=== PATIENT | male | born 1995 | race Caucasian/White ===

== ENCOUNTER 2018-05-14 09:32 | Emergency (ER) | payer MEDICAID, SELFPAY ==
[2018-05-14 09:36] VITALS: BP 130/75; PULSE 66; RESP 15; TEMP 37; O2SAT 99
[2018-05-14 09:41] LABS: Bilirubin Negative (Negative); Blood Large (Negative); Glucose Negative (Negative); Ketones Negative (Negative); Leukocyte Esterase Negative (Negative); Nitrite Negative (Negative); Specific Gravity 1.015 (1.005-1.025); Urobilinogen 0.2 EU/dL (Up TO 0.2)
[2018-05-14 09:42] LABS: Clarity Sl Cloudy
[2018-05-14 09:49] LABS: Bacteria Negative HPF (Negative); C & S Indicated? Yes; Casts Negative LPF (Negative); Crystals Negative HPF (Negative); Epithelial Cells Negative HPF (Negative); Mucus Negative (Negative); RBC >50 (0-2)
--- NOTE | 2018-05-14 10:07 | DI.US_ITS ---
SYMPTOM/DIAGNOSIS: RT FLANK PAIN, H/O STONES, HEMATURIA RENAL ULTRASOUND: 05/14/18 The kidneys are normal in size and shape and there is no evidence of a renal mass, hydronephrosis or nephrolithiasis. Urinary bladder is unremarkable in appearance with pre and post void urinary bladder volume measurements of 178 cc and 10 cc respectively. CONCLUSION: Unremarkable renal ultrasound.
[2018-05-14] MEDS: Normal Saline 1,000 ML 1000 ML IV (10:10)
--- NOTE | 2018-05-14 10:10 | W.ED.GENAD ---
Discharge Plan Discharge Details Chief Complaint: FlankPain Clinical Impression: Nephrolithiasis Reason For Visit: KIDNEY STONE? Primary Care Provider: Nicholas Perez ED Provider: Nicole Minaya Disposition Patient Disposition: HOME Condition: Improving Home Meds and New Rx's Prescriptions: Continue rizatriptan [Maxalt-TOBACCO SCRAP SIFTER] 10 MG tablet,disintegrating 10 mg PO PRN Qty: 3 RF: 1 carisoprodol [Soma] 350 MG tablet 350 mg PO TID PRN RF: 0 Discharge Instructions Instructions: Kidney Stones (ED) Additional Instructions: Please encourage hydration (with water). Tylenol and/or Motrin as needed for discomfort. administrative coordinator will contact you regarding follow up with urology. Number is listed below if you need to change appointment. If you develop fevers/chills, change in urinary habits, increased pain or other new/worsening symptoms please seek care urgently once again. Referrals: Jeffrey Max MD [ [facility] STAFF PHYSICIAN] - 2 weeks (For hematuria and possible nephrolithiasis) Discharge Data Discharge Date/Time-TO BE ENTERED AT DEPARTURE: 05/14/18 11:36 Medical Decision Making [facility] Narrative Medical decision making narrative: Patient is a 23 year old male presenting with chief complaint of hematuria and right sided flank pain that has been present on and off for the past few months. Reports that when the hematuria is subsided he does not have any discomfort. When the pain is maximal it can radiate around toward the RLQ. No abdominal pain on exam at this time. Patient did have right sided CVA tenderness. He reports that there is a large amount of blood in the toilet when urinating, denies clots. States that he has discomfort with urination. No penile discharge or discomfort. No blood from penis when not urinating. Patient and his mother have history of nephrolithiasis. Does not know if this feels similar to past episodes. Reports he does not drink water during the day. Is not currently employed. Will obtain labs, urination and renal US. Discussed plan with patient who agrees. We will hydrate while here, he appears dehydrated on exam. Labs reviewed. No leukocytosis. Kidney function WNL. Urinalysis signficant for hematuria. No bacteria, negative nitrite and leukocyte esterase. Per telecommunications technician, no abnormalities noted. No stone visualized. When patient returned from diagnostic imaging, he reports he was able to urinate again and no hematuria was noted. Reports this has happened before. When this last happened he was then asymptomatic for several weeks. REports that pain has now gone, no longer endorsing abdominal pain, testicular pain or flank pain. Is currently asymptomatic. Radiology report agrees with the home teaching grades 7 and 8 teacher. No acute abnormalities as noted. As the patient's symptoms have improved, is no longer feeling asymptomatic and his hematuria seems to have resolved, and concerned he may have passed a stone. He reports that he has done this on several occasions in the past. He does have history of nephrolithiasis. Encourage hydration. He will use Tylenol and/or ibuprofen as needed for recurrent discomfort. I have asked our child day care provider help facilitate follow-up appointment with Dr. Max for reevaluation. He was given strict return precautions. All his questions and concerns were addressed and he is in agreement with this plan Lab Data Lab Results 05/14/18 Range/Units 09:35 Urine Color [place] (Yellow) Urine Clarity Sl cloudy Urine pH 8.0 (5-8) Ur Specific [place] 1.015 (1.005-1.025) Urine Protein Negative (Negative) mg/dL Urine Ketones Negative (Negative) mg/dL Urine Blood Large H (Negative) Urine Nitrite Negative (Negative) Urine Bilirubin Negative (Negative) Urine Urobilinogen 0.2 (Up TO 0.2) EU/dL Ur Leukocyte Esterase Negative (Negative) Urine RBC >50 H (0-2) Urine WBC 5-10 (0-5) HPF Ur Epithelial Cells Negative (Negative) HPF Urine Crystals Negative (Negative) HPF Urine Bacteria Negative (Negative) HPF Urine Casts Negative (Negative) LPF Urine Mucus Negative (Negative) Ur Culture Indicated? Yes Urine Glucose Negative (Negative) mg/dL HPI - General Adult General Date/Time Provider Initiated Documentation: 05/14/18 09:57. Limitations to Documentation: no limitations. Information obtained by: patient and family. History of Present Illness 23 year old M presents to the emergency department with the chief complaint of Flank pain and hematuria, described as moderate, Quality is described as aching (right flank and RLQ) and constant, and is localized to the back, abdomen and genitals (right testicle with urination). Patient reports no radiation. and it has been constant (Patient has had constant pain since re-onset of symptoms over the past 24 hours, had had same symptoms a few weeks ago. ). No relieving factors improve symptom(s), Other factors that worsen symptoms (Pain is worse during urination) . Patient notes other (Denies penile discharge, no penile discomfort. States he has not had history of STI, is not sexually active. ); denies chest pain, cough, fever/chills, loss of appetite, malaise, nausea/vomiting and rash. Patient did receive the following treatments prior to arrival, none HPI Narrative: Patient presents, accompanied by mother, with chief complaint of right flank pain and hematuria. Related Data Home Medications Medication Instructions Recorded Confirmed carisoprodol [Soma] 350 mg PO TID PRN tab-cap 04/17/17 05/14/18 Allergies Allergy/AdvReac Type Severity Reaction Status Date / Time No Known Allergies Allergy Unverified 05/14/18 09:41 General Stated Complaint: FlankPain SCARLETT: 3 Review of Systems Constitutional Reports as per HPI, Denies anorexia, Denies body ache(s), Denies chills, Denies fever(s) and Denies poor appetite Cardiovascular Denies chest pain, Denies chest pain with activity and Denies edema Respiratory Denies cough Gastrointestinal Reports as per HPI, Reports abdominal pain (RLQ pain, pain worse prior to urination and associated with pain increased in the right flank. He indicates pain radiating around the right flank toward the RLQ and then to right testicle during urination. ), Denies bloating, Denies change in bowel habits, Denies cramping, Denies diarrhea, Denies loose stools, Denies nausea and Denies vomiting Genitourinary Reports as per HPI, Reports hematuria, Denies difficulty urinating, Denies erectile dysfunction, Reports flank pain (right flank), Denies painful ejaculations, Denies scrotal swelling, Denies testicular mass and Reports testicular pain Musculoskeletal Reports as per HPI and Reports back pain (Patient also endorses chronic back pain, reports this is more lumbar pain) [facility] Social History Smoking/Tobacco Use Status: Never Exam Const General: cooperative, healthy appearing, comfortable, no acute distress, well developed and well groomed Nutritional Appearance: average body habitus and thin Orientation: alert and awake HENMT Teeth and gingiva: other (Patient appears dehydrated with dry mucous membranes) Eyes General: appearance normal, both eyes and all related structures Chest Chest: normal inspection of the chest Resp Effort & Inspection: normal respiratory effort, able to speak in complete sentences and no respiratory distress Auscultation: clear to auscultation bilaterally Cardio Rate: regular rate Rhythm: regular rhythm Heart Sounds: S1 normal and S2 normal GI Inspection: normal to inspection, no abdominal wall ecchymosis, non-distended, no scars and no visible herniation Palpation: soft, no hepatosplenomegaly, not firm, no guarding, no pulsatile masses and nontender Percussion: normal to percussion Auscultation: normal bowel sounds Male General Exam: Yes normal external exam, No ecchymosis, No edema, No erythema, No hernia, No inguinal lymphadenopathy and No lacerations Penis: normal penis, no ecchymosis, not edematous and no masses Meatus: meatus normal Scrotum: scrotum normal, no ecchymosis, not edematous, not erythematous and no scrotal swelling Testes: normal, no epidiymal tenderness, no masses, no testicular tenderness and normal testicular lie Back/Spine/Pelvis Back: CVA tenderness (right sided), No erythema and No warmth Skin General skin exam: no rashes or lesions noted and no scars Neuro General: alert and awake Cognition: normal cognition Speech: speech normal Gait: normal gait Course Vital Signs Temperature 37 C 05/14/18 09:36 Pulse 66 05/14/18 09:36 Respiratory Rate 15 05/14/18 09:36 Blood Pressure 130/75 05/14/18 09:36 Pulse Oximetry 99 05/14/18 09:36 Temperature 37 C 05/14/18 09:36 Pulse 66 05/14/18 09:36 Respiratory Rate 15 05/14/18 09:36 Blood Pressure 130/75 05/14/18 09:36 Pulse Oximetry 99 05/14/18 09:36 Lab/Test Results Lab/Test Results: Laboratory Tests 05/14/18 09:35 Urine Color [place] Urine Clarity Sl cloudy Urine pH 8.0 Ur Specific [place] 1.015 Urine Protein Negative Urine Ketones Negative Urine Blood Large H Urine Nitrite Negative Urine Bilirubin Negative Urine Urobilinogen 0.2 Ur Leukocyte Esterase Negative Urine RBC >50 H Urine WBC 5-10 Ur Epithelial Cells Negative Urine Crystals Negative Urine Bacteria Negative Urine Casts Negative Urine Mucus Negative Ur Culture Indicated? Yes Urine Glucose Negative
[2018-05-14 10:22] LABS: Abs Immature Grans 0.01 k/cumm (0.0-0.09); Absolute Basophil Count 0.04 k/cumm (0.0-0.2); Absolute Eosinophil Count 0.19 k/cumm (0.0-0.7); Absolute Lymphocyte Count 2.04 k/cumm (1.2-3.4); Absolute Monocyte Count 0.29 k/cumm (0.11-0.7); Basophils % 0.9; Eosinophils % 4.1; HCT 41.8 % (40.0-50.0); HGB 14.5 g/dL (13.5-17.5); Immature Grans % 0.2; Lymphocytes % 43.7; Mean Corp. HGB Concentration 34.7 g/dL (32.0-36.0); Mean Corpuscular Hemoglobin 28.4 pg (27.0-33.0); Mean Platelet Volume 10.7 fL (8.0-11.0); Monocytes % 6.2; Neutrophils % 44.9; Platelet Count 210 x1000/uL (130-400); RBC Distribution Width 13.5 % (11.8-14.1); White Blood Cell Count 4.67 k/cumm (4.4-10.8)
--- NOTE | 2018-05-14 10:26 | ED.GENADUL_ITS ---
Discharge Plan Discharge Details Chief Complaint: FlankPain Clinical Impression: Nephrolithiasis Reason For Visit: KIDNEY STONE? Primary Care Provider: Nicholas Perez ED Provider: Nicole Minaya Disposition Patient Disposition: HOME Condition: Improving Home Meds and New Rx's Prescriptions: Continue rizatriptan [Maxalt-ACCIDENT EXAMINER] 10 MG tablet,disintegrating 10 mg PO PRN Qty: 3 RF: 1 carisoprodol [Soma] 350 MG tablet 350 mg PO TID PRN RF: 0 Discharge Instructions Instructions: Kidney Stones (ED) Additional Instructions: Please encourage hydration (with water). Tylenol and/or Motrin as needed for discomfort. physical therapy coordinator will contact you regarding follow up with urology. Number is listed below if you need to change appointment. If you develop fevers/chills, change in urinary habits, increased pain or other new/ worsening symptoms please seek care urgently once again. Referrals: Jeffrey Max MD [ [facility] STAFF PHYSICIAN] - 2 weeks (For hematuria and possible nephrolithiasis) Discharge Data Discharge Date/Time-TO BE ENTERED AT DEPARTURE: 05/14/18 11:36 Medical Decision Making [facility] Narrative Medical decision making narrative: Patient is a 23 year old male presenting with chief complaint of hematuria and right sided flank pain that has been present on and off for the past few months. Reports that when the hematuria is subsided he does not have any discomfort. When the pain is maximal it can radiate around toward the RLQ. No abdominal pain on exam at this time. Patient did have right sided CVA tenderness. He reports that there is a large amount of blood in the toilet when urinating, denies clots. States that he has discomfort with urination. No penile discharge or discomfort. No blood from penis when not urinating. Patient and his mother have history of nephrolithiasis. Does not know if this feels similar to past episodes. Reports he does not drink water during the day. Is not currently employed. Will obtain labs, urination and renal US. Discussed plan with patient who agrees. We will hydrate while here, he appears dehydrated on exam. Labs reviewed. No leukocytosis. Kidney function WNL. Urinalysis signficant for hematuria. No bacteria, negative nitrite and leukocyte esterase. Per electronics engineering technician, no abnormalities noted. No stone visualized. When patient returned from diagnostic imaging, he reports he was able to urinate again and no hematuria was noted. Reports this has happened before. When this last happened he was then asymptomatic for several weeks. REports that pain has now gone, no longer endorsing abdominal pain, testicular pain or flank pain. Is currently asymptomatic. Radiology report agrees with the hog trader. No acute abnormalities as noted. As the patient's symptoms have improved, is no longer feeling asymptomatic and his hematuria seems to have resolved, and concerned he may have passed a stone. He reports that he has done this on several occasions in the past. He does have history of nephrolithiasis. Encourage hydration. He will use Tylenol and/ or ibuprofen as needed for recurrent discomfort. I have asked our child care worker help facilitate follow-up appointment with Dr. Max for reevaluation. He was given strict return precautions. All his questions and concerns were addressed and he is in agreement with this plan Lab Data Lab Results 05/14/18 Range/Units 09:35 Urine Color [place] (Yellow) Urine Clarity Sl cloudy Urine pH 8.0 (5-8) Ur Specific [place] 1.015 (1.005-1.025) Urine Protein Negative (Negative) mg/dL Urine Ketones Negative (Negative) mg/dL Urine Blood Large H (Negative) Urine Nitrite Negative (Negative) Urine Bilirubin Negative (Negative) Urine Urobilinogen 0.2 (Up TO 0.2) EU/dL Ur Leukocyte Esterase Negative (Negative) Urine RBC >50 H (0-2) Urine WBC 5-10 (0-5) HPF Ur Epithelial Cells Negative (Negative) HPF Urine Crystals Negative (Negative) HPF Urine Bacteria Negative (Negative) HPF Urine Casts Negative (Negative) LPF Urine Mucus Negative (Negative) Ur Culture Indicated? Yes Urine Glucose Negative (Negative) mg/dL HPI - General Adult General Date/Time Provider Initiated Documentation: 05/14/18 09:57 . Limitations to Documentation: no limitations . Information obtained by: patient and family . History of Present Illness 23 year old M presents to the emergency department with the chief complaint of Flank pain and hematuria, described as moderate, Quality is described as aching (right flank and RLQ) and constant, and is localized to the back, abdomen and genitals (right testicle with urination). Patient reports no radiation. and it has been constant (Patient has had constant pain since re- onset of symptoms over the past 24 hours, had had same symptoms a few weeks ago. ). No relieving factors improve symptom(s), Other factors that worsen symptoms (Pain is worse during urination) . Patient notes other (Denies penile discharge, no penile discomfort. States he has not had history of STI, is not sexually active. ); denies chest pain, cough, fever/chills, loss of appetite, malaise, nausea/vomiting and rash. Patient did receive the following treatments prior to arrival, none HPI Narrative: Patient presents, accompanied by mother, with chief complaint of right flank pain and hematuria. Related Data Home Medications Medication Instructions Recorded Confirmed carisoprodol [Soma] 350 mg PO TID PRN tab-cap 04/17/17 05/14/18 Allergies Allergy/AdvReac Type Severity Reaction Status Date / Time No Known Allergies Allergy Unverified 05/14/18 09:41 General Stated Complaint: FlankPain SCARLETT: 3 Review of Systems Constitutional Reports as per HPI, Denies anorexia, Denies body ache(s), Denies chills, Denies fever(s) and Denies poor appetite Cardiovascular Denies chest pain, Denies chest pain with activity and Denies edema Respiratory Denies cough Gastrointestinal Reports as per HPI, Reports abdominal pain (RLQ pain, pain worse prior to urination and associated with pain increased in the right flank. He indicates pain radiating around the right flank toward the RLQ and then to right testicle during urination. ), Denies bloating, Denies change in bowel habits, Denies cramping, Denies diarrhea, Denies loose stools, Denies nausea and Denies vomiting Genitourinary Reports as per HPI, Reports hematuria, Denies difficulty urinating, Denies erectile dysfunction, Reports flank pain (right flank), Denies painful ejaculations, Denies scrotal swelling, Denies testicular mass and Reports testicular pain Musculoskeletal Reports as per HPI and Reports back pain (Patient also endorses chronic back pain, reports this is more lumbar pain) [facility] Social History Smoking/Tobacco Use Status: Never Exam Const General: cooperative, healthy appearing, comfortable, no acute distress, well developed and well groomed Nutritional Appearance: average body habitus and thin Orientation: alert and awake HENMT Teeth and gingiva: other (Patient appears dehydrated with dry mucous membranes) Eyes General: appearance normal, both eyes and all related structures Chest Chest: normal inspection of the chest Resp Effort & Inspection: normal respiratory effort, able to speak in complete sentences and no respiratory distress Auscultation: clear to auscultation bilaterally Cardio Rate: regular rate Rhythm: regular rhythm Heart Sounds: S1 normal and S2 normal GI Inspection: normal to inspection, no abdominal wall ecchymosis, non-distended, no scars and no visible herniation Palpation: soft, no hepatosplenomegaly, not firm, no guarding, no pulsatile masses and nontender Percussion: normal to percussion Auscultation: normal bowel sounds Male General Exam: Yes normal external exam, No ecchymosis, No edema, No erythema, No hernia, No inguinal lymphadenopathy and No lacerations Penis: normal penis, no ecchymosis, not edematous and no masses Meatus: meatus normal Scrotum: scrotum normal, no ecchymosis, not edematous, not erythematous and no scrotal swelling Testes: normal, no epidiymal tenderness, no masses, no testicular tenderness and normal testicular lie Back/Spine/Pelvis Back: CVA tenderness (right sided), No erythema and No warmth Skin General skin exam: no rashes or lesions noted and no scars Neuro General: alert and awake Cognition: normal cognition Speech: speech normal Gait: normal gait Course Vital Signs Temperature 37 C 05/14/18 09:36 Pulse 66 05/14/18 09:36 Respiratory Rate 15 05/14/18 09:36 Blood Pressure 130/75 05/14/18 09:36 Pulse Oximetry 99 05/14/18 09:36 Temperature 37 C 05/14/18 09:36 Pulse 66 05/14/18 09:36 Respiratory Rate 15 05/14/18 09:36 Blood Pressure 130/75 05/14/18 09:36 Pulse Oximetry 99 05/14/18 09:36 Lab/Test Results Lab/Test Results: Laboratory Tests 05/14/18 09:35 Urine Color [place] Urine Clarity Sl cloudy Urine pH 8.0 Ur Specific [place] 1.015 Urine Protein Negative Urine Ketones Negative Urine Blood Large H Urine Nitrite Negative Urine Bilirubin Negative Urine Urobilinogen 0.2 Ur Leukocyte Esterase Negative Urine RBC >50 H Urine WBC 5-10 Ur Epithelial Cells Negative Urine Crystals Negative Urine Bacteria Negative Urine Casts Negative Urine Mucus Negative Ur Culture Indicated? Yes Urine Glucose Negative
[2018-05-14 10:49] LABS: ALT 12 U/L (12-78); AST 12 U/L (15-37); Albumin 4.5 g/dL (3.4-5.0); Alkaline Phosphatase 46 U/L (46-116); Anion Gap 8.2 mmol/L (3-11); BUN 6 mg/dL (7-18); Bilirubin, Total 0.5 mg/dL (0.2-1.0); CO2 28.8 mmol/L (21.0-32.0); CREATININE 1.09 mg/dL (0.70-1.30); Calcium 9.1 mg/dL (8.5-10.1); Chloride 105 mmol/L (98-107); Glucose 92 mg/dL (70-100); Potassium 4.2 mmol/L (3.5-5.1); Sodium 142 mmol/L (136-145); Total Protein 7.4 g/dL (6.4-8.2)
[2018-05-14 11:40] VITALS: BP 133/74; PULSE 56; RESP 16; TEMP 37; O2SAT 100
--- NOTE | 2018-05-15 09:02 | PDOC.ERCMPRO ---
Care Management Progress Note 05/14-Nicole BACA requested assistance with a Urology appt in the new two weeks for hematuria. Referral faxed to [facility] this [facility].
== END 2018-05-14 11:36 | disposition home or self-care (01) ==
PROVIDERS: Emergency Medicine; Emergency Provider Physician Assistant; PCP Family Medicine
DX: R10.9 Unspecified abdominal pain (principal); R31.9 Hematuria, unspecified; Z87.442 Personal history of urinary calculi
CPT/HCPCS: 36415; 76770; 80053; 96360; 99285; 81003; 81015; 85025; 87086; 99282

== ENCOUNTER 2018-05-18 02:12 | Emergency (ER) | payer MEDICAID, SELFPAY ==
[2018-05-18 02:16] VITALS: BP 118/66; PULSE 72; RESP 16; TEMP 36.8; O2SAT 99
--- NOTE | 2018-05-18 02:34 | W.ED.GENAD ---
Discharge Plan Disposition Patient Disposition: HOME Condition: Improving Discharge Details Chief Complaint: Urinary Clinical Impression: Right nephrolithiasis, Ureterolithiasis Primary Care Provider: Nicholas Perez ED Provider: Tammy Preston Home Meds and New Rx's Prescriptions: New tamsulosin [Flomax] 0.4 mg capsule 0.4 mg PO DAILY Qty: 10 RF: 0 ondansetron [Zofran ODT] 4 mg tablet,disintegrating 4 mg PO TID PRN (Reason: nausea and vomiting) Qty: 6 RF: 0 oxycodone 5 mg tablet 5 mg PO Q6H PRN (Reason: pain) Qty: 12 RF: 0 Continue rizatriptan [Maxalt-CRYSTAL MOUNTER] 10 MG tablet,disintegrating 10 mg PO PRN Qty: 3 RF: 1 carisoprodol [Soma] 350 MG tablet 350 mg PO TID PRN RF: 0 Discharge Instructions Instructions: Kidney Stones (ED) Additional Instructions: Drink plenty of fluids. Use your strainer as directed. Take the Flomax as directed. Take the oxycodone as needed and directed for pain. Take the Zofran as needed and directed for nausea or vomiting. You should receive a call from care management regarding follow-up with urology Dr. Max within the next week. Urology clinic number is [phone]. Return immediately to the emergency department with any worsening or new concerning symptoms. Referrals: Jeffrey Max MD [ [facility] STAFF PHYSICIAN] - (Urology clinic [phone]) Discharge Data Discharge Physician: Tammy Preston Medical Decision Making [facility] Narrative Medical decision making narrative: 23-year-old male with a history of kidney stones who presents with right-sided flank and right lower quadrant abdominal pain with hematuria and dysuria for the past 5 days, worse tonight over the past 2 hours which awoke him from sleep. Patient was seen here on 05/14/18 for same complaint and had negative labs, large blood noted in urine and negative renal ultrasound. Patient had relief of pain while in the ED and it was thought he may have passed a kidney stone and he was discharged home. Vitals within normal limits. Patient appears uncomfortable holding his right flank. His abdomen is soft and mildly tender in the right lower quadrant. He is complaining also of right testicular pain and this is very mildly tender but no other signs of ecchymosis, edema or erythema. No CVA tenderness. We will place an IV, labs, urinalysis, bolus IV fluids, Toradol, Zofran and obtain a CT to rule out renal stone. 0330 --labs and imaging reviewed. Labs unremarkable. Normal white blood cell count and. CT notes a 4 mm calcification in the right hemipelvis adjacent to the iliac vessels which can likely be a phlebolith but the ureter cannot fully be seen and thus a ureteral stone is not completely excluded. In the setting of patient's right flank pain and urinary symptoms, issues with previous kidney stone, I suspect this is a kidney stone. Urinalysis just obtained and sent. Results discussed with patient. Patient does admit to some relief of pain with Toradol but states he is getting intermittent sharp pain in his right lower quadrant into the right testicle. He had no significant abnormalities noted on testicular exam and in the setting of the likely kidney stone on CT, I suspect this pain is referred from the ureter. Will give a dose of morphine and reassess. 0410 --urinalysis notes 5-10 WBCs with greater than 50 RBCs. There is moderate bacteria and few epithelial cells. He does have negative nitrite and negative leukocyte esterase. A urine culture will be sent but I am not overwhelmingly convinced this is an acute UTI as patient has no fever, normal white blood cell count, and negative leukocyte esterase. 0445 --patient feels much better and is requesting to go home. He states he is still having intermittent testicular pain but this is improving which we discussed is likely from the ureterolithiasis. I do not see any exam findings consistent with testicular torsion. Patient was offered admission but would rather go home. Will place patient on care management list to arrange for a follow-up appointment with Dr. Max within the next week. Patient was instructed to return immediately to the emergency department with any worsening symptoms. Patient with 2 tabs of oxycodone and Zofran for home. He was notified that he will be contacted if any urine culture results are positive and will hold on Plavix at this time and he is agreeable with this plan. HPI - General Adult General Mode of arrival: ambulatory. Date/Time Provider Initiated Documentation: 05/18/18 02:19. Limitations to Documentation: no limitations. Information obtained by: patient. HPI Narrative: Patient is a 23-year-old male with history of kidney stones who presents to the ER with complaint of right sided flank and right lower quadrant abdominal pain for the past 5 days associated with hematuria and dysuria. Patient was seen here 3 days ago for the same complaint and diagnosed with a possible kidney stone and discharged home. Patient states his symptoms became worse over the last 2 hours which awoke him from sleep. He also states he has been unable to urinate since the pain started. He denies known fever, vomiting, diarrhea, penile discharge. Patient states he is not sexually active for the past year and denies any known exposure, external lesions. Past medical history: Kidney stone Surgical history: Elbow Social history: Occasional marijuana, denies alcohol or smoking tobacco Patient's: Denies Allergies: JHON PCP: Dr. Perez Related Data Home Medications Medication Instructions Recorded Confirmed carisoprodol [Soma] 350 mg PO TID PRN tab-cap 04/17/17 05/18/18 Previous Rx's Medication Instructions Recorded ondansetron [Zofran ODT] 4 mg PO TID PRN #6 tab 05/18/18 oxycodone 5 mg PO Q6H PRN #12 tab 05/18/18 tamsulosin [Flomax] 0.4 mg PO DAILY #10 cap 05/18/18 Allergies Allergy/AdvReac Type Severity Reaction Status Date / Time No Known Allergies Allergy Unverified 05/18/18 02:17 General Stated Complaint: Urinary SCARLETT: 3 Review of Systems Review of Systems All systems reviewed & are unremarkable except as noted in HPI and below Constitutional Denies chills, Denies excessive sweating, Denies fatigue, Denies fever(s), Denies weakness and Denies weight loss Eyes Patient Reports system reviewed and no additional complaints, except as docu and Denies blurry vision ENT Denies vertigo, Denies dizziness, Denies otalgia, Denies nasal congestion, Denies sore throat and Denies throat swelling Cardiovascular Denies chest pain, Denies syncope, Denies rapid heart rate and Denies dyspnea Respiratory Denies dyspnea Gastrointestinal Denies abdominal pain, Denies diarrhea and Denies vomiting Genitourinary Reports hematuria, Reports dysuria, Reports flank pain, Denies penile discharge, Reports testicular pain (Right side), Denies urinary frequency and Denies urinary urgency Musculoskeletal Denies joint swelling Integumentary/Breasts Denies lesions and Denies rash Neurologic Denies behavioral changes, Denies confusion, Denies vertigo, Denies dizziness, Denies syncope and Denies weakness Psychiatric Denies behavioral changes, Denies confusion and Denies depression Endocrine Denies excessive sweating and Denies fatigue Hematologic/Lymphatic Denies easy bruising and Denies lymphadenopathy Allergic/Immunologic Denies throat swelling PFSH Social History Smoking/Tobacco Use Status: Never Exam Const General: cooperative, healthy appearing and in distress moderate (Holding his right flank with his hand) Orientation: alert and awake HENKY Head: normal to inspection Ears: hearing grossly normal bilaterally, external ears normal and TM's normal bilaterally General nose exam: external nose normal Face and sinus: normal facial exam Mouth: oral mucosae normal Eyes General: appearance normal, both eyes and all related structures Eyelids: eyelids normal EOM: EOM intact bilaterally Neck Neck: normal visual inspection Lymphatic: no lymphadenopathy noted Chest Chest: normal inspection of the chest Resp Effort & Inspection: normal respiratory effort and able to speak in complete sentences Auscultation: clear to auscultation bilaterally Cardio Rate: regular rate Rhythm: regular rhythm GI Inspection: normal to inspection Palpation: soft, not firm, no guarding, no hepatosplenomegaly, no masses and tender (Right mid and right lower quad) Auscultation: normal bowel sounds Scrotum: scrotum normal Testes: no masses, no testicular mass, no testicular swelling, testicular tenderness (Minimal) on the right and normal testicular lie Other: Left testicle normal to palpation and inspection Back/Spine/Pelvis Back: no CVA tenderness Skin General skin exam: no rashes or lesions noted Neuro General: alert and awake Cognition: normal cognition Speech: speech normal Gait: normal gait Motor: muscle tone normal throughout Sensory Exam: no sensory deficits noted Extrem General: normal to inspection, full ROM and normal capillary refill Psych Appearance: grossly normal Mental Status: mental status grossly normal Speech and Movement: speech and movement normal Affect: normal affect Thought Process: normal Course Vital Signs Temperature 98.2 F 05/18/18 02:16 Pulse 72 05/18/18 02:16 Respiratory Rate 16 05/18/18 02:16 Blood Pressure 118/66 05/18/18 02:16 Pulse Oximetry 99 05/18/18 02:16 Temperature 98.2 F 05/18/18 02:16 Pulse 72 05/18/18 02:16 Respiratory Rate 16 05/18/18 02:16 Blood Pressure 118/66 05/18/18 02:16 Pulse Oximetry 99 05/18/18 02:16
[2018-05-18] MEDS: Normal Saline 1,000 ML 1000 ML IV ×2 (02:38→03:30)
[2018-05-18] MEDS: Ondansetron 4 MG/2 ML VIAL IVP (02:40)
[2018-05-18] MEDS: Ketorolac 30 MG/ML VIAL IVP (02:42)
--- NOTE | 2018-05-18 02:42 | ED.GENADUL_ITS ---
Discharge Plan Disposition Patient Disposition: HOME Condition: Improving Discharge Details Chief Complaint: Urinary Clinical Impression: Right nephrolithiasis, Ureterolithiasis Primary Care Provider: Nicholas Perez ED Provider: Tammy Preston Home Meds and New Rx's Prescriptions: New tamsulosin [Flomax] 0.4 mg capsule 0.4 mg PO DAILY Qty: 10 RF: 0 ondansetron [Zofran ODT] 4 mg tablet,disintegrating 4 mg PO TID PRN (Reason: nausea and vomiting) Qty: 6 RF: 0 oxycodone 5 mg tablet 5 mg PO Q6H PRN (Reason: pain) Qty: 12 RF: 0 Continue rizatriptan [Maxalt-BABBITT SPINNER] 10 MG tablet,disintegrating 10 mg PO PRN Qty: 3 RF: 1 carisoprodol [Soma] 350 MG tablet 350 mg PO TID PRN RF: 0 Discharge Instructions Instructions: Kidney Stones (ED) Additional Instructions: Drink plenty of fluids. Use your strainer as directed. Take the Flomax as directed. Take the oxycodone as needed and directed for pain. Take the Zofran as needed and directed for nausea or vomiting. You should receive a call from care management regarding follow-up with urology Dr. Max within the next week. Urology clinic number is [phone]. Return immediately to the emergency department with any worsening or new concerning symptoms. Referrals: Jeffrey Max MD [ [facility] STAFF PHYSICIAN] - (Urology clinic [phone]) Discharge Data Discharge Physician: Tammy Preston Medical Decision Making [facility] Narrative Medical decision making narrative: 23-year-old male with a history of kidney stones who presents with right-sided flank and right lower quadrant abdominal pain with hematuria and dysuria for the past 5 days, worse tonight over the past 2 hours which awoke him from sleep. Patient was seen here on 05/14/18 for same complaint and had negative labs, large blood noted in urine and negative renal ultrasound. Patient had relief of pain while in the ED and it was thought he may have passed a kidney stone and he was discharged home. Vitals within normal limits. Patient appears uncomfortable holding his right flank. His abdomen is soft and mildly tender in the right lower quadrant. He is complaining also of right testicular pain and this is very mildly tender but no other signs of ecchymosis, edema or erythema. No CVA tenderness. We will place an IV, labs, urinalysis, bolus IV fluids, Toradol, Zofran and obtain a CT to rule out renal stone. 0330 --labs and imaging reviewed. Labs unremarkable. Normal white blood cell count and. CT notes a 4 mm calcification in the right hemipelvis adjacent to the iliac vessels which can likely be a phlebolith but the ureter cannot fully be seen and thus a ureteral stone is not completely excluded. In the setting of patient's right flank pain and urinary symptoms, issues with previous kidney stone, I suspect this is a kidney stone. Urinalysis just obtained and sent. Results discussed with patient. Patient does admit to some relief of pain with Toradol but states he is getting intermittent sharp pain in his right lower quadrant into the right testicle. He had no significant abnormalities noted on testicular exam and in the setting of the likely kidney stone on CT, I suspect this pain is referred from the ureter. Will give a dose of morphine and reassess. 0410 --urinalysis notes 5-10 WBCs with greater than 50 RBCs. There is moderate bacteria and few epithelial cells. He does have negative nitrite and negative leukocyte esterase. A urine culture will be sent but I am not overwhelmingly convinced this is an acute UTI as patient has no fever, normal white blood cell count, and negative leukocyte esterase. 0445 --patient feels much better and is requesting to go home. He states he is still having intermittent testicular pain but this is improving which we discussed is likely from the ureterolithiasis. I do not see any exam findings consistent with testicular torsion. Patient was offered admission but would rather go home. Will place patient on care management list to arrange for a follow-up appointment with Dr. Max within the next week. Patient was instructed to return immediately to the emergency department with any worsening symptoms. Patient with 2 tabs of oxycodone and Zofran for home. He was notified that he will be contacted if any urine culture results are positive and will hold on Plavix at this time and he is agreeable with this plan. HPI - General Adult General Mode of arrival: ambulatory . Date/Time Provider Initiated Documentation: 05/18/18 02:19 . Limitations to Documentation: no limitations . Information obtained by: patient . HPI Narrative: Patient is a 23-year-old male with history of kidney stones who presents to the ER with complaint of right sided flank and right lower quadrant abdominal pain for the past 5 days associated with hematuria and dysuria. Patient was seen here 3 days ago for the same complaint and diagnosed with a possible kidney stone and discharged home. Patient states his symptoms became worse over the last 2 hours which awoke him from sleep. He also states he has been unable to urinate since the pain started. He denies known fever, vomiting , diarrhea, penile discharge. Patient states he is not sexually active for the past year and denies any known exposure, external lesions. Past medical history: Kidney stone Surgical history: Elbow Social history: Occasional marijuana, denies alcohol or smoking tobacco Patient's: Denies Allergies: JHON PCP: Dr. Perez Related Data Home Medications Medication Instructions Recorded Confirmed carisoprodol [Soma] 350 mg PO TID PRN tab-cap 04/17/17 05/18/18 Previous Rx's Medication Instructions Recorded ondansetron [Zofran ODT] 4 mg PO TID PRN #6 tab 05/18/18 oxycodone 5 mg PO Q6H PRN #12 tab 05/18/18 tamsulosin [Flomax] 0.4 mg PO DAILY #10 cap 05/18/18 Allergies Allergy/AdvReac Type Severity Reaction Status Date / Time No Known Allergies Allergy Unverified 05/18/18 02:17 General Stated Complaint: Urinary SCARLETT: 3 Review of Systems Review of Systems All systems reviewed & are unremarkable except as noted in HPI and below Constitutional Denies chills, Denies excessive sweating, Denies fatigue, Denies fever(s), Denies weakness and Denies weight loss Eyes Patient Reports system reviewed and no additional complaints, except as docu and Denies blurry vision ENT Denies vertigo, Denies dizziness, Denies otalgia, Denies nasal congestion, Denies sore throat and Denies throat swelling Cardiovascular Denies chest pain, Denies syncope, Denies rapid heart rate and Denies dyspnea Respiratory Denies dyspnea Gastrointestinal Denies abdominal pain, Denies diarrhea and Denies vomiting Genitourinary Reports hematuria, Reports dysuria, Reports flank pain, Denies penile discharge , Reports testicular pain (Right side), Denies urinary frequency and Denies urinary urgency Musculoskeletal Denies joint swelling Integumentary/Breasts Denies lesions and Denies rash Neurologic Denies behavioral changes, Denies confusion, Denies vertigo, Denies dizziness, Denies syncope and Denies weakness Psychiatric Denies behavioral changes, Denies confusion and Denies depression Endocrine Denies excessive sweating and Denies fatigue Hematologic/Lymphatic Denies easy bruising and Denies lymphadenopathy Allergic/Immunologic Denies throat swelling PFSH Social History Smoking/Tobacco Use Status: Never Exam Const General: cooperative, healthy appearing and in distress moderate (Holding his right flank with his hand) Orientation: alert and awake HENDC Head: normal to inspection Ears: hearing grossly normal bilaterally, external ears normal and TM's normal bilaterally General nose exam: external nose normal Face and sinus: normal facial exam Mouth: oral mucosae normal Eyes General: appearance normal, both eyes and all related structures Eyelids: eyelids normal EOM: EOM intact bilaterally Neck Neck: normal visual inspection Lymphatic: no lymphadenopathy noted Chest Chest: normal inspection of the chest Resp Effort & Inspection: normal respiratory effort and able to speak in complete sentences Auscultation: clear to auscultation bilaterally Cardio Rate: regular rate Rhythm: regular rhythm GI Inspection: normal to inspection Palpation: soft, not firm, no guarding, no hepatosplenomegaly, no masses and tender (Right mid and right lower quad) Auscultation: normal bowel sounds Scrotum: scrotum normal Testes: no masses, no testicular mass, no testicular swelling, testicular tenderness (Minimal) on the right and normal testicular lie Other: Left testicle normal to palpation and inspection Back/Spine/Pelvis Back: no CVA tenderness Skin General skin exam: no rashes or lesions noted Neuro General: alert and awake Cognition: normal cognition Speech: speech normal Gait: normal gait Motor: muscle tone normal throughout Sensory Exam: no sensory deficits noted Extrem General: normal to inspection, full ROM and normal capillary refill Psych Appearance: grossly normal Mental Status: mental status grossly normal Speech and Movement: speech and movement normal Affect: normal affect Thought Process: normal Course Vital Signs Temperature 98.2 F 05/18/18 02:16 Pulse 72 05/18/18 02:16 Respiratory Rate 16 05/18/18 02:16 Blood Pressure 118/66 05/18/18 02:16 Pulse Oximetry 99 05/18/18 02:16 Temperature 98.2 F 05/18/18 02:16 Pulse 72 05/18/18 02:16 Respiratory Rate 16 05/18/18 02:16 Blood Pressure 118/66 05/18/18 02:16 Pulse Oximetry 99 05/18/18 02:16
[2018-05-18 02:50] LABS: Abs Immature Grans 0.01 k/cumm (0.0-0.09); Absolute Basophil Count 0.02 k/cumm (0.0-0.2); Absolute Eosinophil Count 0.28 k/cumm (0.0-0.7); Absolute Monocyte Count 0.55 k/cumm (0.11-0.7); Absolute Neutrophil Count 2.53 k/cumm (1.2-6.7); Basophils % 0.3; Eosinophils % 3.5; HCT 40.8 % (40.0-50.0); HGB 14.2 g/dL (13.5-17.5); Immature Grans % 0.1; Lymphocytes % 57.6; Mean Corp. HGB Concentration 34.8 g/dL (32.0-36.0); Mean Corpuscular Hemoglobin 28.5 pg (27.0-33.0); Mean Corpuscular Volume 81.9 fL (80-95); Mean Platelet Volume 10.8 fL (8.0-11.0); Monocytes % 6.9; Neutrophils % 31.6; Platelet Count 255 x1000/uL (130-400); RBC 4.98 m/cumm (4.50-6.00); RBC Distribution Width 13.4 % (11.8-14.1); White Blood Cell Count 7.99 k/cumm (4.4-10.8)
--- NOTE | 2018-05-18 03:00 | DI.CT_ITS ---
SYMPTOMS/DIAGNOSIS: RIGHT FLANK AND RIGHT LOWER QUADRANT PAIN X 3 DAYS, BLOOD IN URINE, ? KIDNEY STONES CT OF THE ABDOMEN AND PELVIS: A noncontrast exam was performed. There are several tiny nonobstructing right renal calculi. There is no evidence of hydronephrosis. The bladder is unremarkable. No left renal calculi are seen. The appendix appears normal. There is no bowel dilatation or wall thickening. The liver, spleen, adrenals, pancreas and gallbladder are unremarkable without IV contrast. IMPRESSION: Small nonobstructing right renal calculi.
[2018-05-18 03:04] LABS: ALT 11 U/L (12-78); AST 9 U/L (15-37); Albumin 4.3 g/dL (3.4-5.0); Alkaline Phosphatase 53 U/L (46-116); Anion Gap 6.1 mmol/L (3-11); BUN 13 mg/dL (7-18); Bilirubin, Total 0.6 mg/dL (0.2-1.0); CO2 28.9 mmol/L (21.0-32.0); CREATININE 1.15 mg/dL (0.70-1.30); Calcium 8.7 mg/dL (8.5-10.1); Chloride 104 mmol/L (98-107); Glucose 95 mg/dL (70-100); Potassium 3.8 mmol/L (3.5-5.1); Sodium 139 mmol/L (136-145); Total Protein 7.3 g/dL (6.4-8.2)
--- NOTE | 2018-05-18 03:23 | DI.VRAD_ITS ---
EXAM: CT Abdomen and Pelvis Without Intravenous Contrast CLINICAL HISTORY: 23 years old, male; Pain; Abdominal pain and other: R flank; Localized; Right lower quadrant (rlq); Patient HX: R flank pain, and rlq pain x 3 days, blood in urine TECHNIQUE: Axial computed tomography images of the abdomen and pelvis without intravenous contrast. All CT scans at this facility use at least one of these dose optimization techniques: automated exposure control; mA and/or kV adjustment per patient size (includes targeted exams where dose is matched to clinical indication); or iterative reconstruction. Coronal and sagittal reformatted images were created and reviewed. COMPARISON: MRI - PELVIS WO CONTRAST 08/03/2015 3:52 PM FINDINGS: Lung bases: Unremarkable. No mass. No consolidation. ABDOMEN: Liver: Unremarkable. Gallbladder and bile ducts: Unremarkable. No calcified stones. No ductal dilation. Pancreas: Unremarkable. No ductal dilation. Spleen: Unremarkable. No splenomegaly. Adrenals: Unremarkable. No mass. Kidneys and ureters: A few small nonobstructing right renal calculi measuring up to 2 mm. 4 mm calcification in the right hemipelvis adjacent to the iliac vessels. Likely phleboliths given the lack of hydronephrosis. The ureter however cannot be seen in this region thus a ureteral stone not completely excluded. Stomach and bowel: Unremarkable. No obstruction. No mucosal thickening. PELVIS: Appendix: Normal appendix. Bladder: Unremarkable. No stones. Reproductive: Unremarkable as visualized. ABDOMEN and PELVIS: Intraperitoneal space: Unremarkable. No free air. No significant fluid collection. Bones/joints: No acute fracture. No dislocation. Soft tissues: Unremarkable. Vasculature: Unremarkable. No abdominal aortic aneurysm. Lymph nodes: Unremarkable. No enlarged lymph nodes. IMPRESSION: Right-sided nephrolithiasis. Dictated and Authenticated by: Nura Liao MD. Ordering:NAHED GOLDBERG MD
[2018-05-18 03:32] LABS: Bilirubin Negative (Negative); Blood Large (Negative); Glucose Negative (Negative); Ketones Negative (Negative); Leukocyte Esterase Negative (Negative); Nitrite Negative (Negative); Specific Gravity >= 1.030 (1.005-1.025); Urobilinogen 0.2 EU/dL (Up TO 0.2)
[2018-05-18 03:45] LABS: Clarity Sl Cloudy
[2018-05-18 03:46] LABS: Bacteria Moderate HPF (Negative); C & S Indicated? Yes; Casts Negative LPF (Negative); Crystals Negative HPF (Negative); Epithelial Cells Few HPF (Negative); Mucus Moderate (Negative); Other Cells Few Yeast (Negative); RBC >50 (0-2)
[2018-05-18] MEDS: Tamsulosin 0.4 MG CAPCR PO (03:48)
[2018-05-18] MEDS: MORPHine 10 MG/ML VIAL 4 MG IVP ×2 (03:48→05:04)
[2018-05-18 04:31] VITALS: BP 106/59; PULSE 66; RESP 16; O2SAT 100
[2018-05-18] MEDS: Ondansetron O.D.T. 4 MG TABEF (05:19)
[2018-05-18] MEDS: Ondansetron O.D.T. 4 MG TABEF PO (05:20)
[2018-05-18] MEDS: oxyCODONE 5 MG TAB PO (05:20)
[2018-05-18 05:21] VITALS: BP 118/70; PULSE 57; RESP 16; O2SAT 99
[2018-05-18] MEDS: oxyCODONE 5 MG TAB (05:21)
--- NOTE | 2018-05-20 08:43 | PDOC.ERCMPRO ---
Care Management Progress Note 05/20/18-Pt seen on 05/18/[address] Tonya Preston for kidney stones. Referral for f/u this week faxed to Dr. Max.
--- NOTE | 2018-05-20 08:44 | CMPROGNOTE_ITS ---
Care Management Progress Note 05/20/18-Pt seen on 05/18/[address] Tonya Preston for kidney stones. Referral for f/ u this week faxed to Dr. Max.
== END 2018-05-18 05:40 | disposition home or self-care (01) ==
LOC: ER 05:40
PROVIDERS: Emergency Provider Physician Assistant; PCP Family Medicine
DX: R10.31 Right lower quadrant pain (principal); N20.2 Calculus of kidney with calculus of ureter; Z87.442 Personal history of urinary calculi
CPT/HCPCS: 36415; 80053; 96361; 96374; 96375; 96376; 99284; 74176; 81003; 81015; 85025; 87086; 99285; J1885; J2270; J2405

== ENCOUNTER 2018-06-02 11:09 | Emergency (ER) | payer MEDICAID, SELFPAY ==
[2018-06-02 11:15] VITALS: BP 128/85; PULSE 86; RESP 16; TEMP 36.8; O2SAT 100
[2018-06-02] MEDS: Normal Saline 1,000 ML 1000 ML IV (11:25)
--- NOTE | 2018-06-02 11:25 | DI.RAD_ITS ---
SYMPTOM/DIAGNOSIS: RT LOW ABD PAIN, H/O RENAL CALCULI ACUTE ABDOMINAL SERIES: Comparison is made with 04/02/13. PA CHEST: The heart is normal in size. The lungs are clear. The mediastinal structures and pleura appear intact. CONCLUSION: Normal chest. FPA AND UPRIGHT ABDOMEN; No evidence for organomegaly, pneumoperitoneum or bowel obstruction. The bones and joints are intact. There are a few tiny calcifications seen in the pelvis which are likely phleboliths. IMPRESSION: No evidence of an acute abdomen. Calcifications in the pelvis which may reflect phleboliths. Ureteral calculi cannot be entirely excluded. If there is continued concern for obstructive uropathy, renal colic CT should be considered.
[2018-06-02] MEDS: Ondansetron 4 MG/2 ML VIAL IVP (11:33)
[2018-06-02] MEDS: Ketorolac 30 MG/ML VIAL IVP (11:34)
--- NOTE | 2018-06-02 11:34 | W.ED.GENAD ---
Discharge Plan Discharge Details Chief Complaint: FlankPain Primary Care Provider: Nicholas Perez ED Provider: Nigel Sprague Home Meds and New Rx's Prescriptions: No Action rizatriptan [Maxalt-PRODUCT MARKETING CONSULTANT] 10 MG tablet,disintegrating 10 mg PO PRN Qty: 3 RF: 1 carisoprodol [Soma] 350 MG tablet 350 mg PO TID PRN RF: 0 tamsulosin [Flomax] 0.4 mg capsule 0.4 mg PO DAILY Qty: 10 RF: 0 ondansetron [Zofran ODT] 4 mg tablet,disintegrating 4 mg PO TID PRN (Reason: nausea and vomiting) Qty: 6 RF: 0 Medical Decision Making 23-year-old male stone former presents with right flank pain beginning hours prior to arrival. He arrives afebrile with normal vital signs. His review of records reveals recent CT scan on May 20 with numerous punctate intrarenal calculi on the affected side. Patient IV access established, referred for screening labs, urinalysis, abdominal flat plate. Patient is moderate hematuria, unremarkable CBC and chemistries. His pain is significantly improved following the administration of parenteral medications. Review of flatplate x-ray does not reveal obvious punctate calcification. No other acute findings. This is consistent with ureteral colic. I do not feel that further CT imaging is indicated at this time. Patient has prestanding plans to follow-up with Dr. Max in urology. Patient with a prescription for small amount of her narcotic analgesia, I reviewed and consented the patient for the use of this. I do feel may require this for severe pain. He understands return precautions to the emergency depart Medical Records Medical records reviewed: Yes I reviewed the patient's medical records. HPI General Mode of arrival: ambulatory. Date/Time Provider Initiated Documentation: 06/02/18 11:11. Limitations to Documentation: no limitations. Information obtained by: patient and family. History of Present Illness 23 year old M presents to the emergency department with the chief complaint of Right flank pain, described as severe, Quality is described as burning and sharp, and is localized to the back, abdomen and right. Patient reports radiation to back. Patient started experiencing this hour(s) and it has been constant. No exacerbating factors reported . Patient notes no other symptoms.. Patient did receive the following treatments prior to arrival, none HPI Narrative: 23-year-old male stone former with CT scan from May 20 which revealed punctate right renal calculi. He states that he presents for the abrupt onset of severe right flank pain that began this morning 1 trying to go to the bathroom. Similar to previous kidney stones. States that he plans to follow-up with Dr. Max. He has not had a fever. He has otherwise been well. He has had associated vomiting Related Data Home Medications Medication Instructions Recorded Confirmed rizatriptan [Maxalt-PRODUCT MARKETING CONSULTANT] 10 mg PO PRN #3 tab 12/14/15 06/02/18 carisoprodol [Soma] 350 mg PO TID PRN tab-cap 04/17/17 06/02/18 ondansetron [Zofran ODT] 4 mg PO TID PRN #6 tab 05/18/18 06/02/18 tamsulosin [Flomax] 0.4 mg PO DAILY #10 cap 05/18/18 06/02/18 Previous Rx's Medication Instructions Recorded ondansetron [Zofran ODT] 4 mg PO TID PRN #6 tab 05/18/18 tamsulosin [Flomax] 0.4 mg PO DAILY #10 cap 05/18/18 Allergies Allergy/AdvReac Type Severity Reaction Status Date / Time No Known Allergies Allergy Unverified 06/02/18 11:18 General Stated Complaint: FlankPain SCARLETT: 3 Review of Systems Review of Systems 8 systems reviewed and otherwise negative [facility] Social History Smoking/Tobacco Use Status: Never substance use type: marijuana Exam Narrative Exam Narrative: GEN: awake, alert, oriented 3. Pleasant, well groomed, interactive, moderate distress. HEAD: Normocephalic, atraumatic ENT: Mucous membranes moist, oropharynx unremarkable, External ear exam unremarkable EYES: PERRL, EOMI NECK: Full ROM, no KATHLEEN, no menigismus CHEST/RESP: Nontender, clear to auscultation bilateral, no wheeze/rhonchi/rales CARDIOVASCULAR: RRR, no murmur, rub hal. 2+ Rad pulse bilateral ABDOMEN: Soft, tender in the right lower quadrant without rebound or guarding, no mass. +Bowel sounds. Back exam reveals right flank tenderness to percussion EXT: Full ROM, no edema, no rash Neuro: Grossly normal neurologic exam, conversant, interactive. Psych: Speech fluent, thoughts congruent, affect normal Course Vital Signs Temperature 36.8 C 06/02/18 11:15 Pulse 86 06/02/18 11:15 Respiratory Rate 16 06/02/18 11:15 Blood Pressure 128/85 06/02/18 11:15 Pulse Oximetry 100 06/02/18 11:15 Temperature 36.8 C 06/02/18 11:15 Temperature Source Skin 06/02/18 11:15 Pulse 86 06/02/18 11:15 Respiratory Rate 16 06/02/18 11:15 Respiratory Effort 06/02/18 11:15 Blood Pressure 128/85 06/02/18 11:15 Pulse Oximetry 100 06/02/18 11:15 Oxygen Delivery Method Room Air 06/02/18 11:15 Oxygen Flow Rate 0 06/02/18 11:15 Pain Level 10 06/02/18 11:20
[2018-06-02] MEDS: HYDROmorphone 2 MG/ML VIAL 0.5 MG IVP (11:35)
--- NOTE | 2018-06-02 11:38 | ED.GENADUL_ITS ---
Discharge Plan Discharge Details Chief Complaint: FlankPain Primary Care Provider: Nicholas Perez ED Provider: Nigel Sprague Home Meds and New Rx's Prescriptions: No Action rizatriptan [Maxalt-RECEIVER STOCKER] 10 MG tablet,disintegrating 10 mg PO PRN Qty: 3 RF: 1 carisoprodol [Soma] 350 MG tablet 350 mg PO TID PRN RF: 0 tamsulosin [Flomax] 0.4 mg capsule 0.4 mg PO DAILY Qty: 10 RF: 0 ondansetron [Zofran ODT] 4 mg tablet,disintegrating 4 mg PO TID PRN (Reason: nausea and vomiting) Qty: 6 RF: 0 Medical Decision Making 23-year-old male stone former presents with right flank pain beginning hours prior to arrival. He arrives afebrile with normal vital signs. His review of records reveals recent CT scan on May 20 with numerous punctate intrarenal calculi on the affected side. Patient IV access established, referred for screening labs, urinalysis, abdominal flat plate. Patient is moderate hematuria, unremarkable CBC and chemistries. His pain is significantly improved following the administration of parenteral medications. Review of flatplate x-ray does not reveal obvious punctate calcification. No other acute findings. This is consistent with ureteral colic. I do not feel that further CT imaging is indicated at this time. Patient has prestanding plans to follow-up with Dr. Max in urology. Patient with a prescription for small amount of her narcotic analgesia, I reviewed and consented the patient for the use of this. I do feel may require this for severe pain. He understands return precautions to the emergency depart Medical Records Medical records reviewed: Yes I reviewed the patient's medical records. HPI General Mode of arrival: ambulatory . Date/Time Provider Initiated Documentation: 06/02/18 11:11 . Limitations to Documentation: no limitations . Information obtained by: patient and family . History of Present Illness 23 year old M presents to the emergency department with the chief complaint of Right flank pain, described as severe, Quality is described as burning and sharp, and is localized to the back, abdomen and right. Patient reports radiation to back. Patient started experiencing this hour(s) and it has been constant. No exacerbating factors reported . Patient notes no other symptoms.. Patient did receive the following treatments prior to arrival, none HPI Narrative: 23-year-old male stone former with CT scan from May 20 which revealed punctate right renal calculi. He states that he presents for the abrupt onset of severe right flank pain that began this morning 1 trying to go to the bathroom. Similar to previous kidney stones. States that he plans to follow-up with Dr. Max. He has not had a fever. He has otherwise been well. He has had associated vomiting Related Data Home Medications Medication Instructions Recorded Confirmed rizatriptan [Maxalt-RECEIVER STOCKER] 10 mg PO PRN #3 tab 12/14/15 06/02/18 carisoprodol [Soma] 350 mg PO TID PRN tab-cap 04/17/17 06/02/18 ondansetron [Zofran ODT] 4 mg PO TID PRN #6 tab 05/18/18 06/02/18 tamsulosin [Flomax] 0.4 mg PO DAILY #10 cap 05/18/18 06/02/18 Previous Rx's Medication Instructions Recorded ondansetron [Zofran ODT] 4 mg PO TID PRN #6 tab 05/18/18 tamsulosin [Flomax] 0.4 mg PO DAILY #10 cap 05/18/18 Allergies Allergy/AdvReac Type Severity Reaction Status Date / Time No Known Allergies Allergy Unverified 06/02/18 11:18 General Stated Complaint: FlankPain SCARLETT: 3 Review of Systems Review of Systems 8 systems reviewed and otherwise negative [facility] Social History Smoking/Tobacco Use Status: Never substance use type: marijuana Exam Narrative Exam Narrative: GEN: awake, alert, oriented 3. Pleasant, well groomed, interactive, moderate distress. HEAD: Normocephalic, atraumatic ENT: Mucous membranes moist, oropharynx unremarkable, External ear exam unremarkable EYES: PERRL, EOMI NECK: Full ROM, no KATHLEEN, no menigismus CHEST/RESP: Nontender, clear to auscultation bilateral, no wheeze/rhonchi/rales CARDIOVASCULAR: RRR, no murmur, rub hal. 2+ Rad pulse bilateral ABDOMEN: Soft, tender in the right lower quadrant without rebound or guarding, no mass. +Bowel sounds. Back exam reveals right flank tenderness to percussion EXT: Full ROM, no edema, no rash Neuro: Grossly normal neurologic exam, conversant, interactive. Psych: Speech fluent, thoughts congruent, affect normal Course Vital Signs Temperature 36.8 C 06/02/18 11:15 Pulse 86 06/02/18 11:15 Respiratory Rate 16 06/02/18 11:15 Blood Pressure 128/85 06/02/18 11:15 Pulse Oximetry 100 06/02/18 11:15 Temperature 36.8 C 06/02/18 11:15 Temperature Source Skin 06/02/18 11:15 Pulse 86 06/02/18 11:15 Respiratory Rate 16 06/02/18 11:15 Respiratory Effort 06/02/18 11:15 Blood Pressure 128/85 06/02/18 11:15 Pulse Oximetry 100 06/02/18 11:15 Oxygen Delivery Method Room Air 06/02/18 11:15 Oxygen Flow Rate 0 06/02/18 11:15 Pain Level 10 06/02/18 11:20
[2018-06-02 11:46] LABS: Abs Immature Grans 0.01 k/cumm (0.0-0.09); Absolute Basophil Count 0.03 k/cumm (0.0-0.2); Absolute Eosinophil Count 0.14 k/cumm (0.0-0.7); Absolute Lymphocyte Count 2.26 k/cumm (1.2-3.4); Absolute Monocyte Count 0.38 k/cumm (0.11-0.7); Absolute Neutrophil Count 1.85 k/cumm (1.2-6.7); Basophils % 0.6; HCT 42.1 % (40.0-50.0); HGB 14.9 g/dL (13.5-17.5); Immature Grans % 0.2; Lymphocytes % 48.4; Mean Corp. HGB Concentration 35.4 g/dL (32.0-36.0); Mean Corpuscular Hemoglobin 28.7 pg (27.0-33.0); Mean Platelet Volume 10.5 fL (8.0-11.0); Monocytes % 8.1; Neutrophils % 39.7; Platelet Count 239 x1000/uL (130-400); RBC Distribution Width 13.4 % (11.8-14.1); White Blood Cell Count 4.67 k/cumm (4.4-10.8)
[2018-06-02 12:03] LABS: ALT 20 U/L (12-78); AST 13 U/L (15-37); Albumin 4.9 g/dL (3.4-5.0); Alkaline Phosphatase 50 U/L (46-116); Anion Gap 9.8 mmol/L (3-11); BUN 15 mg/dL (7-18); Bilirubin, Total 0.9 mg/dL (0.2-1.0); CO2 29.2 mmol/L (21.0-32.0); CREATININE 1.06 mg/dL (0.70-1.30); Calcium 9.3 mg/dL (8.5-10.1); Chloride 103 mmol/L (98-107); Glucose 91 mg/dL (70-100); Potassium 3.8 mmol/L (3.5-5.1); Sodium 142 mmol/L (136-145)
[2018-06-02 12:08] LABS: Bilirubin Negative (Negative); Blood Moderate (Negative); Clarity Clear; Glucose Negative (Negative); Ketones Negative (Negative); Leukocyte Esterase Negative (Negative); Nitrite Negative (Negative); Urobilinogen 0.2 EU/dL (Up TO 0.2); pH 7.5 (5-8)
[2018-06-02 12:15] LABS: WBC 0-2 HPF (0-5)
[2018-06-02 12:16] LABS: Bacteria Negative HPF (Negative); C & S Indicated? No; Casts Negative LPF (Negative); Crystals Negative HPF (Negative); Epithelial Cells Few HPF (Negative); Mucus Moderate (Negative)
--- NOTE | 2018-06-02 12:29 | DI.VRAD_ITS ---
EXAM: XR Abdomen 2 Views with XR Chest 1 View EXAM DATE/TIME: 06/02/2018 11:28 AM CLINICAL HISTORY: 23 years old, male; Pain; Abdominal pain; Localized; Right lower quadrant (rlq); Patient HX: R lower pain, HX renal calculi TECHNIQUE: XR of the abdomen (2 views) with XR chest (1 view). COMPARISON: CR CHEST 2 VIEWS PA,LAT 05/15/2012 10:03 AM FINDINGS: Lungs: Normal. No consolidation. Pleural space: Normal. No pneumothorax. Heart/Mediastinum: Normal. No cardiomegaly. Gastrointestinal tract: Normal. No bowel dilation. Intraperitoneal space: See Vasculature Finding. Vasculature: Small calcifications in the pelvis, likely phleboliths. If there is concern for ureteral calculus, recommend CT examination. Bones/joints: Normal. No acute fracture. Soft tissues: Normal. IMPRESSION: Small calcifications in the pelvis, likely phleboliths. If there is concern for ureteral calculus, recommend CT examination. Dictated and Authenticated by: Nuris Vidal MD. Ordering:CHUY SALMON MD
[2018-06-02 12:47] VITALS: BP 116/70; PULSE 70; RESP 16; TEMP 36.8; O2SAT 98
== END 2018-06-02 12:46 | disposition home or self-care (01) ==
PROVIDERS: Emergency Provider Emergency Medicine; PCP Family Medicine
DX: N23 Unspecified renal colic (principal)
CPT/HCPCS: 80053; 96361; 96374; 96375; 99285; 74022; 81003; 81015; 85025; 99284; J1885; J2405

== ENCOUNTER 2018-06-10 00:43 | Outpatient (CLI) | payer MEDICAID, SELFPAY ==
--- NOTE | 2018-06-10 09:01 | DI.CT_ITS ---
SYMPTOMS/DIAGNOSIS: CONTINUED FLANK PAIN, HEMATURIA, R31.9, ? PHLEBOLITH TO RT PELVIC AREA CT UROGRAM: CT urogram was performed utilizing noncontrast scanning followed by venous phase and delayed phase scanning of the abdomen and pelvis. The visualized lung bases appear clear. The liver, spleen, pancreas, gallbladder and bile ducts are unremarkable. The abdominal aorta is of normal diameter and no major vascular abnormality is seen. No abdominal wall hernia seen. No abdominal or pelvic adenopathy seen. The appendix is normal. No evidence of bowel obstruction or diverticulitis. The adrenals appear normal bilaterally. There are a couple of small nonobstructing right renal calculi. No left renal calculi seen. No significant hydronephrosis but the right ureter is mildly dilated to the level of the distal ureter where there is an intraureteral calculus measuring about 5 x 3 mm in diameter adjacent to the UVJ. No left ureteral calcification seen. CONCLUSION: Low grade obstruction caused by 5 mm in greatest diameter distal right ureteral calculus. This was not present on previous abdominal and pelvic CT of 05/18/18. Tiny nonobstructing right renal calculi are again noted.
[2018-06-10] MEDS: Omnipaque 350 MG/ML 100 ML BTL IJ (09:42)
== END 2018-06-10 01:03 ==
PROVIDERS: PCP Family Medicine; Visit Provider Nurse Practitioner Gerontology
DX: R10.31 Right lower quadrant pain (principal); N20.2 Calculus of kidney with calculus of ureter
CPT/HCPCS: 74178; J3490

== ENCOUNTER 2018-06-12 01:20 | Observation (INO) | payer MEDICAID, SELFPAY ==
[2018-06-12 01:23] VITALS: BP 123/77; PULSE 88; RESP 18; TEMP 36.8; O2SAT 99
--- NOTE | 2018-06-12 01:35 | W.ED.GENAD ---
Discharge Plan Disposition Patient Disposition: [facility] INPATIENT Condition: Fair Discharge Details Chief Complaint: FlankPain Clinical Impression: Calculus of distal right ureter Primary Care Provider: Nicholas Perez ED Provider: Ricky Tellez Home Meds and New Rx's Prescriptions: No Action tamsulosin [Flomax] 0.4 mg capsule 0.8 mg PO DAILY Qty: 30 RF: 0 rizatriptan [Maxalt-GLUTEN SETTLING TENDER] 10 MG tablet,disintegrating 10 mg PO PRN Qty: 3 RF: 1 carisoprodol [Soma] 350 MG tablet 350 mg PO TID PRN RF: 0 Medical Decision Making Patient with known right 5 mm distal ureteral stone. Presenting with severe right flank pain. Has received Flomax, but no pain medication for use at home. Nursing has placed in IV. He is ordered for Toradol and Dilaudid. Developed nausea and vomiting with the Dilaudid so was given Zofran. Does not at this point require reimaging or labs. Simply a matter of pain control at this point. Second dose of Dilaudid given as still having pain. Attempted oral medication with oxycodone which made him more nauseated. Continues to have pain. Given IV Phenergan. Discussed with hospitalist for admission for pain control and fluids. Will try fentanyl at this point. Will be admitted to [facility] for pain control and hydration. Medical Records Medical records reviewed: Yes I reviewed the patient's medical records. HPI General Mode of arrival: ambulatory. Date/Time Provider Initiated Documentation: 06/12/18 01:25. Limitations to Documentation: no limitations. Information obtained by: patient, family and old records reviewed. HPI Narrative: Patient presents to ED with severe right flank pain. Patient was seen by urology in the afternoon. He had had a CT urogram which shows a 5 mm distal ureteral stone. He is being treated conservatively with Flomax. He took 0.8 mg tonight. He does not have pain medicine for pain control at home. He has subsequently developed severe right flank pain. He has no fever. He has no nausea/vomiting. He does think he passed a small clot tonight but not the stone. Related Data Home Medications Medication Instructions Recorded Confirmed rizatriptan [Maxalt-GLUTEN SETTLING TENDER] 10 mg PO PRN #3 tab 12/14/15 06/11/18 carisoprodol [Soma] 350 mg PO TID PRN tab-cap 04/17/17 06/12/18 tamsulosin 0.4 mg capsule 0.8 mg PO DAILY #30 cap 06/11/18 06/11/18 Previous Rx's Medication Instructions Recorded tamsulosin 0.4 mg capsule 0.8 mg PO DAILY #30 cap 06/11/18 Allergies Allergy/AdvReac Type Severity Reaction Status Date / Time No Known Allergies Allergy Verified 06/12/18 01:23 General Stated Complaint: Urinary SCARLETT: 3 Review of Systems Constitutional Denies chills, Denies fever(s) and Denies headache(s) Eyes Denies change in vision, Denies eye discharge and Denies eye pain ENT Denies otalgia, Denies headache(s), Denies nasal congestion and Denies sore throat Cardiovascular Denies chest pain, Denies edema, Denies palpitations and Denies dyspnea Respiratory Denies cough and Denies dyspnea Gastrointestinal Reports abdominal pain, Reports diarrhea, Reports nausea and Reports vomiting Genitourinary Reports hematuria and Reports flank pain Musculoskeletal Reports back pain, Denies myalgias, Denies arthralgias and Denies numbness Integumentary/Breasts Denies erythema and Denies rash Neurologic Denies headache(s), Denies focal weakness and Denies numbness Endocrine Denies palpitations Exam Const General: healthy appearing and acute distress Orientation: alert and oriented x3 [facility] Head: normocephalic and atraumatic Neck Neck: normal visual inspection, full ROM and supple Resp Effort & Inspection: normal respiratory effort GI Inspection: non-distended Palpation: soft, not firm and nontender Back/Spine/Pelvis Back: no CVA tenderness Skin General skin exam: no rashes or lesions noted Neuro General: alert, oriented x3, no focal motor deficits and CN's II-XI intact bilaterally Extrem General: normal to inspection and full ROM Course Vital Signs Temperature 98.2 F 06/12/18 01:23 Pulse 88 06/12/18 01:23 Respiratory Rate 18 06/12/18 01:23 Blood Pressure 123/77 06/12/18 01:23 Pulse Oximetry 99 06/12/18 01:23 Temperature 98.2 F 06/12/18 01:23 Temperature Source Temporal Artery Scan 06/12/18 01:23 Pulse 88 06/12/18 01:23 Respiratory Rate 18 06/12/18 01:23 Respiratory Effort 06/12/18 01:23 Blood Pressure 123/77 06/12/18 01:23 Blood Pressure Position Sitting 06/12/18 01:23 Pulse Oximetry 99 06/12/18 01:23 Oxygen Delivery Method Room Air 06/12/18 01:23 Oxygen Flow Rate 0 06/12/18 01:23 Pain Level 10 06/12/18 01:25
[2018-06-12] MEDS: HYDROmorphone 2 MG/ML VIAL 0.5 MG IVP ×2 (01:39→02:15)
[2018-06-12] MEDS: Ketorolac 15 MG/ML VIAL IVP (01:39)
--- NOTE | 2018-06-12 01:42 | ED.GENADUL_ITS ---
Discharge Plan Disposition Patient Disposition: [facility] INPATIENT Condition: Fair Discharge Details Chief Complaint: FlankPain Clinical Impression: Calculus of distal right ureter Primary Care Provider: Nicholas Perez ED Provider: Ricky Tellez Home Meds and New Rx's Prescriptions: No Action tamsulosin [Flomax] 0.4 mg capsule 0.8 mg PO DAILY Qty: 30 RF: 0 rizatriptan [Maxalt-POWERHOUSE ELECTRICIAN APPRENTICE] 10 MG tablet,disintegrating 10 mg PO PRN Qty: 3 RF: 1 carisoprodol [Soma] 350 MG tablet 350 mg PO TID PRN RF: 0 Medical Decision Making Patient with known right 5 mm distal ureteral stone. Presenting with severe right flank pain. Has received Flomax, but no pain medication for use at home. Nursing has placed in IV. He is ordered for Toradol and Dilaudid. Developed nausea and vomiting with the Dilaudid so was given Zofran. Does not at this point require reimaging or labs. Simply a matter of pain control at this point. Second dose of Dilaudid given as still having pain. Attempted oral medication with oxycodone which made him more nauseated. Continues to have pain. Given IV Phenergan. Discussed with hospitalist for admission for pain control and fluids. Will try fentanyl at this point. [facility] be [facility] control and hydration. Medical Records Medical records reviewed: Yes I reviewed the patient's medical records. HPI General Mode of arrival: ambulatory . Date/Time Provider Initiated Documentation: 06/12/18 01:25 . Limitations to Documentation: no limitations . Information obtained by: patient, family and old records reviewed . HPI Narrative: Patient presents to ED with severe right flank pain. Patient was seen by urology in the afternoon. He had had a CT urogram which shows a 5 mm distal ureteral stone. He is being treated conservatively with Flomax. He took 0.8 mg tonight. He does not have pain medicine for pain control at home. He has subsequently developed severe right flank pain. He has no fever. He has no nausea/vomiting. He does think he passed a small clot tonight but not the stone. Related Data Home Medications Medication Instructions Recorded Confirmed rizatriptan [Maxalt-POWERHOUSE ELECTRICIAN APPRENTICE] 10 mg PO PRN #3 tab 12/14/15 06/11/18 carisoprodol [Soma] 350 mg PO TID PRN tab-cap 04/17/17 06/12/18 tamsulosin 0.4 mg capsule 0.8 mg PO DAILY #30 cap 06/11/18 06/11/18 Previous Rx's Medication Instructions Recorded tamsulosin 0.4 mg capsule 0.8 mg PO DAILY #30 cap 06/11/18 Allergies Allergy/AdvReac Type Severity Reaction Status Date / Time No Known Allergies Allergy Verified 06/12/18 01:23 General Stated Complaint: Urinary SCARLETT: 3 Review of Systems Constitutional Denies chills, Denies fever(s) and Denies headache(s) Eyes Denies change in vision, Denies eye discharge and Denies eye pain ENT Denies otalgia, Denies headache(s), Denies nasal congestion and Denies sore throat Cardiovascular Denies chest pain, Denies edema, Denies palpitations and Denies dyspnea Respiratory Denies cough and Denies dyspnea Gastrointestinal Reports abdominal pain, Reports diarrhea, Reports nausea and Reports vomiting Genitourinary Reports hematuria and Reports flank pain Musculoskeletal Reports back pain, Denies myalgias, Denies arthralgias and Denies numbness Integumentary/Breasts Denies erythema and Denies rash Neurologic Denies headache(s), Denies focal weakness and Denies numbness Endocrine Denies palpitations Exam Const General: healthy appearing and acute distress Orientation: alert and oriented x3 [facility] Head: normocephalic and atraumatic Neck Neck: normal visual inspection, full ROM and supple Resp Effort & Inspection: normal respiratory effort GI Inspection: non-distended Palpation: soft, not firm and nontender Back/Spine/Pelvis Back: no CVA tenderness Skin General skin exam: no rashes or lesions noted Neuro General: alert, oriented x3, no focal motor deficits and CN's II-XI intact bilaterally Extrem General: normal to inspection and full ROM Course Vital Signs Temperature 98.2 F 06/12/18 01:23 Pulse 88 06/12/18 01:23 Respiratory Rate 18 06/12/18 01:23 Blood Pressure 123/77 06/12/18 01:23 Pulse Oximetry 99 06/12/18 01:23 Temperature 98.2 F 06/12/18 01:23 Temperature Source Temporal Artery Scan 06/12/18 01:23 Pulse 88 06/12/18 01:23 Respiratory Rate 18 06/12/18 01:23 Respiratory Effort 06/12/18 01:23 Blood Pressure 123/77 06/12/18 01:23 Blood Pressure Position Sitting 06/12/18 01:23 Pulse Oximetry 99 06/12/18 01:23 Oxygen Delivery Method Room Air 06/12/18 01:23 Oxygen Flow Rate 0 06/12/18 01:23 Pain Level 10 06/12/18 01:25
[2018-06-12] MEDS: Ondansetron 4 MG/2 ML VIAL IVP ×4 (01:44→11:51)
[2018-06-12 02:24] VITALS: BP 129/75; PULSE 66; RESP 16; O2SAT 98
[2018-06-12] MEDS: oxyCODONE 5 MG TAB PO (02:27)
[2018-06-12] MEDS: fentaNYL 100 MCG/2 ML VIAL 50 MCG IVP ×5 (02:49→08:41)
[2018-06-12] MEDS: Normal Saline 1,000 ML 150 ML IV (03:18)
[2018-06-12 03:44] VITALS: BP 131/81; PULSE 69; RESP 20; TEMP 36.6; O2SAT 99
[2018-06-12] MEDS: oxyCODONE 5 MG TAB (04:09)
--- NOTE | 2018-06-12 06:01 | W.PM.HP.N ---
Date of service: 06/12/18 Time of Service: 06:01 Assessment and Plan (1) Kidney calculi: Current visit: Yes Status: Acute Stone size borderline as to probability to pass spontaneously. Will increase dose analgesics (states pain not controlled at present), continue IVF and will consult urology. History of Present Illness Chief Complaint: flnak pain Narrative: 23 male with h/o kidney stone. Here with right fllank pain radiating to testicle. In ER 3x5 mm stone noted right UVJ with mild right hydroureter. Given escalating doses opiates, along with antiemetics and IVF. Admitted for further management. Review of Systems Review of Systems All systems reviewed & are unremarkable except as noted in HPI and below PFSH Medical History Kidney stones (Chronic) Social History Smoking/Tobacco Use Status: Never alcohol intake: never substance use type: marijuana Meds Home Medications Medication Instructions Recorded Confirmed Type rizatriptan [Maxalt-VEHICLE TRIMMER] 10 mg PO PRN #3 tab 12/14/15 06/11/18 History carisoprodol [Soma] 350 mg PO TID PRN tab-cap 04/17/17 06/12/18 History tamsulosin 0.4 mg capsule 0.8 mg PO DAILY #30 cap 06/11/18 06/11/18 Rx Allergies Allergy/AdvReac Type Severity Reaction Status Date / Time No Known Allergies Allergy Verified 06/12/18 01:23 Exam Narrative Exam Narrative: BP131/81, pulse 69. rr 20, Temp 36.67. HEENT unremarkable, neck supple, lungs clear, heart R?R?R, abdomen soft, NT, negative CVAT, /rectal deferred, extremities without edema
--- NOTE | 2018-06-12 06:11 | HPE_ITS ---
Date of service: 06/12/18 Time of Service: 06:01 Assessment and Plan (1) Kidney calculi: Current visit: Yes Status: Acute Stone size borderline as to probability to pass spontaneously. Will increase dose analgesics (states pain not controlled at present), continue IVF and will consult urology. History of Present Illness Chief Complaint: flnak pain Narrative: 23 male with h/o kidney stone. Here with right fllank pain radiating to testicle. In ER 3x5 mm stone noted right UVJ with mild right hydroureter. Given escalating doses opiates, along with antiemetics and IVF. Admitted for further management. Review of Systems Review of Systems All systems reviewed & are unremarkable except as noted in HPI and below PFSH Medical History Kidney stones (Chronic) Social History Smoking/Tobacco Use Status: Never alcohol intake: never substance use type: marijuana Meds Home Medications Medication Instructions Recorded Confirmed Type rizatriptan [Maxalt-CERTIFIED [facility]SE [facility]PERATING ROOM] 10 mg PO PRN #3 tab 12/14/15 06/11/18 History carisoprodol [Soma] 350 mg PO TID PRN tab-cap 04/17/17 06/12/18 History tamsulosin 0.4 mg capsule 0.8 mg PO DAILY #30 cap 06/11/18 06/11/18 Rx Allergies Allergy/AdvReac Type Severity Reaction Status Date / Time No Known Allergies Allergy Verified 06/12/18 01:23 Exam Narrative Exam Narrative: BP131/81, pulse 69. rr 20, Temp 36.67. HEENT unremarkable, neck supple, lungs clear, heart R?R?R, abdomen soft, NT, negative CVAT, /rectal deferred, extremities without edema
[2018-06-12] MEDS: Tamsulosin 0.4 MG CAPCR 0.8 MG PO (08:26)
[2018-06-12 08:35] VITALS: BP 127/86; PULSE 87; RESP 16; TEMP 36.6; O2SAT 99
--- NOTE | 2018-06-12 08:58 | PDOC.CMIN ---
- If Service Date Differs Date of service: 06/12/18 Time of Service: 08:58 Care Management Initial Assess REASON FOR HOSPITALIZATION:: Right ureteral calculus. PAST MEDICAL HISTORY/PAST SURGICAL HISTORY:: Kidney calculi, social anxiety disorder, colitis, asthma, chronic back pain with kyphosis, learning difficulties. Surgical hx: spondyloarthropathy. PREVIOUS FUNCTIONAL STATUS/SOCIAL/FAMILY SUPPORTS:: Shahram resides in an apartment in [facility] with his mom, Mey and her boyfriend. He has a 'no work order' due to his arthritis and degenerative spinal disorder and reports that he is thinking about applying for disability. Shahram reports that he worked from the time he was 16 and does not like the fact that he can't work at the present time due to his medical issues. Shahram reports that he likes to play video games and spend time with friends when they are not at work. He is independent with his ADLs and transportation, and states that he has a cane he made that he uses on occassion for ambulation. CURRENT FUNCTIONAL STATUS:: Shahram is lying in bed with his mom, Mey, at bedside when CM visits this morning. Shahram is engaged in conversation, makes good eye contact and is talkative. He reports that his pain is pretty bad and that the fentanyl he is getting Q1H is not working well. MD is aware. Shahram reports he has been nauseous as well and has begun getting phenergen with good relief. Shahram and his mom, Mey, have been in and out of the hospital over the last few months and are frustrated. ADVANCE DIRECTIVES:: On file at [facility]. Has patient been provided with information about the portal?: Yes Did the patient sign up for the portal?: No CODE STATUS:: Full Code INSURANCE COVERAGE / FINANCIAL ISSUES:: Medicaid. CURRENT HOME/COMMUNITY SERVICES/EQUIPMENT:: No current home or community services. Patient has a cane that he uses on occassion when his back hurts. PRIMARY CARE PHYSICIAN:: Dr. Nicholas Perez. POTENTIAL DISCHARGE NEEDS:: Follow up appointment with PCP. PATIENT/FAMILY EDUCATION NEEDS:: Discharge education, any limitations, and follow up plan of care. Ask Me Three discussion. ANTICIPATED BARRIERS TO DISCHARGE:: No anticipated barriers to discharge. TRANSPORTATION:: Shahram will transport via private vehicle with his mom, Mey. PLAN:: Shahram will discharge home when medically ready per MD. Anticipate patient will discharge with no services and follow up with his PCP. CM will continue to offer support to patient, family and care team regarding discharge planning and disposition.
[2018-06-12 09:12] LABS: HGB 12.9 g/dL (13.5-17.5); Mean Corp. HGB Concentration 34.9 g/dL (32.0-36.0); Mean Corpuscular Hemoglobin 28.7 pg (27.0-33.0); Mean Corpuscular Volume 82.2 fL (80-95); Mean Platelet Volume 10.1 fL (8.0-11.0); Platelet Count 189 x1000/uL (130-400); RBC Distribution Width 13.1 % (11.8-14.1); White Blood Cell Count 6.28 k/cumm (4.4-10.8)
[2018-06-12 09:14] LABS: Anion Gap 5.1 mmol/L (3-11); BUN 15 mg/dL (7-18); CO2 30.9 mmol/L (21.0-32.0); CREATININE 1.08 mg/dL (0.70-1.30); Calcium 8.5 mg/dL (8.5-10.1); Chloride 106 mmol/L (98-107); Glucose 99 mg/dL (70-100); Sodium 142 mmol/L (136-145)
--- NOTE | 2018-06-12 11:16 | PDOC.CMDIS ---
- If Service Date Differs Date of service: 06/12/18 Time of Service: 11:16 LACE Index Scoring Tool - Questions: Length of Stay (in days): 1 Acuity (Admit via E.D.?): Yes E.D. Visits: 4 - Answers: Total Score: 8 Risk of Readmission: Low Risk Care Management Discharge Reason for Hospitalization: Right ureteral calculus. Discharge Plan: Shahram will transfer to [facility] for surgery via [place]. Patient/Family Education Needs: Discharge education, any limitations, and follow up plan of care. Ask Me Three discussion.
--- NOTE | 2018-06-12 11:21 | W.PM.DS.N ---
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 (5) Dehydration: Status: Active (6) Asthma: Status: Active (7) Chronic back pain: Status: Active (8) Learning difficulties: Status: Active (9) History of possible renal stone.: Status: Active Discharge Plan Disposition Patient Disposition: [facility] Condition: Fair Discharge Details Reason For Visit: RIGHT URETERAL CALCULUS Admit Date/Time: 06/12/18 02:45 Admit Provider: Dave Kimble Attending Provider: Dave Kimble Primary Care Provider: Nicholas Perez [facility] Course: Shahram Buck is a 23-year-old, otherwise healthy young man with a remote history of asthma and chronic back pain who presented to the emergency department here at [facility] on 06/12/2018 with right flank pain radiating to his testicle. In the emergency department on a recent previous visit he had a CT scan which made note of a 3 x 5 mm stone noted at the right UVJ with mild right hydroureter. He had been seen 3 times prior in the emergency department over the past month for similar complaints. He was admitted to the [facility] floor for analgesics and antiemetics and urology consultation. Urology is not available at this facility this week. He is having significant amounts of pain and requiring IV pain medication and nausea. He is experiencing hematuria and passing blood clots in his urine. It is unlikely he will tolerate oral pain medication and antiemetics to go home and wait for urology follow-up at this point. Phone calls were placed to outside facilities for potential transfer for ureteroscopy/cystoscopy/stent placement versus transfer for procedure with return. Dr. [facility] has accepted the patient in transfer for urologic procedure. He will likely go to the operating room at [facility] at this afternoon. He has been n.p.o. since midnight. He has had general anesthesia in the past as a child and had no complications. There is no family history of anesthetic complications including malignant hyperthermia. He is transferred via ambulance in stable condition. Home Meds and New Rx's Prescriptions: No Action tamsulosin [Flomax] 0.4 mg capsule 0.8 mg PO DAILY Qty: 30 RF: 0 rizatriptan [Maxalt-COFFEE BREWER] 10 MG tablet,disintegrating 10 mg PO PRN Qty: 3 RF: 1 carisoprodol [Soma] 350 MG tablet 350 mg PO TID PRN RF: 0 Discharge Instructions Instructions: Kidney Stones (DC) Activity:: Activity as Tolerated Equipment/Supplies:: No Equipment Needed Diet:: NPO Discharge Orders Discharge Orders: Discharge Order (Routine); Ordered 06/12/18 Ordered By: Katty Multani Exam Const General: cooperative, well developed and acute distress (mild distress.) Orientation: alert and oriented x3 Resp Effort & Inspection: normal respiratory effort (even and unlabored.) GI Palpation: tender (Significant tenderness on palpation of right side of abdomen and R CVA.) Extrem General: no clubbing, cyanosis or edema DS: Data Vitals/I&O Vitals and I&O: Vital Signs Temperature 36.6 C 06/12/18 08:35 Temperature Source Skin 06/12/18 08:35 Pulse 87 06/12/18 08:35 Pulse Rhythm Regular 06/12/18 03:44 Respiratory Rate 16 06/12/18 08:35 Respiratory Effort Non-Labored 06/12/18 03:44 Respiratory Depth Normal 06/12/18 03:44 Respiratory Pattern Normal 06/12/18 03:44 Blood Pressure 127/86 06/12/18 08:35 Blood Pressure Position Sitting 06/12/18 01:23 Pulse Oximetry 99 06/12/18 08:35 Oxygen Delivery Method Room Air 06/12/18 08:35 Oxygen Flow Rate 0 06/12/18 08:35 Pain Level 6 06/12/18 08:41 Intake & Output 06/11/18 06/11/18 06/12/18 11:59 23:59 11:59 Output Total 100 / 100 Balance -100 / -100 Weight 63.503 kg Output: Urine 100 / 100 Other: Urine Color Yellow Urine Appearance Clear Comment no stones Voiding Methods Urinal Completed studies during hospitalization [Text1]: 06/10/18 CT UROGRAM: CT urogram was performed utilizing noncontrast scanning followed by venous phase and delayed phase scanning of the abdomen and pelvis. The visualized lung bases appear clear. The liver, spleen, pancreas, gallbladder and bile ducts are unremarkable. The abdominal aorta is of normal diameter and no major vascular abnormality is seen. No abdominal wall hernia seen. No abdominal or pelvic adenopathy seen. The appendix is normal. No evidence of bowel obstruction or diverticulitis. The adrenals appear normal bilaterally. There are a couple of small nonobstructing right renal calculi. No left renal calculi seen. No significant hydronephrosis but the right ureter is mildly dilated to the level of the distal ureter where there is an intraureteral calculus measuring about 5 x 3 mm in diameter adjacent to the UVJ. No left ureteral calcification seen. CONCLUSION: Low grade obstruction caused by 5 mm in greatest diameter distal right ureteral calculus. This was not present on previous abdominal and pelvic CT of 05/18/18. Tiny nonobstructing right renal calculi are again noted. Pending studies at discharge: Electrocardiogram (08/25/13) Electroencephalogram (11/21/13) OPEN RED-INT FIX HUMERUS (05/08/02) OTH WOUND IRRIGATION (04/28/97) SKIN SUTURE NEC (04/28/97) WBC 6.28 k/cumm (4.4-10.8) 06/12/18 09:00 RBC 4.50 m/cumm (4.50-6.00) 06/12/18 09:00 Hgb 12.9 g/dL (13.5-17.5) L 06/12/18 09:00 Hct 37.0 % (40.0-50.0) L 06/12/18 09:00 MCV 82.2 fL (80-95) 06/12/18 09:00 MCH 28.7 pg (27.0-33.0) 06/12/18 09:00 MCHC 34.9 g/dL (32.0-36.0) 06/12/18 09:00 RDW 13.1 % (11.8-14.1) 06/12/18 09:00 Plt Count 189 x1000/uL (130-400) 06/12/18 09:00 MPV 10.1 fL (8.0-11.0) 06/12/18 09:00 Sodium 142 mmol/L (136-145) 06/12/18 09:00 Potassium 4.0 mmol/L (3.5-5.1) 06/12/18 09:00 Chloride 106 mmol/L (98-107) 06/12/18 09:00 Carbon Dioxide 30.9 mmol/L (21.0-32.0) 06/12/18 09:00 Anion Gap 5.1 mmol/L (3-11) 06/12/18 09:00 BUN 15 mg/dL (7-18) 06/12/18 09:00 Creatinine 1.08 mg/dL (0.70-1.30) 06/12/18 09:00 Estimated GFR/1.73 m2 >= 60.00 (mL/min/1.73m2) 06/12/18 09:00 Glucose 99 mg/dL (70-100) 06/12/18 09:00 Calcium 8.5 mg/dL (8.5-10.1) 06/12/18 09:00 Labs on day of discharge: Labs from last 24 hours 06/12/18 06/12/18 09:00 09:00 WBC 6.28 RBC 4.50 Hgb 12.9 L Hct 37.0 L MCV 82.2 MCH 28.7 MCHC 34.9 RDW 13.1 Plt Count 189 MPV 10.1 Sodium 142 Potassium 4.0 Chloride 106 Carbon Dioxide 30.9 Anion Gap 5.1 BUN 15 Creatinine 1.08 Estimated GFR/1.73 m2 >= 60.00 Glucose 99 Calcium 8.5
--- NOTE | 2018-06-12 11:27 | DSE_ITS ---
Date of service: 06/12/18 Time of Service: 11:21 DS: Diagnosis Discharge Diagnosis (1) Kidney calculi: Status: Acute (2) Spondyloarthropathy: Status: Acute (3) Social anxiety disorder: Status: Acute (4) Colitis: Status: Active Asessment and Plan: History of hospitalization for colitis secondary to E- coli, 2012. (5) Dehydration: Status: Active (6) Asthma: Status: Active (7) Chronic back pain: Status: Active (8) Learning difficulties: Status: Active (9) History of possible renal stone.: Status: Active Discharge Plan Disposition Patient Disposition: [facility] Condition: Fair Discharge Details Reason For Visit: RIGHT URETERAL CALCULUS Admit Date/Time: 06/12/18 02:45 Admit Provider: Dave Kimble Attending Provider: Dave Kimble Primary Care Provider: iNcholas Perez [facility] Course: Shahram Buck is a 23-year-old, otherwise healthy young man with a remote history of asthma and chronic back pain who presented to the emergency department here at [facility] on 06/12/2018 with right flank pain radiating to his testicle. In the emergency department on a recent previous visit he had a CT scan which made note of a 3 x 5 mm stone noted at the right UVJ with mild right hydroureter. He had been seen 3 times prior in the emergency department over the past month for similar complaints. He was admitted to the [facility] floor for analgesics and antiemetics and urology consultation. Urology is not available at this facility this week. He is having significant amounts of pain and requiring IV pain medication and nausea. He is experiencing hematuria and passing blood clots in his urine. It is unlikely he will tolerate oral pain medication and antiemetics to go home and wait for urology follow-up at this point. Phone calls were placed to outside facilities for potential transfer for ureteroscopy/cystoscopy/stent placement versus transfer for procedure with return. Dr. Arthur at [facility] has accepted the patient in transfer for urologic procedure. He will likely go to the operating room at [facility] at this afternoon. He has been n.p.o. since midnight. He has had general anesthesia in the past as a child and had no complications. There is no family history of anesthetic complications including malignant hyperthermia. He is transferred via ambulance in stable condition. Home Meds and New Rx's Prescriptions: No Action tamsulosin [Flomax] 0.4 mg capsule 0.8 mg PO DAILY Qty: 30 RF: 0 rizatriptan [Maxalt-FACILITY PLANNER] 10 MG tablet,disintegrating 10 mg PO PRN Qty: 3 RF: 1 carisoprodol [Soma] 350 MG tablet 350 mg PO TID PRN RF: 0 Discharge Instructions Instructions: Kidney Stones (DC) Activity:: Activity as Tolerated Equipment/Supplies:: No Equipment Needed Diet:: NPO Discharge Orders Discharge Orders: Discharge Order (Routine); Ordered 06/12/18 Ordered By: Katty Multani Exam Const General: cooperative, well developed and acute distress (mild distress.) Orientation: alert and oriented x3 Resp Effort & Inspection: normal respiratory effort (even and unlabored.) GI Palpation: tender (Significant tenderness on palpation of right side of abdomen and R CVA.) Extrem General: no clubbing, cyanosis or edema DS: Data Vitals/I&O Vitals and I&O: Vital Signs Temperature 36.6 C 06/12/18 08:35 Temperature Source Skin 06/12/18 08:35 Pulse 87 06/12/18 08:35 Pulse Rhythm Regular 06/12/18 03:44 Respiratory Rate 16 06/12/18 08:35 Respiratory Effort Non-Labored 06/12/18 03:44 Respiratory Depth Normal 06/12/18 03:44 Respiratory Pattern Normal 06/12/18 03:44 Blood Pressure 127/86 06/12/18 08:35 Blood Pressure Position Sitting 06/12/18 01:23 Pulse Oximetry 99 06/12/18 08:35 Oxygen Delivery Method Room Air 06/12/18 08:35 Oxygen Flow Rate 0 06/12/18 08:35 Pain Level 6 06/12/18 08:41 Intake & Output 06/11/18 06/11/18 06/12/18 11:59 23:59 11:59 Output Total 100 / 100 Balance -100 / -100 Weight 63.503 kg Output: Urine 100 / 100 Other: Urine Color Yellow Urine Appearance Clear Comment no stones Voiding Methods Urinal Completed studies during hospitalization [Text1]: 06/10/18 CT UROGRAM: CT urogram was performed utilizing noncontrast scanning followed by venous phase and delayed phase scanning of the abdomen and pelvis. The visualized lung bases appear clear. The liver, spleen, pancreas, gallbladder and bile ducts are unremarkable. The abdominal aorta is of normal diameter and no major vascular abnormality is seen. No abdominal wall hernia seen. No abdominal or pelvic adenopathy seen. The appendix is normal. No evidence of bowel obstruction or diverticulitis. The adrenals appear normal bilaterally. There are a couple of small nonobstructing right renal calculi. No left renal calculi seen. No significant hydronephrosis but the right ureter is mildly dilated to the level of the distal ureter where there is an intraureteral calculus measuring about 5 x 3 mm in diameter adjacent to the UVJ. No left ureteral calcification seen. CONCLUSION: Low grade obstruction caused by 5 mm in greatest diameter distal right ureteral calculus. This was not present on previous abdominal and pelvic CT of 05/18/18. Tiny nonobstructing right renal calculi are again noted. Pending studies at discharge: Electrocardiogram (08/25/13) Electroencephalogram (11/21/13) OPEN RED-INT FIX HUMERUS (05/08/02) OTH WOUND IRRIGATION (04/28/97) SKIN SUTURE NEC (04/28/97) WBC 6.28 k/cumm (4.4-10.8) 06/12/18 09:00 RBC 4.50 m/cumm (4.50-6.00) 06/12/18 09:00 Hgb 12.9 g/dL (13.5-17.5) L 06/12/18 09:00 Hct 37.0 % (40.0-50.0) L 06/12/18 09:00 MCV 82.2 fL (80-95) 06/12/18 09:00 MCH 28.7 pg (27.0-33.0) 06/12/18 09:00 MCHC 34.9 g/dL (32.0-36.0) 06/12/18 09:00 RDW 13.1 % (11.8-14.1) 06/12/18 09:00 Plt Count 189 x1000/uL (130-400) 06/12/18 09:00 MPV 10.1 fL (8.0-11.0) 06/12/18 09:00 Sodium 142 mmol/L (136-145) 06/12/18 09:00 Potassium 4.0 mmol/L (3.5-5.1) 06/12/18 09:00 Chloride 106 mmol/L (98-107) 06/12/18 09:00 Carbon Dioxide 30.9 mmol/L (21.0-32.0) 06/12/18 09:00 Anion Gap 5.1 mmol/L (3-11) 06/12/18 09:00 BUN 15 mg/dL (7-18) 06/12/18 09:00 Creatinine 1.08 mg/dL (0.70-1.30) 06/12/18 09:00 Estimated GFR/1.73 m2 >= 60.00 (mL/min/1.73m2) 06/12/18 09:00 Glucose 99 mg/dL (70-100) 06/12/18 09:00 Calcium 8.5 mg/dL (8.5-10.1) 06/12/18 09:00 Labs on day of discharge: Labs from last 24 hours 06/12/18 06/12/18 09:00 09:00 WBC 6.28 RBC 4.50 Hgb 12.9 L Hct 37.0 L MCV 82.2 MCH 28.7 MCHC 34.9 RDW 13.1 Plt Count 189 MPV 10.1 Sodium 142 Potassium 4.0 Chloride 106 Carbon Dioxide 30.9 Anion Gap 5.1 BUN 15 Creatinine 1.08 Estimated GFR/1.73 m2 >= 60.00 Glucose 99 Calcium 8.5
[2018-06-12] MEDS: Ketorolac 30 MG/ML VIAL IVP (11:41)
[2018-06-12 11:42] VITALS: BP 108/66; PULSE 78; RESP 14; TEMP 36.6; O2SAT 99
== END 2018-06-12 12:10 | disposition short-term general hospital (02) ==
LOC: ER 02:52 → MS 10:04
PROVIDERS: Nurse Practitioner; Admitting Provider General Practice; Emergency Provider Emergency Medicine; PCP Family Medicine; Visit Provider Internal Medicine
DX: N20.0 Calculus of kidney (principal); E86.0 Dehydration
CPT/HCPCS: 36415; 80048; 85027; 96365; 96375; 96376; 99222; 99239; 99285; 99235; 99284; G0378; J1885; J2405; J3010

== ENCOUNTER 2018-11-11 01:21 | Outpatient (CLI) | payer MEDICAID, SELFPAY ==
--- NOTE | 2018-11-11 12:13 | DI.MRI_ITS ---
SYMPTOMS/DIAGNOSIS: EVALUATE SACROILIITIS FROM 2014 W/STIR, Z79.899,M54.5,G89.29,M45.9,M19.90,M54.2 MRI OF THE PELVIS: Comparison is made with pelvic MRI dated July, and CT of the abdomen and pelvis dated June,. T1 and fat-suppressed T2 axial, T1 and STIR as well as fat-suppressed T2 coronal sequences were performed. Exam was performed with a large field of view including the entire pelvis. No abnormal signal is seen in the SI joints or surrounding ilium or sacrum. The marrow signal appears normal. No hip joint effusions are seen. The bladder and prostate are unremarkable. IMPRESSION: Negative MRI of the pelvis. No evidence of sacroiliitis.
== END 2018-11-11 01:41 ==
PROVIDERS: PCP Family Medicine; Visit Provider Internal Medicine
DX: M54.5 Low back pain (principal); M19.90 Unspecified osteoarthritis, unspecified site; M45.9 Ankylosing spondylitis of unspecified sites in spine; Z79.899 Other long term (current) drug therapy
CPT/HCPCS: 72195

== ENCOUNTER 2019-04-20 07:35 | Emergency (ER) | payer MEDICAID, SELFPAY ==
[2019-04-20 07:43] VITALS: BP 124/61; PULSE 74; RESP 14; TEMP 37.1; O2SAT 99
--- NOTE | 2019-04-20 08:13 | ED.GENADUL_ITS ---
Discharge Plan Disposition Patient Disposition: HOME Condition: Good Discharge Details Chief Complaint: EarProblem Clinical Impression: Otitis externa Primary Care Provider: Nicholas Perez ED Provider: Romie Flores Home Meds and New Rx's Prescriptions: New Ciprodex 0.3-0.1 % drops,suspension 4 drp OT BID 7 Days Qty: 7.5 RF: 0 No Action rizatriptan [Maxalt-PATHOLOGY ASSISTANT] 10 mg tablet,disintegrating 10 mg PO PRN Qty: 6 RF: 4 Discharge Instructions Instructions: Otitis Externa (ED) Additional Instructions: You have an external ear infection in your ear. Please apply the drops, 4 drops in the affected ear twice daily for the next week. Keep your ear dry at all times. Do not submerge in water. If you notice any worsening of your symptoms, or any new symptoms such as vomiting, diarrhea, fever, chills, shortness of breath, chest pain, numbness, weakness, or fainting , please return immediately to the emergency department for reevaluation. Please follow up with your primary care provider as soon as possible for reassessment and reevaluation. As always, it was a pleasure participating in your medical care today. Referrals: Nicholas Perez MD [Primary Care Provider] - Medical Decision Making This is a pleasant 24-year-old male who presents for evaluation of left ear pain. Physical exam demonstrates notable otitis externa. Exam shows no signs of tympanic membrane rupture for the left ear. Right ear and ear canal are normal. No evidence of meningismus, no evidence of mastoiditis. No evidence of malignant otitis externa. Patient is not a diabetic. He will be started on Ciprodex for treatment of his ear pain and swelling and tenderness. Recommend c ontinue Tylenol at home. Discussed red flags which to return. I have extensively reviewed the treatment plan and discharge instructions with the patient. I have addressed all patient concerns at this time. The patient was made aware of what symptoms to monitor for that would warrant a return to the emergency department. Discussed the plan with the patient, they demonstrate verbal understanding and agreement with our assessment and plan at this time. HPI General Date/Time Provider Initiated Documentation: 04/20/19 07:56 . HPI Narrative: This is a 24-year-old male with no significant past medical history who presents today for evaluation of left ear pain. Patient states that 2 days ago he had mild pain in his ear, he stuck a Q-tip in the public he assumed was a pimple, and had some mild bleeding and discharge after that. Pain is continued. It is cause notable pain in his left jaw, he has had difficulty sleeping on it secondary to the pain. He denies any recent swimming. He does admit to muffled sound in his left ear. He denies any fever, chills, headache or neck pain. Patient also admits to mild red spots under his left armpit, which she has felt her ingrown hairs. These have actually improved on their own and are getting better but he would like them evaluated. He denies any other complaints at this time. He denies any modifying factors. Related Data Home Medications Medication Instructions Recorded Confirmed rizatriptan 10 mg disintegrating 10 mg PO PRN #6 tab 10/10/18 tablet ciprofloxacin-dexamethasone 4 drp OT BID 7 Days #7.5 ml 04/20/19 [Ciprodex] Previous Rx's Medication Instructions Recorded rizatriptan 10 mg disintegrating 10 mg PO PRN #6 tab 10/10/18 tablet ciprofloxacin-dexamethasone 4 drp OT BID 7 Days #7.5 ml 04/20/19 [Ciprodex] Allergies Allergy/AdvReac Type Severity Reaction Status Date / Time No Known Allergies Allergy Verified 01/21/19 14:12 General Stated Complaint: EarProblem SCARLETT: 3 Review of Systems Review of Systems All systems reviewed & are unremarkable except as noted in HPI and below PFS Medical History (Updated 11/25/18 @ 19:54 by Nicholas Perez MD) Asthma (Chronic) Chronic back pain (Chronic) Complicated migraine (Chronic 11/10/13) History of possible renal stone. (Resolved) Kidney calculi (Resolved) Kidney stones (Chronic) Learning difficulties (Chronic) Social anxiety disorder (Chronic 01/31/18) Spondyloarthropathy (Chronic 07/22/14) Social History Smoking/Tobacco Use Status: Never Alcohol Intake: never Drug use: Occasionally Substance use type: marijuana Do you feel safe in your relationship?: Yes Exam Narrative Exam Narrative: 1.Const: Well-nourished, Well-developed, appearing stated age 2.Eyes: PERRL, no conjunctival injection, and symmetrical lids. 3.ENT: Atraumatic external nose and ears. Left external ear canal demonstrates notable erythema and edema. Tympanic membrane demonstrates no evidence of rupture. No evidence of bleeding. Right tympanic membrane and external ear canal is normal. Moist MM. Neck: Symmetric, trachea midline, No thyromegaly. Patient demonstrates good movement of cervical neck. There is no nuchal rigidity, no nuchal tenderness. Patient is able to flex the neck without any difficulty or significant pain. Negative Kernig's and Brudzinski sign. 4.CVS: +S1/S2, No murmurs or gallops. Peripheral pulses 2+ and equal in all extremities. Brisk capillary refill in all extremities. 5.RESP: Unlabored respiratory effort. Clear to auscultation bilaterally. No wheezes rales or rhonchi 6.GI: Soft, Nontender/Nondistended, No hepatosplenomegaly. No guarding or rebound. 7.MSK: Normocephalic/Atraumatic, Extremities w/o deformity or ttp No cyanosis or clubbing, Normal movement of all extremities 8.Skin: Warm, Dry. No rashes or lesions. Small pimples are noted under the left axillary region, no discharge, notably small. No significant cellulitis. No evidence of significant abscess or hidradenitis suppurativa 9.Neuro: payroll and benefits analyst II-XII grossly intact. Sensation grossly intact, no focal neurologic deficits. 10.Psych: (AAO) x3. Appropriate mood and affect Course Vital Signs Temperature 37.1 C 04/20/19 07:43 Pulse 74 04/20/19 07:43 Respiratory Rate 14 04/20/19 07:43 Blood Pressure 124/61 04/20/19 07:43 Pulse Oximetry 99 04/20/19 07:43 Temperature 37.1 C 04/20/19 07:43 Temperature Source Temporal Artery Scan 04/20/19 07:43 Pulse 74 04/20/19 07:43 Respiratory Rate 14 04/20/19 07:43 Respiratory Effort 04/20/19 07:46 Blood Pressure 124/61 04/20/19 07:43 Blood Pressure Position Sitting 04/20/19 07:43 Pulse Oximetry 99 04/20/19 07:43 Oxygen Delivery Method Room Air 04/20/19 07:43 Oxygen Flow Rate 0 04/20/19 07:43 Pain Level 6 04/20/19 07:46
--- NOTE | 2019-04-20 08:30 | NUR.NOTE ---
Nursing Note: Vitals stable on arrival and prior to discharge.
== END 2019-04-20 08:25 | disposition home or self-care (01) ==
PROVIDERS: Emergency Provider Student in an Organized Health Care Education/Training Program; PCP Family Medicine
DX: H60.502 Unspecified acute noninfective otitis externa, left ear (principal); R68.84 Jaw pain
CPT/HCPCS: 99283

== ENCOUNTER 2019-04-21 07:26 | Emergency (ER) | payer MEDICAID, SELFPAY ==
[2019-04-21 07:32] VITALS: BP 160/90; PULSE 64; RESP 12; TEMP 36.6; O2SAT 98
--- NOTE | 2019-04-21 08:00 | W.ED.GENAD ---
Discharge Plan Disposition Patient Disposition: HOME Condition: Stable Discharge Details Chief Complaint: EarProblem Clinical Impression: Otitis externa, Parotitis Primary Care Provider: Nicholas Perez ED Provider: Rach Lira Home Meds and New Rx's Prescriptions: New ciprofloxacin HCl [Cipro] 500 mg tablet 500 mg PO BID Qty: 13 RF: 0 No Action omeprazole 40 mg capsule,delayed release(DR/EC) 40 mg PO DAILY PRN (Reason: heartburn) Qty: 90 RF: 4 rizatriptan [Maxalt-CONCRETE TECHNICIAN] 10 mg tablet,disintegrating 10 mg PO PRN Qty: 60 RF: 4 ondansetron 4 mg tablet,disintegrating 4 mg PO Q8H PRN (Reason: nausea and vomiting during migraine headaches) Qty: 60 RF: 4 Ciprodex 0.3-0.1 % drops,suspension 4 drp OT BID 7 Days Qty: 7.5 RF: 0 Discharge Instructions Instructions: Ciprofloxacin (By mouth), Ciprofloxacin (Into the ear), Otitis Externa (ED), Sialoadenitis (ED) Additional Instructions: Please return immediately to the emergency department if you develop any new or worsening symptoms or if you become otherwise concerned. It is extremely important that you call soon as possible to make an appointment to be seen in follow-up for this visit by your primary care doctor. Referrals: Nicholas Perez MD [Primary Care Provider] - Discharge Data Discharge Date/Time-TO BE ENTERED AT DEPARTURE: 04/21/19 09:49 Medical Decision Making Shahram Buck is a 24y/o man with history of asthma, syncope, spondyloarthropathy who presented to the emergency department with progressive ear pain now extending into the TMJ area and left jaw after being started on topical Ciprodex for otitis externa yesterday. On exam patient is nontoxic appearing but does appear to be uncomfortable. Severe pain with manipulation of the external ear and significant tenderness to palpation of the TMJ and left jaw. Patient reporting significant pain with opening his mouth during intraoral exam. Left ear canal erythematous but patent, TM appears opaque, due to edema of the canal cannot evaluate TM fully for perforation. No mastoid tenderness, no meningismus, no intraoral lesion. Patient without risk factors making malignant otitis externa unlikely, however given location and severity of pain and tenderness I have some concern for extension of his infection. Exam/history is not consistent with sepsis, meningitis, Volodymyr's angina, impending airway compromise. Plan for screening labs, imaging. Radiology requests CT head without contrast, CT head and neck with contrast. labs nondiagnostic. CT head without, head and neck with contrast per radiology over the phone, no abnormalities other than possible left parotitis. Given significant rapid worsening since yesterday despite topical antibiotics and severity of pain, plan for continuation of topical Cipro with addition of p.o. Cipro. Exam/history is not consistent with supportive parotitis, mumps. On reassessment patient continues to appear nontoxic. Appears more comfortable at this time. Conversing and taking p.o. normally. I had a lengthy discussion with the patient regarding return to emergency department precautions, appropriate application and continuation of topical antibiotics, home care and treatment for parotitis, and importance of follow-up with patient's PCP. He verbalized understanding of the plan and was amenable. Patient was discharged home with clear plan for outpatient follow-up. All questions were answered. Medical Records Medical records reviewed: Yes I reviewed the patient's medical records. Lab Data Lab results reviewed: Yes I reviewed the patient's lab results. Laboratory Tests Range/Units 04/21/19 04/21/19 04/21/19 08:35 08:35 08:35 WBC (4.4-10.8) k/cumm 6.44 RBC (4.50-6.00) m/cumm 5.32 Hgb (13.5-17.5) g/dL 15.1 Hct (40.0-50.0) % 44.0 MCV (80-95) fL 82.7 MCH (27.0-33.0) pg 28.4 MCHC (32.0-36.0) g/dL 34.3 RDW (11.8-14.1) % 13.5 Plt Count (130-400) x1000/uL 250 MPV (8.0-11.0) fL 10.5 Immature Gran % 0.0 Neutrophils % 65.0 Lymphocytes % 25.3 Monocytes % 7.8 Eosinophils % 1.6 Basophils % 0.3 Absolute Neutrophils (1.2-6.7) k/cumm 4.19 Absolute Lymphocytes (1.2-3.4) k/cumm 1.63 Absolute Monocytes (0.11-0.7) k/cumm 0.50 Absolute Eosinophils (0.0-0.7) k/cumm 0.10 Absolute Basophils (0.0-0.2) k/cumm 0.02 ESR (0-15) mm/hr 10 Sodium (136-145) mmol/L 143 Potassium (3.5-5.1) mmol/L 4.6 Chloride (98-107) mmol/L 105 Carbon Dioxide (21.0-32.0) mmol/L 29.2 Anion Gap (3-11) mmol/L 8.8 BUN (7-18) mg/dL 10 Creatinine (0.70-1.30) mg/dL 1.13 Estimated GFR/1.73 m2 (mL/min/1.73m2) >= 60.00 Glucose (70-100) mg/dL 102 H Calcium (8.5-10.1) mg/dL 9.4 Total Bilirubin (0.2-1.0) mg/dL 0.4 AST (15-37) U/L 6 L ALT (12-78) U/L 13 Alkaline Phosphatase (46-116) U/L 51 Total Protein (6.4-8.2) g/dL 8.3 H Albumin (3.4-5.0) g/dL 4.6 HPI General Mode of arrival: ambulatory. Date/Time Provider Initiated Documentation: 04/21/19 07:59. Limitations to Documentation: no limitations. Information obtained by: patient, RN notes reviewed and old records reviewed. HPI Narrative: Shahrma Buck is a 24-year-old man with a history of asthma, syncope, spondyloarthropathy presenting to the emergency department with ear pain. History obtained from patient and also per record review. Patient was seen here yesterday for left-sided ear pain, discharged home with Ciprodex suspension for treatment of otitis externa. Patient reports that since being discharged home he has gradually had worsening of symptoms. Patient reports that he was unable to sleep last night due to severity of the pain, and pain now seems to be radiating into his temporal region and also his left jaw. Patient reports that he has not been eating since last night due to the severity of the pain in his jaw with opening his mouth. Patient denies fevers, headaches, vomiting, diarrhea, numbness/weakness the extremities, vision changes, cough, shortness of breath. He reports that he feels generally unwell this morning with some nausea, but denies any pain other than as previously described. Never with similar symptoms in the past. Patient reports no inciting event, he states that 2 or 3 days ago he noticed that his left ear was hurting and he used a Q-tip which was bloody when he removed it. No sudden increase in pain with Q-tip use. Patient denies immunocompromise state, although he states that approximately 1 year ago he was on chronic steroids for spine problems. No history of IV drug use. Has been using topical Ciprodex as prescribed. Related Data Home Medications Medication Instructions Recorded Confirmed ciprofloxacin-dexamethasone 4 drp OT BID 7 Days #7.5 ml 04/20/19 04/23/19 [Ciprodex] ciprofloxacin HCl [Cipro] 500 mg PO BID #13 tab 04/21/19 04/23/19 omeprazole 40 mg capsule,delayed 40 mg PO DAILY PRN #90 cap 04/23/19 04/23/19 release ondansetron 4 mg disintegrating 4 mg PO Q8H PRN #60 tab 04/23/19 tablet rizatriptan 10 mg disintegrating 10 mg PO PRN #60 tab 04/23/19 04/23/19 tablet Previous Rx's Medication Instructions Recorded ciprofloxacin-dexamethasone 4 drp OT BID 7 Days #7.5 ml 04/20/19 [Ciprodex] ciprofloxacin HCl [Cipro] 500 mg PO BID #13 tab 04/21/19 omeprazole 40 mg capsule,delayed 40 mg PO DAILY PRN #90 cap 04/23/19 release ondansetron 4 mg disintegrating 4 mg PO Q8H PRN #60 tab 04/23/19 tablet rizatriptan 10 mg disintegrating 10 mg PO PRN #60 tab 04/23/19 tablet Allergies Allergy/AdvReac Type Severity Reaction Status Date / Time No Known Allergies Allergy Verified 04/23/19 13:31 General Stated Complaint: EarProblem SCARLETT: 4 Review of Systems Review of Systems Constitutional: denies fevers Eyes: denies eye pain ENT: denies dental pain, sore throat, reports left ear pain, left jaw pain Cardiovascular: denies chest pain Respiratory: denies SOB, cough GI: denies abdominal pain, vomiting, diarrhea, reports nausea : denies flank pain MSK: denies back pain, neck pain, arthralgias, myalgias Skin: denies rash Neuro: denies headaches, numbness, weakness REPLACED BY [facility] Medical History Asthma (Chronic) Chronic back pain (Chronic) Complicated migraine (Chronic 11/10/13) History of possible renal stone. (Resolved) Kidney calculi (Resolved) Kidney stones (Chronic) Learning difficulties (Chronic) Social anxiety disorder (Chronic 01/31/18) Spondyloarthropathy (Chronic 07/22/14) Social History Smoking/Tobacco Use Status: Never Alcohol Intake: never Drug use: Occasionally Substance use type: marijuana Do you feel safe at home: Yes Do you feel safe in your relationship?: Yes Exam Narrative Exam Narrative: Constitutional: well and non-toxic but uncomfortable appearing, pleasant, conversing normally HENT: head atraumatic/normocephalic/normal inspection, mucous membranes moist. Normal inspection of the external ears. Right TM and canal normal. Severe pain elicited by palpation of the tragus and manipulation of the left pinna. Left TM not fully visualized due to mild edema of the canal but opaque, canal with significant erythema and purulent discharge. Left canal patent. Tenderness to palpation of the left preauricular area, left TMJ, left jaw. Mild edema of the left parotid gland. No mastoid tenderness bilaterally. No tenderness of the right jaw or TMJ. No trismus. No intraoral lesion noted, normal oropharynx. Eyes: conjunctiva normal, sclera normal, pupils 3mm b/l Neck: no stridor, normal ROM, trachea midline, supple, nontender to palpation Resp: normal work of breathing, LCTAB Cardio: normal rate, normal rhythm, no murmur appreciated Skin: warm, dry, normal color, no rash Neuro: alert, not altered, grossly non-focal, normal tone Ext: Moving all extremities equally Psych: normal mood, normal affect, normal behavior Course Vital Signs Temperature 36.6 C 04/21/19 07:32 Pulse 64 04/21/19 07:32 Respiratory Rate 12 04/21/19 07:32 Blood Pressure 160/90 H 04/21/19 07:32 Pulse Oximetry 98 04/21/19 07:32 Temperature 36.6 C 04/21/19 07:32 Temperature Source Temporal Artery Scan 04/21/19 07:32 Pulse 64 04/21/19 07:32 Respiratory Rate 12 04/21/19 07:32 Respiratory Effort Non-Labored 04/21/19 07:34 Blood Pressure 160/90 H 04/21/19 07:32 Blood Pressure Position Sitting 04/21/19 07:32 Pulse Oximetry 98 04/21/19 07:32 Oxygen Delivery Method Room Air 04/21/19 07:32 Oxygen Flow Rate 0 04/21/19 07:32 Pain Level 10 04/21/19 07:34
--- NOTE | 2019-04-21 08:20 | DI.CT_ITS ---
SYMPTOM/DIAGNOSIS: OTITIS EXTERNA, SEVEE TEMPORAL AND JAW JPAIN. CRANIAL CT: 04/[address] was performed prior to and following intravenous infusion of 100 cc Omnipaque 350. There is no evidence of intracranial hemorrhage, mass effect or midline shift. No mass, lesion or enhancing lesion seen. Paranasal sinuses and mastoid air cells are clear. Orbital structures appear intact. The patient reportedly has left otitis externa. The middle and inner ear structures bilaterally appear normal. No abnormality is seen involving the TM joint. CONCLUSION: Negative Cranial CT without and with contrast.
[2019-04-21] MEDS: Normal Saline Flush 10 ML SYR IVP ×2 (08:45→09:01)
[2019-04-21 08:58] LABS: ALT 13 U/L (12-78); AST 6 U/L (15-37); Absolute Basophil Count 0.02 k/cumm (0.0-0.2); Absolute Lymphocyte Count 1.63 k/cumm (1.2-3.4); Absolute Neutrophil Count 4.19 k/cumm (1.2-6.7); Albumin 4.6 g/dL (3.4-5.0); Alkaline Phosphatase 51 U/L (46-116); Anion Gap 8.8 mmol/L (3-11); BUN 10 mg/dL (7-18); Basophils % 0.3; Bilirubin, Total 0.4 mg/dL (0.2-1.0); CO2 29.2 mmol/L (21.0-32.0); CREATININE 1.13 mg/dL (0.70-1.30); Calcium 9.4 mg/dL (8.5-10.1); Chloride 105 mmol/L (98-107); Eosinophils % 1.6; Glucose 102 mg/dL (70-100); HGB 15.1 g/dL (13.5-17.5); Lymphocytes % 25.3; Mean Corp. HGB Concentration 34.3 g/dL (32.0-36.0); Mean Corpuscular Hemoglobin 28.4 pg (27.0-33.0); Mean Corpuscular Volume 82.7 fL (80-95); Mean Platelet Volume 10.5 fL (8.0-11.0); Monocytes % 7.8; Platelet Count 250 x1000/uL (130-400); Potassium 4.6 mmol/L (3.5-5.1); RBC 5.32 m/cumm (4.50-6.00); RBC Distribution Width 13.5 % (11.8-14.1); Sodium 143 mmol/L (136-145); Total Protein 8.3 g/dL (6.4-8.2); White Blood Cell Count 6.44 k/cumm (4.4-10.8)
--- NOTE | 2019-04-21 09:00 | DI.CT_ITS ---
SYMPTOM/DIAGNOSIS; OTITIS EXTERNA, SEVERE TEM;PORAL AND JAW PAIN CERVICAL CT: 04/21 CT examination of the cervical region was performed following the contrast enhanced cranial CT. Images obtained through the lung apices are unremarkable. Tracheolaryngeal structures appear intact. Vascular structures of the neck appear normal. No cervical mass or adenopathy seen. Salivary glands grossly unremarkable except for question slight enhancement of superior portions of left parotid gland, correlation requested regarding any parotid tenderness. No evidence of abscess formatio. TM joints appear intact as visualized. Patient reportedly has otitis externa. As noted on cranial CT no abnormality of middle or inner ear structures identified. CONCLUSION: Essentially negative CT of the cervical region. Question slight enhancement superior portions of left parotid gland. No evidence of mass, abscess or adenopathy.
[2019-04-21] MEDS: Omnipaque 350 MG/ML 100 ML BTL IJ (09:01)
[2019-04-21] MEDS: Ciprofloxacin 500 MG TAB PO (09:36)
[2019-04-21 09:51] LABS: ESR 10 mm/hr (0-15)
== END 2019-04-21 09:49 | disposition home or self-care (01) ==
PROVIDERS: Emergency Provider Student in an Organized Health Care Education/Training Program; PCP Family Medicine
DX: H60.502 Unspecified acute noninfective otitis externa, left ear (principal); K11.20 Sialoadenitis, unspecified
CPT/HCPCS: 36415; 70491; 80053; 85652; 99285; 70470; 85025; 99284; J3490

== ENCOUNTER 2020-11-19 09:43 | Emergency (ER) | payer MEDICAID, SELFPAY ==
[2020-11-19 09:47] VITALS: BP 127/79; PULSE 79; RESP 16; TEMP 36.7; O2SAT 100
--- NOTE | 2020-11-19 10:26 | W.ED.GENAD ---
Discharge Plan Disposition Patient Disposition: HOME Condition: Good Discharge Details Clinical Impression: Abscess of face Primary Care Provider: Unknown,Unknown ED Provider: Emily Torrez Home Meds and New Rx's Prescriptions: New clindamycin HCl 150 mg capsule 450 mg PO QID Qty: 40 RF: 0 oxycodone 5 mg tablet 5 mg PO BID PRNQty: 4 RF: 0 Continued omeprazole 40 mg capsule,delayed release(DR/EC) 40 mg PO DAILY PRN (Reason: heartburn) Qty: 90 RF: 4 ondansetron 4 mg tablet,disintegrating 4 mg PO Q8H PRN (Reason: nausea and vomiting during migraine headaches) Qty: 60 RF: 4 baclofen 10 mg tablet 10 mg PO TID PRN (Reason: muscle spasm) Qty: 30 RF: 1 rizatriptan [Maxalt-MANAGER RETENTION] 10 mg tablet,disintegrating 10 mg PO PRN Qty: 60 RF: 4 Discharge Instructions Instructions: Abscess (ED) Additional Instructions: Warm compresses 5 minutes/h Antibiotics until completed Yogurt daily while on antibiotic It would likely take 48 hours for your symptoms to improve Should you have spreading redness, fever, worsening pain, you should return to the emergency room Recheck recommended in 48 hours or persistent symptoms are not improving Use hydrocodone sparingly, this medication is very addictive and you should not drive for 8 hours after taking this medication Medical Decision Making This patient appears well, I did perform needle aspiration the affected area Placed on clindamycin and given a small amount of opiate analgesia, risks discussed Early return precautions discussed patient expressed understanding Discharged home in stable condition with stable vitals No evidence of dental abscess clinically No clinical evidence of synovitis, cellulitis Differential Diagnosis Differential Diagnosis: Cellulitis, sinusitis, abscess facial, dental abscess HPI This 25-year-old male presents with report of swelling and tenderness to left facial region. Patient states his symptoms started approximately 5 days ago. His mother reportedly had Macrobid left at home and has been taking the medication at home. He did not take this medication today reportedly. She denies any difficulty swallowing, vision change, dental pain, headache. He denies history of IV drug abuse. General Date/Time Provider Initiated Documentation: 11/19/20 09:44. Related Data Home Medications Medication Instructions Recorded Confirmed omeprazole 40 mg capsule,delayed 40 mg PO DAILY PRN #90 cap 04/23/19 11/19/20 release baclofen 10 mg tablet 10 mg PO TID PRN #30 tab 11/19/19 11/19/20 ondansetron 4 mg disintegrating 4 mg PO Q8H PRN #60 tab 11/19/19 11/19/20 tablet rizatriptan 10 mg disintegrating 10 mg PO PRN #60 tab 11/19/19 11/19/20 tablet clindamycin HCl 450 mg PO QID #40 cap 11/19/20 oxycodone 5 mg PO BID PRN #4 tab 11/19/20 Previous Rx's Medication Instructions Recorded omeprazole 40 mg capsule,delayed 40 mg PO DAILY PRN #90 cap 04/23/19 release baclofen 10 mg tablet 10 mg PO TID PRN #30 tab 11/19/19 ondansetron 4 mg disintegrating 4 mg PO Q8H PRN #60 tab 11/19/19 tablet rizatriptan 10 mg disintegrating 10 mg PO PRN #60 tab 11/19/19 tablet clindamycin HCl 450 mg PO QID #40 cap 11/19/20 oxycodone 5 mg PO BID PRN #4 tab 11/19/20 Allergies Allergy/AdvReac Type Severity Reaction Status Date / Time No Known Allergies Allergy Verified 06/24/19 15:02 General Stated Complaint: FacialProb SCARLETT: 3 Review of Systems Narrative: Review of systems negative x7 aside from medication in [facility] Medical History (Updated 11/19/20 @ 10:31 by KEVEN Heller) Asthma Chronic back pain LOW GRADE BACK PAIN WITH KYPHOSIS. Complicated migraine (11/10/13) Dysuria (10/11/12) Gross hematuria (10/09/12) History of possible renal stone. Intestinal infection due to E. coli (04/07/13) Kidney calculi Kidney stones Knee pain (11/21/12) Learning difficulties Social anxiety disorder (01/31/18) Spondyloarthropathy (07/22/14) [facility] rhematology 06/23, ankylosing spondylitis Social History Smoking/Tobacco Use Status: Never Smoking risk assessment performed?: Yes Alcohol Intake: current Alcohol Intake frequency: a few times a month Drug use: Occasionally Substance use type: marijuana Do you feel safe at home: Yes Do you feel safe in your relationship?: Yes Exam Const General: cooperative and healthy appearing [facility] Head images: 1. Swelling and tenderness appreciated, erythema with induration, no obvious drainage, no fluctuance General nose exam: nares normal Throat: uvula midline Neuro General: patient alert Course Vital Signs Vital signs: Vital Signs Temperature 36.7 C 11/19/20 09:47 Pulse 79 11/19/20 09:47 Respiratory Rate 16 11/19/20 09:47 Blood Pressure 127/79 11/19/20 09:47 Pulse Oximetry 100 11/19/20 09:47 Temperature 36.7 C 11/19/20 09:47 Temperature Source Skin 11/19/20 09:47 Pulse 79 11/19/20 09:47 Respiratory Rate 16 11/19/20 09:47 Respiratory Effort 11/19/20 09:55 Blood Pressure 127/79 11/19/20 09:47 Blood Pressure Position Sitting 11/19/20 09:47 Pulse Oximetry 100 11/19/20 09:47 Oxygen Delivery Method Room Air 11/19/20 09:47 Oxygen Flow Rate 0 11/19/20 09:47 Pain Level 7 11/19/20 09:55 Procedures Abscess I/D Site: Face Side (if applicable): Left Local Anesthetic: Lidocaine 1% Technique: Needle Aspiration Amount of fluid expressed (mL): 0 Irrigation: No Packing used?: None Complications: Pain
--- NOTE | 2020-11-19 11:07 | ED.GENADUL_ITS ---
Discharge Plan Disposition Patient Disposition: HOME Condition: Good Discharge Details Clinical Impression: Abscess of face Primary Care Provider: Unknown,Unknown ED Provider: Emily Torrez Home Meds and New Rx's Prescriptions: New clindamycin HCl 150 mg capsule 450 mg PO QID Qty: 40 RF: 0 oxycodone 5 mg tablet 5 mg PO BID PRNQty: 4 RF: 0 Continued omeprazole 40 mg capsule,delayed release(DR/EC) 40 mg PO DAILY PRN (Reason: heartburn) Qty: 90 RF: 4 ondansetron 4 mg tablet,disintegrating 4 mg PO Q8H PRN (Reason: nausea and vomiting during migraine headaches) Qty: 60 RF: 4 baclofen 10 mg tablet 10 mg PO TID PRN (Reason: muscle spasm) Qty: 30 RF: 1 rizatriptan [Maxalt-QUILLER OPERATOR] 10 mg tablet,disintegrating 10 mg PO PRN Qty: 60 RF: 4 Discharge Instructions Instructions: Abscess (ED) Additional Instructions: Warm compresses 5 minutes/h Antibiotics until completed Yogurt daily while on antibiotic It would likely take 48 hours for your symptoms to improve Should you have spreading redness, fever, worsening pain, you should return to the emergency room Recheck recommended in 48 hours or persistent symptoms are not improving Use hydrocodone sparingly, this medication is very addictive and you should not drive for 8 hours after taking this medication HPI General Date/Time Provider Initiated Documentation: 11/19/20 09:44 . Related Data Home Medications Medication Instructions Recorded Confirmed omeprazole 40 mg capsule,delayed 40 mg PO DAILY PRN #90 cap 04/23/19 11/19/20 release baclofen 10 mg tablet 10 mg PO TID PRN #30 tab 11/19/19 11/19/20 ondansetron 4 mg disintegrating 4 mg PO Q8H PRN #60 tab 11/19/19 11/19/20 tablet rizatriptan 10 mg disintegrating 10 mg PO PRN #60 tab 11/19/19 11/19/20 tablet clindamycin HCl 450 mg PO QID #40 cap 11/19/20 oxycodone 5 mg PO BID PRN #4 tab 11/19/20 Previous Rx's Medication Instructions Recorded omeprazole 40 mg capsule,delayed 40 mg PO DAILY PRN #90 cap 04/23/19 release baclofen 10 mg tablet 10 mg PO TID PRN #30 tab 11/19/19 ondansetron 4 mg disintegrating 4 mg PO Q8H PRN #60 tab 11/19/19 tablet rizatriptan 10 mg disintegrating 10 mg PO PRN #60 tab 11/19/19 tablet clindamycin HCl 450 mg PO QID #40 cap 11/19/20 oxycodone 5 mg PO BID PRN #4 tab 11/19/20 Allergies Allergy/AdvReac Type Severity Reaction Status Date / Time No Known Allergies Allergy Verified 06/24/19 15:02 General Stated Complaint: FacialProb SCARLETT: 3 PFSH Medical History (Updated 11/19/20 @ 10:31 by KEVEN Heller) Asthma Chronic back pain LOW GRADE BACK PAIN WITH KYPHOSIS. Complicated migraine (11/10/13) Dysuria (10/11/12) Gross hematuria (10/09/12) History of possible renal stone. Intestinal infection due to E. coli (04/07/13) Kidney calculi Kidney stones Knee pain (11/21/12) Learning difficulties Social anxiety disorder (01/31/18) Spondyloarthropathy (07/22/14) [facility] rhematology 06/23, ankylosing spondylitis Social History Smoking/Tobacco Use Status: Never Smoking risk assessment performed?: Yes Alcohol Intake: current Alcohol Intake frequency: a few times a month Drug use: Occasionally Substance use type: marijuana Do you feel safe at home: Yes Do you feel safe in your relationship?: Yes Course Vital Signs Vital signs: Vital Signs Temperature 36.7 C 11/19/20 09:47 Pulse 79 11/19/20 09:47 Respiratory Rate 16 11/19/20 09:47 Blood Pressure 127/79 11/19/20 09:47 Pulse Oximetry 100 11/19/20 09:47 Temperature 36.7 C 11/19/20 09:47 Temperature Source Skin 11/19/20 09:47 Pulse 79 11/19/20 09:47 Respiratory Rate 16 11/19/20 09:47 Respiratory Effort 11/19/20 09:55 Blood Pressure 127/79 11/19/20 09:47 Blood Pressure Position Sitting 11/19/20 09:47 Pulse Oximetry 100 11/19/20 09:47 Oxygen Delivery Method Room Air 11/19/20 09:47 Oxygen Flow Rate 0 11/19/20 09:47 Pain Level 7 11/19/20 09:55
== END 2020-11-19 10:45 | disposition home or self-care (01) ==
PROVIDERS: Emergency Provider Physician Assistant
DX: L02.01 Cutaneous abscess of face (principal)
CPT/HCPCS: 10160

== ENCOUNTER 2020-11-21 13:33 | Emergency (ER) | payer MEDICAID, SELFPAY ==
[2020-11-21 13:39] VITALS: BP 122/88; PULSE 72; RESP 18; TEMP 37.2; O2SAT 100
--- NOTE | 2020-11-21 14:10 | ED.GENADUL_ITS ---
Discharge Plan Disposition Patient Disposition: HOME Condition: Stable Discharge Details Clinical Impression: Periorbital cellulitis of left eye Primary Care Provider: Unknown,Unknown ED Provider: Nany Valdez Home Meds and New Rx's Prescriptions: New cephalexin 500 mg tablet 500 mg PO BID 10 Days Qty: 20 RF: 0 sulfamethoxazole-trimethoprim [Bactrim DS] 800-160 mg tablet 1 tab PO BID 10 Days Qty: 20 RF: 0 ondansetron 4 mg tablet,disintegrating 4 mg PO Q8H PRN (Reason: nausea and vomiting) 5 Days Qty: 15 RF: 0 Continued ondansetron 4 mg tablet,disintegrating 4 mg PO Q8H PRN (Reason: nausea and vomiting during migraine headaches) Qty: 60 RF: 4 oxycodone 5 mg tablet 5 mg PO BID PRNQty: 4 RF: 0 Discontinued clindamycin HCl 150 mg capsule 450 mg PO QID Qty: 40 RF: 0 No Action omeprazole 40 mg capsule,delayed release(DR/EC) 40 mg PO DAILY PRN (Reason: heartburn) Qty: 90 RF: 4 baclofen 10 mg tablet 10 mg PO TID PRN (Reason: muscle spasm) Qty: 30 RF: 1 rizatriptan [Maxalt-CHECKER CASHIER] 10 mg tablet,disintegrating 10 mg PO PRN Qty: 60 RF: 4 Discharge Instructions Instructions: Cellulitis (ED), Periorbital Cellulitis in Adults (ED) Additional Instructions: Take the nausea medication proximately 20 minutes prior to antibiotics. Take the antibiotics with food. Follow up with primary care provider in 3-5 days. Return to ED sooner if any worsening or concerns. Increase oral fluids. Please return for any worsening erythema, swelling, continued vomiting despite medication, inability to move your eyes. Please take Tylenol or Ibuprofen with food every 4-6 hours as needed for pain and swelling. Discharge Data Discharge Date/Time-TO BE ENTERED AT DEPARTURE: 11/21/20 16:52 Medical Decision Making <KEVEN Whatley - Last Filed: 11/23/20 13:45> Patient is a pleasant 25 year old male presenting today with c/c of spreading cellulitis of his face. Patient was seen here 3 days ago. At that time, a fine needle aspiration was preformed and found to be dry, to area adjunct his nose that was concerning for abscess. He was placed on clindamycin and referred for f/u. Courtneytieabhilash states that he took the dose of clindamycin well that night. However, the next day each time he tried to take the abx, he would vomit. States that he has continued to try to take this but has not been able to keep anything down. Has noted the erythema and pain spreading around the left eye. Feels that his vision has been blurry and eye tearing. No pain with EOM. Denies fevers/chills. He denies LUCERO. On exam, patient has area of swelling to the left side of the nose that is the area concerning previously for abscess. It remains swolen but no fluctuance. Warmth and erythema spreads around the left eye. He appears nontoxic. EOM intact, eye is not injected. Swelling noted to the eyelids. No intranasal abnormality. No nuchal rigidity. Concerned for abscess, periorbital cellulitis. Plan for CT to evaluate for abscess and structures around the eye. Plan for IV hydration, antiemetics. and abx. Patient given morphine, feeling improved. Received 4mg zofran, this worked briefly but patient began vomiting just prior to CT. Compazine successful for relieving his nausea. Labs reviewed, WBC wnl, CMP without significant abnormality. Contacted by radiologist. He advised no evidence of abscess, bony involvement or eye abnormality. Discussed findings with the patient. We discussed disposition. His preference is to go home if possible. Plan to try PO antibiotics and ensure he is abl eot tolerate this. Patient able to eat crackers. At the end of my shift, care tranistioned to Nany Valdez NP, with reevaluation pending. Patient is receiving PO Keflex and Bactrim. <Nany Valdez - Last Filed: 11/21/20 23:09> Care assumed from provider (KEVEN Hicks) Discussed patient details and case and pending workup and disposition. Please see her original HPI and physical exam. On initial exam 25-year-old male presents for the second time in the last 48 to 72 hours for left sided facial cellulitis. He was originally placed on clindamycin and began vomiting. Cellulitis has now around left eye. He has received Zofran, and Compazine here in the department fluids are infusing without difficulty at this time. Patient is hemodynamically stable, and alert and oriented. At this time we will trial with oral antibiotic. If no further emesis plan is to discharge home. Patient has been unable to tolerate oral we did discuss possible initiation, he verbalizes understanding and agrees for p.o. trial. CT results as noted below. EXAM: CT FACIAL W CLINICAL HISTORY: periorbital cellulitis TECHNIQUE: COMPARISON: CT CT HEAD WO/W from 04/21/2019 FINDINGS: CT examination of the facial region was performed with intravenous infusion of 100 cc of Omnipaque 350. There appears to be some soft tissue swelling particularly over the left maxillary bone. No underlying bony erosion seen. The swelling extends through the periorbital regions bilaterally. No focal abscess formation identified. The optic globes appear intact. Retro bulbar fat is of normal attenuation. Extraocular muscles and optic nerves appear intact bilaterally. Visualized portions of the brain appear normal. Paranasal sinuses are well aerated as are the mastoid air cells. IMPRESSION: Periorbital soft tissue swelling, left greater than right, no evidence of underlying bony involvement, abscess, or abnormality of the orbital contents. 1636: Per patient feeling okay overall. No further vomiting. Plan to discharge patient home with Keflex and Bactrim and Zofran. Oriented x3. This text was generated using [employer] dictation system, please disregard any oddities of phrase or misspellings. HPI <KEVEN Whatley - Last Filed: 11/23/20 13:45> General Mode of arrival: ambulatory . Date/Time Provider Initiated Documentation: 11/21/20 14:09 . Limitations to Documentation: no limitations . Information obtained by: patient, RN notes reviewed and old records reviewed . History of Present Illness 25 year old M presents to the emergency department with the chief complaint of facial cellulitis, described as severe, with intensity rated at 8. Quality is described as aching, and is localized to the face. Patient reports no radiation. Patient started experiencing this day(s) (4) and it has been constant. No relieving factors improve symptom(s), Medication worsens symptoms (is now having vomiting associated with his clindamycin) . Patient notes nausea/vomiting (is not able to tolerate any PO intake) and rash; denies chest pain, cough, diaphoresis, fever/chills, headaches, loss of appetite and shortness of breath. Patient did receive the following treatments prior to arrival, none (unable to keep down) Related Data Home Medications Medication Instructions Recorded Confirmed omeprazole 40 mg capsule,delayed 40 mg PO DAILY PRN #90 cap 04/23/19 11/21/20 release baclofen 10 mg tablet 10 mg PO TID PRN #30 tab 11/19/19 11/21/20 ondansetron 4 mg disintegrating 4 mg PO Q8H PRN #60 tab 11/19/19 11/21/20 tablet rizatriptan 10 mg disintegrating 10 mg PO PRN #60 tab 11/19/19 11/21/20 tablet oxycodone 5 mg PO BID PRN #4 tab 11/19/20 11/21/20 cephalexin 500 mg PO BID 10 Days #20 tab 11/21/20 ondansetron 4 mg PO Q8H PRN 5 Days #15 tab 11/21/20 sulfamethoxazole-trimethoprim 1 tab PO BID 10 Days #20 tab 11/21/20 [Bactrim DS] Previous Rx's Medication Instructions Recorded omeprazole 40 mg capsule,delayed 40 mg PO DAILY PRN #90 cap 04/23/19 release baclofen 10 mg tablet 10 mg PO TID PRN #30 tab 11/19/19 ondansetron 4 mg disintegrating 4 mg PO Q8H PRN #60 tab 11/19/19 tablet rizatriptan 10 mg disintegrating 10 mg PO PRN #60 tab 11/19/19 tablet oxycodone 5 mg PO BID PRN #4 tab 11/19/20 cephalexin 500 mg PO BID 10 Days #20 tab 11/21/20 ondansetron 4 mg PO Q8H PRN 5 Days #15 tab 11/21/20 sulfamethoxazole-trimethoprim 1 tab PO BID 10 Days #20 tab 11/21/20 [Bactrim DS] Allergies Allergy/AdvReac Type Severity Reaction Status Date / Time No Known Allergies Allergy Verified 11/21/20 13:47 General Stated Complaint: Cellulitis SCARLETT: 3 Review of Systems <KEVEN Whatley - Last Filed: 11/23/20 13:45> Constitutional Constitutional: Reports as per HPI, Denies chills, Denies fever(s) and Denies headache(s) Eyes Eyes: Reports blurry vision (feels that left eye has been blurry and tearing), Denies diplopia and Denies photophobia ENT Ears, Nose, Mouth, and Throat: Reports as per HPI and Denies headache(s) Cardiovascular Cardiovascular: Denies chest pain and Denies dyspnea Respiratory Respiratory: Denies cough and Denies dyspnea Gastrointestinal Gastrointestinal: Denies abdominal pain, Denies change in bowel habits, Reports nausea and Reports vomiting Musculoskeletal Musculoskeletal: Reports as per HPI Integumentary/Breasts Skin/Breast: Reports as per HPI Neurologic Neurologic: Reports as per HPI, Denies headache(s), Denies sensory deficit and Denies paresthesias PFSH <KEVEN Whatley - Last Filed: 11/23/20 13:45> Medical History Asthma Chronic back pain LOW GRADE BACK PAIN WITH KYPHOSIS. Complicated migraine (11/10/13) Dysuria (10/11/12) Gross hematuria (10/09/12) History of possible renal stone. Intestinal infection due to E. coli (04/07/13) Kidney calculi Kidney stones Knee pain (11/21/12) Learning difficulties Social anxiety disorder (01/31/18) Spondyloarthropathy (07/22/14) [facility] [place], ankylosing spondylitis Social History Smoking/Tobacco Use Status: Never Smoking risk assessment performed?: Yes Alcohol Intake: former Drug use: Daily Substance use type: marijuana Do you feel safe at home: Yes Do you feel safe in your relationship?: Yes Exam <KEVEN Whatley - Last Filed: 11/23/20 13:45> Const General: cooperative, not healthy appearing, uncomfortable, no acute distress, well developed and ill appearing acutely Nutritional Appearance: average body habitus and well nourished Orientation: alert and awake [facility] Head: normal to inspection and normocephalic Ears: hearing grossly normal bilaterally and external ears normal Face and sinus: abnormal facial exam, no fluctuance, no lacerations and no maxillary instability Face images: 1. erythema, swelling and tenderness. The area along the bridge of the nose is more swollen and purple. There are two small openings that are likely from recent fine needle aspiration. Difficulty opening eye secondary to swelling. Mouth: oral mucosae normal, lip normal, tongue normal, salivary ducts normal, oropharynx normal, moist mucous membranes, no muffled voice, no trismus and No restricted motion Resp Effort & Inspection: normal respiratory effort, able to speak in complete sentences and no respiratory distress Cardio Rate: regular rate Rhythm: regular rhythm Neuro General: patient alert and patient awake Cognition: normal cognition Speech: speech normal Gait: normal gait Sensory Exam: no sensory deficits noted Psych Appearance: grossly normal and well kempt Mental Status: mental status grossly normal Speech and Movement: speech and movement normal Course <KEVEN Whatley - Last Filed: 11/23/20 13:45> Vital Signs Vital signs: Vital Signs Temperature 37.2 C 11/21/20 13:39 Pulse 72 11/21/20 13:39 Respiratory Rate 18 11/21/20 13:39 Blood Pressure 122/88 11/21/20 13:39 Pulse Oximetry 100 11/21/20 13:39 Temperature 37.2 C 11/21/20 13:39 Temperature Source Skin 11/21/20 13:39 Pulse 72 11/21/20 13:39 Respiratory Rate 18 11/21/20 13:39 Respiratory Effort Non-Labored 11/21/20 13:46 Blood Pressure 122/88 11/21/20 13:39 Blood Pressure Position Sitting 11/21/20 13:39 Pulse Oximetry 100 11/21/20 13:39 Oxygen Delivery Method Room Air 11/21/20 13:39 Oxygen Flow Rate 0 11/21/20 13:39 Pain Level 8 11/21/20 13:39 Sign Out <KEVEN Whatley - Last Filed: 11/23/20 13:45> Sign Out Data: Sign Out Comment: Care transition to Anneliese Vidal NP. Patient has a periorbital cellulitis. He has been having nausea and vomiting. Nausea is currently under control. Plan to trial on p.o. antibiotics. If he is able to tolerate these, plan to discharge home with p.o. antibiotics, antiemetics and pain medication. Is unable to tolerate this, will need to transition to IV antibiotics and be admitted to hospital. Last updated by Nicole Minaya PA at 11/21/20 16:10
--- NOTE | 2020-11-21 14:15 | DI.CT_ITS ---
EXAM: CT FACIAL W CLINICAL HISTORY: periorbital cellulitis TECHNIQUE: COMPARISON: CT CT HEAD WO/W from 04/21/2019 FINDINGS: CT examination of the facial region was performed with intravenous infusion of 100 cc of Omnipaque 35 0. There appears to be some soft tissue swelling particularly over the left maxillary bone. No unde rlying bony erosion seen. The swelling extends through the periorbital regions bilaterally. No foca l abscess formation identified. The optic globes appear intact. Retro bulbar fat is of normal atten uation. Extraocular muscles and optic nerves appear intact bilaterally. Visualized portions of the brain appear normal. Paranasal sinuses are well aerated as are the mastoi d air cells. IMPRESSION: Periorbital soft tissue swelling, left greater than right, no evidence of underlying bony involvement , abscess, or abnormality of the orbital contents. RADIATION DOSE DELIVERED: 388.59mGy.cm Total DLP
[2020-11-21] MEDS: Normal Saline 1,000 ML 1000 ML IV (14:31)
[2020-11-21] MEDS: Ondansetron 4 MG/2 ML VIAL IVP (14:32)
[2020-11-21 14:47] LABS: Abs Immature Grans 0.01 10^3/uL (0.0-0.06); Absolute Basophil Count 0.02 10^3/uL (0.0-0.2); Absolute Eosinophil Count 0.19 10^3/uL (0.0-0.7); Absolute Lymphocyte Count 1.95 10^3/uL (1.2-3.4); Absolute Monocyte Count 0.49 10^3/uL (0.1-0.8); Absolute Neutrophil Count 3.13 10^3/uL (1.2-6.7); Basophils % 0.3; Eosinophils % 3.3; HCT 40.9 % (40.0-50.0); HGB 14.2 g/dL (13.5-17.5); Immature Grans % 0.2; Lymphocytes % 33.7; MCH 28.9 pg (27.0-33.0); MCHC 34.7 % (32.0-36.0); MCV 83.1 fL (80-95); MPV 10.6 fL (8.0-11.0); Monocytes % 8.5; Nucleated RBC 0 %; Platelet Count 234 10^3/uL (130-400); RBC 4.92 10^6/uL (4.36-5.78); RDW-SD 36.5 fL; WBC 5.79 10^3/uL (4.4-10.8)
[2020-11-21 14:57] LABS: ALT 16 U/L (16-63); AST 12 U/L (15-37); Alkaline Phosphatase 51 U/L (46-116); Anion Gap 9.5 mmol/L (3-11); BUN 17 mg/dL (7-18); Bilirubin, Total 0.5 mg/dL (0.2-1.0); CO2 30.5 mmol/L (21.0-32.0); CREATININE 1.2 mg/dL (0.70-1.30); Calcium 9.3 mg/dL (8.5-10.1); Chloride 100 mmol/L (98-107); Glucose 87 mg/dL (74-106); Potassium 3.9 mmol/L (3.5-5.1); Sodium 140 mmol/L (136-145); Total Protein 7.6 g/dL (6.4-8.2)
[2020-11-21] MEDS: Normal Saline Flush 10 ML SYR IVP (15:22)
[2020-11-21] MEDS: Prochlorperazine 10 MG/2 ML VIAL 5 MG IVP (15:22)
[2020-11-21] MEDS: Omnipaque 350 MG/ML 100 ML BTL IV (15:54)
[2020-11-21] MEDS: Normal Saline - Diluent 50 ML VIAL IV (15:55)
[2020-11-21] MEDS: Sulfameth/Trimeth DS TAB 1 TAB PO (16:19)
[2020-11-21] MEDS: Cephalexin 500 MG CAP PO (16:19)
--- NOTE | 2020-11-21 19:17 | NUR.NOTE ---
referral to Care Management to Establish PCP in 1 week for periorbital cellulitis. Nursing Note:
--- NOTE | 2020-11-22 12:47 | PDOC.ERCMPRO ---
- If Service Date Differs Date of service: 11/22/20 Time of Service: 12:47 Care Management Progress Note Shahram is seen in the ED on 11/21/20 for left periorbital cellulitis. CM contacts the [facility] to inquire if Shahram has established care with them, as a note in the chart states he wished to transfer his care from [facility] to the [facility] in July of 2020. CM is advised that Shahram has a new patient appointment with Yoselyn Rose MD, scheduled for Thursday, November 26, 2020 at 1:50 pm. He reportedly had an appointment in August to establish care but cancelled that appointment and rescheduled for this upcoming Sunday. CM made them aware that Shahram was seen in the ED yesterday for periorbital cellulitis.
== END 2020-11-21 16:52 | disposition home or self-care (01) ==
PROVIDERS: Physician Assistant; Emergency Provider Registered Nurse Emergency
DX: L03.213 Periorbital cellulitis (principal)
CPT/HCPCS: 36415; 80053; 96361; 96374; 96375; 99284; 70487; 83605; 85025; J0780; J2405; J3490

== ENCOUNTER 2021-12-10 09:45 | Emergency (ER) | payer MEDICAID, SELFPAY ==
--- NOTE | 2021-12-10 09:55 | ED.GENADUL_ITS ---
Discharge Plan Disposition Patient Disposition: HOME Condition: Stable Discharge Details Clinical Impression: Sinusitis, Use of nonprescription opiate drugs Primary Care Provider: Unknown,Unknown ED Provider: Nany Valdez Home Meds and New Rx's Prescriptions: New amoxicillin-pot clavulanate 875-125 mg tablet 1 tab PO BID 10 Days Qty: 20 0RF ondansetron 4 mg tablet,disintegrating 4 mg PO Q8H 4 Days Qty: 12 0RF Continued omeprazole 40 mg capsule,delayed release(DR/EC) 40 mg PO DAILY PRN (Reason: heartburn) Qty: 90 4RF ondansetron 4 mg tablet,disintegrating 4 mg PO Q8H PRN (Reason: nausea and vomiting during migraine headaches) Qty: 60 4RF baclofen 10 mg tablet 10 mg PO TID PRN (Reason: muscle spasm) Qty: 30 1RF rizatriptan [Maxalt-[employer]ER] 10 mg tablet,disintegrating 10 mg PO PRN Qty: 60 4RF Rx Instructions: take 1 po prn migraine. may repeat in 2 hours if no better. Discharge Instructions Additional Instructions: Please take the antibiotic with food as directed. Eat yogurt or take a probiotic while on the antibiotics. Do not pick at any facial pimples or sores if possible. CT does show that you have extensive sinusitis. Please follow-up with ear nose and throat if this does not resolve within [address] anything into your nose or sinuses. Follow up with primary care provider in 3-5 days. Return to ED sooner if any worsening or concerns. Increase oral fluids. Please take Tylenol or Ibuprofen with food every 4-6 hours as needed for pain and swelling. At this time the MRSA culture is pending. Referrals: Davion Wong MD [ [facility] STAFF PHYSICIAN] - 2 weeks (Recurrent Sinusitis, Call to make an appointment) Medical Decision Making 26-year-old male presents with headache, bilateral periorbital swelling, sinus pressure after popping a lesion at the bridge of his nose 3 days ago. He reports chills. Patient had a similar episode to this approximately 1 year ago and was placed on Bactrim and Keflex which she reports improved symptoms. However mom states that she was thinks it never really went away. Patient has recently been seen by rheumatology at [facility] [place]. At this time will order work-up including blood cultures, MRSA screen, CT rule out sinusitis versus periorbital cellulitis, will give Clindamycin. Patient taking p.o. fluids without difficulty. CBC shows no leukocytosis, hemoglobin 13.4 hematocrit 39.1, lymphocytes 1.04, lactate 0.8, CMP largely within normal limits, total bilirubin 1.5, urinalysis shows 80 ketones trace blood, however there is squamous contamination so culture is not indicated time. Urine drug screen positive for opiates and THC. CT noted below which shows ethmoid, sphenoid and maxillary sinusitis no evidence for periorbital cellulitis. No infiltration of the post septal fat in either orbit. Patient received 300 mg clindamycin IV while here in department to cover for possible MRSA. We will send patient home on Augmentin for sinusitis and give a referral for ENT if problems persist. Discussed results with patient and family who verbalized understanding. Written discharge instructions given. Patient was given Augmentin first dose here in department and a prescription for Augmentin and Zofran. Discussed strict return instructions. This text was generated using [employer] dictation system, please disregard any oddities of phrase or misspellings. Patient placed on care management list for establishment of PCP however mom states that he sees Yoselyn murcia at [facility]. Also referral for ear nose and throat for recurrent sinusitis. Imaging Data Radiologic Study: Imaging: CT Scan Radiologist's impression: COMPARISON: CT FACIAL W 11/21/2020 3:16 PM FINDINGS: Frontal sinuses: Clear. No air-fluid levels. The right frontal sinus is hypoplastic. Ethmoid air cells: Mucosal thickening in the bilateral ethmoid air cells, moderate on the right and mild on the left, increased on the left since 11/21/2020. Sphenoid sinuses: Mild polypoid mucosal thickening in the right sphenoid sinus and trace mucosal thickening in the left sphenoid sinus, new since 11/21/2020. No air-fluid levels. Maxillary sinuses: New very mild polypoid mucosal thickening in the right maxillary sinus. The left maxillary sinus is clear. No air-fluid levels. The right ostiomeatal unit is opacified by soft tissue thickening, new since 11/21/2020. Nasal cavity/Septum: Unremarkable. Orbital cavities: Unremarkable. The globes are normal and symmetric in size, without proptosis. Both lenses are normally located. Extraocular muscles and optic apparatus are normal and symmetric in size. No infiltration of the postseptal fat in either orbit. Bones/joints: No acute fractures or suspicious osseous lesions.. Soft tissues: Soft tissue swelling previously seen in the left maxillary and left nasal region has essentially resolved in the interim. No significant soft tissue swelling is appreciated current leak. No fluid collection or soft tissue emphysema. IMPRESSION: 1. Mild paranasal sinus mucosal disease, increased/progressed since 11/21/2020. No air-fluid levels in the paranasal sinuses. 2. Facial soft tissue swelling seen previously has essentially resolved since 11/21/2020. No evidence of abscess. Thank you for allowing us to participate in the care of your patient. Dictated and Authenticated by: Trinidad Cotto MD [facility] General Mode of arrival: ambulatory . Date/Time Provider Initiated Documentation: 12/10/21 09:50 . Limitations to Documentation: no limitations . Information obtained by: patient, RN notes reviewed and old records reviewed . HPI Narrative: 26-year-old male past medical history of periorbital cellulitis left eye and abscess of face, migraine, asthma, spondyloarthropathy, anxiety disorder and colitis presents to the ER with chief complaint of bridge of nose sore and bila teral periorbital swelling which began 3 days ago. He also reports headache and chills last night. He states that he had a pimple-like sore which was getting worse despite using hydrogen peroxide, topical antibiotic ointment, compresses which he then tried to pop it and since has gotten worse. He was seen here approximately a year ago for similar. Related Data Home Medications Medication Instructions Recorded Confirmed omeprazole 40 mg capsule,delayed 40 mg PO DAILY PRN #90 cap 04/23/19 12/10/21 release baclofen 10 mg tablet 10 mg PO TID PRN #30 tab 11/19/19 12/10/21 ondansetron 4 mg disintegrating 4 mg PO Q8H PRN #60 tab 11/19/19 12/10/21 tablet rizatriptan 10 mg disintegrating 10 mg PO PRN #60 tab 11/19/19 12/10/21 tablet (Maxalt-[employer]) amoxicillin 875 mg-potassium 1 tab PO BID 10 Days #20 tab 12/10/21 clavulanate 125 mg tablet ondansetron 4 mg disintegrating 4 mg PO Q8H 4 Days #12 tab 12/10/21 tablet Previous Rx's Medication Instructions Recorded omeprazole 40 mg capsule,delayed 40 mg PO DAILY PRN #90 cap 04/23/19 release baclofen 10 mg tablet 10 mg PO TID PRN #30 tab 11/19/19 ondansetron 4 mg disintegrating 4 mg PO Q8H PRN #60 tab 11/19/19 tablet rizatriptan 10 mg disintegrating 10 mg PO PRN #60 tab 11/19/19 tablet (Maxalt-[employer]) amoxicillin 875 mg-potassium 1 tab PO BID 10 Days #20 tab 12/10/21 clavulanate 125 mg tablet ondansetron 4 mg disintegrating 4 mg PO Q8H 4 Days #12 tab 12/10/21 tablet Allergies Allergy/AdvReac Type Severity Reaction Status Date / Time methotrexate AdvReac Unknown Nausea Verified 12/10/21 10:17 General SCARLETT: 3 Review of Systems All systems reviewed & are unremarkable except as noted in HPI and below Constitutional Constitutional: Reports as per HPI, Reports chills, Denies fever(s) and Reports headache(s) ENT Ears, Nose, Mouth, and Throat: Reports facial pain, Reports headache(s), Denies epistaxis, Denies mouth lesions, Reports sinus pain and Reports sinus pressure Cardiovascular Cardiovascular: Denies chest pain and Denies dyspnea Respiratory Respiratory: Denies dyspnea Neurologic Neurologic: Reports headache(s) PFSH All Active Problems (Updated 12/10/21 @ 11:55 by Nany Valdez) Abscess of face (Acute) Periorbital cellulitis of left eye (Acute) Sinusitis (Acute) Use of nonprescription opiate drugs (Acute) Complicated migraine (Chronic 11/10/13) Spondyloarthropathy (Chronic 07/22/14) [facility] rhematology 06/23, ankylosing spondylitis Social anxiety disorder (Chronic 01/31/18) Asthma (Chronic) Chronic back pain (Chronic) LOW GRADE BACK PAIN WITH KYPHOSIS. Learning difficulties (Chronic) Medical History Dysuria (10/11/12) Gross hematuria (10/09/12) Intestinal infection due to E. coli (04/07/13) Kidney calculi Kidney stones Knee pain (11/21/12) Social History Smoking/Tobacco Use Status: Never Smoking risk assessment performed?: Yes Alcohol Intake: former Drug use: Daily Substance use type: marijuana Do you feel safe at home: Yes Do you feel safe in your relationship?: Yes Exam Narrative Exam Narrative: Constitutional: Alert and oriented x3. Appears stated age. Thin body habitus. disheveled Head: Normocephalic, no trauma. Eyes: Pupils PERRL, Red reflex noted, EOM's intact, pain with external rotation of EOM. Bilateral periorbital swelling, ENT: Bilateral TM's WNL, External ear normal to inspection, no mastoid TTP, swelling, or erythema, Nasal turbinates mildly erythemic and boggy, no nasal discharge. Normal dentition, Posterior pharynx mildly erythemic, no exudate. Sinus tenderness to palpation to the frontal sinuses and maxillary sinuses. Chest: RRR, Normal S1, S2, distal pulses intact. Resp: Lungs clear to auscultation bilaterally, no wheezes, rales, or rhonchi. Abdomen: Soft, non-distended, Normoactive bowel sounds all 4 quads. Musculoskeletal: Normal gait, 5/5 strength to all four extremities. Skin: No suspicious rashes or lesions. Capillary refill less than 2 sec. Neurologic: Cranial nerves II-XII intact. Alert and oriented x 3. Motor: No deficits noted. Sensory: Intact bilaterally all 4 extremities. Reflexes: DTR's intact bilaterally.. Hematologic/Lymphatic: No ecchymosis, no lymphadenopathy. [facility] Head images: 1. Excoriation, sore. Approximately 0.5 cm in diameter, no surrounding erythema or induration noted.
[2021-12-10 09:56] VITALS: BP 125/75; PULSE 71; RESP 15; TEMP 36.6; O2SAT 98
--- NOTE | 2021-12-10 10:00 | DI.CT_ITS ---
Exam(s) CT FACIAL W EXAM: CT FACIAL W CLINICAL HISTORY: R/O periorbital cellulitis/sinusitis. TECHNIQUE: Imaging Protocol: Axial computed tomography images with coronal and sagittal reformatted images were created and reviewed. No IV contrast COMPARISON: CT CT FACIAL W from 11/21/2020 FINDINGS: MAXILLOFACIAL CT SCAN: There is no evidence of facial fractures nor fluid the visualized paranasal sinuses. There is no leanne dence of orbital blowout fracture. Mandible appears unremarkable. There is mild mucosal thickening now evident in the floor and side riley of the right maxillary sinus , more so than previous. No associated fluid level nor bone dehiscence. No surgical defects evident in the medial riley. Right ostiomeatal unit is opacified. Left is not opacified but is stenotic at the level of the hiatus semilunaris. There is also opacification of some right-sided 8th oil air ce lls. There is mucosal thickening also noted in the sphenoid sinuses. Left frontal sinus is clear. Right frontal sinuses not developed. Frontoethmoidal recesses are clear. Mastoid air cells are clear. The nasal septum is relatively midline with no evidence of significant nasal septal spur. No evidenc e of significant keith bullosa. Orbits appear unremarkable. Pre orbital facial swelling which was previously present is no longer se en. IMPRESSION: No evidence of facial bone fractures nor orbital fractures. Paranasal sinus disease as described above, more so than previous. No associated fluid levels nor daya ne dehiscence. Facial swelling which was evident on the prior CT scan of 11/21/2020 is no longer seen. RADIATION DOSE DELIVERED: 333.07mGy.cm Total DLP DATA REPOSITORY: All CT scans at this facility are submitted to the National Radiology Data Registry (NRDR) Dose Index Registry (DIR) with the [employer] (ACR). RADIATION OPTIMIZATION: All CT scans at this facility use at least one of these dose optimization te chniques: automated exposure control; mA and/or kV adjustment per patient size (includes targeted exa ms where dose is matched to clinical indication); or iterative reconstruction.
[2021-12-10 10:45] LABS: Bilirubin Negative (Negative); Blood Trace-intact (Negative); Clarity Clear (Clear); Glucose Negative (Negative); Ketones 80 mg/dL (Negative); Leukocyte Esterase Negative (Negative); Nitrite Negative (Negative); Specific Gravity 1.025 (1.005-1.025); Urobilinogen 0.2 EU/dL (Up TO 0.2)
[2021-12-10 10:53] LABS: Bacteria Rare HPF (Negative); C & S Indicated? No/Sq. Contamination; Casts Negative LPF (Negative); Crystals Negative HPF (Negative); Epithelial Cells Moderate HPF (Negative); Mucus Trace (Negative); RBC 0-2 HPF (0-2); WBC Negative HPF (0-5)
[2021-12-10 10:53] LABS: Abs Immature Grans 0.01 10^3/uL (0.0-0.06); Absolute Basophil Count 0.03 10^3/uL (0.0-0.2); Absolute Eosinophil Count 0.27 10^3/uL (0.0-0.7); Absolute Lymphocyte Count 1.04 10^3/uL (1.2-3.4); Absolute Monocyte Count 0.36 10^3/uL (0.1-0.8); Absolute Neutrophil Count 3.07 10^3/uL (1.2-6.7); Basophils % 0.6; Eosinophils % 5.6; HCT 39.1 % (40.0-50.0); HGB 13.4 g/dL (13.5-17.5); Immature Grans % 0.2; Lymphocytes % 21.8; MCH 28.3 pg (27.0-33.0); MCHC 34.3 % (32.0-36.0); MCV 82.5 fL (80-95); MPV 10.3 fL (8.0-11.0); Monocytes % 7.5; Neutrophils % 64.3; Nucleated RBC 0 %; Platelet Count 183 10^3/uL (130-400); RBC 4.74 10^6/uL (4.36-5.78); RDW 12.6 % (11.8-14.1); RDW-SD 38.3 fL; WBC 4.78 10^3/uL (4.4-10.8)
[2021-12-10 10:54] LABS: Lactate 0.8 mmol/L (0.6-1.4)
[2021-12-10 11:03] LABS: *AMPHETAMINES SCREEN URINE Negative (Negative); *BARBITURATES SCREEN URINE Negative (Negative); *BENZODIAZEPINES SCREEN URINE Negative (Negative); Cannabinoids THC Positive (Negative); Cocaine Screen,Urine Negative (Negative); METHADONE URINE SCREEN Negative (Negative); OPIATES URINE SCREEN Positive (Negative)
[2021-12-10 11:05] LABS: Tricyclic Antidepressants Negative (Negative)
[2021-12-10 11:10] LABS: ALT 17 U/L (16-63); AST 18 U/L (15-37); Albumin 4.4 g/dL (3.4-5.0); Alkaline Phosphatase 53 U/L (46-116); Anion Gap 10.3 mmol/L (3-11); BUN 12 mg/dL (7-18); Bilirubin, Total 1.5 mg/dL (0.2-1.0); CO2 25.7 mmol/L (21.0-32.0); Calcium 9.1 mg/dL (8.5-10.1); Chloride 103 mmol/L (98-107); Glucose 92 mg/dL (74-106); Magnesium 2.2 mg/dL (1.8-2.4); Sodium 139 mmol/L (136-145); Total Protein 7.3 g/dL (6.4-8.2)
[2021-12-10] MEDS: CLINDAMYCIN 300 MG/50 ML BAG 100 MG IVPB (11:18)
[2021-12-10] MEDS: Omnipaque 350 MG/ML 100 ML BTL IJ (11:20)
--- NOTE | 2021-12-10 11:43 | DI.VRAD_ITS ---
PROCEDURE INFORMATION: Exam: CT Maxillofacial With Contrast, Sinus Exam date and time: 12/10/2021 11:06 AM Age: 26 years old Clinical indication: Face pain TECHNIQUE: Imaging protocol: CT Maxillofacial with intravenous contrast. Focus on the sinuses. COMPARISON: CT FACIAL W 11/21/2020 3:16 PM FINDINGS: Frontal sinuses: Clear. No air-fluid levels. The right frontal sinus is hypoplastic. Ethmoid air cells: Mucosal thickening in the bilateral ethmoid air cells, moderate on the right and mild on the left, increased on the left since 11/21/2020. Sphenoid sinuses: Mild polypoid mucosal thickening in the right sphenoid sinus and trace mucosal thickening in the left sphenoid sinus, new since 11/21/2020. No air-fluid levels. Maxillary sinuses: New very mild polypoid mucosal thickening in the right maxillary sinus. The left maxillary sinus is clear. No air-fluid levels. The right ostiomeatal unit is opacified by soft tissue thickening, new since 11/21/2020. Nasal cavity/Septum: Unremarkable. Orbital cavities: Unremarkable. The globes are normal and symmetric in size, without proptosis. Both lenses are normally located. Extraocular muscles and optic apparatus are normal and symmetric in size. No infiltration of the postseptal fat in either orbit. Bones/joints: No acute fractures or suspicious osseous lesions.. Soft tissues: Soft tissue swelling previously seen in the left maxillary and left nasal region has essentially resolved in the interim. No significant soft tissue swelling is appreciated current leak. No fluid collection or soft tissue emphysema. IMPRESSION: 1. Mild paranasal sinus mucosal disease, increased/progressed since 11/21/2020. No air-fluid levels in the paranasal sinuses. 2. Facial soft tissue swelling seen previously has essentially resolved since 11/21/2020. No evidence of abscess. Dictated and Authenticated by: Trinidad Cotto MD. Ordering:ANDRE Ayon MD
[2021-12-10] MEDS: Amoxicillin 875/Clav. 125 TAB PO (11:55)
--- NOTE | 2021-12-10 11:57 | NUR.NOTE ---
Establish with a PCP routine p./Nany Lyons have added this to care management referral list. CLB
--- NOTE | 2021-12-10 12:02 | NUR.NOTE ---
Nany has requested ENT consultation recurrent sinusitis, with Dr. Wong
== END 2021-12-10 12:05 | disposition home or self-care (01) ==
PROVIDERS: Emergency Provider Registered Nurse Emergency; PCP Family Medicine
DX: J01.00 Acute maxillary sinusitis, unspecified (principal); F11.10 Opioid abuse, uncomplicated; L98.8 Other specified disorders of the skin and subcutaneous tissue; R68.83 Chills (without fever)
CPT/HCPCS: 36415; 80053; 80307; 87040; 87077; 96365; 99284; 70487; 81003; 81015; 83605; 83735; 85025; 87070; 87075; 87186; J3490

== ENCOUNTER 2022-06-27 14:22 | Emergency (ER) | payer MEDICAID, SELFPAY ==
[2022-06-27 14:25] VITALS: BP 129/89; PULSE 85; RESP 18; TEMP 36.9; O2SAT 100
--- NOTE | 2022-06-27 16:15 | DI.CT_ITS ---
Exam(s) CT ORBITS W EXAM: CT ORBITS W CLINICAL HISTORY: right eye pain/infection. TECHNIQUE: Imaging Protocol: Axial computed tomography images with coronal and sagittal reformatted images were created and reviewed. No IV contrast COMPARISON: CT CT FACIAL W from 12/10/2021 FINDINGS: MAXILLOFACIAL CT SCAN: There is subcutaneous edema in both periorbital regions, mostly midline. No evidence of postseptal a bnormality. Retro conal fat appears unremarkable. Optic globes unremarkable. There is mucosal thickening in the right maxillary sinus not associated with fluid level. Also in th e sphenoid sinuses. Also right-sided ethmoidal air cells. Frontal sinuses are clear, realizing that the right frontal sinuses are not developed. Visualized mastoid air cells are clear. No significan t fluid in the middle ear cavities. There is no evidence of facial fractures nor fluid the visualized paranasal sinuses. There is no leanne dence of orbital blowout fracture. IMPRESSION: Subcutaneous edema in the periorbital regions.. No evidence of postseptal extension. Paranasal sinus disease as described above, not associated with fluid levels. First read by [facility] RADIATION DOSE DELIVERED: 295.53mGy.cm Total DLP DATA REPOSITORY: All CT scans at this facility are submitted to the National Radiology Data Registry (NRDR) Dose Index Registry (DIR) with the [employer] (ACR). RADIATION OPTIMIZATION: All CT scans at this facility use at least one of these dose optimization te chniques: automated exposure control; mA and/or kV adjustment per patient size (includes targeted exa ms where dose is matched to clinical indication); or iterative reconstruction.
[2022-06-27 16:51] LABS: Lactate 0.8 mmol/L (0.6-1.4)
[2022-06-27 16:52] LABS: Abs Immature Grans 0.02 10^3/uL (0.0-0.06); Absolute Basophil Count 0.03 10^3/uL (0.0-0.2); Absolute Eosinophil Count 0.27 10^3/uL (0.0-0.7); Absolute Lymphocyte Count 2.17 10^3/uL (1.2-3.4); Absolute Neutrophil Count 5.13 10^3/uL (1.2-6.7); Basophils % 0.4; ESR 2 mm/hr (0-15); Eosinophils % 3.2; HCT 40.4 % (40.0-50.0); HGB 13.4 g/dL (13.5-17.5); Immature Grans % 0.2; Lymphocytes % 26.1; MCH 27.6 pg (27.0-33.0); MCHC 33.2 % (32.0-36.0); MCV 83 fL (80-95); MPV 11.4 fL (8.0-11.0); Monocytes % 8.4; Neutrophils % 61.7; Platelet Count 208 10^3/uL (130-400); RBC 4.85 10^6/uL (4.36-5.78); RDW 12.8 % (11.8-14.1); RDW-SD 38.5 fL; WBC 8.32 10^3/uL (4.4-10.8)
[2022-06-27] MEDS: Normal Saline 1,000 ML 1000 ML IV (16:55)
[2022-06-27] MEDS: Ketorolac 30 MG/ML VIAL IVP (16:55)
[2022-06-27] MEDS: Omnipaque 350 MG/ML 100 ML BTL IJ (17:32)
[2022-06-27] MEDS: Normal Saline Flush 10 ML SYR IVP (17:34)
[2022-06-27 17:44] LABS: ALT 19 U/L (16-63); AST 15 U/L (15-37); Albumin 4.6 g/dL (3.4-5.0); Alkaline Phosphatase 45 U/L (46-116); Anion Gap 5.3 mmol/L (3-11); BUN 13 mg/dL (7-18); Bilirubin, Total 0.6 mg/dL (0.2-1.0); C-Reactive Protein 0.21 mg/dL (0.0-0.3); CO2 30.7 mmol/L (21.0-32.0); CREATININE 0.9 mg/dL (0.70-1.30); Calcium 9.5 mg/dL (8.5-10.1); Chloride 106 mmol/L (98-107); Estimated GFR 120.05 (mL/min/1.73m2); Glucose 90 mg/dL (74-106); Potassium 4.6 mmol/L (3.5-5.1); Sodium 142 mmol/L (136-145); Total Protein 7.8 g/dL (6.4-8.2)
--- NOTE | 2022-06-27 18:29 | DI.VRAD_ITS ---
PROCEDURE INFORMATION: Exam: CT Orbits With Contrast Exam date and time: 06/27/2022 5:34 PM Age: 27 years old Clinical indication: Right eye pain/infection TECHNIQUE: Imaging protocol: Computed tomography of the orbits with contrast. Radiation optimization: All CT scans at this facility use at least one of these dose optimization techniques: automated exposure control; mA and/or kV adjustment per patient size (includes targeted exams where dose is matched to clinical indication); or iterative reconstruction. Contrast material: OMNIPAQUE 350; Contrast volume: 100 ml; Contrast route: INTRAVENOUS (IV); COMPARISON: CT FACIAL W 12/10/2021 11:06 AM FINDINGS: Paranasal sinuses: There is mucosal thickening noted throughout the right ethmoid sinus. Orbital cavities: The retrobulbar fat appears grossly clear without evidence of edema. Bones/joints: No acute fracture. Soft tissues: There is a large region of subcutaneous edema around periorbital region. No evidence of a rim-enhancing soft tissue abscess. IMPRESSION: 1. Large subcutaneous edema in the right periorbital region, concerning for preseptal cellulitis. No evidence of postseptal extension. 2. Right ethmoid sinus disease. Dictated and Authenticated by: Carlota Casiano MD. Ordering:JOHN Hartman MD
[2022-06-27] MEDS: PIPERACILLIN/TAZO 4.5 GM in Normal Saline 100 ML IVPB (18:55)
--- NOTE | 2022-06-27 19:10 | ED.GENADUL_ITS ---
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 may repeat in 2 hours if no better. Discharge Instructions Instructions: Periorbital Cellulitis in Adults (ED) Additional Instructions: Yes if you develop any new or significant worsening of symptoms return to the emergency department. Otherwise take antibiotics as prescribed and follow-up with your primary care provider for reassessment. You may continue to take [id number] pain medication as needed for discomfort. Referrals: Yoselyn Rose [Primary Care Provider] - (Call the office tomorrow for arrangemen t of follow-up appointment) Discharge Data Discharge Date/Time-TO BE ENTERED AT DEPARTURE: 06/27/22 20:09 Medical Decision Making Patient presenting to the emergency department for chief complaint of right eye swelling and pain. Patient reports that a couple days ago he attempted to pop a pimple and it is now worsened causing significant facial pain and discomfort. EOMs are intact with no pain on EOM movement. Exam otherwise unremarkable beyond noted facial swelling and erythema stemming from area where it is obvious patient attempted to pop pimple. We will plan on checking labs and CT imaging to rule out orbital cellulitis. Labs are reassuring with no significant leukocytosis, normal lactate, ESR and CRP with are within normal limits. CT imaging shows findings to suggest preseptal cellulitis but no orbital cellulitis. Patient given dose of Zosyn and started on Bactrim and Augmentin. After discussion of diagnosis and plan of care patient has no further needs, questions, or concerns and states clear understanding to return to the emergency department for any worsening symptoms. This documentation was generated using Dragon dictation system, please disregard any oddities of phrase or misspellings. Imaging Data Radiologic Study: Attestation: I personally reviewed and interpreted this imaging study as follows: Imaging: CT Scan Radiologist's impression: FINDINGS: Paranasal sinuses: There is mucosal thickening noted throughout the right ethmoid sinus. Orbital cavities: The retrobulbar fat appears grossly clear without evidence of edema. Bones/joints: No acute fracture. Soft tissues: There is a large region of subcutaneous edema around periorbital region. No evidence of a rim-enhancing soft tissue abscess. IMPRESSION: 1. Large subcutaneous edema in the right periorbital region, concerning for preseptal cellulitis. No evidence of postseptal extension. 2. Right ethmoid sinus disease. HPI General Mode of arrival: ambulatory . Date/Time Provider Initiated Documentation: 06/27/22 16:22 . Limitations to Documentation: no limitations . Information obtained by: patient and RN notes reviewed . History of Present Illness 27 year old M presents to the emergency department with the chief complaint of Right eye pain and swelling, described as moderate, with intensity rated at 6. Quality is described as aching and sharp, and is localized to the eyes and right. Patient started experiencing this day(s) (3) and it has been constant. No relieving factors improve symptom(s), Patient notes denies fever/chills. Patient did receive the following treatments prior to arrival, none Related Data Home Medications Medication Instructions Recorded Confirmed omeprazole 40 mg capsule,delayed 40 mg PO DAILY PRN heartburn #90 04/23/19 06/27/22 release caps baclofen 10 mg tablet 10 mg PO TID PRN muscle spasm #30 11/19/19 06/27/22 tabs ondansetron 4 mg disintegrating 4 mg PO Q8H PRN nausea and 11/19/19 06/27/22 tablet vomiting during migraine headaches #60 tabs rizatriptan 10 mg disintegrating 10 mg PO PRN #60 tabs 11/19/19 06/27/22 tablet ([employer]ERK) Previous Rx's Medication Instructions Recorded omeprazole 40 mg capsule,delayed 40 mg PO DAILY PRN heartburn #90 04/23/19 release caps baclofen 10 mg tablet 10 mg PO TID PRN muscle spasm #30 11/19/19 tabs ondansetron 4 mg disintegrating 4 mg PO Q8H PRN nausea and 11/19/19 tablet vomiting during migraine headaches #60 tabs rizatriptan 10 mg disintegrating 10 mg PO PRN #60 tabs 11/19/19 tablet ([employer]ERK) Allergies Allergy/AdvReac Type Severity Reaction Status Date / Time methotrexate AdvReac Unknown Nausea Verified 06/27/22 14:30 General Stated Complaint: Cellulitis SCARLETT: 3 Review of Systems Constitutional Constitutional: Denies chills, Denies fever(s) and Reports headache(s) Eyes Eyes: Reports as per HPI, Reports blurry vision, Denies change in vision, Denies itchy eyes, Denies loss of vision and Reports eye pain ENT Ears, Nose, Mouth, and Throat: Reports headache(s), Denies nasal congestion, Denies neck pain and Denies sinus pain Cardiovascular Cardiovascular: Reports system reviewed and no additional complaints, except as documented Respiratory Respiratory: Reports system reviewed and no additional complaints, except as documented Gastrointestinal Gastrointestinal: Denies nausea and Denies vomiting Musculoskeletal Musculoskeletal: Denies neck pain Integumentary/Breasts Skin/Breast: Reports as per HPI, Reports erythema, Reports skin pain and Reports skin swelling Neurologic Neurologic: Reports headache(s) and Denies loss of vision Allergic/Immunologic Allergic/Immunologic: Denies itchy eyes PFSH All Active Problems (Updated 06/27/22 @ 19:47 by Devan Rivera NP) Abscess of face (Acute) Periorbital cellulitis of left eye (Acute) Preseptal cellulitis of right eye (Acute) Complicated migraine (Chronic 11/10/13) Spondyloarthropathy (Chronic 07/22/14) [facility] [place] rhematology 06/23, ankylosing spondylitis Social anxiety disorder (Chronic 01/31/18) Asthma (Chronic) Chronic back pain (Chronic) LOW GRADE BACK PAIN WITH KYPHOSIS. Learning difficulties (Chronic) Medical History Dysuria (10/11/12) Gross hematuria (10/09/12) Intestinal infection due to E. coli (04/07/13) Kidney calculi Kidney stones Knee pain (11/21/12) Social History Smoking/Tobacco Use Status: Current-Occasional Tobacco Type: e-cigarettes Smoking risk assessment performed?: Yes Alcohol Intake: former Drug use: Daily Substance use type: marijuana Do you feel safe at home: Yes Do you feel safe in your relationship?: Yes Exam Const General: cooperative, comfortable and no acute distress Orientation: alert and awake [facility] Head: atraumatic Ears: hearing grossly normal bilaterally General nose exam: external nose normal Face and sinus: no erythema Mouth: no drooling Eyes Alignment and Position: alignment normal and position normal Periorbital: periorbital findings abnormal right periorbital swelling, periorbital tenderness and periorbital erythema; no crepitus Eyelids: eyelid abnormality right upper eyelid erythema and tenderness and right lower eyelid without erythema, with no swelling and nontender Conjunctivae: conjunctivae normal Sclera: sclerae normal Cornea: corneas normal Pupils: PERRL EOM: EOM intact bilaterally and EOM normal Neck Neck: normal visual inspection, full ROM, no lymphadenopathy, no meningeal signs, trachea midline and supple Resp Effort & Inspection: normal respiratory effort and able to speak in complete sentences Auscultation: clear to auscultation bilaterally Cardio Rate: regular rate Rhythm: regular rhythm Heart Sounds: S1 normal, S2 normal, normal S1 and S2, no click, no gallops, no murmurs and no rubs Neuro General: patient alert, patient awake, patient oriented x3, gait normal and moves all extremities Cognition: normal cognition Speech: speech normal Course Vital Signs Vital signs: Vital Signs Temperature 36.9 C 06/27/22 14:25 Pulse 85 06/27/22 14:25 Respiratory Rate 18 06/27/22 14:25 Blood Pressure 129/89 06/27/22 14:25 Pulse Oximetry 100 06/27/22 14:25 Temperature 36.9 C 06/27/22 14:25 Temperature Source Temporal Artery Scan 06/27/22 14:25 Pulse 85 06/27/22 14:25 Respiratory Rate 18 06/27/22 14:25 Respiratory Effort Non-Labored 06/27/22 14:31 Blood Pressure 129/89 06/27/22 14:25 Blood Pressure Position Sitting 06/27/22 14:25 Pulse Oximetry 100 06/27/22 14:25 Oxygen Delivery Method Room Air 06/27/22 14:25 Oxygen Flow Rate 0 06/27/22 14:25 Pain Level 6 06/27/22 16:55 Lab/Test Results Lab/Test Results: Laboratory Tests Range/Units 06/27/22 06/27/22 06/27/22 16:40 16:40 16:40 WBC (4.4-10.8) 10^3/uL RBC (4.36-5.78) 10^6/uL Hgb (13.5-17.5) g/dL Hct (40.0-50.0) % MCV (80-95) fL MCH (27.0-33.0) pg MCHC (32.0-36.0) % RDW (11.8-14.1) % Plt Count (130-400) 10^3/uL MPV (8.0-11.0) fL Immature Gran % Neutrophils % Lymphocytes % Monocytes % Eosinophils % Basophils % Nucleated RBC % (0.0-0.3) % Absolute Neutrophils (1.2-6.7) 10^3/uL Absolute Lymphocytes (1.2-3.4) 10^3/uL Absolute Monocytes (0.1-0.8) 10^3/uL Absolute Eosinophils (0.0-0.7) 10^3/uL Absolute Basophils (0.0-0.2) 10^3/uL ESR (0-15) mm/hr 2 VBG Lactate (0.6-1.4) mmol/L 0.8 Sodium (136-145) mmol/L 142 Potassium (3.5-5.1) mmol/L 4.6 Chloride (98-107) mmol/L 106 Carbon Dioxide (21.0-32.0) mmol/L 30.7 Anion Gap (3-11) mmol/L 5.3 BUN (7-18) mg/dL 13 Creatinine (0.70-1.30) mg/dL 0.9 Est GFR (CKD-EPI 2020) (mL/min/1.73m2) 120.05 Glucose (74-106) mg/dL 90 Calcium (8.5-10.1) mg/dL 9.5 Magnesium (1.8-2.4) mg/dL 2.0 Total Bilirubin (0.2-1.0) mg/dL 0.6 AST (15-37) U/L 15 ALT (16-63) U/L 19 Alkaline Phosphatase (46-116) U/L 45 L C-Reactive Protein (0.0-0.3) mg/dL 0.21 Total Protein (6.4-8.2) g/dL 7.8 Albumin (3.4-5.0) g/dL 4.6 Range/Units 06/27/22 16:40 WBC (4.4-10.8) 10^3/uL 8.32 RBC (4.36-5.78) 10^6/uL 4.85 Hgb (13.5-17.5) g/dL 13.4 L Hct (40.0-50.0) % 40.4 MCV (80-95) fL 83 MCH (27.0-33.0) pg 27.6 MCHC (32.0-36.0) % 33.2 RDW (11.8-14.1) % 12.8 Plt Count (130-400) 10^3/uL 208 MPV (8.0-11.0) fL 11.4 H Immature Gran % 0.2 Neutrophils % 61.7 Lymphocytes % 26.1 Monocytes % 8.4 Eosinophils % 3.2 Basophils % 0.4 Nucleated RBC % (0.0-0.3) % 0.0 Absolute Neutrophils (1.2-6.7) 10^3/uL 5.13 Absolute Lymphocytes (1.2-3.4) 10^3/uL 2.17 Absolute Monocytes (0.1-0.8) 10^3/uL 0.70 Absolute Eosinophils (0.0-0.7) 10^3/uL 0.27 Absolute Basophils (0.0-0.2) 10^3/uL 0.03 ESR (0-15) mm/hr VBG Lactate (0.6-1.4) mmol/L Sodium (136-145) mmol/L Potassium (3.5-5.1) mmol/L Chloride (98-107) mmol/L Carbon Dioxide (21.0-32.0) mmol/L Anion Gap (3-11) mmol/L BUN (7-18) mg/dL Creatinine (0.70-1.30) mg/dL Est GFR (CKD-EPI 2020) (mL/min/1.73m2) Glucose (74-106) mg/dL Calcium (8.5-10.1) mg/dL Magnesium (1.8-2.4) mg/dL Total Bilirubin (0.2-1.0) mg/dL AST (15-37) U/L ALT (16-63) U/L Alkaline Phosphatase (46-116) U/L C-Reactive Protein (0.0-0.3) mg/dL Total Protein (6.4-8.2) g/dL Albumin (3.4-5.0) g/dL
[2022-06-27] MEDS: Sulfameth/Trimeth DS TAB 1 TAB PO (20:06)
[2022-06-27] MEDS: Amoxicillin 875/Clav. 125 TAB PO (20:06)
--- NOTE | 2022-06-28 00:21 | NUR.NOTE ---
Referral faxed to [facility] Dr Rose to f/u in 3 days for facial cellulitis.Nursing Note:
== END 2022-06-27 20:09 | disposition home or self-care (01) ==
PROVIDERS: Emergency Provider Nurse Practitioner Family; PCP Family Medicine
DX: L03.213 Periorbital cellulitis (principal)
CPT/HCPCS: 80053; 85652; 96361; 96365; 96375; 99284; 70481; 83605; 83735; 85025; 86140; 99281; J1885; J2543; J3490

== ENCOUNTER 2022-08-24 02:33 | Emergency (ER) | payer MEDICAID, SELFPAY ==
--- NOTE | 2022-08-24 02:30 | DI.RAD_ITS ---
Exam(s) XR FINGER LT MIDDLE EXAM: XR FINGER LT MIDDLE EXAM DATE/TIME: CLINICAL HISTORY: pain, red, swelling, r/o foreign body mid/distal. TECHNIQUE: 2D digital imaging was performed of the left finger. Three views were obtained. PA/AP, oblique, and lateral views were obtained. COMPARISON: None. FINDINGS: BONES: No acute fracture is present. No bony destructive lesion is seen. JOINTS: No dislocation is present. SOFT TISSUE: Normal. No foreign body is identified. IMPRESSION: 1. No evidence of acute fracture or dislocation. 2. No radiopaque foreign body. DATA REPOSITORY: RADIATION DOSE DELIVERED:
--- NOTE | 2022-08-24 02:30 | DI.RAD_ITS ---
Exam(s) XR ANKLE LT COMPLETE EXAM: XR ANKLE LT COMPLETE CLINICAL HISTORY: ankle wound/infection, r/o osteo TECHNIQUE: 2D digital imaging was performed of the left ankle. Images were obtained. AP, lateral and oblique views were obtained. COMPARISON: No exams were available for comparison FINDINGS: BONES: No acute fracture is present. No bony destructive lesion is seen. JOINTS:The ankle mortise is normally aligned. SOFT TISSUE: There is soft tissue swelling around the ankle particularly anteriorly and laterally. IMPRESSION: 1. No bone or joint abnormality. 2. Soft tissue swelling around the ankle which may represent cellulitis. DATA REPOSITORY: RADIATION DOSE DELIVERED:
[2022-08-24 02:39] VITALS: BP 139/75; PULSE 112; RESP 18; TEMP 36.8; O2SAT 100
--- NOTE | 2022-08-24 02:46 | ED.GENADUL_ITS ---
Discharge Plan Disposition Patient Disposition: Home Condition: Stable Discharge Details Clinical Impression: Cellulitis of left ankle, Cellulitis of left middle finger Primary Care Provider: Yoselyn Rose ED Provider: Tammy Preston Home Meds and New Rx's Prescriptions: New clindamycin HCl 150 mg capsule 450 mg PO TID 7 Days Qty: 63 0RF Continued omeprazole 40 mg capsule,delayed release(DR/EC) 40 mg PO DAILY PRN (Reason: heartburn) Qty: 90 4RF ondansetron 4 mg tablet,disintegrating 4 mg PO Q8H PRN (Reason: nausea and vomiting during migraine headaches) Qty: 60 4RF baclofen 10 mg tablet 10 mg PO TID PRN (Reason: muscle spasm) Qty: 30 1RF rizatriptan [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 may repeat in 2 hours if no better. Discharge Instructions Instructions: Cellulitis (ED) Additional Instructions: Your blood tests and imaging today are reassuring and show no evidence of acute concerning findings such as foreign body or bone infection at this time. A prescription for antibiotics has been sent electronically to your pharmacy to take as directed until finished. Alternate tylenol and motrin as needed and directed for pain. Follow-up with your primary care doctor in 1 week. Return to the emergency department with any worsening or new concerning symptoms. Discharge Data Discharge Physician: Tammy Preston Medical Decision Making 27yo M presents with left ankle wound of unknown etiology with surrounding redness, swelling and pain after crossing his ankles over several hours recently. HR 110s. Pt is otherwise nontoxic appearing with normal BP and afebrile. Pt has a 1x1cm crusted wound with surrounding cellulitis to left anterior ankle. There is no area of fluctuance or obvious abscess. NV intact. Pt states he has a h/o cellulitis and does appears to have similar appearing wounds to face and extremities without cellulitis. He denies IV drug use or skin picking. Will place an IV, obtained screening labs, left ankle xray and give a dose of IV clindamycin. Pt also then states he thinks he has metal in his left middle finger tip from a few days ago and now he is concerned he also has a finger infection. His left middle finger is mildly edematous and erythematous extending from middle to distal phalange. There is no obvious deformity, abscess or foreign body. Normal capillary refill. Will also obtain left 3rd finger xray to r/o foreign body but IV antibiotics will also cover this. Labs and imaging reviewed. White blood cell count 10. CRP minimally elevated at 1.67. X-rays show no evidence of osteomyelitis or foreign body. Patient reassessed and his symptoms have improved and he feels comfortable going home. We will send with clindamycin bottle. Prescription for clindamycin sent electronically to his pharmacy. Skin markers placed around edge of erythema. Advised to follow up with the primary care doctor for re-evaluation. Usual and customary return precautions given prior to discharge. Medical Records Medical records reviewed: Yes I reviewed the patient's medical records. Imaging Data Radiologic Study: Radiologist's impression: XR Left Finger(s) Exam date and time: 08/24/2022 3:12 AM Age: 27 years old Clinical indication: Other: Pain, red, swelling, R/O foreign body mid/distal TECHNIQUE: Imaging protocol: Radiologic exam of the Left fingers. Views: Minimum 2 views. COMPARISON: No relevant prior studies available. FINDINGS: Bones/joints: Normal. Soft tissues: There is soft tissue swelling suspected surrounding the 3rd distal phalanx. No foreign bodies identified. IMPRESSION: 1. No radiopaque foreign body. No acute fracture or dislocation. 2. Soft tissue swelling surrounding the 3rd distal phalanx. XR Left Ankle Exam date and time: 08/24/2022 3:14 AM Age: 27 years old Clinical indication: Other: Ankle wound/infection, R/O osteo TECHNIQUE: Imaging protocol: Radiologic exam of the Left ankle. Views: 3 or more views. COMPARISON: No relevant prior studies available. FINDINGS: Bones/joints: No acute fracture or dislocation. No definite erosive or destructive changes. Mild spurring of the navicular bone. Soft tissues: Moderate soft tissue swelling the ankle. IMPRESSION: 1. Moderate soft tissue swelling of the ankle, possible cellulitis. 2. There is no radiographic evidence of osteomyelitis. No acute fracture or dislocation. HPI General Mode of arrival: ambulatory . Date/Time Provider Initiated Documentation: 08/24/22 02:36 . Limitations to Documentation: no limitations . Information obtained by: patient . HPI Narrative: Pt is a 27yo M who presents to the ED w/ a c/o L ankle redness, swelling and huan n for the past 3-4 days. Pt states he noticed a wound to his left anterior ankle 4 days ago and then he states he sat down and watched tv for a few hours with his ankles crossed and then developed redness, swelling, and pain around the area. He denies any known fever. He states he has had cellulitis in the past. Pt denies IV drug use of skin popping or picking. 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) clindamycin HCl 150 mg capsule 450 mg PO TID 7 days #63 caps 08/24/22 Previous Rx's Medication Instructions Recorded omeprazole 40 mg capsule,delayed 40 mg PO DAILY PRN heartburn #90 04/23/19 release caps baclofen 10 mg tablet 10 mg PO TID PRN muscle spasm #30 11/19/19 tabs ondansetron 4 mg disintegrating 4 mg PO Q8H PRN nausea and 11/19/19 tablet vomiting during migraine headaches #60 tabs rizatriptan 10 mg disintegrating 10 mg PO PRN #60 tabs 11/19/19 tablet ([employer]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) clindamycin HCl 150 mg capsule 450 mg PO TID 7 days #63 caps 08/24/22 Allergies Allergy/AdvReac Type Severity Reaction Status Date / Time methotrexate AdvReac Unknown Nausea Verified 06/27/22 14:30 General Stated Complaint: GenMedical SCARLETT: 3 Review of Systems All systems reviewed & are unremarkable except as noted in HPI and below Constitutional Constitutional: Reports as per HPI, Denies chills and Denies fever(s) Eyes Eyes: Denies blurry vision ENT Ears, Nose, Mouth, and Throat: Denies dizziness, Denies sore throat and Denies throat swelling Cardiovascular Cardiovascular: Denies chest pain and Denies dyspnea Respiratory Respiratory: Denies cough and Denies dyspnea Gastrointestinal Gastrointestinal: Denies abdominal pain, Denies diarrhea and Denies vomiting Genitourinary Genitourinary: Denies hematuria and Denies dysuria Musculoskeletal Musculoskeletal: Denies back pain and Denies numbness Integumentary/Breasts Skin/Breast: Reports lesions and Denies rash Neurologic Neurologic: Denies dizziness, Denies localized weakness and Denies numbness Allergic/Immunologic Allergic/Immunologic: Denies throat swelling PFSH All Active Problems (Updated 08/24/22 @ 05:15 by Tammy Preston DO) Abscess of face (Acute) Periorbital cellulitis of left eye (Acute) Cellulitis of left ankle (Acute) Cellulitis of left middle finger (Acute) Complicated migraine (Chronic 11/10/13) Spondyloarthropathy (Chronic 07/22/14) [facility] [place] rhematology 06/23, ankylosing spondylitis Social anxiety disorder (Chronic 01/31/18) Asthma (Chronic) Chronic back pain (Chronic) LOW GRADE BACK PAIN WITH KYPHOSIS. Learning difficulties (Chronic) Medical History Dysuria (10/11/12) Gross hematuria (10/09/12) Intestinal infection due to E. coli (04/07/13) Kidney calculi Kidney stones Knee pain (11/21/12) Social History Smoking/Tobacco Use Status: Never Smoking risk assessment performed?: Yes Alcohol Intake: former Drug use: Daily Substance use type: marijuana Do you feel safe at home: Yes Do you feel safe in your relationship?: Yes Exam Const General: cooperative, healthy appearing and no acute distress HENMT Head: normal to inspection Mouth: oral mucosae normal Eyes General: appearance normal, both eyes and all related structures Neck Neck: normal visual inspection Resp Effort & Inspection: normal respiratory effort and able to speak in complete sentences Cardio Rate: regular rate Skin General skin exam: no rashes or lesions noted Neuro General: patient alert, patient awake and patient oriented x3 Motor: muscle tone normal throughout Extrem Ankle/foot/toe images: 1. Moderate edema and erythema, tender and warm to touch. 2. Moderate edema and erythema, tender and warm to touch. 3. Moderate edema and erythema, tender and warm to touch, extending from medial, anterior and to lateral aspect of ankle. Most erythema anteriorly. There is surrounding induration but no obvious area of fluctuance. No drainage. 4. 1x1cm crusted erosion in center of erythema. Other: L DP/PT pulses intact. Psych Appearance: grossly normal Affect: normal affect Course Vital Signs Vital signs: Vital Signs Temperature 98.2 F 08/24/22 02:39 Pulse 112 H 08/24/22 02:39 Respiratory Rate 18 08/24/22 02:39 Pulse Oximetry 100 08/24/22 02:39 Temperature 98.2 F 08/24/22 02:39 Temperature Source Temporal Artery Scan 08/24/22 02:39 Pulse 112 H 08/24/22 02:39 Respiratory Rate 18 08/24/22 02:39 Pulse Oximetry 100 08/24/22 02:39 Oxygen Delivery Method Room Air 08/24/22 02:39 Oxygen Flow Rate 0 08/24/22 02:39 Pain Level 7 08/24/22 02:39
[2022-08-24 02:53] LABS: Abs Immature Grans 0.03 10^3/uL (0.0-0.06); Absolute Basophil Count 0.05 10^3/uL (0.0-0.2); Absolute Eosinophil Count 0.29 10^3/uL (0.0-0.7); Absolute Lymphocyte Count 2.53 10^3/uL (1.2-3.4); Absolute Monocyte Count 0.88 10^3/uL (0.1-0.8); Absolute Neutrophil Count 6.65 10^3/uL (1.2-6.7); Basophils % 0.5; Eosinophils % 2.8; HCT 41.6 % (40.0-50.0); HGB 13.7 g/dL (13.5-17.5); Immature Grans % 0.3; Lymphocytes % 24.3; MCHC 32.9 % (32.0-36.0); MCV 82 fL (80-95); MPV 9.9 fL (8.0-11.0); Monocytes % 8.4; Neutrophils % 63.7; Platelet Count 254 10^3/uL (130-400); RBC 5.07 10^6/uL (4.36-5.78); RDW 12.9 % (11.8-14.1); RDW-SD 38.5 fL; WBC 10.43 10^3/uL (4.4-10.8)
[2022-08-24] MEDS: CLINDAMYCIN 600 MG/50 ML BAG 100 MG IVPB (02:59)
[2022-08-24] MEDS: Normal Saline 1,000 ML 1000 ML IV (03:00)
[2022-08-24 03:15] LABS: ALT 18 U/L (16-63); AST 19 U/L (15-37); Albumin 4.4 g/dL (3.4-5.0); Alkaline Phosphatase 62 U/L (46-116); Anion Gap 6.4 mmol/L (3-11); BUN 10 mg/dL (7-18); Bilirubin, Total 0.8 mg/dL (0.2-1.0); C-Reactive Protein 1.67 mg/dL (0.0-0.3); CO2 31.6 mmol/L (21.0-32.0); CREATININE 1.2 mg/dL (0.70-1.30); Calcium 9.4 mg/dL (8.5-10.1); Chloride 98 mmol/L (98-107); Glucose 98 mg/dL (74-106); Potassium 3.9 mmol/L (3.5-5.1); Sodium 136 mmol/L (136-145); Total Protein 7.9 g/dL (6.4-8.2)
--- NOTE | 2022-08-24 05:07 | DI.VRAD_ITS ---
PROCEDURE INFORMATION: Exam: XR Left Ankle Exam date and time: 08/24/2022 3:14 AM Age: 27 years old Clinical indication: Other: Ankle wound/infection, R/O osteo TECHNIQUE: Imaging protocol: Radiologic exam of the Left ankle. Views: 3 or more views. COMPARISON: No relevant prior studies available. FINDINGS: Bones/joints: No acute fracture or dislocation. No definite erosive or destructive changes. Mild spurring of the navicular bone. Soft tissues: Moderate soft tissue swelling the ankle. IMPRESSION: 1. Moderate soft tissue swelling of the ankle, possible cellulitis. 2. There is no radiographic evidence of osteomyelitis. No acute fracture or dislocation. Dictated and Authenticated by: Vivek Patel MD. Ordering:NAHED Munoz MD
--- NOTE | 2022-08-24 05:09 | DI.VRAD_ITS ---
PROCEDURE INFORMATION: Exam: XR Left Finger(s) Exam date and time: 08/24/2022 3:12 AM Age: 27 years old Clinical indication: Other: Pain, red, swelling, R/O foreign body mid/distal TECHNIQUE: Imaging protocol: Radiologic exam of the Left fingers. Views: Minimum 2 views. COMPARISON: No relevant prior studies available. FINDINGS: Bones/joints: Normal. Soft tissues: There is soft tissue swelling suspected surrounding the 3rd distal phalanx. No foreign bodies identified. IMPRESSION: 1. No radiopaque foreign body. No acute fracture or dislocation. 2. Soft tissue swelling surrounding the 3rd distal phalanx. Dictated and Authenticated by: Vivek Patel MD. Ordering:NAHED Munoz MD
== END 2022-08-24 05:38 | disposition home or self-care (01) ==
PROVIDERS: Emergency Provider Physician Assistant; PCP Family Medicine
DX: S91.002A Unspecified open wound, left ankle, initial encounter (principal); L03.116 Cellulitis of left lower limb; L03.012 Cellulitis of left finger; R60.0 Localized edema; R79.82 Elevated C-reactive protein (CRP); X58.XXXA Exposure to other specified factors, initial encounter
CPT/HCPCS: 80053; 96365; 99284; 73140; 73610; 85025; 86140

== ENCOUNTER 2024-10-02 16:34 | Observation (INO) | payer MEDICAID, SELFPAY ==
[2024-10-02] VITALS (53 sets, daily range): BP systolic 106–129; BP diastolic 63–91; PULSE 82–95; RESP 15–32; TEMP 37.1–37.6; O2SAT 97–100
--- NOTE | 2024-10-02 16:30 | DI.CT_ITS ---
Exam(s) CT LUMBAR SPINE W CT RENAL COLIC WO EXAM: CT RENAL COLIC WO CLINICAL HISTORY: flank pain, hx renal stones. TECHNIQUE: Imaging Protocol: Axial computed tomography images with coronal and sagittal reformatted images were created and reviewed. Images of the lumbar spine were reconstructed in bone and soft tissue algorithm in axial, coronal and sagittal planes. CONTRAST MATERIAL: Intravenous: Omnipaque 350 Contrast volume:100 ml Oral: no CT CT LUMBAR SPINE W from 10/02/2024 FINDINGS: ABDOMEN and PELVIS: The exam is somewhat limited by streak artifact secondary to patient arm positioning as well as lack of intra-abdominal fat. Lung Bases: No acute findings. Liver: Normal density. No suspicious mass. Gallbladder and biliary tract: The gallbladder is contracted. No radiodense calculus. No wall thicke gillian or pericholecystic fluid. No biliary dilation. Pancreas: Normal density. No abnormal calcifications or inflammatory process. No evidence of mass. Spleen: Normal. Kidneys: Normal size, contour and axis. No radiodense stones. No obstructive uropathy. No suspicious masses seen. Adrenal glands: No masses seen. Vasculature: Abdominal aorta non-dilated. Soft tissues: Unremarkable. Bladder: Nearly empty. Not well evaluated. No calculi. Bowel: Large quantity of stool dual noted, particularly in the rectum.. No obstruction. No bowel w all thickening. Appendix normal. Peritoneal cavity: No ascites. No focal collection. No mesenteric inflammatory response. No free air . Bones/lumbar spine: No evidence of fracture or destructive bony lesion. The intervertebral discs are normal in height. No visible paraspinal abscess or abnormality within the central canal. Reproductive organs: Unremarkable. Lymph nodes: No pathologically enlarged lymph nodes. IMPRESSION:: No acute abnormality in the abdomen or pelvis. No evidence of renal calculi or hydronephrosis. No evidence of pyelonephritis. No acute abnormality in the lumbar spine. No abscess is visible. RADIATION DOSE DELIVERED: Total DLP Total DLP DATA REPOSITORY: All CT scans at this facility are submitted to the National Radiology Data Registry (NRDR) Dose Index Registry (DIR) with the [employer] (ACR). RADIATION OPTIMIZATION: All CT scans at this facility use at least one of these dose optimization te chniques: automated exposure control; mA and/or kV adjustment per patient size (includes targeted exa ms where dose is matched to clinical indication); or iterative reconstruction.
--- NOTE | 2024-10-02 16:30 | DI.CT_ITS ---
Exam(s) CT CERVICAL SPINE W EXAM: CT CERVICAL SPINE W CLINICAL HISTORY: ?abscess- IVDU. TECHNIQUE: Imaging Protocol: Axial computed tomography images with coronal and sagittal reformatted images were created and reviewed CONTRAST MATERIAL: Intravenous: Omnipaque 350 Contrast volume:100 ml contrast COMPARISON: CT CT THORACIC SPINE W from 10/02/[address] RENAL COLIC WO from 10/02/2024 FINDINGS: Parotids: Normal. Submandibular glands: Normal. Thyroid gland: Normal. Lymph nodes: There are scattered lymph nodes seen along the level one to level three all measuring le ss than 8 mm in short axis diameter which are physiologic in nature. Carotids arteries: No significant stenosis or dissection. Vertebral arteries: No significant stenosis or dissection. Soft tissues: The floor the mouth is unremarkable. The tonsils and adenoids are unremarkable. The epiglottis and vocal cords are within normal limits. Lungs: Images through both lung apices are unremarkable. Bones: Minimal degenerative changes of the cervical spine. No destructive lesions. Visualized portions of the brain and orbits: Unremarkable. Sinuses and mastoids: Clear. IMPRESSION: Normal CT scan of the neck. No evidence of abscess. RADIATION DOSE DELIVERED: Total DLP Total DLP DATA REPOSITORY: All CT scans at this facility are submitted to the National Radiology Data Registry (NRDR) Dose Index Registry (DIR) with the [employer] (ACR). RADIATION OPTIMIZATION: All CT scans at this facility use at least one of these dose optimization te chniques: automated exposure control; mA and/or kV adjustment per patient size (includes targeted exa ms where dose is matched to clinical indication); or iterative reconstruction.
--- NOTE | 2024-10-02 16:30 | DI.CT_ITS ---
Exam(s) CT THORACIC SPINE W EXAM: CT THORACIC SPINE W CLINICAL HISTORY: ?abscess- IVDU. TECHNIQUE: Imaging Protocol: Axial computed tomography images with coronal and sagittal reformatted images were created and reviewed. CONTRAST MATERIAL: Intravenous: Omnipaque 350 Contrast volume:100 mL contrast route:IV - Oral: / no COMPARISON: CT CT LUMBAR SPINE W from 10/02/2024 FINDINGS: Bones: No fractures or destructive lesions are seen. The alignment of the spine is normal including t he cervicothoracic junction. No visible abnormality within the central canal. Soft tissues: The soft tissues of the chest are unremarkable. The disc spaces are maintained. No la rge disk herniations are identified. No paraspinal abscess. Visualized portions of the heart, aort a and pulmonary arteries are appear normal. The lungs are clear where visualized. IMPRESSION: No acute abnormality. No abscess is identified. RADIATION DOSE DELIVERED: Total DLP DATA REPOSITORY: All CT scans at this facility are submitted to the National Radiology Data Registry (NRDR) Dose Index Registry (DIR) with the [employer] (ACR). RADIATION OPTIMIZATION: All CT scans at this facility use at least one of these dose optimization te chniques: automated exposure control; mA and/or kV adjustment per patient size (includes targeted exa ms where dose is matched to clinical indication); or iterative reconstruction.
--- NOTE | 2024-10-02 16:45 | RT.EKG_ITS ---
APPROVED REPORT Exam: Resting ECG Reason for Exam: baseline/screening Patient Location: E HR:89 bpm ECG Measurements Heart Rate 89 AXIS KS 121 P 34 QRSd 90 QRS 81 QT 351 T 70 QTc 427 Conclusion Sinus rhythm, rate 89 No interval abnormalities No STEMI No priors available for comparison
--- NOTE | 2024-10-02 16:46 | ED.GENADUL_ITS ---
Discharge Plan Disposition Patient Disposition: Admit to [facility] Condition: Stable Discharge Details Clinical Impression: Acute opioid withdrawal Primary Care Provider: Yoselyn Rose ED Provider: Romie Kruger Home Meds and New Rx's Prescriptions: No Action omeprazole 40 mg capsule,delayed release(DR/EC) 40 mg PO DAILY PRN (Reason: heartburn) Qty: 90 4RF ondansetron 4 mg tablet,disintegrating 4 mg PO Q8H PRN (Reason: nausea and vomiting during migraine headaches) Qty: 60 4RF baclofen 10 mg tablet 10 mg PO TID PRN (Reason: muscle spasm) Qty: 30 1RF Patient Comments: Havent used in a long time rizatriptan [Maxalt-DRY WALL SPRAYER] 10 mg tablet,disintegrating 10 mg PO PRN Qty: 60 4RF Rx Instructions: take 1 po prn migraine. may repeat in 2 hours if no better. HPI General Date/Time Provider Initiated Documentation: 10/02/24 16:40 . HPI Narrative: 29 year-old male presents to ED today by EMS with a chief complaint of withdrawal from cocaine and fentanyl, last doses within 24 hrs, also reporting severe lower back pain with history of renal stones and IVDU. Quality described as lower back pain, lethargy, no radiation to chest pain, fever, palpitations, shortness of breath, URI, nausea, vomiting, urinary retention, bowel incontinence, saddle anesthesia. Severity is described as 10/10. Palliating factors include nothing specific attempted. Provoking factors include nothing specific. Events leading up to the incident/Associated Symptoms: Patient [place] [facility] [place] and chronic [place] back pain. Patient not anticoagulated. Related Data Home Medications ?Medication ?Instructions ?Recorded ?Confirmed omeprazole 40 mg capsule,delayed 40 mg PO DAILY PRN heartburn #90 04/23/19 10/02/24 release caps baclofen 10 mg tablet 10 mg PO TID PRN muscle spasm #30 11/19/19 10/02/24 tabs ondansetron 4 mg disintegrating 4 mg PO Q8H PRN nausea and 11/19/19 10/02/24 tablet vomiting during migraine headaches #60 tabs rizatriptan 10 mg disintegrating 10 mg PO PRN #60 tabs 11/19/19 10/02/24 tablet (Maxalt-DRY WALL SPRAYER) Previous Rx's ?Medication ?Instructions ?Recorded omeprazole 40 mg capsule,delayed 40 mg PO DAILY PRN heartburn #90 04/23/19 release caps baclofen 10 mg tablet 10 mg PO TID PRN muscle spasm #30 11/19/19 tabs ondansetron 4 mg disintegrating 4 mg PO Q8H PRN nausea and 11/19/19 tablet vomiting during migraine headaches #60 tabs rizatriptan 10 mg disintegrating 10 mg PO PRN #60 tabs 11/19/19 tablet (Maxalt-DRY WALL SPRAYER) Allergies Allergy/AdvReac Type Severity Reaction Status Date / Time methotrexate AdvReac Unknown Nausea Verified 10/02/24 16:40 General Stated Complaint: Nk/Back Pain SCARLETT: 3 Review of Systems All systems reviewed & are unremarkable except as noted in HPI and below Exam Narrative Exam Narrative: GENERAL APPEARANCE: Mal-nourished, non-toxic, awake and alert, atraumatic, mild acute distress. SKIN: Warm, pale, dry, various scabs of varying ages consistent with likely staph colonization, skin of lower extremies is dusky and crusted and severely dry HEAD: Normocephalic, atraumatic, normal hair distribution for gender/age. EYES: Normal conjunctiva, no exudates on lids/lashes. ENT: Nares patent, no circumoral cyanosis, no facial swelling NECK: Supple, trachea midline, painless cervical ROM. LUNGS/CHEST: Lungs CTA bilaterally- no rhonchi/rales/wheezes diffusely, non- labored respirations, normal A/P diameter, symmetrical expansion, no chest wall deformity HEART (CV/PV): Regular rate and rhythm without murmur, no peripheral edema, no JVD. ABDOMEN: Soft, non-distended, no guarding, no tenderness anteriorly, CVA tenderness to percussion bilaterally MSK: Normal ROM, no swelling/deformity to bilateral UEs or LEs, moving all extremities without weakness, no cyanosis, spine midline with tenderness without fluctuance, crepitus or step-offs, bilateral lumbar paraspinal tendernress, no skin changes normal curvature. NEURO: Mental Status AAOx4 - alert to person, place, time, events No facial droop, no forehead involvement. Motor: No focal weakness - strength 5/5 in bilateral UEs and LEs, proximal and distal, symmetric. Sensory: sensation intact to light touch globally. Gait NT. PSYCH: dysthymic, cooperative, unpleasant, appropriate speech Course Vital Signs Vital signs: Vital Signs Temperature 37.1 C 10/02/24 16:37 Pulse 89 10/02/24 16:37 Respiratory Rate 17 10/02/24 16:37 Blood Pressure 116/69 10/02/24 16:37 Pulse Oximetry 100 10/02/24 16:37 Temperature 37.1 C 10/02/24 16:37 Pulse 89 10/02/24 16:37 Respiratory Rate 17 10/02/24 16:37 Blood Pressure 116/69 10/02/24 16:37 Blood Pressure Position Sitting 10/02/24 16:37 Pulse Oximetry 100 10/02/24 16:37 Oxygen Delivery Method Room Air 10/02/24 16:37 Oxygen Flow Rate 0 10/02/24 16:37 Pain Level 10 10/02/24 16:37 Lab/Test Results Lab/Test Results: 10/02/24 16:41 Blood Blood Culture - Pending 10/02/24 16:41 Blood Blood Culture - Pending Medical Decision Making This dictation utilizes [id number] dictation software and may contain unedited grammatical errors. 29 year-old male presents to ED today by EMS with a chief complaint of withdrawal from cocaine and fentanyl, last doses within 24 hrs, also reporting severe lower back pain with history of renal stones and IVDU. Quality described as lower back pain, lethargy, no radiation to chest pain, fever, palpitations, shortness of breath, URI, nausea, vomiting, urinary retention, bowel incontinence, saddle anesthesia. Severity is described as 10/10. Palliating factors include nothing specific attempted. Provoking factors include nothing specific. Events leading up to the incident/Associated Symptoms: Patient has history of [place] [facility] [place] and chronic low back pain. Patients' medical history: Abscesses, migraine, syncope. Family and social history: Current IV drug user, denies EtOH use, smokes cigarettes, poor diet and exercise regimen. Pertinent exam findings / vital signs include midline lumbar and thoracic vertebral tenderness without crepitus or step-offs, no fluctuant swelling to the midline, endorses bilateral lumbar and thoracic paraspinal tenderness, CVA tenderness to percussion bilaterally, lungs CTA, benign cardiac exam without murmur, has a dusky calves and feet, various scabs consistent with likely colonization of MRSA. Differential / pathologies of concern include renal colic, spinal epidural abscess, withdrawal syndrome, endocarditis, osteomyelitis or discitis, sepsis, dehydration, liver dysfunction, rhabdomyolysis. Diagnostic studies of: -CBC, BMP, liver panel, lipase, CK, CRP/ESR, alcohol level, magnesium, serial troponins, UDS, COVID/flu/RSV PCR, tick and Lyme panel, ammonia, lactate, urinalysis, CT renal colic without contrast, CT C/T/L-spine with contrast, blood cultures, EKG. -CBC shows mild leukocytosis at 11.4 without left shift -BMP shows no acute abnormality -CRP negative -Lipase negative -Liver panel unremarkable -ESR mildly elevated at 20 -Alcohol level negative -Magnesium negative -Initial troponin 8, repeat stable @ 14 -Ammonia negative -Lactate negative -CK negative -UA and UDS pending, patient has not provided sample- is tolerating PO fluids w/ normal kidney function. -Tick and Lyme panel pending -CT C/T/L spine & CT renal study are all negative for acute pathology. -EKG shows Sinus rhythm at 89 bpm with P waves followed by narrow complex QRS with normal axis, no ST depressions or reciprocal changes, no T wave abnormalities, normal QT QTc Interventions of: -IV Tylenol & Toradol. 5mg PO diazepam for withdrawal. -COWS assessment at 1900 is 8, needs to be higher to start 8mg suboxone -Discussed with Hospitalist Dr. Rodriguez @ 1915, accepts for admission. ED Course/Assessment/Plan: 29-year-old male presents with withdrawal symptoms, states he has been doing fentanyl for very long time, reportedly from EMS there was use of fentanyl and cocaine as recently as last night. He cannot state how many years he has been using for. He has severe lower back pain and I did a thorough workup, no leukocytosis, BMP is benign, CRP is negative, ESR is mildly elevated, serial troponins negative, magnesium and other electrolytes within normal limits, no liver dysfunction or kidney dysfunction, lactate is negative, CK is negative, CT of the entire spine with contrast is negative for any evidence of abscess, CT renal colic study as the patient has history of renal stones is negative for any obstructive uropathy. His COWS score is 8, he is given 5 mg of diazepam p.o, he is tolerating popsicles p.o, patient is wanting detox, states he will stay if given the opportunity, I did discuss with hospitalist Dr. Rodriguez, who graciously accepted for admission- patient has not attempted detox before, has never had contact with recovery or [facility] per his report. Disposition of Acute Opioid Withdrawal Patient verbalized understanding of the plan and return to ED criteria and engaged in shared decision making. Medical Records Medical records reviewed: Yes I reviewed the patient's medical records. Imaging Data Radiologic Study: Attestation: I personally reviewed and interpreted this imaging study as follows: Imaging: CT Scan Radiologist's impression: EXAM: CT CERVICAL SPINE W CLINICAL HISTORY: ?abscess- IVDU. TECHNIQUE: Imaging Protocol: Axial computed tomography images with coronal and sagittal reformatted images were created and reviewed CONTRAST MATERIAL: Intravenous: Omnipaque 350 Contrast volume:100 ml contrast COMPARISON: CT CT THORACIC SPINE W from 10/02/[address] RENAL COLIC WO from 10/02/2024 FINDINGS: Parotids: Normal. Submandibular glands: Normal. Thyroid gland: Normal. Lymph nodes: There are scattered lymph nodes seen along the level one to level three all measuring less than 8 mm in short axis diameter which are physiologic in nature. Carotids arteries: No significant stenosis or dissection. Vertebral arteries: No significant stenosis or dissection. Soft tissues: The floor the mouth is unremarkable. The tonsils and adenoids are unremarkable. The epiglottis and vocal cords are within normal limits. Lungs: Images through both lung apices are unremarkable. Bones: Minimal degenerative changes of the cervical spine. No destructive lesions. Visualized portions of the brain and orbits: Unremarkable. Sinuses and mastoids: Clear. IMPRESSION: Normal CT scan of the neck. No evidence of abscess. Radiologic Study #2: Attestation: I personally reviewed and interpreted this imaging study as follows: Imaging: CT Scan Radiologist's impression: EXAM: CT THORACIC SPINE W CLINICAL HISTORY: ?abscess- IVDU. TECHNIQUE: Imaging Protocol: Axial computed tomography images with coronal and sagittal reformatted images were created and reviewed. CONTRAST MATERIAL: Intravenous: Omnipaque 350 Contrast volume:100 mL contrast route:IV - Oral: / no COMPARISON: CT CT LUMBAR SPINE W from 10/02/2024 FINDINGS: Bones: No fractures or destructive lesions are seen. The alignment of the spine is normal including the cervicothoracic junction. No visible abnormality within the central canal. Soft tissues: The soft tissues of the chest are unremarkable. The disc spaces are maintained. No large disk herniations are identified. No paraspinal abscess. Visualized portions of the heart, aorta and pulmonary arteries are appear normal. The lungs are clear where visualized. IMPRESSION: No acute abnormality. No abscess is identified. Radiologic Study #3: Attestation: I personally reviewed and interpreted this imaging study as follows: Imaging: CT Scan Radiologist's impression: Exam(s) CT LUMBAR SPINE W CT RENAL COLIC WO EXAM: CT RENAL COLIC WO CLINICAL HISTORY: flank pain, hx renal stones. TECHNIQUE: Imaging Protocol: Axial computed tomography images with coronal and sagittal reformatted images were created and reviewed. Images of the lumbar spine were reconstructed in bone and soft tissue algorithm in axial, coronal and sagittal planes. CONTRAST MATERIAL: Intravenous: Omnipaque 350 Contrast volume:100 ml Oral: no CT CT LUMBAR SPINE W from 10/02/2024 FINDINGS: ABDOMEN and PELVIS: The exam is somewhat limited by streak artifact secondary to patient arm positioning as well as lack of intra-abdominal fat. Lung Bases: No acute findings. Liver: Normal density. No suspicious mass. Gallbladder and biliary tract: The gallbladder is contracted. No radiodense calculus. No wall thickening or pericholecystic fluid. No biliary dilation. Pancreas: Normal density. No abnormal calcifications or inflammatory process. No evidence of mass. Spleen: Normal. Kidneys: Normal size, contour and axis. No radiodense stones. No obstructive uropathy. No suspicious masses seen. Adrenal glands: No masses seen. Vasculature: Abdominal aorta non-dilated. Soft tissues: Unremarkable. Bladder: Nearly empty. Not well evaluated. No calculi. Bowel: Large quantity of stool dual noted, particularly in the rectum.. No obstruction. No bowel wall thickening. Appendix normal. Peritoneal cavity: No ascites. No focal collection. No mesenteric inflammatory response. No free air. Bones/lumbar spine: No evidence of fracture or destructive bony lesion. The intervertebral discs are normal in height. No visible paraspinal abscess or abnormality within the central canal. Reproductive organs: Unremarkable. Lymph nodes: No pathologically enlarged lymph nodes. IMPRESSION:: No acute abnormality in the abdomen or pelvis. No evidence of renal calculi or hydronephrosis. No evidence of pyelonephritis. No acute abnormality in the lumbar spine. No abscess is visible. Lab Data Lab results reviewed: Yes I reviewed the patient's lab results. Labs: 10/02/24 17:15 Blood Blood Culture - Pending 10/02/24 16:47 Blood Blood Culture - Pending Laboratory Tests Range/Units 10/02/24 10/02/24 10/02/24 16:47 17:01 17:09 WBC (4.4-10.8) 10^3/uL 11.40 H RBC (4.36-5.78) 10^6/uL 5.81 H Hgb (13.5-17.5) g/dL 15.6 Hct (40.0-50.0) % 46.6 MCV (80-95) fL 80 MCH (27.0-33.0) pg 26.9 L MCHC (32.0-36.0) % 33.5 RDW (11.8-14.1) % 14.8 H Plt Count (130-400) 10^3/uL 283 MPV (8.0-11.0) fL 9.5 Immature Gran % % 0.4 Neutrophils % % 81.2 Lymphocytes % % 9.7 Monocytes % % 7.8 Eosinophils % % 0.6 Basophils % % 0.3 Nucleated RBC % (0.0-0.3) % 0.0 Absolute Neutrophils (1.2-6.7) 10^3/uL 9.26 H Absolute Lymphocytes (1.2-3.4) 10^3/uL 1.11 L Absolute Monocytes (0.1-0.8) 10^3/uL 0.89 H Absolute Eosinophils (0.0-0.7) 10^3/uL 0.07 Absolute Basophils (0.0-0.2) 10^3/uL 0.03 ESR (0-15) mm/hr 20 H VBG Lactate (<or=2.0) mmol/L 2.0 Sodium (136-145) mmol/L 143 Potassium (3.5-5.1) mmol/L 3.9 Chloride (98-107) mmol/L 106 Carbon Dioxide (21.0-32.0) mmol/L 28.1 Anion Gap (3-11) mmol/L 8.9 BUN (7-18) mg/dL 11 Creatinine (0.70-1.30) mg/dL 1.1 Est GFR (CKD-EPI 2020) (mL/min/1.73m2) 93.19 Glucose (74-106) mg/dL 98 Calcium (8.5-10.1) mg/dL 9.4 Magnesium (1.8-2.4) mg/dL 2.0 Total Bilirubin (0.2-1.0) mg/dL 0.31 Conjugated Bilirubin (0.0-0.2) mg/dL 0.1 AST (15-37) U/L 12 L ALT (16-63) U/L 19 Alkaline Phosphatase (46-116) U/L 58 Ammonia (11-32) umol/L 10 L Creatine Kinase (39-308) U/L 136 Troponin I (<or=76) ng/L 8 C-Reactive Protein (<or=0.5) mg/dL < 0.50 Total Protein (6.4-8.2) g/dL 8.5 H Albumin (3.4-5.0) g/dL 4.0 Lipase (<78) U/L 30 Ethyl Alcohol (<10) mg/dL < 3.0 COVID-19 Source Nasopharynx SARS-CoV-2 (PCR) (Negative) Negative Influenza Type A (PCR) (Negative) Negative Influenza Type B (PCR) (Negative) Negative RSV (PCR) (Negative) Negative Range/Units 10/02/24 18:52 WBC (4.4-10.8) 10^3/uL RBC (4.36-5.78) 10^6/uL Hgb (13.5-17.5) g/dL Hct (40.0-50.0) % MCV (80-95) fL MCH (27.0-33.0) pg MCHC (32.0-36.0) % RDW (11.8-14.1) % Plt Count (130-400) 10^3/uL MPV (8.0-11.0) fL Immature Gran % % Neutrophils % % Lymphocytes % % Monocytes % % Eosinophils % % Basophils % % Nucleated RBC % (0.0-0.3) % Absolute Neutrophils (1.2-6.7) 10^3/uL Absolute Lymphocytes (1.2-3.4) 10^3/uL Absolute Monocytes (0.1-0.8) 10^3/uL Absolute Eosinophils (0.0-0.7) 10^3/uL Absolute Basophils (0.0-0.2) 10^3/uL ESR (0-15) mm/hr VBG Lactate (<or=2.0) mmol/L Sodium (136-145) mmol/L Potassium (3.5-5.1) mmol/L Chloride (98-107) mmol/L Carbon Dioxide (21.0-32.0) mmol/L Anion Gap (3-11) mmol/L BUN (7-18) mg/dL Creatinine (0.70-1.30) mg/dL Est GFR (CKD-EPI 2020) (mL/min/1.73m2) Glucose (74-106) mg/dL Calcium (8.5-10.1) mg/dL Magnesium (1.8-2.4) mg/dL Total Bilirubin (0.2-1.0) mg/dL Conjugated Bilirubin (0.0-0.2) mg/dL AST (15-37) U/L ALT (16-63) U/L Alkaline Phosphatase (46-116) U/L Ammonia (11-32) umol/L Creatine Kinase (39-308) U/L Troponin I (<or=76) ng/L 14 C-Reactive Protein (<or=0.5) mg/dL Total Protein (6.4-8.2) g/dL Albumin (3.4-5.0) g/dL Lipase (<78) U/L Ethyl Alcohol (<10) mg/dL COVID-19 Source SARS-CoV-2 (PCR) (Negative) Influenza Type A (PCR) (Negative) Influenza Type B (PCR) (Negative) RSV (PCR) (Negative) Quality:SDOH Health Related Social Needs: No Data to Display PFSH All Active Problems (Updated 10/02/24 @ 19:13 by KEVEN Francisco) Acute opioid withdrawal (Acute) Periorbital cellulitis of left eye (Acute) Abscess of face (Acute) Complicated migraine (Chronic 11/10/13) 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 Learning difficulties (Chronic) Medical History Dysuria (10/11/12) Gross hematuria (10/09/12) Intestinal infection due to E. coli (04/07/13) Kidney calculi Kidney stones Knee pain (11/21/12) Social History Smoking/Tobacco Use Status: Current every day Tobacco Type: e-cigarettes Smoking risk assessment performed?: Yes Alcohol Intake: former Drug use: Daily Substance use type: marijuana, crack/cocaine and other Details: Cocaine/ Fentanyl last used over 20 hours ago Do you feel safe at home: Yes Do you feel safe in your relationship?: Yes
[2024-10-02 17:01] LABS: Abs Immature Grans 0.04 10^3/uL (0.0-0.06); Absolute Basophil Count 0.03 10^3/uL (0.0-0.2); Absolute Eosinophil Count 0.07 10^3/uL (0.0-0.7); Absolute Lymphocyte Count 1.11 10^3/uL (1.2-3.4); Absolute Monocyte Count 0.89 10^3/uL (0.1-0.8); Absolute Neutrophil Count 9.26 10^3/uL (1.2-6.7); Basophils % 0.3 %; Eosinophils % 0.6 %; HCT 46.6 % (40.0-50.0); HGB 15.6 g/dL (13.5-17.5); Immature Grans % 0.4 %; Lymphocytes % 9.7 %; MCH 26.9 pg (27.0-33.0); MCHC 33.5 % (32.0-36.0); MCV 80 fL (80-95); MPV 9.5 fL (8.0-11.0); Monocytes % 7.8 %; Neutrophils % 81.2 %; Platelet Count 283 10^3/uL (130-400); RBC 5.81 10^6/uL (4.36-5.78); RDW 14.8 % (11.8-14.1); RDW-SD 42.9 fL
[2024-10-02] MEDS: Ketorolac 15 MG/ML VIAL IVP (17:02)
[2024-10-02 17:04] LABS: ESR 20 mm/hr (0-15)
[2024-10-02 17:19] LABS: C-Reactive Protein < 0.50 mg/dL (<or=0.5)
[2024-10-02 17:20] LABS: Creatine Kinase 136 U/L (39-308)
[2024-10-02 17:21] LABS: ALT 19 U/L (16-63); AST 12 U/L (15-37); Alkaline Phosphatase 58 U/L (46-116); Anion Gap 8.9 mmol/L (3-11); BUN 11 mg/dL (7-18); Bilirubin, Direct 0.1 mg/dL (0.0-0.2); Bilirubin, Total 0.31 mg/dL (0.2-1.0); CO2 28.1 mmol/L (21.0-32.0); CREATININE 1.1 mg/dL (0.70-1.30); Calcium 9.4 mg/dL (8.5-10.1); Chloride 106 mmol/L (98-107); Estimated GFR 93.19 (mL/min/1.73m2); Glucose 98 mg/dL (74-106); Lipase 30 U/L (<78); Potassium 3.9 mmol/L (3.5-5.1); Sodium 143 mmol/L (136-145); Total Protein 8.5 g/dL (6.4-8.2); Troponin I 8 ng/L (<or=76)
[2024-10-02 17:22] LABS: ETHANOL BLOOD < 3.0 mg/dL (<10)
[2024-10-02 17:23] LABS: Ammonia 10 umol/L (11-32)
[2024-10-02] MEDS: ACETAMINOPHEN 1,000 MG/100 ML BAG 400 MG IVPB (17:36)
[2024-10-02 17:55] LABS: COVID-19 PCR Negative (Negative); Influenza A PCR Negative (Negative); Influenza B PCR Negative (Negative); RSV PCR Negative (Negative)
[2024-10-02 17:57] LABS: Source Nasopharynx
[2024-10-02] MEDS: Normal Saline - Diluent 50 ML VIAL IJ (18:22)
[2024-10-02] MEDS: Omnipaque 350 MG/ML 100 ML BTL IJ (18:22)
[2024-10-02] MEDS: diazePAM 5 MG TAB PO (19:03)
[2024-10-02 19:14] LABS: Troponin I 14 ng/L (<or=76)
--- OUTSIDE RECORDS SUMMARY | 2024-10-02 19:15 | XMS_ITS | Encounter Summary ---
[place] [address] Care Team Providers Care Stonework Supervisor Name Role Phone Romie Kelly MD Primary Care Provider [phone] Encounter Details Date Type Department Care Team (Late st Contact Info) Description 07/14/2014 Orders [place] [address] Nigel Marroquin MD Social History Tobacco Use Types Packs/Day Years Used Date Smoking Tobacco: Never Sex and Gender Information Value Date Recorded Sex Assigned at Not on file Gender Identity Not on file Sexual Orientation Not on file documented as of this encounter Plan of Treatment Not on file documented as of this encounter Visit Diagnoses Not on filedocumented in this encounter Care Teams Stonework Supervisor Relationship Specialty Start Date End Date Romie Kelly MD [address] [facility] [place] [address] PCP - General 02/17/11 08/18/18 documented as of this encounter
--- OUTSIDE RECORDS SUMMARY | 2024-10-02 19:15 | XMS_ITS | Encounter Summary ---
Author Organization [facility] Address [facility] [place] [address] Care Team Providers Care Shaft Repairer Name Role Phone Nicholas Perez MD Primary Care Provider Unavailab le Encounter Details Date Type Department Care Team (Latest Contact Info) Description 08/19/2018 3:04 PM EST - 08/19/2018 11:59 PM [facility] Hospital Encounter XRay at [address] [place] [address] Chris Wang MD [facility] [place] [address] High risk medication use; Chronic bilateral low back pain without sciatica; Ankylosing spondylitis, unspecified site of spine; Inflammatory arthropathy Discharge Disposition: Home Social History Tobacco Use Types Packs/Day Years Used Date Smoking Tobacco: Never Smokeless Tobacco: Never Sex and Gender Information Value Date Recorded Sex Assigned at Not on file Gender Identity Not on file Sexual Orientation Not on file documented as of this encounter Medications at Time of Discharge Medication Sig Dispensed Refills Start Date End Date tiZANidine (ZANAFLEX) 2 mg TabletIndications:High risk medication use,Chronic bilateral low back pain without sciatica,Ankylosing spondylitis, unspecified site of spine,Inflammatory arthropathy,Neck pain Take 1 tablet by mouth every 8 hours as needed (for back spacicity). 30 tablet 08/19/2018 rizatriptan (MAXALT) 10 mg Tablet Take 10 mg by mouth as needed. May repeat in 2 hours if needed ibuprofen (ADVIL;MOTRIN) 800 mg Tablet Take 800 mg by mouth 3 times daily. Reported on 09/12/2016 documented as of this encounter Plan of Treatment Not on file documented as of this encounter Procedures Procedure Name Priority Date/Time Associated Diagnosis Comments XR SACROILIAC JOINTS (GENERIC) Routine 08/19/2018 3:32 PM EST High risk medication use Chronic bilateral low back pain without sciatica Ankylosing spondylitis, unspecified site of spine Inflammatory arthropathy documented in this encounter Results * XR S-I Joints (Generic) (08/19/2018 3:32 PM EST) Anatomical Region Laterality Modality Pelvis, Hip N/A Digital Radiogra phy Narrative 08/19/2018 3:46 PM EST EXAMINATION: XR S-I JOINTS (GENERIC) CLINICAL HISTORY: ??inflammatory arthopathy with pain in the SI joint and lower back TECHNIQUE: 3 views. COMPARISON: CT scan June 10, 2018 FINDINGS: Bones: No fracture is present. Incidental bilateral CAM morphology of anterior femoral head neck junction. Importance of this finding has to be clinically correlated. SI Joints: Symmetric joint spaces. No erosions, ankylosis or subchondral sclerosis. Soft tissue: Normal. Impression 1. ??Normal SI joints on both radiographs and recent CT exam. 2. ??However, if the concern for sacroiliitis remains high, consider ?? MRI. Procedure Note Leah Larry MD - 08/19/2018 EXAMINATION: XR S-I JOINTS (GENERIC) CLINICAL HISTORY: inflammatory arthopathy with pain in the SI joint andlower back TECHNIQUE: 3 views. COMPARISON: CT scan June 10, 2018 FINDINGS: Bones: No fracture is present. Incidental bilateral CAM morphology of anterior femoral head neckjunction. Importance of this finding has to be clinically correlated. SI Joints: Symmetric joint spaces. No erosions, ankylosis or subchondral sclerosis. Soft tissue: Normal. Impression 1. Normal SI joints on both radiographs and recent CT exam. 2. However, if the concern for sacroiliitis remains high, consider MRI. Chris Wang MD IMG DX ORDERABLES documented in this encounter Visit Diagnoses Diagnosis High risk medication use Encounter for long-term (current) use of other medications Chronic bilateral low back pain without sciatica Ankylosing spondylitis, unspecified site of spine Inflammatory arthropathy Arthropathy, unspecified, site unspecified documented in this encounter Care Teams Shaft Repairer Relationship Specialty Start Date End Date Nicholas Perez MD PCP - General Family Medicine 08/19/18 09/17/21 documented as of this encounter
--- OUTSIDE RECORDS SUMMARY | 2024-10-02 19:15 | XMS_ITS | Encounter Summary ---
[place] [address] Care Team Providers Care Flavoring Machine Operator Name Role Phone Yoselyn Rose MD Primary Care Provider [phone] Reason for Referral * Consultation (Routine) - Closed Specialty Diagnoses / Procedures Referred By Contac t Referred To Contact Rheumatology Diagnoses Low back pain, unspecified back pain laterality, unspecified chronicity, unspecified whether sciatica present Yoselyn Rose MD [address] [place] [address] [facility] [address] [place] [address] Referral ID Status Reason Start Date Expiration Date V isits Requested Visits Authorized [id number] Closed Consult, Test & Treat PCP Updated and/or Approved 10/24/2021 10/24/2022 12 12 Encounter Details Date Type Department Care Team (Latest Contact Info) Description 10/26/2021 Transcribe [place] [phone] Yoselyn Rose MD [address] [place] [address] Low back pain, unspecified back pain laterality, unspecified chronicity, unspecified whether sciatica present Social History Tobacco Use Types Packs/Day Years Used Date Smoking Tobacco: Never Smokeless Tobacco: Never Sex and Gender Information Value Date Recorded Sex Assigned at Not on file Gender Identity Not on file Sexual Orientation Not on file documented as of this encounter Plan of Treatment Scheduled Referrals Name Type Priority Associated Diagnoses Orde r Schedule Referral to Rheumatology Outpatient Referral Routine Low Back Pain, Unspecified Back Pain Laterality, Unspecified Chronicity, Unspecified Whether Sciatica Present Ordered: 10/26/2021 documented as of this encounter Visit Diagnoses Diagnosis Low back pain, unspecified back pain laterality, unspecified chronicity, unspecified whether sciatica present documented in this encounter Care Teams Flavoring Machine Operator Relationship Specialty Start Date End Date Yoselyn Rose MD [address] [place] [address] PCP - General Family Medicine 09/18/21 documented as of this encounter
--- OUTSIDE RECORDS SUMMARY | 2024-10-02 19:15 | XMS_ITS | Encounter Summary ---
Author Organization [facility] [place] [address] Care Team Providers Care Sheet Writer Name Role Phone Romie Kelly MD Primary Care Provider [phone] Reason for Visit * Reason Comments Follow-up Encounter Details Date Type Department Care Team (Late st Contact Info) Description 01/06/2015 12:05 PM EDT Follow-Up Rheumatology at [facility] [place] [id number] Nigel Marroquin MD (ankylosing spondylitis); Chronic low back pain Discharge Disposition: Home Social History Tobacco Use Types Packs/Day Years Used Date Smoking Tobacco: Never Sex and Gender Information Value Date Recorded Sex Assigned at Not on file Gender Identity Not on file Sexual Orientation Not on file documented as of this encounter Last Filed Vital Signs Vital Sign Reading Time Taken Comments Blood Pressure 117/75 01/06/2015 12:05 PM EDT Pulse 75 01/06/2015 12:05 PM EDT Temperature - - Respiratory Rate - - Oxygen Saturation - - Inhaled Oxygen Concentration - - Weight 59.9 kg (132 lb) 01/06/2015 12:05 PM EDT Height 179.1 cm (5' 10.5) 01/06/2015 12:05 PM E DT Body Mass Index 18.67 01/06/2015 12:05 PM EDT documented in this encounter Patient Instructions * Patient Instructions* Nigel Marroquin MD - 01/10/2015 9:44 PM EDT 1) Start weekly Enbrel injection. 2) Get X-ray of the SI joints today. 3) Return to follow up in 3 months. documented in this encounter Progress Notes * Nigel Marroquin MD - 01/06/2015 12:23 PM EDT REASON FOR VISIT: Follow up for ankylosing spondylitis. INTERVAL HISTORY: The pt was a 20-year-old male, who returned for a follow up of ankylosing spondylitis. The pt noted that since his initial visit on Jul 08, 2014, he had started weekly oral methotrexate, 15mg for immunosuppression of ankylosing spondylitis. He complained of persistent low back pain and bilateral low back pain while on methotrexate. Otherwise, he had no fever, chest pain, dyspnea, abdominal pain, dysuria, hair loss, polydipsia, blood clots, or lightheadedness. Laboratory studies obtained after his initial visit were normal for chemistry, LFT, iron panel, ESR, CRP, TSH, and urinalysis. He was noted to have mild leukopenia with a WBC of 3.4. He was seropositive for HLA B27, but seronegative for RF, anti-CCP antibodies, quantiferon, and hepatitis panel. PAST MEDICAL HISTORY: Ankylosing spondylitis Pes planus deformity of both feet Right elbow fracture, s/p ORIF Migraine headache S/p kidney stone x two MEDICATIONS: I reviewed pt's medication entries on electronic record. ALLERGIES: NKDA SOCIAL HISTORY: Pt denied any use of cigarettes or alcohol. Marijuana use. He was single, with no children. He was currently living with his mother. 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 FAMILY HISTORY: Mother - Blood clotting disorder, post-traumatic stress disorder, syncope, migraine headache, cervical cancer, s/p GIORGIO, s/p cholecystectomy, s/p tubal ligation, s/p left knee arthroscopy, s/p left ankle fracture, s/p casting, vitamin D deficiency, anger explosive disorder; alive at the age of 35. Father - Migraine, diabetes mellitus II, alive at the age of 39. PHYSICAL EXAMINATION: Vitals 01/06/2015 SYSTOLIC 117 DIASTOLIC 75 PULSE 75 Height ([place]) 5' 10.5 Height (Metric) 179.1 cm Weight ([place]) 132 lbs Weight (Metric) 59.875 kg BODY MASS INDEX 18.67 kg/m2 General - Alert, co-operative, no apparent distress, oriented x 3. HEENT - Conjunctiva pink, no sclerae icterus or malar rash. Back - Erect, FROM; + diffuse thoracic and lumbosacral spinal tenderness on palpation; + bilateral paraspinal tenderness at the SI joint areas on palpation. Skin - Smooth and intact, no rash, bruises, telangiectasia on skin or at all nail margins, or sclerodactyly. Psych - Affect normal. IMPRESSION: 1) Ankylosing spondylitis in a 20-year-old male who is seropositive for HLA B27. The pt'soverall symptomatology is consistent with seronegative spondyloarthropathy, particularly ankylosingspondylitis. He had inadequate response to methotrexate. He will start weekly etanercept injection for immunosuppression. He will also undergo radiographic studies of the SI joints to evaluate for structural changes. 2) Pes planus deformity of both feet. The pt will use insole for additional arch support for pes planus deformity of both feet. 3) Leukopenia. The pt was noted to have mild leukopenia with a WBC of 3.4. The clinical significance of which is unclear. He will undergo repeat laboratory studies at the next visit. RECOMMENDATIONS: 1) Start weekly Enbrel injection. 2) Get X-ray of the SI joints today. 3) Return to follow up in 3 months. Nigel Marroquin MD, PhD documented in this encounter Plan of Treatment Not on file documented as of this encounter Results * XR S-I joints (01/06/2015 1:55 PM EDT) Anatomical Region Laterality Modality Pelvis, Hip N/A Radiographic Marija ging 01/06/2015 1:55 PM EDT Impressions 01/06/2015 4:01 PM EDT IMPRESSION: 1. No radiographic evidence of sacroiliitis detected. Narrative 01/06/2015 4:01 PM EDT EXAMINATION: SACROILIAC JOINTS/BILAT CLINICAL HISTORY: persistent low back pain in a pt with positive HLA B27 TECHNIQUE: AP, LPO and RPO views of the sacroiliac joints COMPARISON: Lumbar spine radiographs of 2013 FINDINGS: No fracture or malalignment detected. No appreciable asymmetric widening of the SI joints. No discrete erosions or appreciable increase subchondral sclerosis identified. Procedure Note Rod Tsai MD - 01/06/2015 EXAMINATION: SACROILIAC JOINTS/BILAT CLINICAL HISTORY: persistent low back pain in a pt with positive HLA B27 TECHNIQUE: AP, LPO and RPO views of the sacroiliac joints COMPARISON: Lumbar spine radiographs of 2013 FINDINGS: No fracture or malalignment detected. No appreciable asymmetric wideningof the SI joints. No discrete erosions or appreciable increase subchondralsclerosis identified. IMPRESSION IMPRESSION: 1. No radiographic evidence of sacroiliitis detected. Nigel Marroquin MD IMG DX ORDERABLES documented in this encounter Visit Diagnoses Diagnosis (ankylosing spondylitis) Ankylosing spondylitis Chronic low back pain Lumbago (ankylosing spondylitis) Ankylosing spondylitis Chronic low back pain Lumbago documented in this encounter Care Teams Sheet Writer Relationship Specialty Start Date End Date [place] [address] PCP - General 02/17/11 08/18/18 documented as of this encounter
--- OUTSIDE RECORDS SUMMARY | 2024-10-02 19:15 | XMS_ITS | Encounter Summary ---
[place] [address] Care Team Providers Care Measurer Machine Name Role Phone Romie Kelly MD Primary Care Provider [phone] Reason for Visit * Reason Comments Medication Refill Encounter Details Date Type Department Care Team (Late st Contact Info) Description 05/18/2015 Refill [place] [phone] Nigel Marroquin MD Social History Tobacco Use [...] on filedocumented in this encounter Care Teams Measurer Machine Relationship Specialty Start Date End Date Romie Kelly MD [address] [place] [address] PCP - General 02/17/11 08/18/18 documented as of this encounter
--- OUTSIDE RECORDS SUMMARY | 2024-10-02 19:15 | XMS_ITS | Encounter Summary ---
Author Organization [facility] Address [facility] [place] [address] Care Team Providers Care Gym Teacher Name Role Phone Romie Kelly MD Primary Care Provider [phone] Encounter Details Date Type Department Care Team (Late st Contact Info) Description 08/03/2015 - 08/03/2015 11:59 PM EST Hospital Encounter Radiology Library at [facility] [place] [phone] [facility] Dis[facility] Disposition: Home Social History Tobacco Use Types Packs/Day Years Used Date Smoking Tobacco: Never Sex and Gender Information Value Date Recorded Sex Assigned at Not on file Gender Identity Not on file Sexual Orientation Not on file documented as of this encounter Medications at Time of Discharge Medication Sig Dispensed Refills Start Date End Date rizatriptan (MAXALT) 10 mg Tablet Take 10 mg by mouth as needed. May repeat in 2 hours if needed ibuprofen (ADVIL;MOTRIN) 800 mg Tablet Take 800 mg by mouth 3 times daily. Reported on 09/12/2016 Etanercept (ENBREL SURECLICK) 50 mg/mL (0.98 mL) Pen Injector Inject 50 mg subcutaneously once a week. 12 Syringe 3 05/19/2015 09/12/2016 documented as of this encounter Plan of Treatment Not on file documented as of this encounter Procedures Procedure Name Priority Date/Time Associated Diagnosis Comments FILM LIBRARY STORAGE ONLY MR PELVIS Routine 08/03/2015 12:00 AM EST Pain documented in this encounter Results * Film Library- Storage only MR Pelvis (08/03/2015 12:00 AM EST) Narrative [facility] - 08/03/2015 7:41 PM EST See PACS for result report. Dr Soni [facility] IM FILM LIBRARY ORD ERABLES [place], [place] documented in this encounter Visit Diagnoses Diagnosis Pain Generalized pain documented in this encounter Care Teams Gym Teacher Relationship Specialty Start Date End Date Romie Kelly MD [address] [place] [address] PCP - General 02/17/11 08/18/18 documented as of this encounter
--- OUTSIDE RECORDS SUMMARY | 2024-10-02 19:15 | XMS_ITS | Encounter Summary ---
Author [facility] [place] [address] Care Team Providers Care Loan Examiner Name Role Phone Romie Kelly MD Primary Care Provider [phone] Reason for Visit * Reason Onset Date Comments Other 07/14/2014 instructions Encounter Details Date Type Department Care Team (Late st Contact Info) Description 07/14/2014 Telephone [place] [phone] Jasmine Mathew RN Other (instructions) Social History Tobacco Use Types Packs/Day Years Used Date Smoking Tobacco: Never Sex and Gender Information Value Date Recorded Sex Assigned at Not on file Gender Identity Not on file Sexual Orientation Not on file documented as of this encounter Miscellaneous Notes * Telephone Encounter - Jasmine Mathew RN - 07/14/2014 3:50 PM EST Called Shahram and relayed Dr. Rodriguez's message below. Reviewed how to take methotrexate, including potential side effects and lab monitoring. Shahram verbalized understanding. Told him he can call anytime if he has questions in the future. He said he will do that. * Telephone Encounter - Jasmine Mathew RN - 07/14/2014 3:48 PM EST Message copied by JASMINE MATHEW on SunJul 14, 2014 3:48 PM ------ Message from: VIKY RODRIGUEZ Created: [facility] Jul 11, 2014 6:22 PM Maurilio Alfredo, Could you please call this pt and let him know that his labs were negative, so he is ready for methotrexate? Please activate the methotrexate and folic acid orders on eDH for him. Thanks Viky documented in this encounter Plan of Treatment Not on file documented as of this encounter Visit Diagnoses Not on filedocumented in this encounter Care Teams Loan Examiner Relationship Specialty Start Date End Date Romie Kelly MD [address] [place] [address] [place] [address] PCP - General 02/17/11 08/18/18 documented as of this encounter
--- OUTSIDE RECORDS SUMMARY | 2024-10-02 19:15 | XMS_ITS | Encounter Summary ---
Author Organization [facility] Address [facility] [place] [address] Care Team Providers Care Kitchenhand Name Role Phone Romie Kelly MD Primary Care Provider [phone] Encounter Details Date Type Department Care Team (Latest Contact Info) Description 09/12/2016 10:42 AM EST - 09/12/2016 11:59 PM EST Hospital Encounter XRay at [address] [place] [address] Nigel Marroquin MD Chronic midline low back pain without sciatica Discharge Disposition: Home Social History Tobacco Use [...] mouth 3 times daily. Reported on 09/12/2016 secukinumab (COSENTYX, 2 SYRINGES,) 150 mg/mL Syringe Inject 300 mg subcutaneously every 7 days. Inject 300 mg on week 0, 1, 2, 3, 4; then 300 mg once a month 5 mL 3 09/12/2016 08/19/2018 carisoprodol (SOMA) 350 mg Tablet Take 1 tablet by mouth nightly. 30 tablet 3 09/12/2016 08/19/2018 documented as of this encounter Plan of Treatment Not on file documented as of this encounter Procedures Procedure Name Priority Date/Time Associated Diagnosis Comments XR LUMBAR SPINE 2 OR 3 VIEWS Routine 09/12/2016 10:57 AM EST Chronic midline low back pain without sciatica documented in this encounter Results * XR Lumbar Spine 2 Or 3 Views (Generic) (09/12/2016 10:57 AM EST) Anatomical Region Laterality Modality L-spine N/A Digital Radiogra phy Impressions 09/12/2016 11:20 AM EST No evidence for fracture or for subluxation. Intervertebral degenerative changes noted at T12-L1. No evidence for spondylolisthesis or spondylolysis. Narrative 09/12/2016 11:20 AM EST EXAMINATION: XR LUMBAR SPINE 2 OR 3 VIEWS (GENERIC) CLINICAL HISTORY: 21-year-old male with standing AP lateral views lumbar spine persistent low back pain TECHNIQUE: ? COMPARISON: Report of outside radiographs on 03/20/2014 no images available at the time of dictation. FINDINGS: AP and lateral standing views lumbar spine. There are 5 lumbar like vertebral bodies. No significant spinal curvature. Bilaterally the SI joints are intact. Vertebral body heights are maintained intervertebral disc spaces are preserved in the lumbar spine. At T12-L1 there is intervertebral disc space narrowing and mild degenerative change. No evidence for spondylolisthesis or spondylolysis. Lumbar lordosis is maintained. Procedure Note Amirah Moody MD - 09/12/2016 EXAMINATION: XR LUMBAR SPINE 2 OR 3 VIEWS (GENERIC) CLINICAL HISTORY: 21-year-old male with standing AP lateral views lumbarspine persistent low back pain TECHNIQUE: COMPARISON: Report of outside radiographs on 03/20/2014 no images availableat the time of dictation. FINDINGS: AP and lateral standing views lumbar spine. There are 5 lumbar likevertebral bodies. No significant spinal curvature. Bilaterally the SI joints areintact. Vertebral body heights are maintained intervertebral disc spaces arepreserved in the lumbar spine. At T12-L1 there is intervertebral disc spacenarrowing and mild degenerative change. No evidence for spondylolisthesis orspondylolysis. Lumbar lordosis is maintained. IMPRESSION No evidence for fracture or for subluxation. Intervertebral degenerativechanges noted at T12-L1. No evidence for spondylolisthesis or spondylolysis. Nigel Marroquin MD IMG DX ORDERABLES documented in this encounter Visit Diagnoses Diagnosis Chronic midline low back pain without sciatica documented in this encounter Care Teams Kitchenhand Relationship Specialty Start Date End Date Romie Kelly MD [address] [place], [place] [address] [address] PCP - General 02/17/11 08/18/18 documented as of this encounter
--- OUTSIDE RECORDS SUMMARY | 2024-10-02 19:15 | XMS_ITS | Encounter Summary ---
Author Organization [facility] Address [facility] [place] [address] Care Team Providers Care Criminal Investigator Name Role Phone Yoselyn Rose MD Primary Care Provider [phone] Reason for Referral * Physical Therapy (Routine) - Closed Specialty Diagnoses / Procedures Referred By Contac t Referred To Contact Diagnoses Low back pain, unspecified back pain laterality, unspecified chronicity, unspecified whether sciatica present Ankylosing spondylitis of lumbar region Chris Wang MD [facility] [place] [place] [address] Referral ID Status Reason Start Date Expiration Date V isits Requested Visits Authorized [id number] Closed Evaluate and Treat 12/06/2021 12/06/2022 12 12 * Consultation (Routine) - Closed Specialty Diagnoses / Procedures Referred By Contac t Referred To Contact [facility] Diagnoses Low back pain, unspecified back pain laterality, unspecified chronicity, unspecified whether sciatica present Chris Wang MD [facility] [place] [place] [address] [facility] Pain Management [address] [place] [address] [place] [address] Referral ID Status Reason Start Date Expiration Date V isits Requested Visits Authorized [id number] Closed Consult, Test & Treat 12/06/2021 12/06/2022 1 1 Reason for Visit * Consultation (Routine) - Closed Specialty Diagnoses / Procedures Referred By Contac t Referred To Contact Rheumatology Diagnoses Low back pain, unspecified back pain laterality, unspecified chronicity, unspecified whether sciatica present Yoselyn Rose MD [address] [place] [address] [facility] [address] [place] [phone] Referral ID Status Reason Start Date Expiration Date V isits Requested Visits Authorized [id number] Closed Consult, Test & Treat PCP Updated and/or Approved 10/24/2021 10/24/2022 12 12 Encounter Details Date Type Department Care Team (Late st Contact Info) Description 12/06/2021 9:00 AM EDT Office Visit Rheumatology at [place] [phone] Chris Wang MD [facility] [place] [address] Low back pain, unspecified back pain laterality, unspecified chronicity, unspecified whether sciatica present; Ankylosing spondylitis of lumbar region Social History Tobacco Use Types Packs/Day Years Used Date Smoking Tobacco: Never Smokeless Tobacco: Never Sex and Gender Information Value Date Recorded Sex Assigned at Not on file Gender Identity Not on file Sexual Orientation Not on file documented as of this encounter Last Filed Vital Signs Vital Sign Reading Time Taken Comments Blood Pressure 137/83 12/06/2021 8:49 AM EDT Pulse 93 12/06/2021 8:49 AM EDT Temperature - - Respiratory Rate 18 12/06/2021 8:49 AM EDT Oxygen Saturation 100% 12/06/2021 8:4 9 AM EDT Inhaled Oxygen Concentration - - Weight 65.1 kg (143 lb 9.6 oz) 12/07/19 8:49 AM EDT with shoes Height 180.3 cm (5' 11) 12/06/2021 8:4 9 AM EDT Body Mass Index 20.03 12/06/2021 8:49 AM EDT documented in this encounter Progress Notes * Chris Wang MD - 12/06/2021 9:00 AM EDT Rheumatology Consult Note Reason for Consult: Shahram Rodriguez presents today at the request of Yoselyn Rose MD for evaluation of back pain and HLA b27 positive. I have reviewed the provided records, pertinent records available at the time of the [facility] appointment with in the medical record and any forms completed by the patient. These have been scanned into the medical record for future review. HPI: Shahram Rodriguez is a 26 y.o. male who presents today for evaluation of HLA B27 + previous patient of Dr Monge. He was previously treated by Dr monge's with MTX caused abdominal pain, Enbrel and cosentyx which per the notes enbrel resulted in infections per URI and generalized discomfort. Unclear what the efects of cosentyx were but patient And mother reports infection. He developed gastritis from NSAIDS in the past. He is currently taking ibuprofen twice gabby y400- 800mg without problems and takes NSADIS as needed. He stiff all day. Chronic back spasms located over the alteral region ffecting positive no apparent left latissimus dorsi or right iliocostalis lumbar muscle. Is unclear whatmeds he is on tizanidine is within her chart question of baclofen 10 mg. He has had no other joint involvement, denies swollen red or warm joints or synovitis no IBD symptoms no psoriasis, he does take Imitrex for chronic headaches Did PT for his back and is really is not interested in doing PT at this time. He does use a heating pad. He is not interested in biologic therapy. Does take Prilosec He reports that he used to get 2 injections in his lower back that would last for about 6 months however they are not documented in the chart. He does report that his primary was doing it for a long time but his new primary want to the injection He does take Tylenol as needed but does not find it helpful Denies weakness, paresthesia, numbness tingling, saddle anesthesia, night sweats, plantar fasciitisAchilles tendinitis Rheumatic history (x) means positive Iritis Dactylitis Pleuritis Pericarditis Oral / Nasal Ulcers PE/DVT Spontaneous Discoid SLE STD Raynaud???s Psoriasis Seizures Anemia Leucopenia Thrombocytopenia Psychosis from a medical condition History noted in chart not review of Systems: X = positive response. Comments are only made for responses that are changed from previous, not discussed in HPI, or otherwise require clarification. Systemic Comments 1. Generalized pain 2. Fatigue/tiredness 3. Fevers 4. Chills 5. Night sweats 6. Recent weight loss 7. Recent Weight gain Head and neck 8. Headaches 9. Neck pain/stiffness 10. Lymphadenopathy 11. 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 Gritty eyes 14. Eye pain 15. Photophobia 16. Oral sores 17. Xerostomia 18. Jaw claudication Cardiopulmonary 19. Chest discomfort 20. Dyspnea 21. Cough 22. Hemoptysis Gastrointestinal 23. Dysphagia 24. Heartburn 25. Nausea 26. Emesis 27. Abdominal pain 28. Hematochezia 29. Diarrhea 30. Constipation Genitourinary 31. Hematuria 32. Dysuria Musculoskeletal 33. Muscle weakness 34. Myalgia 35. Shoulder pain 36. Raynaud's Neuropsychiatric 37. Paresthesia 38. Dysesthesia 39. Dizziness/vertigo 40. Anxiety 41. Depression 42. Cognitive problems 43. Initial insomnia 44. Night awakenings positive 45. Nonrestorative sleep positive Dermatologic 46. Xerosis cutis 47. Photosensitivity 48. Rash Physical Exam: BP 137/83 Pulse 93 Resp 18 Ht 180.3 cm (5' 11) Wt 65.1 kg (143 lb 9.6 oz) Comment: with shoes SpO2 100% BMI 20.03 kg/m?? General: NAD HEENT: Mucous membranes are moist, no oral mucosal ulcerations, temporal artery non-palpable Neck: Supple, no lymphadenopathy, full range of motion. Cardiovascular: RR, (-)murmurs, rubs, or gallops. Lungs: Clear to auscultation bilaterally. (-)R/R/W Abdomen: Soft, non tender, non distended, + bowel sounds, no hepatosplenomegaly. Neuro: Alert and oriented x3. Cranial nerves III through XII grossly intact. Somewhat hard of hearing per patient-Strength 5/5 throughout, Skin: (-)ulcers, (-)rash \ Vascular: Pulses are equal in all extremities. MSK Back: Non tender over the spine and costovertebral angles bilaterally. (-)Kerri Fernie and modified Fernie within normal limits 15, clearly right-sided muscle spasm noted affecting the latissimus dorsi internal and e right iliocostalis versus serratus posterior inferior. Extremities Shoulders: FROM, non-tender to palpation Elbows:FROM, (-)pain, (-)nodules Wrists: FROM, no swelling, non-tender Hands: No synovitis, no MCP compression tenderness, full claw and fist Hips: FROM, (-) fader (-kerri) Knees: (-)effusions, non-tender ROM Ankles: FROM, non-tender, no swelling Feet: no MTP compression tenderness Spine, shoulders, elbows, wrists, fingers, hips, knees and ankles; no active swelling, tenderness or synovitis at any joint. No soft tissue nodules. Labs: Studies: Assessment, recommendation and plan: Shahram Rodriguez is a 26 y.o. male who presents today with history of ankylosing spondylitis though MRI evaluation did not show sacroiliitis x-ray lumbar spine was within normal limits. It is unclear what patient was getting injected into the lower back. Possibly was trigger point injections though we do not generally use steroids with bupivacaine or lidocaine. Her last visit 3 years ago patient was given trigger point injection with bupivacaine. Patient is not interested in biologic therapy but does take NSAIDs regularly. Advised that NSAIDs will help treat ankylosing spondylitis but should continue the PPI daily for prevention of gastritis. He has tried Celebrex in the past and is not in terested in trying alternate NSAID therapy. He is not interested in biologic therapy of any sort. He is interested in a muscle relaxant but is unclear on what medication he is taking. Since treatmentoptions for this patient include - none immune modulating therapy and pain reduction and relief. He notes that he does not need the care of a intellectual property counsel and pain management can be managed by his primary care. I recommend imaging of the lumbar spine to make sure that there is no ankylosis possibly reevaluating the pelvis/SI joints.. Having further discussion about modulating therapy in the future. I think you would be best help by seeing a pain management physician who possibly utilizes ultrasound and/or fluoroscopy to better identify the sites of problem for Shahram. And also to identify the muscles that are potentially involved. I advised Shaharm that would like to continue to monitor him andmake sure that his explant is not progressing. I did order labs today including CBC creatinine LFTs. We did place a referral to pain specialist per patient's request . We do not have records from his previous primary care provider who is provided with injections or any previous history of medications or what has occurred since he was last seen in 2018. Furl to PT and Ramiro Proctor treat your own back Mother and son stated that we get the information and make a follow-up based on this. Orders Placed This Encounter Procedures ??? MRI Lumbar Spine wo Contrast (Generic) ??? CBC (with Diff) ??? Comprehensive metabolic panel (non-fasting) ??? CRP, acute inflammation ??? Sedimentation rate ??? Referral to Pain Management ??? Referral to Physical Therapy Return in about 3 months (around 03/08/2022) for In Person. Past Medical History: Diagnosis Date ??? Nephrolithiasis ??? 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 High risk medication use 08/19/2018 ??? Ankylosing spondylitis 08/19/2018 ??? Chronic bilateral low back pain without sciatica 08/19/2018 ??? (ankylosing spondylitis) 01/10/2015 Past Surgical History: Procedure Laterality Date ??? LITHOTRIPSY No family history on file. Social History Socioeconomic History ??? Marital status: Single Spouse name: None ??? Number of children: None ??? Years of education: None ??? Highest education level: None Occupational History ??? None Tobacco Use ??? Smoking status: Never Smoker ??? Smokeless tobacco: Never Used Substance and Sexual Activity ??? Alcohol use: None ??? Drug use: None ??? Sexual activity: None Other Topics Concern ??? None Social History Narrative ??? None Social Determinants of Health Financial Resource Strain: Not on file Food Insecurity: Not on file Transportation Needs: Not on file Physical Activity: Not on file Housing Stability: Not on file Current Outpatient Medications Medication Sig Dispense Refill ??? omeprazole (PriLOSEC) 40 mg Capsule, Delayed Release(E.C.) Take 40 mg by mouth daily. ??? tiZANidine (ZANAFLEX) 2 mg Tablet Take 1 tablet by mouth every 8 hours as needed (for back spacicity). 30 tablet 0 ??? rizatriptan (MAXALT) 10 mg Tablet Take 10 mg by mouth as needed. May repeat in 2 hours if needed ??? ibuprofen (ADVIL;MOTRIN) 800 mg Tablet Take 800 mg by mouth 3 times daily. Reported on 09/12/2016 No current facility-administered medications for this visit. Current Outpatient Medications on File Prior to Visit Medication Sig Dispense Refill ??? omeprazole (PriLOSEC) 40 mg Capsule, Delayed Release(E.C.) Take 40 mg by mouth daily. ??? tiZANidine (ZANAFLEX) 2 mg Tablet Take 1 tablet by mouth every 8 hours as needed (for back spacicity). 30 tablet 0 ??? rizatriptan (MAXALT) 10 mg Tablet Take 10 mg by mouth as needed. May repeat in 2 hours if needed ??? ibuprofen (ADVIL;MOTRIN) 800 mg Tablet Take 800 mg by mouth 3 times daily. Reported on 09/12/2016 No current facility-administered medications on file prior to visit. Allergies Allergen Reactions ??? Methotrexate Nausea And Vomiting documented in this encounter Plan of Treatment Scheduled Referrals Name Type Priority Associated Diagnoses Orde r Schedule Referral to Pain Management Outpatient Referral Routine Low Back Pain, Unspecified Back Pain Laterality, Unspecified Chronicity, Unspecified Whether Sciatica Present Ordered: 12/06/2021 Referral to Physical Therapy Outpatient Referral Routine Low Back Pain, Unspecified Back Pain Laterality, Unspecified Chronicity, Unspecified Whether Sciatica Present Ankylosing spondylitis of lumbar region Ordered: 12/06/2021 documented as of this encounter Visit Diagnoses Diagnosis Low back pain, unspecified back pain laterality, unspecified chronicity, unspecified whether sciatica present Ankylosing spondylitis of lumbar region Ankylosing spondylitis documented in this encounter Care Teams Criminal Investigator Relationship Specialty Start Date End Date Yoselyn Rose MD [address] [place] [address] PCP - General Family Medicine 09/18/21 documented as of this encounter
--- OUTSIDE RECORDS SUMMARY | 2024-10-02 19:15 | XMS_ITS | Encounter Summary ---
Author Organization [facility] [place] [address] Care Team Providers Care Satellite Television Installer Name Role Phone Yoselyn Rose MD Primary Care Provider [phone] Encounter Details Date Type Department Care Team (Late st Contact Info) Description 12/30/2021 [place] [address] Katty Vieira Social History Tobacco Use Types Packs/Day Years [...] on filedocumented in this encounter Care Teams Satellite Television Installer Relationship Specialty Start Date End Date Yoselyn Rose MD [address] [place] [address] PCP - General Family Medicine 09/18/21 documented as of this encounter
--- OUTSIDE RECORDS SUMMARY | 2024-10-02 19:15 | XMS_ITS | Encounter Summary ---
Author Organization [facility] Address [facility] [place] [address] Care Team Providers Care Budget Assistant Name Role Phone Nicholas Perez MD Primary Care Provider Unavailab le Encounter Details Date Type Department Care Team (Latest Contact Info) Description 08/19/2018 3:04 PM EST - 08/19/2018 11:59 PM [facility] Hospital Encounter XRay at [address] [place] [address] Chris Wang MD [facility] [place] [address] High risk medication use; Chronic bilateral low back pain without sciatica; Ankylosing spondylitis, unspecified site of spine; Inflammatory arthropathy; Neck pain Discharge Disposition: Home Social History Tobacco [...] Name Priority Date/Time Associated Diagnosis Comments XR CERVICAL SPINE 2 OR 3 VIEWS Routine 08/19/2018 3:33 PM EST High risk medication use Chronic bilateral low back pain without sciatica Ankylosing spondylitis, unspecified site of spine Inflammatory arthropathy Neck pain documented in this encounter Results * XR Cervical Spine 2 Or 3 Views (08/19/2018 3:33 PM EST) Anatomical Region Laterality Modality C-spine N/A Digital Radiogra phy Impressions 08/19/2018 5:06 PM EST 1. ??Vertebral body heights and intervertebral disc spaces are preserved. 2. ??No ankylosis or bridging syndesmophytes. I have personally reviewed the image(s) and the residents interpretation and agree with the findings, Xiomy York at 08/19/2018 5:06 PM Narrative 08/19/2018 5:06 PM EST EXAMINATION: XR CERVICAL SPINE 2 OR 3 VIEWS CLINICAL HISTORY: inflammatory arthopathy with pain in the neck TECHNIQUE: 2 view(s) of the cervical spine COMPARISON: Chest radiograph 06/02/2018 CT of the head 09/29/2004 FINDINGS: The superior endplate of T1 vertebral body is included, adequate. No compression deformity or focal vertebral body height loss. There is slight loss of the normal cervical lordosis, which may be positional. The posterior Atlanto-dental interval is within normal limits, measuring 2.6 cm. The anterior atlanto-dental interval is poorly visualized. Intervertebral disc heights are preserved. No uncovertebral arthropathy. Prevertebral soft tissue thickness is within normal limits. No ankylosis. No bridging syndesmophytes. Procedure Note Xiomy York MD - 08/19/2018 EXAMINATION: XR CERVICAL SPINE 2 OR 3 VIEWS CLINICAL HISTORY: inflammatory arthopathy with pain in the neck TECHNIQUE: 2 view(s) of the cervical spine COMPARISON: Chest radiograph 06/02/2018 CT of the head 09/29/2004 FINDINGS: The superior endplate of T1 vertebral body is included, adequate. No compression deformity or focal vertebral body height loss. There isslight loss of the normal cervical lordosis, which may be positional. The posterior Atlanto-dental interval is within normal limits, measuring2.6 cm. The anterior atlanto-dental interval is poorly visualized. Intervertebral disc heights are preserved. No uncovertebral arthropathy. Prevertebral soft tissue thickness is within normal limits. No ankylosis. No bridging syndesmophytes. IMPRESSION 1. Vertebral body heights and intervertebral disc spaces are preserved. 2. No ankylosis or bridging syndesmophytes. I have personally reviewed the image(s) and the residents interpretationand agree with the findings, Xiomy York at 08/19/2018 5:06 PM Chris Wang MD IMG DX ORDERABLES documented in this encounter Visit Diagnoses Diagnosis High risk medication use Encounter for long-term (current) use of other medications Chronic bilateral low back pain without sciatica Ankylosing spondylitis, unspecified site of spine Inflammatory arthropathy Arthropathy, unspecified, site unspecified Neck pain Cervicalgia documented in this encounter Care Teams Budget Assistant Relationship Specialty Start Date End Date Nicholas Perez MD PCP - General Family Medicine 08/19/18 09/17/21 documented as of this encounter
--- OUTSIDE RECORDS SUMMARY | 2024-10-02 19:15 | XMS_ITS | Encounter Summary ---
[facility] [place] [address] Care Team Providers Care Brake Mechanic Name Role Phone Romie Kelly MD Primary Care Provider [phone] Reason for Visit * Reason Onset Date Comments Medication Refill 01/19/2015 Encounter Details Date Type Department Care Team (Late st Contact Info) Description 01/19/2015 [place] [phone] Nigel Marroquin MD Social History Tobacco Use Types Packs/Day Years Used Date Smoking Tobacco: Never Sex and Gender Information Value Date Recorded Sex Assigned at Not on file Gender Identity Not on file Sexual Orientation Not on file documented as of this encounter Miscellaneous Notes * Telephone Encounter - Xiomy Vidal RN - 01/19/2015 8:10 AM EDT Images from the original note were not included. Sunny Crawley Rheumatology Nurse 23 hours ago (8:59 AM) Pts enbrel script needs to be sent to [facility]. Thank you -C New prescription generated to be sent to [facility]. documented in this encounter Plan of Treatment Not on file documented as of this encounter Visit Diagnoses Not on filedocumented in this encounter Care Teams Brake Mechanic Relationship Specialty Start Date End [place] [address] PCP - General 02/17/11 08/18/18 documented as of this encounter
--- OUTSIDE RECORDS SUMMARY | 2024-10-02 19:15 | XMS_ITS | Encounter Summary ---
Author Organization [facility] Address [facility] [place] [address] Care Team Providers Care Ornamental Metal Worker Helper Name Role Phone Romie Kelly MD Primary Care Provider [phone] Encounter Details Date Type Department Care Team (Latest Contact Info) Description 06/02/2018 - 06/02/2018 11:59 PM EDT Hospital Encounter Radiology Library at [facility] [place] [phone] Arthur Gama MD [facility] [place] [address] Discharge Disposition: Home Social History Tobacco Use [...] Associated Diagnosis Comments FILM LIBRARY STORAGE ONLY DX CHEST Routine 06/02/2018 12:00 AM EDT documented in this encounter Results * Film Library- Storage Only DX Chest (06/02/2018 12:00 AM EDT) Narrative RAD - 06/12/2018 11:04 AM EDT This exam is for storage only and is auto-finalizing. Arthur Gama MD IMG FILM LIBRARY O RDERABLES [place], [place] documented in this encounter Visit Diagnoses Not on filedocumented in this encounter Care Teams Ornamental Metal Worker Helper Relationship Specialty Start Date End Date Romie Kelly MD [address] [place] [address] PCP - General 02/17/11 08/18/18 documented as of this encounter
--- OUTSIDE RECORDS SUMMARY | 2024-10-02 19:15 | XMS_ITS | Encounter Summary ---
Author Organization [facility] [place] [address] Care Team Providers Care Insole Rasper Name Role Phone Romie Kelly MD Primary Care Provider [phone] Reason for Visit * Reason Onset Date Comments Prior Authorization 02/02/2015 ENBREL-APPRO ROSALBA Encounter Details Date Type Department Care Team (Late st Contact Info) Description 02/02/2015 [place] [phone] Sunny Cotto Prior Authorization (ENBREL-APPROVED) Social History Tobacco Use Types Packs/Day Years Used Date Smoking Tobacco: Never Sex and Gender Information Value Date Recorded Sex Assigned at Not on file Gender Identity Not on file Sexual Orientation Not on file documented as of this encounter Miscellaneous Notes * Telephone Encounter - Sunny Crawley - 02/02/2015 3:19 PM EDT Medication Prior Authorization RHEUMATOLOGY DR. RODRIGUEZ Medication name/dose/directions: ENBREL 50MG INJECT SQ Q ONCE WEEKLY Rationale for request: ANKYLOSING SPONDYLITIS [place] ID# [id number] Authorizing associate financial representative name: APPROVAL FAXED TO OFFICE Faxed to health plan on: 01/20/15 Health plan decision: Approved Quantity approved: 01/05 Authorization number: [id number] Start date: 01/29/15 End date: 01/30/16 Patient notified? no Pharmacy notified? no documented in this encounter Plan of Treatment Not on file documented as of this encounter Visit Diagnoses Not on filedocumented in this encounter Care Teams Insole Rasper Relationship Specialty Start Date End Date Romie Kelly MD [address] [place] [address] PCP - General 02/17/11 08/18/18 documented as of this encounter
--- OUTSIDE RECORDS SUMMARY | 2024-10-02 19:15 | XMS_ITS | Encounter Summary ---
[facility] Address [facility] [place] [address] Care Team Providers Care Prototype Model Maker Name Role Phone Romie Kelly MD Primary Care Provider [phone] Encounter Details Date Type Department Care Team (Latest Contact Info) Description 05/18/2018 - 05/18/2018 11:59 PM EDT Hospital Encounter Radiology Library at [facility] [place] [phone] Arthur Gama MD [facility] [place] [address] Discharge Disposition: Home Social History Tobacco Use [...] Associated Diagnosis Comments FILM LIBRARY STORAGE ONLY CT ABDOMEN Routine 05/18/2018 12:00 AM EDT documented in this encounter Results * Film Library- Storage Only CT Abdomen (05/18/2018 12:00 AM EDT) Narrative RAD - 06/12/2018 11:03 AM EDT This exam is for storage only and is auto-finalizing. Arthur Gama MD IMG FILM LIBRARY O RDERABLES [place], [place] documented in this encounter Visit Diagnoses Not on filedocumented in this encounter Care Teams Prototype Model Maker Relationship Specialty Start Date End Date Romie Kelly MD [address] [place] [address] PCP - General 02/17/11 08/18/18 documented as of this encounter
--- OUTSIDE RECORDS SUMMARY | 2024-10-02 19:15 | XMS_ITS | Encounter Summary ---
Author Organization [facility] Address [facility] [place] [address] Care Team Providers Care Securities Teller Name Role Phone Romie Kelly MD Primary Care Provider [phone] Encounter Details Date Type Department Care Team (Latest Contact Info) Description 06/10/2018 - 06/10/2018 11:59 PM EDT Hospital Encounter Radiology Library at [facility] [place] [phone] Arthur Gama MD [facility] [address] Discharge Disposition: Home Social History Tobacco Use [...] Comments FILM LIBRARY STORAGE ONLY CT ABDOMEN AND PELVIS Routine 06/10/2018 12:00 AM EDT documented in this encounter Results * Film Library- Storage Only CT Abdomen & Pelvis (06/10/2018 12:00 AM EDT) Narrative RAD - 06/12/2018 11:02 AM EDT This exam is for storage only and is auto-finalizing. Arthur Gama MD IMG FILM LIBRARY O RDERABLES Performing Organization Address City/State/[facility] Co de Phone Number [place], [place] documented in this encounter Visit Diagnoses Not on filedocumented in this encounter Care Teams Securities Teller Relationship Specialty Start Date End Date Romie Kelly MD [address] [place] [address] PCP - General 02/17/11 08/18/18 documented as of this encounter
--- OUTSIDE RECORDS SUMMARY | 2024-10-02 19:15 | XMS_ITS | Encounter Summary ---
Author Organization [facility] [place] [address] Care Team Providers Care Grounds Foreman Name Role Phone Romie Kelly MD Primary Care Provider [phone] Reason for Visit * Reason Onset Date Comments Prior Authorization 09/25/2016 cosentyx (2s yringe) Encounter Details Date Type Department Care Team (Late st Contact Info) Description 09/25/2016 Telephone [place] [phone] Ye Hand Prior Authorization (cosentyx (2syringe) ) Social History Tobacco Use Types Packs/Day Years Used Date Smoking Tobacco: Never Smokeless Tobacco: Never Sex and Gender Information Value Date Recorded Sex Assigned at Not on file Gender Identity Not on file Sexual Orientation Not on file documented as of this encounter Miscellaneous Notes * Telephone Encounter - Ye Hand - 09/28/2016 1:34 PM EST PA for Cosentyx denied as Shahram has not tried BOTH Humira and Enbrel. You may send other information to get approval. If you have information we have not seen, have your provider fax cit to the PA Review Team at [phone] and refer to tracking number# [id number]. Providers with questions should call [phone] and refer to the above tracking #. * Telephone Encounter - Ye Hand - 09/25/2016 3:46 PM EST Initiated PA for Cosentyx ( 2) 150 mg syringe. 300 mg on week 0,1,2,3,4, then 300 mg once a month SENT TO [place] Medicaid. documented in this encounter Plan of Treatment Not on file documented as of this encounter Visit Diagnoses Not on filedocumented in this encounter Care Teams Grounds Foreman Relationship Specialty Start Date End Date Romie [place] [address] PCP - General 02/17/11 08/18/18 documented as of this encounter
--- OUTSIDE RECORDS SUMMARY | 2024-10-02 19:15 | XMS_ITS | Encounter Summary ---
Author Organization [facility] Address [facility] [address] Care Team Providers Care Transonic Engineer Name Role Phone Nicholas Perez MD Primary Care Provider Unavailab le Encounter Details Date Type Department Care Team (Latest Contact Info) Description 08/19/2018 3:04 PM EST - 08/19/2018 11:59 PM [facility] Hospital Encounter XRay at [address] [place] [address] Chris Wang MD [facility] [place] [address] High risk medication use; Chronic bilateral low [...] LUMBAR SPINE 2 OR 3 VIEWS Routine 08/19/2018 3:33 PM EST High risk medication use Chronic bilateral low back pain without sciatica Ankylosing spondylitis, unspecified site of spine Inflammatory arthropathy documented in this encounter Results * XR Lumbar Spine 2 Or 3 Views (Generic) (08/19/2018 3:33 PM EST) Anatomical Region Laterality Modality L-spine N/A Digital Radiogra phy Impressions 08/19/2018 4:46 PM EST Normal. Narrative 08/19/2018 4:46 PM EST EXAMINATION: XR LUMBAR SPINE 2 OR 3 VIEWS (GENERIC) CLINICAL HISTORY: inflammatory arthopathy with pain in the lower back TECHNIQUE: 2 view(s) of the lumbar spine COMPARISON: 09/12/2016 FINDINGS: There are 5 nonweightbearing lumbar type vertebra in normal alignment. No fracture or subluxation is seen. The disc spaces are preserved. Procedure Note Deondre Monroy MD - 08/19/2018 EXAMINATION: XR LUMBAR SPINE 2 OR 3 VIEWS (GENERIC) CLINICAL HISTORY: inflammatory arthopathy with pain in the lower back TECHNIQUE: 2 view(s) of the lumbar spine COMPARISON: 09/12/2016 FINDINGS: There are 5 nonweightbearing lumbar type vertebra in normal alignment.No fracture or subluxation is seen. The disc spaces are preserved. IMPRESSION Normal. Chris Wang MD IMG DX ORDERABLES documented in this encounter Visit Diagnoses Diagnosis High risk medication use Encounter for long-term (current) use of other medications Chronic bilateral low back pain without sciatica Ankylosing spondylitis, unspecified site of spine Inflammatory arthropathy Arthropathy, unspecified, site unspecified documented in this encounter Care Teams Transonic Engineer Relationship Specialty Start Date End Date Nicholas Perez MD PCP - General Family Medicine 08/19/18 09/17/21 documented as of this encounter
--- OUTSIDE RECORDS SUMMARY | 2024-10-02 19:15 | XMS_ITS | Encounter Summary ---
Author Organization [facility] [place] [address] Care Team Providers Care Tube Molder Fiberglass Name Role Phone Romie Kelly MD Primary Care Provider [phone] Reason for Visit * Reason Onset Date Comments Other 07/14/2015 update Encounter Details Date Type Department Care Team (Late st Contact Info) Description 07/14/2015 Telephone [place] [phone] Sayda Macario RN Other (update) Social History Tobacco Use Types Packs/Day Years Used Date Smoking Tobacco: Never Sex and Gender Information Value Date Recorded Sex Assigned at Not on file Gender Identity Not on file Sexual Orientation Not on file documented as of this encounter Miscellaneous Notes * Telephone Encounter - Sayda Macario RN - 07/14/2015 1:44 PM EST Called Shahram to relay Dr. Marroquin's message below. Spoke to his mom, Mouna. She said he would like to have the MRI and labs done at [facility] in [place], [place]. * Telephone Encounter - Sayda Macario RN - 07/14/2015 1:44 PM EST ----- Message from Nigel Marroquin MD sent at 07/10/2015 7:44 PM EDT ----- Maurilio Alfredo, Could you please let this pt know that I have some labs for him because his cell count was low in his last visit? He can get it done when he comes for MRI of the SI joint. Do we know when he is getting his MRI of the SI joint? Thanks Nigel documented in this encounter Plan of Treatment Not on file documented as of this encounter Visit Diagnoses Not on filedocumented in this encounter Care Teams Tube Molder Fiberglass Relationship Specialty Start Date End Date Romie Kelly MD [address] [place] [address] PCP - General 02/17/11 08/18/18 documented as of this encounter
--- OUTSIDE RECORDS SUMMARY | 2024-10-02 19:15 | XMS_ITS | Encounter Summary ---
Author Organization [facility] [place] [address] Care Team Providers Care Executive Vice President Name Role Phone Romie Kelly MD Primary Care Provider [phone] Reason for Visit * Reason Onset Date Comments Other 05/20/2015 question Encounter Details Date Type Department Care Team (Late st Contact Info) Description 05/20/2015 Tele[place] [phone] Sayda Macario RN Other (question) Social History Tobacco Use Types Packs/Day Years Used Date Smoking Tobacco: Never Sex and Gender Information Value Date Recorded Sex Assigned at Not on file Gender Identity Not on file Sexual Orientation Not on file documented as of this encounter Miscellaneous Notes * Telephone Encounter - Sayda Macario RN - 05/20/2015 2:27 PM EDT Sounds like viral gastroenteritis. I agree with you on your POC. Thanks Nigel * Telephone Encounter - Sayda Macario RN - 05/20/2015 10:50 AM EDT Shahram Freire's mom is calling because he has been ill for four or five days with nausea and vomiting. She reports he felt very warm yesterday, but she did not take his temperature because she had no thermometer. She says he also has been experiencing sweats. Shahram gave permission for comic book writer to speak with Mouna, his mom. She says she is not sure what to do, but he is due to receive Enbrel today. Told her he should not take the Enbrel when he is ill. She said they did not know that. Reviewed with her that Enbrel should be held when ill or on antibiotics. Mouna verbalized understanding of this information. Also recommended that she contact Shahram's pcp for evaluation. She said she would do that. Let her know message would be sent to Dr. Marroquin in case he has additional advice. Mouna says theEnbrel has been working very well for Shahram. documented in this encounter Plan of Treatment Not on file documented as of this encounter Visit Diagnoses Not on filedocumented in this encounter Care Teams Executive Vice President Relationship Specialty Start Date End Date Romie Kelly MD [address] [place] [address] PCP - General 02/17/11 08/18/18 documented as of this encounter
--- OUTSIDE RECORDS SUMMARY | 2024-10-02 19:15 | XMS_ITS | Encounter Summary ---
Author Organization [facility] Address [facility] [place] [address] Care Team Providers Care Senior Program Manager Name Role Phone Romie Kelly MD Primary Care Provider [phone] Encounter Details Date Type Department Care Team (Latest Contact Info) Description 01/06/2015 1:05 PM EDT - 01/06/2015 11:59 PM EDT Hospital Encounter XRay at [address] [place] [phone] (ankylosing spondylitis); Chronic low back pain Social History Tobacco Use Types Packs/Day Years [...] mouth 3 times daily. Reported on 09/12/2016 etanercept (ENBREL) 50 mg/mL (0.98 mL) Syringe Inject 1 mL subcutaneously every 7 days. 4 mL 3 01/06/2015 01/19/2015 methotrexate 2.5 mg Tablet Take 6 tablets by mouth once a week. 24 tablet 2 07/14/2014 07/07/2015 folic acid (FOLVITE) 1 mg Tablet Take 1 tablet by mouth daily. 60 tablet 2 07/14/2014 07/07/2015 documented as of this encounter Plan of Treatment Not on file documented as of this encounter Procedures Procedure Name Priority Date/Time Associated Diagnosis Comments XR SACROILIAC JOINTS (GENERIC) Routine 01/06/2015 1:55 PM EDT (ankylosing spondylitis) Chronic low back pain documented in this encounter Results * XR S-I joints [...] Lumbago documented in this encounter Care Teams Senior Program Manager Relationship Specialty Start Date End Date Romie Kelly MD [address] [place] [address] PCP - General 02/17/11 08/18/18 documented as of this encounter
--- OUTSIDE RECORDS SUMMARY | 2024-10-02 19:15 | XMS_ITS | Encounter Summary ---
Author Organization [facility] [place] [address] Care Team Providers Care Benzol Operator Name Role Phone Yoselyn Rose MD Primary Care Provider [phone] Encounter Details Date Type Department Care Team (Late st Contact Info) Description 10/28/2021 Telephone [place] [address] Namrata Bowen Social History Tobacco Use Types Packs/Day Years [...] on filedocumented in this encounter Care Teams Benzol Operator Relationship Specialty Start Date End Date Yoselyn Rose MD [address] [place] [address] PCP - General Family Medicine 09/18/21 documented as of this encounter
--- OUTSIDE RECORDS SUMMARY | 2024-10-02 19:15 | XMS_ITS | Encounter Summary ---
Author Organization [facility] [place] [address] Care Team Providers Care Hydro Plant Operator Name Role Phone Romie Kelly MD Primary Care Provider [phone] Encounter Details Date Type Department Care Team (Late st Contact Info) Description 01/13/[address] [facility] [place] [phone] Komal Ovalle LPN Social History Tobacco Use Types Packs/Day Years Used Date Smoking Tobacco: Never Sex and Gender Information Value Date Recorded Sex Assigned at Not on file Gender Identity Not on file Sexual Orientation Not on file documented as of this encounter Miscellaneous Notes * Telephone Encounter - Komal Ovalle LPN - 01/13/2015 2:55 PM EDT Could you please call this pt and ask him if he has started Enbrel? Thanks Ingel Message above from Dr. Marroquin. Called and L/M with Mey (mom) with above message and she said he hasn't started the med since it needs a prior auth. Please contact them when it's approved please and her is her cell # also. . Message forwarded to Dr. Marroquin and Sunny Crawley. documented in this encounter Plan of Treatment Not on file documented as of this encounter Visit Diagnoses Not on filedocumented in this encounter Care Teams Hydro Plant Operator Relationship Specialty Start Date End Date Romie Kelly MD [address] [place] [address] [place] [address] PCP - General 02/17/11 08/18/18 documented as of this encounter
--- OUTSIDE RECORDS SUMMARY | 2024-10-02 19:15 | XMS_ITS | Encounter Summary ---
Author Organization [facility] Address [facility] [place] [address] Care Team Providers Care De Icer Element Winder Name Role Phone Romie Kelly MD Primary Care Provider [phone] Encounter Details Date Type Department Care Team (Latest Contact Info) Description 05/14/2018 - 05/14/2018 11:59 PM EDT Hospital Encounter Radiology Library at [facility] [place] [phone] Arthur Gama MD [facility] [address] Discharge Disposition: Home Social History Tobacco Use [...] Associated Diagnosis Comments FILM LIBRARY STORAGE ONLY ULTRASOUND STUDY Routine 05/14/2018 12:00 AM EDT documented in this encounter Results * Film Library- Storage Only Ultrasound Study (05/14/2018 12:00 AM EDT) Narrative RAD - 06/12/2018 11:04 AM EDT This exam is for storage only and is auto-finalizing. Arthur Gama MD IMG FILM LIBRARY O RDERABLES [place], [place] documented in this encounter Visit Diagnoses Not on filedocumented in this encounter Care Teams De Icer Element Winder Relationship Specialty Start Date End Date Romie Kelly MD [address] [place] [address] PCP - General 02/17/11 08/18/18 documented as of this encounter
--- OUTSIDE RECORDS SUMMARY | 2024-10-02 19:15 | XMS_ITS | Clinical Summary ---
Author Organization [facility] Address [facility] [place] [address] Care Team Providers Care Cesspool Cleaner Name Role Phone Yoselyn Rose MD Primary Care Provider [phone] Allergies Active Allergy Reactions Criticality Noted Date Comments Methotrexate Nausea And Vomiting 07/07/2015 Medications Medication Sig Dispensed Refills Start Date End Date Status rizatriptan (MAXALT) 10 mg Tablet Take 10 mg by mouth as needed. May repeat in 2 hours if needed Active ibuprofen (ADVIL;MOTRIN) 800 mg Tablet Take 800 mg by mouth 3 times daily. Reported on 09/12/2016 Active tiZANidine (ZANAFLEX) 2 mg TabletIndications:Hig h risk medication use,Chronic bilateral low back pain without sciatica,Ankylosing spondylitis, unspecified site of spine,Inflammatory arthropathy,Neck pain Take 1 tablet by mouth every 8 hours as needed (for back spacicity). 30 tablet 08/19/2018 Active omeprazole (PriLOSEC) 40 mg Capsule, Delayed Release(E.C.) Take 40 mg by mouth daily. Active Active Problems Problem Noted Date Diagnosed Date High risk medication use 08/19/2018 Ankylosing spondylitis 08/19/2018 Chronic bilateral low back pain without sciatica 08/19/2018 (ankylosing spondylitis) 01/10/2015 Immunizations Name Administration Dates Next Due DTaP 04/15/2002 DTaP-HiB (TriHIBit) 09/11/1996, 6,1995,1994 Hepatitis B, Unspecified Formulation 1995, 1995,1995 Influenza Trivalent, Preserv ative Free 07/08/2014 MMR Vaccine LIVE 04/10/2000,04/04/1996 Polio Inactivated (IPOL) 04/15/2002,04/0 04/1996,1995,1994 Varicella LIVE (Varivax) 05/18/1998 Social History Tobacco Use Types Packs/Day Years Used Date Smoking Tobacco: Never Smokeless Tobacco: Never Sex and Gender Information Value Date Recorded Sex Assigned at Not on file Gender Identity Not on file Sexual Orientation Not on file Last Filed Vital Signs Vital Sign Reading Time Taken Comments Blood Pressure 137/83 12/06/2021 8:49 AM EDT Pulse 93 12/06/2021 8:49 AM EDT Temperature 36.7 ??C (98 ??F) 09/12/2016 9:5 7 AM EST Respiratory Rate 18 12/06/2021 8:49 AM EDT Oxygen Saturation 100% 12/06/2021 8:4 9 AM EDT Inhaled Oxygen Concentration - - Weight 65.1 kg (143 lb 9.6 oz) 12/07/19 22 8:49 AM EDT with shoes Height 180.3 cm (5' 11) 12/06/2021 8:4 9 AM EDT Body Mass Index 20.03 12/06/2021 8:49 AM EDT Plan of Treatment Health Maintenance Due Date Last Done Comments Tetanus/Diphtheria/Pertussis Vaccines (6 - Tdap) 2006 04/15/2002, 09/11/1996, 1995, Additional history exists HIV screen 2013 Covid-19 Vaccine ( - 2023-2 5 season) 2024 Influenza (Flu) vaccine (1 o f 1 - Influenza standard series) 05/11/2024 07/08/2014 Hepatitis C Screening Completed 08/19/2018, 014 Procedures Procedure Name Priority Date/Time Associated Diagnosis Comments HEPATITIS C ANTIBODY Routine 08/19/2018 3:00 PM EST High risk medication use Chronic bilateral low back pain without sciatica Ankylosing spondylitis, unspecified site of spine Inflammatory arthropathy Neck pain from Last 3 Months or Most Recently Relevant to Health Maintenance Results * Hepatitis C Antibody (08/19/2018 3:00 PM EST) Hepatitis C Antibody Negative Negative [facility] Blood specimen (specimen) 08/19/2018 3:00 PM EST 08/19/2018 3:08 PM EST Narrative Resulting Agency Comment Spec In Lab Chris Wang MD CHEMISTRY ORDERABLES [facility] [place] [address] from Last 3 Months or Most Recently Relevant to Health Maintenance Care Teams Cesspool Cleaner Relationship Specialty Start Date End Date Yoselyn Rose MD [address] [place] [address] PCP - General Family Medicine 09/18/21
--- OUTSIDE RECORDS SUMMARY | 2024-10-02 19:15 | XMS_ITS | Encounter Summary ---
Author Organization [facility] [place] [address] Care Team Providers Care Sand Miller Name Role Phone Romie Kelly MD Primary Care Provider [phone] Reason for Referral * Occupational Medicine (Routine) - Closed Specialty Diagnoses / Procedures Referred By Contac t Referred To Contact Occupational Medicine Diagnoses Chronic midline low back pain without sciatica Ankylosing spondylitis Nigel Marroquin MD [facility] [place] [address] [facility] [place] Occ Medicine [address] [place] [id number] Referral ID Status Reason Start Date Expiration Date V isits Requested Visits Authorized [id number] Closed Consult, Test & Treat 09/12/2016 09/12/2017 1 1 Reason for Visit * Reason Comments Follow-up Encounter Details Date Type Department Care Team (Late st Contact Info) Description 09/12/2016 10:20 AM EST Office [place] [id number] Nigel Marroquin MD Chronic midline low back pain without sciatica; Ankylosing spondylitis Social History Tobacco Use Types Packs/Day Years Used Date Smoking Tobacco: Never Smokeless Tobacco: Never Sex and Gender Information Value Date Recorded Sex Assigned at Not on file Gender Identity Not on file Sexual Orientation Not on file documented as of this encounter Last Filed Vital Signs Vital Sign Reading Time Taken Comments Blood Pressure 123/75 09/12/2016 9:57 AM EST Pulse 90 09/12/2016 9:57 AM EST Temperature 36.7 ??C (98 ??F) 09/12/2016 9:57 AM EST Respiratory Rate 18 09/12/2016 9:57 AM EST Oxygen Saturation 100% 09/12/2016 9:57 AM EST Inhaled Oxygen Concentration - - Weight 60.8 kg (134 lb) 09/12/2016 9:57 AM EST Height 179.1 cm (5' 10.5) 09/12/2016 9:57 AM ES T Body Mass Index 18.96 09/12/2016 9:57 AM EST documented in this encounter Patient Instructions * Patient Instructions* Nigel Marroquin MD - 09/12/2016 10:20 AM EST 1) Start Cosentyx injection. 2) Get X-ray of the lumbar spine today. 3) Return to follow up in 3 months. documented in this encounter Progress Notes * Nigel Marroquin MD - 09/12/2016 10:20 AM EST REASON FOR VISIT: Follow up for ankylosing spondylitis. ?? INTERVAL HISTORY: The pt was a 21-year-old male, who returned for a follow up of ankylosing spondylitis. The pt noted that since his last visit on July 07, 2015, he was no longer on weekly oral methotrexate for immunosuppression of ankylosing spondylitis due to nausea and vomiting. He also held weekly et anercept injection due to recurrent upper respiratory infection and generalized discomfort. He complained of worsening low back pain and bilateral low back pain since he discontinued methotrexate andetanercept. Overall, the pain was worst on the right sided low back, which radiated to his right lower leg. He was currently using a daily ibuprofen dose of 2400 mg for symptomatic pain control, but he felt that his overall pain was poorly controlled. In addition, he complained of upset stomach while on ibuprofen. Otherwise, he had no fever, chest pain, dyspnea, dysuria, hair loss, polydipsia, blood clots, mood change, or lightheadedness. ?? PAST MEDICAL HISTORY: Ankylosing spondylitis Pes planus deformity of both feet Right elbow fracture, s/p ORIF Migraine headache S/p kidney stone x two ?? MEDICATIONS: I reviewed pt's medication entries on electronic record. ?? ALLERGIES: Methotrexate (nausea and vomiting) ?? SOCIAL HISTORY: Pt denied any use of cigarettes or alcohol. Marijuana use. He was single, with no children. He was currently living with his mother. 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 ?? FAMILY HISTORY: Mother - Blood clotting disorder, post-traumatic stress disorder, syncope, migraine headache, cervical cancer, s/p GIORGIO, s/p cholecystectomy, s/p tubal ligation, s/p left knee arthroscopy, s/p left ankle fracture, s/p casting, vitamin D deficiency, anger explosive disorder; alive at the age of 35. Father - Migraine, diabetes mellitus II, alive at the age of 39. ?? PHYSICAL EXAMINATION: Vitals 09/12/2016 SYSTOLIC 123 DIASTOLIC 75 PULSE 90 TEMPERATURE 98 RESPIRATIONS 18 Height (Cymraes) 5' 10.5 Height (Metric) 179.1 cm Weight (Cymraes) 134 lbs Weight (Metric) 60.782 kg BODY MASS INDEX 18.96 kg/m2 Pulse Oximetry 100 General - Alert, co-operative, no apparent distress, [...] margins, or sclerodactyly. Psych - Affect normal. ?? IMPRESSION: 1) Ankylosing spondylitis in a 21-year-old male who is seropositive for HLA B27. The pt'soverall symptomatology is consistent with seronegative spondyloarthropathy, particularly ankylosingspondylitis. He had inadequate response to methotrexate due to nausea and vomiting. He also did nottolerate etanercept due to upper respiratory infection in the setting of marijuana use and generalized malaise. He will be switched to Cosentyx for immunosuppression. He will also undergo radiographic studies of the lumbar spine for further evaluation of structural damages. ?? 2) Pes planus deformity of both feet. The pt's pes planus deformity of the feet likely contribute to his low back pain and joint pain in lower extremities. He will use insole for additional arch support for pes planus deformity of both feet. ?? RECOMMENDATIONS: 1) Start Cosentyx injection. 2) Get X-ray of the lumbar spine today. 3) Return to follow up in 3 months. ? Nigel Marroquin MD, PhD documented in this encounter Plan of Treatment Scheduled Referrals Name Type Priority Associated Diagnoses Order Schedule Referral to Occupational and Environmental Medicine Outpatient Referral Routine Chronic midline low back pain without sciatica Ankylosing spondylitis Ordered: 09/12/2016 documented as of this encounter Results * XR Lumbar Spine [...] Chronic midline low back pain without sciatica Ankylosing spondylitis Chronic midline low back pain without sciatica documented in this encounter Care Teams Sand Miller Relationship Specialty Start Date End Date Romie Kelly MD [address] [place] [address] PCP - General 02/17/11 08/18/18 documented as of this encounter
--- OUTSIDE RECORDS SUMMARY | 2024-10-02 19:15 | XMS_ITS | Encounter Summary ---
Author Organization [facility] Address [facility] [place] [address] Care Team Providers Care Java Analyst Name Role Phone Nicholas Perez MD Primary Care Provider Unavailab le Encounter Details Date Type Department Care Team (Late st Contact Info) Description 11/11/2018 Ancillary Procedure Radiology Library [facility] [place] [phone] Chris Wang MD [facility] [place] [address] Social History Tobacco Use Types Packs/Day Years [...] FILM LIBRARY STORAGE ONLY MR PELVIS Routine 11/11/2018 12:00 AM EST documented in this encounter Results * Film Library- Storage Only MR Pelvis (11/11/2018 12:00 AM EST) Narrative RAD - 11/12/2018 6:07 AM EST This exam is for storage only and is auto-finalizing. Chris Wang MD IMG FILM LIBRARY ORD ERABLES [place], [place] documented in this encounter Visit Diagnoses Not on filedocumented in this encounter Care Teams Java Analyst Relationship Specialty Start Date End Date Nicholas Perez MD PCP - General Family Medicine 08/19/18 09/17/21 documented as of this encounter
--- OUTSIDE RECORDS SUMMARY | 2024-10-02 19:15 | XMS_ITS | Encounter Summary ---
Author Organization [facility] [address] Care Team Providers Care Music Orchestrator Name Role Phone Romie Kelly MD Primary Care Provider [phone] Reason for Visit * Reason Onset Date Comments Other 01/30/2018 Encounter Details Date Type Department Care Team (Late st Contact Info) Description 01/30/2018 Telephone [place] [phone] Hao Garner, RN Other Social History Tobacco Use Types Packs/Day Years Used Date Smoking Tobacco: Never Smokeless Tobacco: Never Sex and Gender Information Value Date Recorded Sex Assigned at Not on file Gender Identity Not on file Sexual Orientation Not on file documented as of this encounter Miscellaneous Notes * Telephone Encounter - Hao Garner, RN - 01/30/2018 3:34 PM EDT Mey johnson, requests prescriptions for soma (ankylosing spondylolitis), not taking cosentyx, has been taking two at a time, prescription ran out a year ago. September 12, 2016 last office visit. Has been taking Ibuprofen, hx gastritis. Lives [place] [address] Mey Omalley advised that patient would need to be seen in clinic to be assessed as he has not been in clinic since he has not been seen recently and she is amenable to this. documented in this encounter Plan of Treatment Not on file documented as of this encounter Visit Diagnoses Not on filedocumented in this encounter Care Teams Music Orchestrator Relationship Specialty Start Date End Date Romie Kelly MD [address] [place] [address] PCP - General 02/17/11 08/18/18 documented as of this encounter
--- OUTSIDE RECORDS SUMMARY | 2024-10-02 19:15 | XMS_ITS | Encounter Summary ---
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 Name Role Phone Nicholas Perez MD Primary Care Provider Unavailab le Reason for Referral * Physical Therapy (Routine) - Closed Specialty Diagnoses / Procedures Referred By Contac t Referred To Contact Rheumatology Diagnoses High risk medication use Chronic bilateral low back pain without sciatica Ankylosing spondylitis, unspecified site of spine Inflammatory arthropathy Neck pain Chris Wang MD [facility] [place] [address] [place] [address] Referral ID Status Reason Start Date Expiration Date V isits Requested Visits Authorized [id number] Closed Evaluate and Treat 08/19/2018 02/15/2019 12 12 * Consultation (Routine) - Closed Specialty Diagnoses / Procedures Referred By Contac t Referred To Contact Diagnoses High risk medication use Chronic bilateral low back pain without sciatica Ankylosing spondylitis, unspecified site of spine Inflammatory arthropathy Neck pain Chris Wang MD [facility] [place] [address] [place] [address] Referral ID Status Reason Start Date Expiration Date V isits Requested Visits Authorized [id number] Closed Consult, Test & Treat 08/19/2018 02/15/2019 1 1 Encounter Details Date Type Department Care Team (Late st Contact Info) Description 08/19/2018 1:30 PM EST Office Visit Rheumatology at [place] [phone] Chris Wang MD [facility] [place] [address] High risk medication use; Chronic bilateral low back pain without sciatica; Ankylosing spondylitis, unspecified site of spine; Inflammatory arthropathy; Neck pain Social History Tobacco Use Types Packs/Day Years Used Date Smoking Tobacco: Never Smokeless Tobacco: Never Sex and Gender Information Value Date Recorded Sex Assigned at Not on file Gender Identity Not on file Sexual Orientation Not on file documented as of this encounter Last Filed Vital Signs Vital Sign Reading Time Taken Comments Blood Pressure 117/79 08/19/2018 1:34 PM EST Pulse 70 08/19/2018 1:34 PM EST Temperature - - Respiratory Rate - - Oxygen Saturation 100% 08/19/2018 1:34 PM EST Inhaled Oxygen Concentration - - Weight 62.6 kg (138 lb) 08/19/2018 1:34 PM EST Height 181.6 cm (5' 11.5) 08/19/2018 1:34 PM ES T Body Mass Index 18.98 08/19/2018 1:34 PM EST documented in this encounter Progress Notes * Chris Wang MD - 08/19/2018 1:30 PM EST Rheumatology Follow Up REASON FOR VISIT: Follow up for ankylosing spondylitis and HLA B27+ ?? INTERVAL HISTORY: John Paul Crews is a 23 y.o. male who presents today for evaluation of HLA B27 + previous patient of Dr Marroquin. Previously treated with MTX caused abdominal pain, Enbrel and cosentyx which resultedin infection. He is currently on SOMA, tylenol Ibuprofen and smoke marijuana daily for pain. He is reluctant to start DMARDs because of side effects. He has not done PT in some time because the stretching resulted in worsening back pain. Back pain 7/10, daily, worse on the right, goes down the leg at times, morning stiffness 140 minutes, worse in the PM, it does not wake him up at night, it does not alternates sides. And get worse with activity. He has difficulty standing up straight because ofthe back. No weakness, paresthesia, numbness and tingling, saddle anesthesia, night sweats, He sleeps on his stomach. Tylenol 1000mg. Note 01/30/18 request script for soma Flexeril failed. He is not working The consetyx made hims sick He got gastritis from NSAIDs Tylenol 1000mg ROS: General (-)fevers, (-)chills, (-)night sweats, (-)wt loss/gain. HEENT (-)head trauma, (-)vision change, (-)tinnitus, (-)epistaxis, (-)sore throat, (-)bleeding gums, (-)oral ulcers, (-)dry eyes, (-)dry mouth, (- )dysphagia, (-)GERD, (-)photo sensitivity, (-)Hair loss, (-)vertigo CVS (-)chest pain, (-)palpitations, (-)pedal edema, (-)PND, (-)orthopnea. Pulm (-)shortness of breath, (-)RODRIGUEZ, (-)wheezes, (-)cough, (-)pleuritic pain GI (-)N/V, (-)abdominal pain, (-)emesis, (-)hematemesis, (-)hematochezia, (- )change in appetite (-)hematuria, (-)dysuria, (-)frequency, (-)nocturia, (-)genital ulcers MS (-)muscle weakness, (-)paralysis, (-)joint pain, (-)hx of arthritis Endo (-)thyroid disorders, (-)diabetes, (-)temperature intolerance. Neuro (-)focal weakness, (-)paresthesias, (-)gait instability. Skin (-)Raynaud's, ulcers Psych (-) mood disorder. PAST MEDICAL HISTORY: Ankylosing spondylitis Pes planus [...] was a former worker at a local [employer], currently not working due to his back [...] II, alive at the age of 39. No past medical history on file. Patient Active Problem List Diagnosis Date Noted ??? (ankylosing spondylitis) 01/10/2015 No past surgical history on file. No family history on file. Social History Socioeconomic History ??? Marital status: Single Spouse name: Not on file ??? Number of children: Not on file ??? Years of education: Not on file ??? Highest education level: Not on file Social Needs ??? Financial resource strain: Not on file ??? Food insecurity - worry: Not on file ??? Food insecurity - inability: Not on file ??? Transportation needs - medical: Not on file ??? Transportation needs - non-medical: Not on file Occupational History ??? Not on file Tobacco Use ??? Smoking status: Never Smoker ??? Smokeless tobacco: Never Used Substance and Sexual Activity ??? Alcohol use: Not on file ??? Drug use: Not on file ??? Sexual activity: Not on file Other Topics Concern ??? Not on file Social History Narrative ??? Not on file Current Outpatient Medications Medication Sig Dispense Refill ??? secukinumab (COSENTYX, 2 SYRINGES,) 150 mg/mL Syringe Inject 300 mg subcutaneously every 7 days. Inject 300 mg on week 0, 1, 2, 3, 4; then 300 mg once a month 5 mL 3 ??? carisoprodol (SOMA) 350 mg Tablet Take 1 tablet by mouth nightly. 30 tablet 3 ??? rizatriptan (MAXALT) 10 mg Tablet Take 10 mg by mouth as needed. May repeat in 2 hours if needed ??? ibuprofen (ADVIL;MOTRIN) 800 mg Tablet Take 800 mg by mouth 3 times daily. Reported on 09/12/2016 No current facility-administered medications for this visit. Current Outpatient Medications on File Prior to Visit Medication Sig Dispense Refill ??? secukinumab (COSENTYX, 2 SYRINGES,) 150 mg/mL Syringe Inject 300 mg subcutaneously every 7 days. Inject 300 mg on week 0, 1, 2, 3, 4; then 300 mg once a month 5 mL 3 ??? carisoprodol (SOMA) 350 mg Tablet Take 1 tablet by mouth nightly. 30 tablet 3 ??? rizatriptan (MAXALT) 10 mg Tablet Take 10 mg by mouth as needed. May repeat in 2 hours if needed ??? ibuprofen (ADVIL;MOTRIN) 800 mg Tablet Take 800 mg by mouth 3 times daily. Reported on 09/12/2016 No current facility-administered medications on file prior to visit. Allergies Allergen Reactions ??? Methotrexate Nausea And Vomiting Physical Exam: BP 117/79 Pulse 70 Ht 181.6 cm (5' 11.5) Wt 62.6 kg (138 lb) SpO2 100% BMI 18.98 kg/m?? General: AAOx3, NAD, poor posture, HEENT: Mucous membranes are moist, no oral mucosal ulcerations, temporal artery palpable Neck: Supple, no lymphadenopathy, full range of motion. Cardiovascular: RR, (-)murmurs, rubs, or gallops. Lungs: Clear to auscultation bilaterally. (-)R/R/W Abdomen: Soft, nontender, nondistended, normal active bowel sounds, no hepatosplenomegaly. Neuro: Alert and oriented x3. Cranial nerves II through XII grossly intact. Strength 5/5 throughout, Sensation to light touch is grossly normal throughout. DTRs are 2+ throughout. Toes downgoing bilaterally. Skin: (-)ulcers, (-)rash Back: Nontender over the spine and costovertebral angles bilaterally. (-)Kerri. TTP over the SI joints, Spasms over lower left latissimus dorsi Extremities Shoulders: FROM, non-tender to palpation Elbows:FROM, (-)pain, (-)nodules Wrists: FROM, no swelling, non-tender Hands: No synovitis, no MCP compression tenderness, full claw and fist Hips: FROM, (-) fader Knees: (-)effusions, non-tender ROM Ankles: FROM, non-tender, no swelling Feet: no MTP compression tenderness Vascular: Pulses are equal in all extremities. Spine, shoulders, elbows, wrists, fingers, hips, knees and ankles; no active swelling, tenderness or synovitis at any joint. No soft tissue nodules. Labs: Results for JOHN PAUL CREWS ( ) as of 08/23/2018 10:22 Ref. Range 08/19/2018 15:00 WBC Latest Ref Range: 4.0 - 9.5 x10(3)/mcL 4.9 RBC Latest Ref Range: 4.58 - 5.54 x10(6)/mcL 5.27 Hemoglobin Latest Ref Range: 13.7 - 16.5 gm/dL 14.8 Hematocrit Latest Ref Range: 40.5 - 48.5 % 44.4 MCV Latest Ref Range: 82.9 - 93.1 fL 84.3 MCH Latest Ref Range: 27.5 - 32.1 pg 28.1 MCHC Latest Ref Range: 32.0 - 35.7 gm/dL 33.3 RDWSD Latest Ref Range: 36.0 - 45.0 fL 39.8 RDWCV Latest Ref Range: 11.4 - 13.8 % 12.9 Platelets Latest Ref Range: 145 - 357 x10(3)/mcL 234 MPV Latest Ref Range: 7.6 - 12.9 fL 10.8 nRBC % Auto Latest Units: % 0.0 nRBC Abs Auto Latest Ref Range: 0.000 - 0.000 x10(3)/mcL 0.000 Neutr Abs (ANC) Latest Ref Range: 1.70 - 6.10 x10(3)/mcL 2.59 Neutrophils % Latest Units: % 52.7 Immature Gran % Latest Units: % 0.20 Lymphocytes % Latest Units: % 38.4 Monocytes % Latest Units: % 6.5 Eosinophils % Latest Units: % 1.4 Basophils % Latest Units: % 0.8 Heavenly Gran Abs Latest Ref Range: 0.00 - 0.04 x10(3)/mcL 0.01 Lymphocytes Abs Latest Ref Range: 0.9 - 3.2 x10(3)/mcL 1.9 Monocyte Abs Latest Ref Range: 0.3 - 0.9 x10(3)/mcL 0.3 Eosinophils Abs Latest Ref Range: 0.0 - 0.4 x10(3)/mcL 0.1 Basophils Abs Latest Ref Range: 0.0 - 0.1 x10(3)/mcL 0.0 Sed Rate Latest Ref Range: 0 - 15 mm/hr 3 Sodium Latest Ref Range: 135 - 145 mmol/L 141 Potassium Latest Ref Range: 3.5 - 5.0 mmol/L 4.1 Chloride Latest Ref Range: 98 - 107 mmol/L 100 CO2 Latest Ref Range: 22 - 31 mmol/L 27 Anion Gap Latest Ref Range: 5 - 15 mmol/L 14 BUN Latest Ref Range: 10 - 20 mg/dL 10 Creatinine Latest Ref Range: 0.80 - 1.50 mg/dL 0.99 eGFR Latest Ref Range: >=60 mL/min/1.73 m?? 107 eGFR Latest Ref Range: >=60 mL/min/1.73 m?? 124 Glucose Lvl Latest Ref Range: 65 - 199 mg/dL 88 Calcium Latest Ref Range: 8.5 - 10.5 mg/dL 9.7 Total Protein Latest Ref Range: 6.1 - 8.0 gm/dL 7.5 Albumin Latest Ref Range: 3.2 - 5.2 gm/dL 4.9 Total Bilirubin Latest Ref Range: 0.2 - 1.3 mg/dL 0.7 Alk Phos Latest Ref Range: 40 - 120 unit/L 43 AST Latest Ref Range: 0 - 39 unit/L 14 ALT Latest Ref Range: 0 - 55 unit/L 8 CRP Latest Ref Range: <=4.9 mg/L <0.2 QFT Nil Latest Units: IU/mL 0.030 QFT TB Ag1-Nil Latest Units: IU/mL -0.010 QFT TB Ag2-Nil Latest Units: IU/mL -0.010 QFT Mitogen-Nil Latest Units: IU/mL >10.000 Quantiferon TB Latest Ref Range: Negative Negative Quantiferon TB Interp Unknown M. tuberculosis i... HepB Surface Ab Quant Latest Units: IU/L 16.8 HepB Surface Ab Unknown Positive HepB Surface Ag Latest Ref Range: Negative Negative Hep B Core Ab Latest Ref Range: Negative Negative Hepatitis C Ab Latest Ref Range: Negative Negative Studies: EXAMINATION: XR LUMBAR SPINE 2 OR 3 VIEWS (GENERIC) ?? CLINICAL HISTORY: 21-year-old male with standing AP lateral views lumbar spine persistent low back pain ?? TECHNIQUE: ?? COMPARISON: Report of outside radiographs on 03/20/2014 no images available at the time of dictation. ?? FINDINGS: AP and lateral standing views lumbar spine. There are 5 lumbar like vertebral bodies. No significant spinal curvature. Bilaterally the SI joints are intact. Vertebral body heights are maintained intervertebral disc spaces are preserved in the lumbar spine. At T12-L1 there is intervertebral disc space narrowing and mild degenerative change. No evidence for spondylolisthesis or spondylolysis. Lumbar lordosis is maintained. ?? IMPRESSION No evidence for fracture or for subluxation. Intervertebral degenerative changes noted at T12-L1. No evidence for spondylolisthesis or spondylolysis. EXAMINATION: SACROILIAC JOINTS/BILAT CLINICAL HISTORY: persistent low back pain in a pt with positive HLA B27 TECHNIQUE: AP, LPO and RPO views of the sacroiliac joints COMPARISON: Lumbar spine radiographs of 2013 FINDINGS: No fracture or malalignment detected. No appreciable asymmetric widening of the SI joints. No discrete erosions or appreciable increase subchondral sclerosis identified. IMPRESSION IMPRESSION: 1. No radiographic evidence of sacroiliitis detected. MRI done 08/03/2015 of the pelvis with*showed normal singling of the SI joints without abnormal signal in the bone with normal marrow signal without evidence of sacroiliitis. Procedure: TRIGGER POINT INJECTION PROCEDURE NOTE The patient complains of muscle pain. Dx: Muscle Pain (729.1) Mr. Crews was greeted by the nurse who verified patient's name and . Mr. Crews was interviewed and the medical record reviewed. There were no medical, pharmacologic, radiographic, or other structural contraindications to attempting trigger point injections to the lower right latissimus dorsi muscles. Risks and potential side effects were discussed. The potential benefits of the procedure were reviewed with Mr. Crews and his voiced concerns were addressed. Mr. Crews was placed in the seated position on the examination table. The skin entry point for entering/approaching the lower right latissmus dorsi muscles were marked. The skin was thoroughly prepared with betadine and etoh preparation. Next, I entered the skin using a medial to lateral approach with a 25 g 5/8th Needle with bupivcaine Follow up plans and appointments were discussed with Mr. Crews. Post procedure instruction was given. Having met discharge criteria [facility] Assessment: John Paul Crews is a 23 y.o. male who presents today with +hla-b27 with MRI changes per the mother. Unfortunately, the patient MRI images are not in the system. The brett of an MRI in 2014 showed no abnormality consistent with axial disease. Patient symptoms are consistent with an inflammatory arthopathy. Recommend and plan Will order MRI of SI joint with STIR. Check labs Requested to get imaging associated with the scanned read Orders Placed This Encounter Procedures ??? XR Lumbar Spine 2 Or 3 Views (Generic) ??? XR S-I Joints (Generic) ??? XR Cervical Spine 2 Or 3 Views ??? CRP, acute inflammation ??? Comprehensive metabolic panel (non-fasting) ??? CBC (with Diff) ??? Sedimentation rate ??? Hepatitis B Surface Antigen ??? Hepatitis B Core Antibody, Total ??? Hepatitis C Antibody ??? Hepatitis B Surface Antibody ??? QuantiFERON-TB Gold ??? Hemogram ??? Differential, Automated ??? Referral to Ophthalmology ??? Referral to Physical Therapy documented in this encounter Plan of Treatment Scheduled Referrals Name Type Priority Associated Diagnoses Order Schedule Referral to Ophthalmology Outpatient Referral Routine High risk medication use Chronic bilateral low back pain without sciatica Ankylosing spondylitis, unspecified site of spine Inflammatory arthropathy Neck pain Ordered: 08/19/2018 Referral to Physical Therapy Outpatient Referral Routine High risk medication use Chronic bilateral low back pain without sciatica Ankylosing spondylitis, unspecified site of spine Inflammatory arthropathy Neck pain Ordered: 08/19/2018 documented as of this encounter Procedures Procedure Name Priority Date/Time Associated Diagnosis Comments CRP, ACUTE INFLAMMATION Routine 08/19/2018 3:00 PM EST High risk medication use Chronic bilateral low back pain without sciatica Ankylosing spondylitis, unspecified site of spine Inflammatory arthropathy Neck pain QUANTIFERON-TB GOLD Routine 08/19/2018 3 :00 PM EST High risk medication use Chronic bilateral low back pain without sciatica Ankylosing spondylitis, unspecified site of spine Inflammatory arthropathy Neck pain HEMOGRAM Routine 08/19/2018 3:00 PM EST High risk medication use Chronic bilateral low back pain without sciatica Ankylosing spondylitis, unspecified site of spine Inflammatory arthropathy Neck pain DIFFERENTIAL, AUTOMATED Routine 08/19/2018 3:00 PM EST High risk medication use Chronic bilateral low back pain without sciatica Ankylosing spondylitis, unspecified site of spine Inflammatory arthropathy Neck pain HEPATITIS C ANTIBODY Routine 08/19/2018 3:00 PM EST High risk medication use Chronic bilateral low back pain without sciatica Ankylosing spondylitis, unspecified site of spine Inflammatory arthropathy Neck pain HEPATITIS B CORE ANTIBODY, TOTAL Routine 08/19/2018 3:00 PM EST High risk medication use Chronic bilateral low back pain without sciatica Ankylosing spondylitis, unspecified site of spine Inflammatory arthropathy Neck pain HEPATITIS B SURFACE ANTIBODY Routine 08/19/2018 3:00 PM EST High risk medication use Chronic bilateral low back pain without sciatica Ankylosing spondylitis, unspecified site of spine Inflammatory arthropathy Neck pain HEPATITIS B SURFACE ANTIGEN Routine 08/19/2018 3:00 PM EST High risk medication use Chronic bilateral low back pain without sciatica Ankylosing spondylitis, unspecified site of spine Inflammatory arthropathy Neck pain SEDIMENTATION RATE Routine 08/19/2018 3: 00 PM EST High risk medication use Chronic bilateral low back pain without sciatica Ankylosing spondylitis, unspecified site of spine Inflammatory arthropathy Neck pain CBC (WITH DIFF) Routine 08/19/2018 3:00 PM EST High risk medication use Chronic bilateral low back pain without sciatica Ankylosing spondylitis, unspecified site of spine Inflammatory arthropathy Neck pain COMPREHENSIVE METABOLIC PANEL Routine 08/19/2018 3:00 PM EST High risk [...] PM Chris Wang MD IMG DX ORDERABLES * XR Lumbar Spine 2 Or 3 [...] Normal. Chris Wang MD IMG DX ORDERABLES * XR S-I Joints (Generic) (08/19/2018 3:32 [...] MRI. Chris Wang MD IMG DX ORDERABLES * Differential, Automated (08/19/2018 3:00 PM EST) Neutrophil % 52.7 % [facility] Neutrophil Absolute 2.59 1.70 - 6.10 x10(3)/[facility] Lymph % 38.4 % [facility] Lymphocytes Abs 1.9 0.9 - 3.2 x10(3)/[facility] Monocyte % 6.5 % [facility] Monocyte Abs 0.3 0.3 - 0.9 x10(3)/[facility] Eos % 1.4 % [facility] Eosinophils Abs 0.1 0.0 - 0.4 x10(3)/[facility] Basophil % 0.8 % [facility] Baso Absolute 0.0 0.0 - 0.1 x10(3)/[facility] Immature Gran % 0.20 % [facility] Comment: Immature granulocytes(IG's)percentage and absolute count will include metamyelocytes, myelocytes, and promyelocytes. Blood smears from CBCs yielding IG's will be scanned manually for concordance. If this scan disagrees with the automated IG or if promyelocytes are noted, a manual differential will be performed. Immature Gran Absolute 0.01 0.00 - 0.04 x10(3)/[facility] Blood specimen (specimen) 08/19/2018 3:00 PM EST 08/19/2018 3:08 PM EST Narrative Resulting Agency Comment Spec In Lab Chris Wang MD HEMATOLOGY ORDERABLE S [facility] [place] [address] * Hemogram (08/19/2018 3:00 PM EST) White Blood Cell 4.9 4.0 - 9.5 x10(3)/[facility] Red Blood Cell 5.27 4.58 - 5.54 x10(6)/[facility] Hemoglobin 14.8 13.7 - 16.5 gm/dL [facility] Hematocrit 44.4 40.5 - 48.5 % [facility] Mean Cell Volume 84.3 82.9 - 93.1 [facility] Mean Cell Hemoglobin 28.1 27.5 - 32.[address] [facility] Mean Cell Hemoglobin Concentration 33.3 32.0 - 35.7 gm/dL [facility] Platelet 234 145 - 357 x10(3)/[facility] RDW Standard Deviation 39.8 36.0 - 45.0 [facility] RDW coefficient of variation 12.9 11.4 - 13.8 % [facility] Mean Platelet Volume 10.8 7.6 - 12.9 [facility] NRBC% auto 0.0 % [facility] NRBC Absolute 0.000 0.000 - 0.000 x10(3)/[facility] Blood specimen (specimen) 08/19/2018 3:00 PM EST 08/19/2018 3:08 PM EST Narrative Resulting Agency Comment Spec In Lab Chris Wang MD HEMATOLOGY ORDERABLE S [facility] [place] [address] * QuantiFERON-TB Gold (08/19/2018 3:00 PM EST) Quantiferon Nil 0.030 IU/mL [facility] QFT TB Ag1-Nil -0.010 IU/mL [facility] QFT TB Ag2-Nil -0.010 IU/mL [facility] Quantiferon Mitogen-Nil >10.000 IU/mL [facility] Quantiferon-TB Gold Negative Negative [facility] Quantiferon Tb Interp M. tuberculosis infection NOT likely A negative specimen should have a TB1 Ag minus Nil value and TB2 Ag minus Nil value of less than 0.35 IU/mL OR a TB1 Ag minus Nil or TB2 Ag minus Nil value greater than or equal to 0.35 IU/mL AND a TB Ag minus Nil value from the same tube of less than 25% of the Nil value. A negative specimen must also have a mitogen minus Nil value greater than or equal to 0.5 IU/mL. A negative QFT-Plus result does not preclude the possibility of M. tuberculosis infection. False negative results can occur due to stage of infection (specimen obtained prior to the development of immune response), co-morbid conditions which affect immune function, or other immunological factors. [facility] Comment: The performance of the QFT-Plus assay has not been extensively evaluated with specimens from the following individuals: Individuals who have impaired or altered immune functions, such as those who have HIV infection or AIDS, those who have transplantation managed with immunosuppressive treatment or others who receive immunosuppressive drugs (e.g., corticosteroids, methotrexate, azathioprine, cancer chemotherapy), those who have other clinical conditions, such as diabetes, silicosis, chronic renal failure, and hematological disorders (e.g., leukemia and lymphomas), or those with other specific malignancies (e.g., carcinoma of the head or neck and lung). Individuals younger than age 17 years women. Diagnosis of, or the exclusion of tuberculosis disease, and assessment of Latent Tuberculosis Infection (LTBI) requires a combination of epidemiological, historical, Medical and diagnostic findings that should be taken into account when interpreting QFT-Plus results. Blood specimen (specimen) 08/19/2018 3:00 PM EST 08/20/2018 11:24 AM EST Narrative Resulting Agency Comment Spec In Lab Chris Wang MD CHEMISTRY ORDERABLES Performing Organization Address City/[facility]/ZIP Co de Phone Number [facility] [place] [address] * Hepatitis B Surface Antibody (08/19/2018 3:00 PM EST) Pathologist [facility] Hepatitis B Surface Antibody, Quantitative 16.8 IU/L [facility] Comment: HepB Surface Ab Quant: Unvaccinated: < 8.5 IU/L Vaccinated: > 11.5 IU/L Hepatitis B Surface Antibody Positive [facility] Comment: Patient is considered to be immune to HBV infection. Expected Results: Vaccinated: Positive Unvaccinated: Negative Blood specimen (specimen) 08/19/2018 3:00 PM EST 08/19/2018 3:08 PM EST Narrative Resulting Agency Comment Spec In Lab Chris Wang MD CHEMISTRY ORDERABLES Performing Organization Address [facility] Co de Phone Number [facility] [place] [address] * Hepatitis C Antibody (08/19/2018 3:00 PM EST) Pathologist [facility] Hepatitis C Antibody Negative Negative [facility] Blood specimen (specimen) 08/19/2018 3:00 PM EST 08/19/2018 3:08 PM EST Narrative Resulting Agency Comment Spec In Lab Chris Wang MD CHEMISTRY ORDERABLES Performing Organization Address City/[facility] Co de Phone Number [facility] [place] [address] * Hepatitis B Core Antibody, Total (08/19/2018 3:00 PM EST) Hepatitis B Core Antibody Negative Negative [facility] Blood specimen (specimen) 08/19/2018 3:00 PM EST 08/19/2018 3:08 PM EST Narrative Resulting Agency Comment Spec In Lab Chris Wang MD CHEMISTRY ORDERABLES Performing Organization Address [facility] Co de Phone Number [facility] [place] [address] * Hepatitis B Surface Antigen (08/19/2018 3:00 PM EST) Hepatitis B Surface Antigen Negative Negative [facility] Blood specimen (specimen) 08/19/2018 3:00 PM EST 08/19/2018 3:08 PM EST Narrative Resulting Agency Comment Spec In Lab Chris Wang MD CHEMISTRY ORDERABLES Performing Organization Address [facility] Phone Number [facility] [place] [address] * Sedimentation rate (08/19/2018 3:00 PM EST) [facility] Sedimentation Rate Automated 3 0 - 15 mm/hr [facility] Blood specimen (specimen) 08/19/2018 3:00 PM EST 08/19/2018 3:08 PM EST Narrative Resulting Agency Comment Spec In Lab Chris Wang MD HEMATOLOGY ORDERABLE S Performing Organization Address [facility] Co de Phone Number [facility] [place] [address] * Comprehensive metabolic panel (non-fasting) (08/19/2018 3:00 PM EST) Pathologist [facility] Glucose 88 65 - 199 mg/dL [facility] Comment:Diabetes: >=200 mg/d L plus symptoms Blood Urea Nitrogen 10 10 - 20 mg/dL [facility] Creatinine 0.99 0.80 - 1.50 mg/dL [facility] Sodium 141 135 - 145 mmol/L [facility] Potassium 4.1 3.5 - 5.0 mmol/L [facility] Comment: Please note: ??Patients with WBC >100,000 may have falsely elevated Potassium levels. ??For accurate Potassium quantification in these patients send serum separator tube (gold top) for subsequent determinations. ??Contact the Clinical Chemistry Laboratory if there are any questions. Chloride 100 98 - 107 mmol/L [facility] Carbon Dioxide 27 22 - 31 mmol/L [facility] Anion Gap 14 5 - 15 mmol/L [facility] Calcium 9.7 8.5 - 10.5 mg/dL [facility] Protein, Total 7.5 6.1 - 8.0 gm/dL [facility] Albumin 4.9 3.2 - 5.2 gm/dL [facility] Aspartate Aminotransferase 14 0 - 39 unit/L [facility] Alanine Aminotransferase 8 0 - 55 unit/L [facility] Alkaline Phosphatase 43 40 - 120 unit/L [facility] Bilirubin, Total 0.7 0.2 - 1.3 mg/dL [facility] Est Glomerular Filtration Rate 107 >=60 mL/min/1. 73 m?? [facility] Comment: The eGFR was calculated using the CKD-EPI equation. As with all creatinine based estimates of kidney function, eGFR values calculated with the CKD-EPI equation are not accurate in patients with acute kidney failure, extremes of body mass or the acutely ill. [email or web address] eGFR 124 >=60 mL/min/1. 73 m?? [facility] Comment: The eGFR was calculated using the CKD-EPI equation. As with all creatinine based estimates of kidney function, eGFR values calculated with the CKD-EPI equation are not accurate in patients with acute kidney failure, extremes of body mass or the acutely ill. [email or web address] Blood specimen (specimen) 08/19/2018 3:00 PM EST 08/19/2018 3:08 PM EST Narrative Resulting Agency Comment Spec In Lab Chris Wang MD CHEMISTRY ORDERABLES Performing Organization Address City/[facility]/ZIP Co de Phone Number [facility] [place] [address] * CRP, acute inflammation (08/19/2018 3:00 PM EST) C-Reactive Protein <0.2 <=4.9 mg/L [facility] Blood specimen (specimen) 08/19/2018 3:00 PM EST 08/19/2018 3:08 PM EST Narrative Resulting Agency Comment Spec In Lab Chris Wang MD CHEMISTRY ORDERABLES Performing Organization Address [facility] Co de Phone Number [facility] [place] [address] documented in this encounter Visit Diagnoses Diagnosis High risk medication use Encounter for long-term (current) use of other medications Chronic bilateral low back pain without sciatica Ankylosing spondylitis, unspecified site of spine Inflammatory arthropathy Arthropathy, unspecified, site unspecified Neck pain Cervicalgia High risk medication use Encounter for long-term (current) use of other medications Chronic bilateral low back pain without sciatica Ankylosing spondylitis, unspecified site of spine Inflammatory arthropathy Arthropathy, unspecified, site unspecified High risk medication use Encounter for long-term (current) use of other medications Chronic bilateral low back pain without sciatica Ankylosing spondylitis, unspecified site of spine Inflammatory arthropathy Arthropathy, unspecified, site unspecified High risk medication use Encounter for long-term (current) use of other medications Chronic bilateral low back pain without sciatica Ankylosing spondylitis, unspecified site of spine Inflammatory arthropathy Arthropathy, unspecified, site unspecified Neck pain Cervicalgia documented in this encounter Care Teams Automatic Emb[employer]ider[employer] 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
--- OUTSIDE RECORDS SUMMARY | 2024-10-02 19:15 | XMS_ITS | Encounter Summary ---
Author Organization [facility] [place] [address] Care Team Providers Care Vocational Rehabilitation Teacher Name Role Phone Romie Kelly MD Primary Care Provider [phone] Reason for Visit * Reason Comments Follow-up Encounter Details Date Type Department Care Team (Late st Contact Info) Description 07/07/2015 9:45 AM EDT Office Visit Rheumatology at [facility], [place] [phone] Nigel Marroquin MD (ankylosing spondylitis); Leukopenia Social History Tobacco Use Types Packs/Day Years Used Date Smoking Tobacco: Never Sex and Gender Information Value Date Recorded Sex Assigned at Not on file Gender Identity Not on file Sexual Orientation Not on file documented as of this encounter Last Filed Vital Signs Vital Sign Reading Time Taken Comments Blood Pressure 127/55 07/07/2015 9:56 AM EDT Pulse 73 07/07/2015 9:56 AM EDT Temperature 36.5 ??C (97.7 ??F) 07/07/2015 9:56 AM ED T Respiratory Rate - - Oxygen Saturation 100% 07/07/2015 9:56 AM EDT Inhaled Oxygen Concentration - - Weight 60.3 kg (133 lb) 07/07/2015 9:56 AM EDT Height 179.1 cm (5' 10.5) 07/07/2015 9:56 AM ED T Body Mass Index 18.81 07/07/2015 9:56 AM EDT documented in this encounter Patient Instructions * Patient Instructions* Nigel Marroquin MD - 07/10/2015 7:41 PM EDT 1) Resume weekly Enbrel injection. 2) Check labs. 3) Get MRI of the SI joints. 4) Return to follow up in 3 months. documented in this encounter Progress Notes * Nigel Marroquin MD - 07/07/2015 10:19 AM EDT REASON FOR VISIT: Follow up for ankylosing spondylitis. INTERVAL HISTORY: The pt was a 20-year-old male, who returned for a follow up of ankylosing spondylitis. The pt noted that since his initial visit on January 06, 2015, he was no longer on weekly oral methotrexate for immunosuppression of ankylosing spondylitis due to nausea and vomiting. He also held weekly e tanercept injection due to recurrent upper respiratory infection. He complained of persistent low back pain and bilateral low back pain since he discontinued methotrexate and etanercept. Overall, thepain was worst on the right sided low back, which radiated to his right lower leg. He was currentlyusing a daily ibuprofen dose of 2400 mg for symptomatic pain control, but he felt that his overall pain was poorly controlled. In addition, he complained of upset stomach while on ibuprofen. Otherwise, he had no fever, chest pain, dyspnea, dysuria, hair loss, polydipsia, blood clots, or lightheadedness. Radiographic studies of the SI joints obtained after his last visit were normal. PAST MEDICAL HISTORY: Ankylosing spondylitis Pes planus deformity of both feet Right elbow fracture, s/p ORIF Migraine headache S/p kidney stone x two MEDICATIONS: I reviewed pt's medication entries on electronic record. ALLERGIES: Methotrexate (nausea and vomiting) SOCIAL HISTORY: Pt denied any use of cigarettes or alcohol. Marijuana use. He was single, with no children. He was currently living with his mother. 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 PHYSICAL EXAMINATION: Vitals 07/07/2015 SYSTOLIC 127 DIASTOLIC 55 PULSE 73 TEMPERATURE 97.7 Height (Bahraini) 5' 10.5 Height (Metric) 179.1 cm Weight (Bahraini) 133 lbs Weight (Metric) 60.328 kg BODY MASS INDEX 18.81 kg/m2 Pulse Oximetry 100 General - Alert, [...] respiratory infection in the setting of marijuana use. He will resume weekly etanercept injection for immunosuppression. Radiographic studies of the SI joints were normal. He will undergo MRI studies of the SI joints to evaluate for inflammatory changes. 2) Pes planus deformity of both [...] is unclear. He will undergo repeat laboratory studies. RECOMMENDATIONS: 1) Resume weekly Enbrel injection. 2) Check labs. 3) Get MRI of the SI joints. 4) Return to follow up in 3 months. Nigel Marroquin MD, PhD documented in this encounter Plan of Treatment Not on file documented as of this encounter Visit Diagnoses Diagnosis (ankylosing spondylitis) Ankylosing spondylitis Leukopenia Leukocytopenia, unspecified documented in this encounter Care Teams Vocational Rehabilitation Teacher Relationship Specialty Start Date End Date Romie Kelly MD [address] [place] [address] PCP - General 02/17/11 08/18/18 documented as of this encounter
--- OUTSIDE RECORDS SUMMARY | 2024-10-02 19:16 | XMS_ITS | Encounter Summary ---
Author Organization [facility] [place] [address] Care Team Providers Care Capacitor Inspector Name Role Phone Romie Kelly MD Primary Care Provider [phone] Reason for Visit * Reason Comments Referral Encounter Details Date Type Department Care Team (Late st Contact Info) Description 07/08/2014 1:45 PM EDT [place] [id number] Nigel Marroquin MD Back pain; Joint pain Discharge Disposition: Home Social History Tobacco Use Types Packs/Day Years Used Date Smoking Tobacco: Never Sex and Gender Information Value Date Recorded Sex Assigned at Not on file Gender Identity Not on file Sexual Orientation Not on file documented as of this encounter Last Filed Vital Signs Vital Sign Reading Time Taken Comments Blood Pressure 108/63 07/08/2014 1:41 PM EDT Pulse 67 07/08/2014 1:41 PM EDT Temperature 36.6 ??C (97.9 ??F) 07/08/2014 1:41 PM ED T Respiratory Rate - - Oxygen Saturation 100% 07/08/2014 1:41 PM EDT Inhaled Oxygen Concentration - - Weight 60.8 kg (134 lb) 07/08/2014 1:41 PM EDT Height 179 cm (5' 10.47) 07/08/2014 1:41 PM EDT Body Mass Index 18.97 07/08/2014 1:41 PM EDT documented in this encounter Patient Instructions * Patient Instructions* Nigel Marroquin MD - 07/08/2014 2:42 PM EDT 1) Continue ibuprofen for symptomatic control for now. 2) Check labs today. 3) Get flu vaccine today. 4) Use insole for arch support. 5) Return to follow up in 2 months. documented in this encounter Progress Notes * Nigel Marroquin MD - 07/08/2014 1:55 PM EDT REASON FOR VISIT: Consultation for low back pain. HISTORY OF PRESENT ILLNESS: The pt was a 19-year-old male, who presented for a consultation of low back pain upon request of his duplicate maker Dr. Romie Kelly. The pt noted that he initially developed upper and mid back pain without any inciting cause such as fall, injuries, or trauma at the age of 15. Over time, he also developed multiple joint pain. Overall, the pain was worst in his upper and mid back, foll owed by knees, and then elbows. He also complained of joint swelling in his elbows and knees, as well as morning stiffness of the whole spine for about an hour. He had been using [id number] ibuprofen 800 mg for symptomatic pain control since February 2014. He felt that ibuprofen provided minimalsymptomatic control. Laboratory studies obtained at his duplicate maker's office in February 2014 showed that he was seropositive for HLA B27. [facility] PAST MEDICAL HISTORY: Right elbow fracture, s/p ORIF Migraine headache S/p kidney stone x two MEDICATIONS: I reviewed pt's medication entries on electronic record. ALLERGIES: NKDA SOCIAL HISTORY: Pt denied any use of cigarettes or alcohol. Marijuana use. He was single, with no children. He was currently living with his mother. 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 REVIEW OF SYSTEMS: Constitutional - + Chronic fatigue due to dysregulated sleep cycle; no weight change, fever, chills, or night sweat. Cardiovascular - No chest pain, palpitations, or leg swelling. Pulmonary - No dyspnea on exertion, shortness of breath, cough, orthopnea, hemoptysis, or PND. Gastrointestinal - Normal appetite; + heartburn, + acid reflux; no nausea, vomiting, diarrhea, abdominal pain, or dark/bloody stool. Genitourinary - No dysuria, incontinence, frequency, or nocturia. Endocrine - No thyroid dysfunction, diabetes, heat/cold intolerance, or polydipsia. Hematological - No anemia, easy bruising, or blood clots. Musculoskeletal - + Neck pain, + back pain, + multiple joint pain, + joint swelling in elbows and knees, + morning stiffness of the whole spine x one hour; no Raynaud's phenomenon. Dermatological - + Rash; no oral ulcers, dry eyes, dry mouth, eye photosensitivity, hair loss, or external lesions. Neurological - + Occasional headache, + dizziness, + syncope; no numbness/tingling sensation, lightheadedness, vision change, or seizure. Psychiatric - No depression, anxiety, or psychosis. PHYSICAL EXAMINATION: Vitals 07/08/2014 SYSTOLIC 108 DIASTOLIC 63 PULSE 67 TEMPERATURE 97.9 Height (Amharic) 5' 10.472 Height (Metric) 179 cm Weight (Amharic) 134 lbs Weight (Metric) 60.782 kg BODY MASS INDEX 18.97 kg/m2 Pulse Oximetry 100 General - Alert, co-operative, no apparent distress, oriented x 3. HEENT - PERRL, EOMI bilaterally, conjunctiva pink, no sclerae icterus or malar rash; oropharynx moist and non-erythematous. Neck - Supple, FROM; + posterior cervical spinal tenderness on palpation; no paraspinal tenderness on palpation or range of motion; no JVD, carotid bruits, thyromegaly, or cervical lymphadenopathy. Heart - Regular rate and rhythm, normal S1 and S2; no murmurs, rubs, or gallops. Lungs - Symmetric, no respiratory distress, clear to auscultation bilaterally. Abdomen - Soft, non-tender, non-distended, bowel sound present, no hepatosplenomegaly. Back - Erect, FROM; + diffuse thoracic and lumbosacral spinal tenderness on palpation; + bilateral paraspinal tenderness at the SI joint areas on palpation. Extremities - Upper extremities: FROM of all joints; + right elbow joint tenderness on palpation; no signs of synovitis, soft tissue swelling, or joint effusion; no cyanosis or edema; proximal and distal strength, and handgrip = 5/5 bilaterally. Lower extremities: FROM of all joints; + pes planus deformities of both feet; no signs of synovitis, soft tissue swelling, or joint effusion; no clubbing or cyanosis, or edema; 2+ peripheral pulses bilaterally. Skin - Smooth and intact, + dry scaly rash on left lower jaw skin suspicious for psoriasis; no oralulcers, bruises, telangiectasia on skin or at all nail margins, or sclerodactyly. Neuro - No sensory or motor function deficit, DTR = +2/4 bilaterally and throughout. Psych - Affect normal. IMPRESSION: 1) Neck pain and 2) back pain in a 19-year-old male who is seropositive for HLA B27. The pt's overall symptomatology is consistent with seronegative spondyloarthropathy, particularly ankylosing spondylitis. He will undergo laboratory studies prior to instituting any plans. Meanwhile, he will continue ibuprofen for symptomatic control for now. 3) Right elbow pain and 4) dry scaly rash on left lower jaw skin. The pt's dry scaly rash is suspicious for psoriasis. If he is confirmed to have psoriasis, he might have psoriatic arthritis. Whetherhe has ankylosing spondylitis or psoriatic arthritis, treatment will be the same for joint pain or spine pain. He will undergo laboratory studies for now. 5) Pes planus deformity of both feet. The pt will use insole for additional arch support for pes planus deformity of both feet. RECOMMENDATIONS: 1) Continue ibuprofen for symptomatic control for now. 2) Check labs today. 3) Get flu vaccine today. 4) Use insole for arch support. 5) Return to follow up in 2 months. Nigel Marroquin MD, PhD documented in this encounter Plan of Treatment Not on file documented as of this encounter Procedures Procedure Name Priority Date/Time Associated Diagnosis Comments URINALYSIS DIPSTICK Routine 07/08/2014 3 :02 PM EDT Back pain Joint pain HCV QUANT Routine 07/08/2014 3:00 PM EDT Back pain Joint pain INTERLEUKIN-6 Routine 07/08/2014 3:00 PM EDT Back pain Joint pain TUMOR NECROSIS FACTOR-ALPHA Routine 07/08/2014 3:00 PM EDT Back pain Joint pain QUANTIFERON-TB GOLD Routine 07/08/2014 3 :00 PM EDT Back pain Joint pain ANTI-CYCLIC CITRULLINATED PEPTIDE AB Routine 07/08/2014 3:00 PM EDT Back pain Joint pain HEMOGRAM Routine 07/08/2014 3:00 PM EDT Back pain Joint pain DIFFERENTIAL, AUTOMATED Routine 07/08/2014 3:00 PM EDT Back pain Joint pain HLA-B27 Routine 07/08/2014 3:00 PM EDT Back pain Joint pain IRON AND TIBC Routine 07/08/2014 3:00 PM EDT Back pain Joint pain HEPATITIS A ANTIBODY, TOTAL Routine 07/08/2014 3:00 PM EDT Back pain Joint pain HEPATITIS B CORE ANTIBODY, TOTAL Routine 07/08/2014 3:00 PM EDT Back pain Joint pain HEPATITIS C RNA, QUANTITATIVE, PCR Routine 07/08/2014 3:00 PM EDT Back pain Joint pain HEPATITIS B SURFACE ANTIBODY Routine 07/08/2014 3:00 PM EDT Back pain Joint pain HEPATITIS B SURFACE ANTIGEN Routine 07/08/2014 3:00 PM EDT Back pain Joint pain SEDIMENTATION RATE Routine 07/08/2014 3: 00 PM EDT Back pain Joint pain CBC (WITH DIFF) Routine 07/08/2014 3:00 PM EDT Back pain Joint pain RHEUMATOID FACTOR, QUANT Routine 07/08/2014 3:00 PM EDT Back pain Joint pain CRP, CARDIAC RISK (HS CRP) Routine 07/08/2014 3:00 PM EDT Back pain Joint pain FERRITIN Routine 07/08/2014 3:00 PM EDT Back pain Joint pain COMPREHENSIVE METABOLIC PANEL Routine 07/08/2014 3:00 PM EDT Back pain Joint pain documented in this encounter Results * Urinalysis without microscopic (07/08/2014 3:02 PM EDT) Glucose, Urine Dipstick Negative Negative mg/dL [facility] Protein, Urine Dipstick Negative Negative mg/dL [facility] Bilirubin, Urine Dipstick Negative Negative mg/dL [facility] Comment: Clinical correlation required for positive Urine Bilirubin results as false positive may occur with some drugs and drug related products. If a false positive is suspected a serum total bilirubin should be considered if clinically indicated. Urobilinogen, Urine Dipstick Normal Normal mg/dL [facility]ILL[facility]NI[facility] pH, Urn (dipstick) 7.0 5.0 - 8.0 [facility] Blood, Urine Dipstick Negative Negative mg/dL [facility] Ketone, Urine Dipstick Negative Negative mg/dL [facility] Nitrite, Urine Dipstick Negative Negative [facility] Leukocytes, Urine Dipstick Negative Negative mcL [facility] Appearance, Urine Dipstick Clear Clear [facility]ERN[facility] MILLENNIUM Specific [place] Urine Automated 1.008 1.002 - 1.030 [facility]ILLENNI[facility] Color, Urine Dipstick Yellow Yellow [facility] Urine specimen (specimen) 07/08/2014 3:02 PM EDT 07/08/2014 3:15 PM EDT Narrative Resulting Agency Comment Spec In Lab Nigel Marroquin MD URINE ORDERABLES [facility] * HCV Quant [place] (07/08/2014 3:00 PM EDT) HCV Viral Load <43 IU/mL [facility] HCV Viral Load Result: < 43(Target not detected) Indication for Study: Hepatitis C Infection Analysis: A quantitiative real time reverse transcriptase PCR assay was performed on extracted viral RNA for the purpose of quantification. Sample: plasma (1 mL minimum volume) Method: [place] Bo TaqMAN 48 HCV Linear Range: 43IU/mL - 69,000,000IU/mL (95% CI) Interpretation: The result of this analysis is within the limits of detection of the assay. Note: This assay is being performed in the [facility] Molecular Pathology Laboratory. Shahid Koroma, Ph.D. Director, Molecular Pathology [facility] Comment: [VERIFIED DATE]07.17.14 Verified By:Martha Ely (Electronic Signature) Blood specimen (specimen) 07/08/2014 3:00 PM EDT 07/16/2014 9:16 AM EST Narrative Resulting Agency Comment Spec In Lab Nigel Marroquin MD HEMATOLOGY ORDERABLE S [facility] * (ABNORMAL) Differential, Automated (07/08/2014 3:00 PM EDT) Neutrophil % 36.9 % [facility]ILLENNIUM Neutrophil Absolute 1.24(L) 1.50 - 6.30 x10(3)/mc L [facility] MILLENNIUM Lymph % 51.8 % [facility] MILLENNIUM Lymphocytes Abs 1.7 1.0 - 3.6 x10(3)/mc L [facility] MILLENNIUM Monocyte % 8.0 % [facility]ERN[facility] MILLENNIUM Monocyte Abs 0.3 0.2 - 1.0 x10(3)/mc L CERNER MILLENNIUM Eos % 3.0 % CERNER MILLENNIUM Eosinophils Abs 0.1 0.0 - 0.5 x10(3)/mc L [facility]ER MILLENNIUM Basophil % 0.3 % [facility]ERNER MILLENNIUM Baso Absolute 0.0 0.0 - 0.2 x10(3)/mc L [facility] MILLENNIUM Immature Gran % 0.00 % CERN ER MILLENNIUM Comment: Immature granulocytes(IG's)percentage and absolute count will include metamyelocytes, myelocytes, and promyelocytes. Blood smears from CBCs yielding IG's will be scanned manually for concordance. If this scan disagrees with the automated IG or if promyelocytes are noted, a manual differential will be performed. Immature Gran Absolute 0.00 0.00 - 0.05 x10(3)/mc L [facility] MILLENNIUM Blood specimen (specimen) 07/08/2014 3:00 PM EDT 07/08/2014 3:16 PM EDT Narrative Resulting Agency Comment Spec In Lab Nigel Marroquin MD HEMATOLOGY ORDERABLE S Performing Organization Address [facility] Co de Phone Number CERNER MILLENNIUM * (ABNORMAL) Hemogram (07/08/2014 3:00 PM EDT) White Blood Cell 3.4(L) 4.0 - 10.0 x10(3)/mc L CERNER MILLENNIUM Red Blood Cell 4.78 4.63 - 6.08 x10(6)/mc L [facility] MILLENNIUM Hemoglobin 13.6(L) 13.7 - 17.5 gm/dL [facility]ERN[facility] MILLENNIUM Hematocrit 38.3(L) 40.0 - 51.0 % CERNER MILLENNIUM Mean Cell Volume 80.1 79.0 - 92.0 fL CERNER MILLENNIUM Mean Cell Hemoglobin 28.5 25.6 - 32.2 pg CERNER MILLENNIUM Mean Cell Hemoglobin Concentration 35.5 32.0 - 36.5 gm/dL CERNER MILLENNIUM Platelet 177 145 - 370 x10(3)/mc L CERNER MILLENNIUM RDW Standard Deviation 37.0 35.0 - 46.0 fL CERNER MILLENNIUM RDW coefficient of variation 12.8 10.9 - 14.4 % CERNER MILLENNIUM Mean Platelet Volume 10.7 9.0 - 12.0 fL [facility] MILLENNIUM Blood specimen (specimen) 07/08/2014 3:00 PM EDT 07/08/2014 3:16 PM EDT Narrative Resulting Agency Comment Spec In Lab Nigel Marroquin MD HEMATOLOGY ORDERABLE S [facility]ERNANDA VUENNIUM * Interleukin-6 (07/08/2014 3:00 PM EDT) Pathologist [facility] Interleukin-6 (QST) 0.83 0.31 - 5.00 pg/mL [facility] Comment: Please see scanned report in Chart Review under the Non-DH Laboratory Heading. This test was performed using a kit that has not been approved or cleared by the FDA. The analytical performance characteristics of this test have been determined by [facility]. This test should not be used for diagnosis without confirmation by other medically established means. Test performed by [employer], [address] [place] [id number] Blood specimen (specimen) 07/08/2014 3:00 PM EDT 07/08/2014 3:58 PM EDT Narrative Resulting Agency Comment Spec In Lab Nigel Marroquin MD LAB SEND OUT ORDERAB LES [facility] * Tumor Necrosis Factor-Alpha (07/08/2014 3:00 PM EDT) [facility] Tumor Necrosis Factor 2.1 1.2 - 15.3 pg/mL [facility] Comment: TNF-alpha is not to be used as a diagnostic procedure without confirmation of the diagnosis by another established product or procedure. The reference range is intended to be used for blood samples only. ??Reference ranges for body fluids other than blood have not been established. This test was performed using a kit that has not been approved or cleared by the FDA. The analytical performance characteristics of this test have been determined by [facility]. This test should not be used for diagnosis without confirmation by other medically established means. Test Performed by: [facility] [address] [place] [id number] Blood specimen (specimen) 07/08/2014 3:00 PM EDT 07/09/2014 10:20 AM EDT Narrative Resulting Agency Comment Spec In Lab Nigel Marroquin MD LAB SEND OUT ORDERAB LES [facility] * QuantiFERON-TB Gold (07/08/2014 3:00 PM EDT) Quantiferon-TB Gold Negative Negative [facility] Comment: Nil (IU/mL)=0.05 TB Ag minus Nil (IU/mL)=0.05 Mitogen minus Nil (IU/mL)=>10 M. tuberculosis (TB) infection NOT likely ?A negative specimen should have a TB Ag minus Nil value less than 0.35 IU/mL OR a TB Ag minus Nil greater than or equal to 0.35 IU/mL and in addition the TB Ag minus Nil value must be less than 25% of the Nil value. A negative specimen should have a Mitogen minus Nil value greater than or equal to 0.5 IU/mL. ?A negative QuantiFERON-TB Gold IT result does not preclude the possibility of M. tuberculosis infection or tuberculosis disease: false negative results can be due to stage of infection (e.g., specimen obtained prior to the development of cellular immune response), co-morbid conditions which affect immune function, or other individual immunological factors. ?The performance of the QuantiFERON-TB Gold IT test has not been extensively evaluated with specimens from the following groups of individuals: ?1. Individuals who have impaired or altered immune function such as those who have HIV infection or AIDS, those who have transplantation managed with immunosuppressive treatment or others who receive immunosuppressive drugs (e.g., corticosteroids, methotrexate, azathioprine, cancer chemotherapy), and those who have other clinical conditions: diabetes, silicosis, chronic renal failure, hematological disorders (e.g., leukemia and lymphomas), and other specific malignancies (e.g., carcinoma of the head or neck and lung). ?2. Individuals younger than age 17 years. ?3. women. Note: Diagnosing or excluding tuberculosis disease, and assessing the probability of LTBI, require a combination of epidemiological, historical, medical, and diagnostic findings that should be taken into account when interpreting QuantiFERON-TB Gold results. Reference (http://www.cdc.gov/nchstp/tb/) Blood specimen (specimen) 07/08/2014 3:00 PM EDT 07/09/2014 8:22 AM EDT Narrative Resulting Agency Comment Spec In Lab Nigel Marroquin MD CHEMISTRY ORDERABLES Performing Organization Address [facility] Number [facility] * Hepatitis A Antibody, Total (07/08/2014 3:00 PM EDT) Hepatitis A ANTIBODY, TOTAL Negative Negative [facility] Blood specimen (specimen) 07/08/2014 3:00 PM EDT 07/08/2014 3:16 PM EDT Narrative Resulting Agency Comment Spec In Lab Nigel Marroquin MD CHEMISTRY ORDERABLES Performing Organization Address [facility] Number [facility] * Hepatitis B Surface Antigen (07/08/2014 3:00 PM EDT) Hepatitis B Surface Antigen Negative Negative [facility] Blood specimen (specimen) 07/08/2014 3:00 PM EDT 07/08/2014 3:16 PM EDT Narrative Resulting Agency Comment Spec In Lab Nigel Marroquin MD CHEMISTRY ORDERABLES Performing Organization Address [facility] Number [facility] * Hepatitis B Surface Antibody (07/08/2014 3:00 PM EDT) Hepatitis B Surface Antibody Positive [facility] Comment: Expected Results: Vaccinated: Positive Unvaccinated: Negative Please note: A positive result for this assay is consistent with a concentration of anti-HBs antibodies >10mIU/ml, which indicates that anti-HBs antibodies have been detected at levels consistent with protective immunity against HBV infection. Blood specimen (specimen) 07/08/2014 3:00 PM EDT 07/08/2014 3:16 PM EDT Narrative Resulting Agency Comment Spec In Lab Nigel Marroquin MD CHEMISTRY ORDERABLES Performing Organization Address [facility] Number [facility] * Hepatitis B Core Antibody, Total (07/08/2014 3:00 PM EDT) Pathologist [facility] Hepatitis B Core Antibody Negative Negative [facility] Comment: Please note, as of 03/25/2014, the testing methodology for this assay has changed. There is no change in interpretation of these results. Blood specimen (specimen) 07/08/2014 3:00 PM EDT 07/08/2014 3:16 PM EDT Narrative Resulting Agency Comment Spec In Lab Nigel Marroquin MD CHEMISTRY ORDERABLES Performing Organization Address [facility] Co de Phone Number [facility] * (ABNORMAL) HLA-B27 (07/08/2014 3:00 PM EDT) Pathologist [facility] HLA-B27 Positive [facility] HLA B27 Interpretation HLA B27 antigen was detected. Approximately 8% of the normal population carries the HLA B27 antigen. HLA B27 is present in approximately 89% of patients with ankylosing spondylitis, 79% of patients with Judith's syndrome and 42% of patients with juvenile rheumatoid arthritis. However, lacking other data, it is not diagnostic for these disorders. Method: Flow Cytometry Reference: 1. Angie DA, Valladares FD, Yaritza A, et al: Ankylosing spondylitis and HLA-27. Lancet 1973;1:904-907 2. Jduy J, Omar LUCERO: HLA-B27 typing by the use of flow cytofluorometry. Clin Chem 1987;33:1619-162 3 [facility] White Blood Cell 3.4(L) 4.0 - 10.0 x10(3)/m cL [facility] Blood specimen (specimen) 07/08/2014 3:00 PM EDT 07/08/2014 3:16 PM EDT Narrative Resulting Agency Comment Spec In Lab Nigel Marroquin MD HEMATOLOGY ORDERABLE S Performing Organization Address [facility] Co de Phone Number [facility] * Cyclic Citrullinated Peptide (07/08/2014 3:00 PM EDT) Pathologist [facility] Cyclic Citrulline Peptide <8.0 <=17.0 unit/mL [facility] Blood specimen (specimen) 07/08/2014 3:00 PM EDT 07/08/2014 3:16 PM EDT Narrative Resulting Agency Comment Spec In Lab Nigel Marroquin MD CHEMISTRY ORDERABLES Performing Organization Address [facility] de Phone Number [facility]OPK[facility] * High Sensitivity CRP (07/08/2014 3:00 PM EDT) C-Reactive Protein High Sensitivity 0.2 mg/L [facility] Comment: Interpretations: 1) For accurate cardiac risk assessment, the average of 2 values >2 weeks apart should be obtained (ref 1&2). A value >10 mg/L indicates an inflammatory condition, concentrations >10 mg/L should not be used for cardiac risk assessment. ?<1.0 mg/L: low risk ?1.0 - 3.0 mg/L: moderate risk ?>3.0 mg/L: high risk groups for future cardiovascular events 2) The general reference range of apparently healthy individuals using this test is <5.0 mg/L (derived from the test package insert) References: 1. Sun TA et. al. ??AHA/CDC Scientific Statement: Markers of Inflammation and Cardiovascular Disease. ??Circulation 2003; 107:499-511 2. Ridker PM. ??Clinical applications of C-reactive protein for cardiovascular disease detection and prevention. ??Circulation 2003; 107:363-369 Blood specimen (specimen) 07/08/2014 3:00 PM EDT 07/08/2014 3:16 PM EDT Narrative Resulting Agency Comment Spec In Lab Nigel Marroquin MD CHEMISTRY ORDERABLES Performing Organization Address [facility] Co de Phone Number [facility] * Rheumatoid factor, quant (07/08/2014 3:00 PM EDT) Rheumatoid Factor <10 <=14 IU/mL [facility] Blood specimen (specimen) 07/08/2014 3:00 PM EDT 07/08/2014 3:16 PM EDT Narrative Resulting Agency Comment Spec In Lab Nigel Marroquin MD CHEMISTRY ORDERABLES [facility] * Iron and TIBC (07/08/2014 3:00 PM EDT) Iron 102 20 - 160 mcg/dL [facility] TIBC 313 250 - 450 mcg/dL [facility] Iron Saturation 33 20 - 50 % [facility] MILLENNIUM Blood specimen (specimen) 07/08/2014 3:00 PM EDT 07/08/2014 3:16 PM EDT Narrative Resulting Agency Comment Spec In Lab Nigel Marroquin MD CHEMISTRY ORDERABLES Performing Organization Address [facility] Co de Phone Number [facility] * Ferritin (07/08/2014 3:00 PM EDT) [facility] Ferritin 37 36 - 310 ng/mL [facility] Comment: Pediatric reference ranges not verified at [facility], interpret with caution. Reference ranges for females greater than 50 years of age approach values for men, i.e., 30-400 ng/mL. Blood specimen (specimen) 07/08/2014 3:00 PM EDT 07/08/2014 3:16 PM EDT Narrative Resulting Agency Comment Spec In Lab Nigel Marroquin MD CHEMISTRY ORDERABLES Performing Organization Address City/[facility]/ZIP Co de Phone Number [facility] * Sedimentation rate (07/08/2014 3:00 PM EDT) [facility] Sedimentation Rate Automated 5 0 - 15 mm/hr [facility] Blood specimen (specimen) 07/08/2014 3:00 PM EDT 07/08/2014 3:16 PM EDT Narrative Resulting Agency Comment Spec In Lab Nigel Marroquin MD HEMATOLOGY ORDERABLE S [facility] * (ABNORMAL) Comprehensive metabolic panel (non-fasting) (07/08/2014 3:00 PM EDT) [facility] Glucose 89 60 - 199 mg/dL [facility]NIUM Comment:Diabetes: >=200 mg/d L plus symptoms Blood Urea Nitrogen 7(L) 10 - 20 mg/dL CERNER MILLENNIUM Creatinine 1.01 0.80 - 1.50 mg/dL CERNER MILLENNIUM Comment: Please note that the pediatric reference intervals supplied above were not validated at [facility]. Results from pediatric patients should be interpreted in conjunction to the patient's age, height and muscle mass. Sodium 142 135 - 145 mmol/L CERNER MILLENNIUM Potassium 3.7 3.5 - 5.0 mmol/L CERNER MILLENNIUM Comment: Please note: ??Patients with WBC >100,000 may have falsely elevated Potassium levels. ??For accurate Potassium quantification in these patients send serum separator tube (gold top) for subsequent determinations. ??Contact the Clinical Chemistry Laboratory if there are any questions. Chloride 101 98 - 107 mmol/L CERNER MILLENNIUM Carbon Dioxide 28 22 - 31 mmol/L CERNER MILLENNIUM Anion Gap 13 5 - 15 mmol/L [facility]ERN[facility] MILLENNIUM Calcium 10.0 8.5 - 10.5 mg/dL [facility] MILL[facility]NI[facility] Protein, Total 7.1 6.4 - 8.3 gm/dL CERNER MILLENNIUM Albumin 4.9 3.2 - 5.2 gm/dL CERNER MILLENNIUM Aspartate Aminotransferase 21 10 - 40 unit/L [facility]ERN[facility] MILL[facility]NIUM Alanine Aminotransferase 11 0 - 40 unit/L [facility]ERN[facility] MILL[facility]NI[facility] Alkaline Phosphatase 57(L) 70 - 290 unit/L CERNER MILLENNIUM Bilirubin, Total 0.9 0.2 - 1.3 mg/dL CERNER MILLENNIUM Bilirubin, Direct 0.2 0.0 - 0.3 mg/dL CERNER MILLENNIUM Est Glomerular Filtration Rate >60 >=60 CERNER MILLENNIUM Comment: This estimated GFR (eGFR) value was calculated using the MDRD equation which has been validated on patients between the ages of 18 and 70. The MDRD should not be used to assess kidney function in patients < 18 years of age or in patients with extremes of body mass, or in patients with acute kidney failure. This value should be multiplied by 1.2 for patients. For further information please copy and paste the following links into your internet browser. [email or web address] Blood specimen (specimen) 07/08/2014 3:00 PM EDT 07/08/2014 3:16 PM EDT Narrative Resulting Agency Comment Spec In Lab Nigel Marroquin MD CHEMISTRY ORDERABLES Performing Organization Address City/State/[facility] Co ct Phone Number [facility] documented in this encounter Visit Diagnoses Diagnosis Back pain Backache, unspecified Joint pain Pain in joint, site unspecified documented in this encounter Care Teams Capacitor Inspector Relationship Specialty Start Date End Date Romie Kelly MD [address] [address] PCP - General 02/17/11 08/18/18 documented as of this encounter
--- OUTSIDE RECORDS SUMMARY | 2024-10-02 19:16 | XMS_ITS | Clinical Summary ---
Author Organization [facility] Address [address] [place] [address] Care Team Providers Care Rn Clinical Documentation Specialist Name Role Phone Nicholas Perez MD Primary Care Provider [phone] Social History Tobacco Use Types Packs/Day Years Used Date Smoking Tobacco: Never Assessed Sex and Gender Information Value Date Recorded Sex Assigned at Not on file Legal Sex Male 12:30 EDT Gender Identity Not on file Sexual Orientation Not on file Plan of Treatment Health Maintenance Due Date Last Done Comments Hepatitis C Screen 1995 Hepatitis B Vaccine (1 of 3 - 19+ 3-dose series) 01/05 COVID-19 Vaccine ( season) 2024 Care Teams Rn Clinical Documentation Specialist Relationship Specialty Start Date End Date Nicholas Perez MD [address] [facility] [place] [id number] PCP - General 06/12/18
--- OUTSIDE RECORDS SUMMARY | 2024-10-02 19:16 | XMS_ITS | Encounter Summary ---
Author Organization [facility] [place] [address] Care Team Providers Care Food And Beverage Analyst Name Role Phone Romie Kelly MD Primary Care Provider [phone] Encounter Details Date Type Department Care Team (Late st Contact Info) Description 03/20/2014 Orders Only Rheumatology at [facility] [place] [address] Joe Brush MD Social History Tobacco Use Types Packs/Day [...] Diagnosis Comments FILM LIBRARY STORAGE ONLY DX SPINE Routine 03/20/2014 3:37 PM EDT documented in this encounter Results * Film Library- Storage only DX Spine (03/20/2014 3:37 PM EDT) Anatomical Region Laterality Modality Other 03/20/2014 3:37 PM EDT Narrative 03/24/2014 3:37 PM EDT This is a Non-reportable exam Procedure Note 03/24/2014 This is a Non-reportable exam Joe Brush MD IMG FILM LIBRARY ORD ERABLES documented in this encounter Visit Diagnoses Not on filedocumented in this encounter Care Teams Food And Beverage Analyst Relationship Specialty Start Date End Date Romie Kelly MD [address] [place] [address] [place], [place] [id number] PCP - General 02/17/11 08/18/18 documented as of this encounter
--- OUTSIDE RECORDS SUMMARY | 2024-10-02 19:16 | XMS_ITS | Referral Summary ---
Author Organization [facility] Address [address] [place] [address] Care Team Providers Care Program Director Air Talent Name Role Phone Nicholas Perez MD Primary Care Provider [phone] Social History Tobacco Use Types Packs/Day Years Used Date Smoking Tobacco: Never Assessed Sex and Gender Information Value Date Recorded Sex Assigned at Not on file Legal Sex Male 12:30 EDT Gender Identity Not on file Sexual Orientation Not on file Plan of Treatment Not on file Care Teams Program Director Air Talent Relationship Specialty Start Date End Date Nicholas Perez MD [address] [facility] [phone] PCP - General 06/12/18
--- OUTSIDE RECORDS SUMMARY | 2024-10-02 19:16 | XMS_ITS | Encounter Summary ---
Author Organization [facility] Address [address] [place] [address] Care Team Providers Care Recovery Operator Name Role Phone Nicholas Perez MD Primary Care Provider Encounter Details Date Type Department Care Team (Late st Contact Info) Description 06/12/2018 Results Only Imaging [facility] [phone] Unknown, Provider, Social History Tobacco Use Types Packs/Day Years Used Date Smoking Tobacco: Never Assessed Sex and Gender Information Value Date Recorded Sex Assigned at Not on file Legal Sex Male 12:30 EDT Gender Identity Not on file Sexual Orientation Not on file documented as of this encounter Plan of Treatment Pending Results Name Type Priority Associated Diagnoses Date /Time OUTSIDE IMAGES - CT BODY Imaging 06/12/2018 12:45 EDT OUTSIDE IMAGES - US BODY Imaging 06/12/2018 12:56 EDT documented as of this encounter Visit Diagnoses Not on filedocumented in this encounter Care Teams Recovery Operator Relationship Specialty Start Date End Date Nicholas Perez MD [address] [facility] [place] [phone] PCP - General 06/12/18 documented as of this encounter
[2024-10-02 19:32] LABS: Bilirubin Negative (Negative); Blood Negative (Negative); Clarity Clear (Clear); Glucose Negative (Negative); Ketones Negative (Negative); Leukocyte Esterase Negative (Negative); Nitrite Negative (Negative); Specific Gravity 1.015 (1.005-1.025); Urobilinogen 0.2 mg/dL (Up to 0.2)
[2024-10-02 19:37] LABS: Bacteria Rare HPF (Negative); C & S Indicated? No; Casts Negative LPF (Negative); Crystals Negative HPF (Negative); Epithelial Cells Negative HPF (Negative); Mucus Negative (Negative); RBC Negative HPF (0-2); WBC Negative HPF (0-5)
[2024-10-02 19:44] LABS: *AMPHETAMINES SCREEN URINE Negative (Negative); *BARBITURATES SCREEN URINE Negative (Negative); *BENZODIAZEPINES SCREEN URINE Negative (Negative); Cannabinoids THC Positive (Negative); Cocaine Screen,Urine Positive (Negative); METHADONE URINE SCREEN Negative (Negative); OPIATES URINE SCREEN Negative (Negative)
[2024-10-02 19:45] LABS: Tricyclic Antidepressants Negative (Negative)
[2024-10-02] MEDS: Lidocaine 5% Patch 2 PATCH TP (20:00)
[2024-10-02] MEDS: diphenhydrAMINE 50 MG/ML VIAL 25 MG IVP (20:43)
[2024-10-02] MEDS: Ondansetron 4 MG/2 ML VIAL IVP (20:43)
[2024-10-02] MEDS: Baclofen 10 MG TAB PO (21:08)
--- NOTE | 2024-10-02 21:25 | W.PC.ACHO ---
Registration Status: Primary Language: Preferred Language: ED Information & Data Chief Complaint Nk/Back Pain 10/02/24 16:48 Triage Note Pt reports lower back pain 10/02/24 16:37 that started today- hx kidney stones, denies issues with urinating or moving bowels Medical / Surgical History (Last Reviewed 12/10/21 @ 10:20 by Nany Valdez NP) Dysuria (10/11/12) Gross hematuria (10/09/12) Intestinal infection due to E. coli (04/07/13) Knee pain (11/21/12) Kidney calculi Kidney stones Most Recent Vital Signs Temperature 37.1 C 10/02/24 16:37 Pulse 84 10/02/24 20:01 Respiratory Rate 28 H 10/02/24 20:08 Blood Pressure 106/63 10/02/24 20:01 Blood Pressure Position Sitting 10/02/24 16:37 Pulse Oximetry 100 10/02/24 19:41 Oxygen Delivery Method Room Air 10/02/24 16:37 Oxygen Flow Rate 0 10/02/24 16:37 Pain Level 9 10/02/24 17:02 Allergies methotrexate Adverse Reaction (Unknown, Verified 10/02/24 16:40) Nausea Nausea Vomiting Precautions Isolation Standard precaution 10/02/24 16:41 Active Medications Generic Name Dose Route Start Last Admin Trade Name Saba PRN Reason Stop Dose Admin Baclofen 10 mg 10/02/24 19:57 10/02/24 21:08 Baclofen 10 Mg Tab PO 10 mg TID PRN Administration muscle spasm Iohexol 100 ml 10/02/24 18:30 10/02/24 18:22 Omnipaque 350 Mg/Ml 100 Ml Btl IJ 11/01/24 23:59 100 ml DIRECTED JOSUE Administration Sodium Chloride 50 ml 10/02/24 18:30 10/02/24 18:22 Normal Saline - Diluent 50 Ml Vial IJ 50 ml .FOR DI USE JOSUE Administration IV IV Catheter Type [Right Saline Lock Antecubital] IV Catheter Gauge [Right 18 Antecubital] Diet Orders Category Date Time Status Regular/Normal [DIET] Nutrition 10/03/24 Breakfast Ordered Diagnostics 10/02/24 10/02/24 10/02/24 Range/Units 20:15 19:25 18:52 WBC Pending (4.4-10.8) 10^3/uL RBC Pending (4.36-5.78) 10^6/uL Hgb Pending (13.5-17.5) g/dL Hct Pending (40.0-50.0) % MCV Pending (80-95) fL MCH Pending (27.0-33.0) pg MCHC Pending (32.0-36.0) % RDW Pending (11.8-14.1) % Plt Count Pending (130-400) 10^3/uL MPV Pending (8.0-11.0) fL Immature Gran % Pending % Neutrophils % Pending % Lymphocytes % Pending % Monocytes % Pending % Eosinophils % Pending % Basophils % Pending % Nucleated RBC % (0.0-0.3) % Absolute Neutrophils Pending (1.2-6.7) 10^3/uL Absolute Lymphocytes Pending (1.2-3.4) 10^3/uL Absolute Monocytes Pending (0.1-0.8) 10^3/uL Absolute Eosinophils Pending (0.0-0.7) 10^3/uL Absolute Basophils Pending (0.0-0.2) 10^3/uL ESR (0-15) mm/hr VBG Lactate (<or=2.0) mmol/L Sodium (136-145) mmol/L Potassium (3.5-5.1) mmol/L Chloride (98-107) mmol/L Carbon Dioxide (21.0-32.0) mmol/L Anion Gap (3-11) mmol/L BUN (7-18) mg/dL Creatinine (0.70-1.30) mg/dL Est GFR (CKD-EPI 2020) (mL/min/1.73m2) Glucose (74-106) mg/dL Calcium (8.5-10.1) mg/dL Magnesium (1.8-2.4) mg/dL Total Bilirubin (0.2-1.0) mg/dL Conjugated Bilirubin (0.0-0.2) mg/dL AST (15-37) U/L ALT (16-63) U/L Alkaline Phosphatase (46-116) U/L Ammonia (11-32) umol/L Creatine Kinase (39-308) U/L Troponin I 14 (<or=76) ng/L C-Reactive Protein (<or=0.5) mg/dL Total Protein (6.4-8.2) g/dL Albumin (3.4-5.0) g/dL Lipase (<78) U/L Urine Color Yellow (Yellow) Urine Clarity Clear (Clear) Urine pH 7.0 (5-8) Ur Specific Debary 1.015 (1.005-1.025) Urine Protein 30 H (Neg-Trace) mg/dL Urine Ketones Negative (Negative) mg/dL Urine Blood Negative (Negative) Urine Nitrite Negative (Negative) Urine Bilirubin Negative (Negative) Urine Urobilinogen 0.2 (Up to 0.2) mg/dL Ur Leukocyte Esterase Negative (Negative) Urine RBC Negative (0-2) HPF Urine WBC Negative (0-5) HPF Ur Epithelial Cells Negative (Negative) HPF Urine Crystals Negative (Negative) HPF Urine Bacteria Rare (Negative) HPF Urine Casts Negative (Negative) LPF Urine Mucus Negative (Negative) Ur Culture Indicated? No Urine Glucose Negative (Negative) mg/dL Urine Opiates Screen Negative (Negative) Urine Methadone Screen Negative (Negative) Ur Barbiturates Screen Negative (Negative) Ur Tricyclics Screen Negative (Negative) Ur Amphetamines Screen Negative (Negative) U Benzodiazepines Scrn Negative (Negative) Urine Cocaine Screen Positive A (Negative) Ur THC Screen Positive A (Negative) Ethyl Alcohol (<10) mg/dL B. divergens/MO-1 PCR Babesia duncani (PCR) Babesia microti DNA PCR Lyme Disease Antibody COVID-19 Source SARS-CoV-2 (PCR) (Negative) E.chaffeensis DNA (PCR) E.ewingii/canis DNA PCR E.muris eauclairensis (PCR) Influenza Type A (PCR) (Negative) Influenza Type B (PCR) (Negative) RSV (PCR) (Negative) A. phagocytophilum (PCR) Blood B. miyamotoi (PCR) 10/02/24 10/02/24 10/02/24 Range/Units 17:09 17:01 16:47 WBC 11.40 H (4.4-10.8) 10^3/uL RBC 5.81 H (4.36-5.78) 10^6/uL Hgb 15.6 (13.5-17.5) g/dL Hct 46.6 (40.0-50.0) % MCV 80 (80-95) fL MCH 26.9 L (27.0-33.0) pg MCHC 33.5 (32.0-36.0) % RDW 14.8 H (11.8-14.1) % Plt Count 283 (130-400) 10^3/uL MPV 9.5 (8.0-11.0) fL Immature Gran % 0.4 % Neutrophils % 81.2 % Lymphocytes % 9.7 % Monocytes % 7.8 % Eosinophils % 0.6 % Basophils % 0.3 % Nucleated RBC % 0.0 (0.0-0.3) % Absolute Neutrophils 9.26 H (1.2-6.7) 10^3/uL Absolute Lymphocytes 1.11 L (1.2-3.4) 10^3/uL Absolute Monocytes 0.89 H (0.1-0.8) 10^3/uL Absolute Eosinophils 0.07 (0.0-0.7) 10^3/uL Absolute Basophils 0.03 (0.0-0.2) 10^3/uL ESR 20 H (0-15) mm/hr VBG Lactate 2.0 (<or=2.0) mmol/L Sodium 143 (136-145) mmol/L Potassium 3.9 (3.5-5.1) mmol/L Chloride 106 (98-107) mmol/L Carbon Dioxide 28.1 (21.0-32.0) mmol/L Anion Gap 8.9 (3-11) mmol/L BUN 11 (7-18) mg/dL Creatinine 1.1 (0.70-1.30) mg/dL Est GFR (CKD-EPI 2020) 93.19 (mL/min/1.73m2) Glucose 98 (74-106) mg/dL Calcium 9.4 (8.5-10.1) mg/dL Magnesium 2.0 (1.8-2.4) mg/dL Total Bilirubin 0.31 (0.2-1.0) mg/dL Conjugated Bilirubin 0.1 (0.0-0.2) mg/dL AST 12 L (15-37) U/L ALT 19 (16-63) U/L Alkaline Phosphatase 58 (46-116) U/L Ammonia 10 L (11-32) umol/L Creatine Kinase 136 (39-308) U/L Troponin I 8 (<or=76) ng/L C-Reactive Protein < 0.50 (<or=0.5) mg/dL Total Protein 8.5 H (6.4-8.2) g/dL Albumin 4.0 (3.4-5.0) g/dL Lipase 30 (<78) U/L Urine Color (Yellow) Urine Clarity (Clear) Urine pH (5-8) Ur Specific Debary (1.005-1.025) Urine Protein (Neg-Trace) mg/dL Urine Ketones (Negative) mg/dL Urine Blood (Negative) Urine Nitrite (Negative) Urine Bilirubin (Negative) Urine Urobilinogen (Up to 0.2) mg/dL Ur Leukocyte Esterase (Negative) Urine RBC (0-2) HPF Urine WBC (0-5) HPF Ur Epithelial Cells (Negative) HPF Urine Crystals (Negative) HPF Urine Bacteria (Negative) HPF Urine Casts (Negative) LPF Urine Mucus (Negative) Ur Culture Indicated? Urine Glucose (Negative) mg/dL Urine Opiates Screen (Negative) Urine Methadone Screen (Negative) Ur Barbiturates Screen (Negative) Ur Tricyclics Screen (Negative) Ur Amphetamines Screen (Negative) U Benzodiazepines Scrn (Negative) Urine Cocaine Screen (Negative) Ur THC Screen (Negative) Ethyl Alcohol < 3.0 (<10) mg/dL B. divergens/MO-1 PCR Pending Babesia duncani (PCR) Pending Babesia microti DNA PCR Pending Lyme Disease Antibody Pending COVID-19 Source Nasopharynx SARS-CoV-2 (PCR) Negative (Negative) E.chaffeensis DNA (PCR) Pending E.ewingii/canis DNA PCR Pending E.muris eauclairensis (PCR) Pending Influenza Type A (PCR) Negative (Negative) Influenza Type B (PCR) Negative (Negative) RSV (PCR) Negative (Negative) A. phagocytophilum (PCR) Pending Blood B. miyamotoi (PCR) Pending 10/02/24 17:15 Blood Culture - Pending Blood 10/02/24 16:47 Blood Culture - Pending Blood Intake and Output - 24 Hour Total 10/02/24 16:29 thru 10/02/24 17:51 Intake Total 100 Balance 100 Weight 66.5 kg Intake: IV 100 Falls Risk Assessment History of Falls No History 10/02/24 18:48 Fall Total Score 0 10/02/24 18:48 Level of Risk Standard/Low Risk 10/02/24 18:48 v v v v v v v v v Sending and/or Receiving Nurses: Please use comment section below to note any information pertinent to the patient hand-off not included above. Information / Comments: No drug use for past 24 hours. Scoring 8 on COWS. Pale, diaphoretic. EKG normal. WBC 11.4. Report received from: Shannon Scherer RN
--- NOTE | 2024-10-02 21:52 | HPE_ITS ---
Date of service: 10/02/24 Time of Service: 19:00 Assessment and Plan Assessment and plan (1) Acute opioid withdrawal: Status: Acute Assessment and plan: Will admit patient, initially observation, to initiate Suboxone therapy to treat his OUD. We will proceed with a traditional dosing approach (that is waiting today for significant withdrawal COWS scoring, and then initiate Suboxone so as to not precipitate worsened withdrawal symptoms; will start with 4mg). He does not appear to be in a window for microdosing protocols, with his report in 24 hours since he used opioids, but prudence is in order because his COWS scoring does not seem to match up with this timeline, will need to specifically will worsen his symptoms with giving him too much Suboxone too early. He has a history of multiple escharous body wounds that could be consistent with inadvertent xylazine intake. His legs are chronically scaly, but I do not appreciate acute cellulitis at this time. His urine tox was positive for cocaine. Will not treat his withdrawal symptoms at this point to get an accurate COWS scoring to best ascertain when to start his Suboxone which will treat his withdrawal symptoms. Will treat his back pain and anxiety with nonopioid medications. (See chronic back pain below.) (2) Chronic back pain: Status: Chronic Assessment and plan: Patient has any acute worsening of his chronic back pain. He has known baseline spondyloarthropathy to the level he does tried on methotrexate in the past (which he did not tolerate). Is difficult to ascertain whether this is progression of disease, or heightened pain sensation due to decreased opioids in his system, and heightening the perception due to opioid withdrawal. I favor the latter two. His ESR is 20 and his CRP is <0.5 which are unlikely to be consistent with spinal epidural abscess or osteomyelitis which she is at risk for his IV drug use and his report/perception of increased back pain. Full Spine & A/P/Renal CT- NAD. Continue to monitor and treat his pain with non- opioid medications including Tylenol, Toradol, baclofen, and treat his anxiety with some Ativan. (See acute opioid withdrawal above.) History of Present Illness Narrative: 29-year-old white male with PMH that includes OUD, Asthma, spondyloarthropathy (chronic pain & muscle spasms), migraines, GERD presents with back pain and feeling lousy. The patient was uncomfortable (pain) and a minimalist in giving history/information, so some of this is pieced together through other providers and the medical record. 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 He is uncertain about xylazine presence in the drugs he is taking. 2 days ago patient started feeling generally lousy all over, with greatly increased back pain, muscle aches all over, worsening of chronic lower leg pains, and has some slight stomach pain. He reports that he last took any opioids 24 hours ago. He lives at home with his , who is also a drug user, and he does not know if she has any intention of stopping. He would like medication assisted treatment for his OUD. He reports also having chills in the last day that are new for him, but some mild shortness of breath. He reports chronic lower Leg cellulitis that feels worse in the last 2 days and is associated scaly legs, and various lesions. Patient states that neither he nor his has a job, nor are they on any disability, and that financial support comes from mom. Patient specifically denies chest pain, known fever, recent changes in bowel movements or urination, new focal numbness, leg edema, acute changes in vision or hearing. In our emergency room, patient had negative CT scanning of his abdomen pelvis. His labs are grossly unremarkable. And muscle cramps. His tells score was 8. Admission was recommended for admission. Review of Systems Narrative: Review of Systems See also HPI above. Const: Positive for chills. Negative for fever. HENT: Negative for acute hearing changes. Eyes: Negative for acute visual disturbance. Resp: Positive for mild shortness of breath. CV: Negative for chest pain. Abd: Positive for mild abdominal pain. GI: Negative for bowel changes. : Negative for changes in urination. MSK: Positive for generalized weakness. Negative for focal weakness. Skin: Positive for rash- chronic LE cellulitis. Neuro: Negative for numbness. Heme: Negative for leg edema. PFSH All Active Problems Acute opioid withdrawal (Acute) Periorbital cellulitis of left eye (Acute) Abscess of face (Acute) Complicated migraine (Chronic 11/10/13) Spondyloarthropathy (Chronic 07/22/14) [facility] [place] rhematology 06/23, ankylosing spondylitis Social anxiety disorder (Chronic 01/31/18) Asthma (Chronic) Chronic back pain (Chronic) LOW GRADE BACK PAIN WITH KYPHOSIS. Learning difficulties (Chronic) Medical History Dysuria (10/11/12) Gross hematuria (10/09/12) Intestinal infection due to E. coli (04/07/13) Knee pain (11/21/12) Kidney calculi Kidney stones Social History Smoking/Tobacco Use Status: Current every day Tobacco Type: e-cigarettes Smoking risk assessment performed?: Yes Alcohol Intake: former Drug use: Daily Substance use type: marijuana, crack/cocaine and other Details: Cocaine/ Fentanyl last used over 20 hours ago Housing: apartment Do you feel safe at home: Yes Do you feel safe in your relationship?: Yes Meds Allergies and Home Medications Allergies Allergy/AdvReac Type Severity Reaction Status Date / Time methotrexate AdvReac Unknown Nausea Verified 10/02/24 16:40 Home Medications ?Medication ?Instructions ?Recorded ?Confirmed ?Type omeprazole 40 mg capsule,delayed 40 mg PO DAILY PRN heartburn #90 04/23/19 10/02/24 Rx release caps baclofen 10 mg tablet 10 mg PO TID PRN muscle spasm #30 11/19/19 10/02/24 Rx tabs ondansetron 4 mg disintegrating 4 mg PO Q8H PRN nausea and 11/19/19 10/02/24 Rx tablet vomiting during migraine headaches #60 tabs rizatriptan 10 mg disintegrating 10 mg PO PRN #60 tabs 11/19/19 10/02/24 Rx tablet (Maxalt-ASSISTANT MANAGER PT) Exam Narrative Exam Narrative: Constitutional: NAD, but moaning, shifting to tray and get comfortable in bed, keeping eyes closed. Minimalist answers. Head/Face: NCAT. Eyes: PERRL. Nl appearing eyes. ENT: Nl appearing external ears, nose, and oropharynx. No exudates. Uvula mid- line. Slightly dry mucous membranes. Neck: Supple, non-tender to palpation. No obvious mass. Chest: Chest wall non-tender to palpation. Resp: CTAB. Equal BS. No wheezes, rhonchi, crackles, rales. CV: RRR. No rubs, or gallops. Abd/GI: Soft, Mildly TTP. No rebound, guarding, rigidity. No organomegaly or masses palpated. Back/: Difficult to assess spinal tenderness and CVA tenderness this patient was tender and generally everywhere with back exam. Skin: Warm & dry. Lower extremities have chronic discoloration and very scaly skin with multiple wounds and scabbing. No associated warmth or erythema appreciated. MSK/Ext: MCINYTRE. Generally tender everywhere on his extremities, especially lower extremities. 5/5 motor in all ext bilaterally. Heme/Lymph: No leg edema. Neuro: A&O. Nl speech. Sensory & Motor grossly intact. Capacity intact. Decreased judgment. Psych: Anxious mood, manner, and affect. SIRS Screen: Negative SIRS Criteria (at least 2 of the following): Temp (+ mode) (?101 (38.3), ?96.8 (36))- Negative Pulse (?90/min)- positive (or) Resp (?20/min)- Negative (or) WBC (?12K, ?4K) or Bandemia (?10%)- Negative Source of Infection?: None identified, but patient is at risk for IV drug abuse associated infections. Antibiotics Indicated?: Not currently. Results Imaging Imaging Studies: Complete spine CT- NAD CT A/P/Renal- IMPRESSION:: No acute abnormality in the abdomen or pelvis. No evidence of renal calculi or hydronephrosis. No evidence of pyelonephritis. No acute abnormality in the lumbar spine. No abscess is visible. Labs 10/02/24 16:47 10/02/24 16:47 Labs: Laboratory Results - last 24 hr 10/02/24 10/02/24 10/02/24 16:47 17:01 17:09 WBC 11.40 H RBC 5.81 H Hgb 15.6 Hct 46.6 MCV 80 MCH 26.9 L MCHC 33.5 RDW 14.8 H Plt Count 283 MPV 9.5 Immature Gran % 0.4 Neutrophils % 81.2 Band Neutrophils % Lymphocytes % 9.7 Atypical Lymphs % Monocytes % 7.8 Eosinophils % 0.6 Basophils % 0.3 Metamyelocytes % Myelocytes % Promyelocytes % Other Cells % Nucleated RBC % 0.0 Absolute Neutrophils 9.26 H Absolute Lymphocytes 1.11 L Absolute Monocytes 0.89 H Absolute Eosinophils 0.07 Absolute Basophils 0.03 RBC Morphology Polychromasia Hypochromasia Poikilocytosis Basophilic Stippling Anisocytosis Microcytosis Macrocytosis Spherocytes Tear Drop Cells Ovalocytes Stomatocytes River-Anderson Bodies Tut[place]iler Cells/Echinocytes Acanthocytes (Spur) Schistocytes ESR 20 H VBG Lactate 2.0 Sodium 143 Potassium 3.9 Chloride 106 Carbon Dioxide 28.1 Anion Gap 8.9 BUN 11 Creatinine 1.1 Est GFR (CKD-EPI 2020) 93.19 Glucose 98 Calcium 9.4 Magnesium 2.0 Total Bilirubin 0.31 Conjugated Bilirubin 0.1 AST 12 L ALT 19 Alkaline Phosphatase 58 Ammonia 10 L Creatine Kinase 136 Troponin I 8 C-Reactive Protein < 0.50 Total Protein 8.5 H Albumin 4.0 Lipase 30 Urine Color Urine Clarity Urine pH Ur Specific Sasser Urine Protein Urine Ketones Urine Blood Urine Nitrite Urine Bilirubin Urine Urobilinogen Ur Leukocyte Esterase Urine RBC Urine WBC Ur Epithelial Cells Urine Crystals Urine Bacteria Urine Casts Urine Mucus Ur Culture Indicated? Urine Glucose Urine Opiates Screen Urine Methadone Screen Ur Barbiturates Screen Ur Tricyclics Screen Ur Amphetamines Screen U Benzodiazepines Scrn Urine Cocaine Screen Ur THC Screen Ethyl Alcohol < 3.0 COVID-19 Source Nasopharynx SARS-CoV-2 (PCR) Negative Influenza Type A (PCR) Negative Influenza Type B (PCR) Negative RSV (PCR) Negative 10/02/24 10/02/24 10/02/24 18:52 19:25 20:15 WBC Cancelled RBC Cancelled Hgb Cancelled Hct Cancelled MCV Cancelled MCH Cancelled MCHC Cancelled RDW Cancelled Plt Count Cancelled MPV Cancelled Immature Gran % Cancelled Neutrophils % Cancelled Band Neutrophils % Cancelled Lymphocytes % Cancelled Atypical Lymphs % Cancelled Monocytes % Cancelled Eosinophils % Cancelled Basophils % Cancelled Metamyelocytes % Cancelled Myelocytes % Cancelled Promyelocytes % Cancelled Other Cells % Cancelled Nucleated RBC % Cancelled Absolute Neutrophils Cancelled Absolute Lymphocytes Cancelled Absolute Monocytes Cancelled Absolute Eosinophils Cancelled Absolute Basophils Cancelled RBC Morphology Cancelled Polychromasia Cancelled Hypochromasia Cancelled Poikilocytosis Cancelled Basophilic Stippling Cancelled Anisocytosis Cancelled Microcytosis Cancelled Macrocytosis Cancelled Spherocytes Cancelled Tear Drop Cells Cancelled Ovalocytes Cancelled Stomatocytes Cancelled River-[place] Bodies Cancelled Joe Cells/Echinocytes Cancelled Acanthocytes (Spur) Cancelled Schistocytes Cancelled ESR VBG Lactate Sodium Potassium Chloride Carbon Dioxide Anion Gap BUN Creatinine Est GFR (CKD-EPI 2020) Glucose Calcium Magnesium Total Bilirubin Conjugated Bilirubin AST ALT Alkaline Phosphatase Ammonia Creatine Kinase Troponin I 14 C-Reactive Protein Total Protein Albumin Lipase Urine Color Yellow Urine Clarity Clear Urine pH 7.0 Ur Specific Sasser 1.015 Urine Protein 30 H Urine Ketones Negative Urine Blood Negative Urine Nitrite Negative Urine Bilirubin Negative Urine Urobilinogen 0.2 Ur Leukocyte Esterase Negative Urine RBC Negative Urine WBC Negative Ur Epithelial Cells Negative Urine Crystals Negative Urine Bacteria Rare Urine Casts Negative Urine Mucus Negative Ur Culture Indicated? No Urine Glucose Negative Urine Opiates Screen Negative Urine Methadone Screen Negative Ur Barbiturates Screen Negative Ur Tricyclics Screen Negative Ur Amphetamines Screen Negative U Benzodiazepines Scrn Negative Urine Cocaine Screen Positive A Ur THC Screen Positive A Ethyl Alcohol COVID-19 Source SARS-CoV-2 (PCR) Influenza Type A (PCR) Influenza Type B (PCR) RSV (PCR) Last Vital Signs Temp 37.6 C H 10/02/24 21:39 Pulse 95 H 10/02/24 21:39 Resp 20 10/02/24 21:39 BP 123/91 H 10/02/24 21:39 Pulse Ox 100 10/02/24 21:39 Time Spent Time spent with Patient: >75 minutes Time was spent: preparing to see the patient(eg.review tests), obtaining and/or reviewing separately otained hiistory, ordering medications,tests, procedures, referring, communicating with other health manager medicare, indepentently interpreting results, counseling the patient and care coordination
[2024-10-02] MEDS: Acetaminophen 325 MG TAB 650 MG PO (23:44)
[2024-10-03] MEDS: LORazepam 2 MG/ML VIAL 1 MG IVP ×3 (02:32→16:34)
[2024-10-03] MEDS: Nicotine 21 MG/24 HR PATCH TD (03:45)
[2024-10-03 03:57] VITALS: BP 116/76; PULSE 95; RESP 18; TEMP 36.4; O2SAT 98
[2024-10-03] MEDS: Ketorolac 15 MG/ML VIAL IV ×2 (04:03→14:52)
[2024-10-03] MEDS: Ondansetron O.D.T. 4 MG TABEF PO (06:39)
[2024-10-03] MEDS: Baclofen 10 MG TAB PO (06:39)
[2024-10-03 06:47] LABS: Abs Immature Grans 0.02 10^3/uL (0.0-0.06); Absolute Basophil Count 0.02 10^3/uL (0.0-0.2); Absolute Lymphocyte Count 0.59 10^3/uL (1.2-3.4); Absolute Monocyte Count 0.64 10^3/uL (0.1-0.8); Absolute Neutrophil Count 7.34 10^3/uL (1.2-6.7); Basophils % 0.2 %; HCT 42.9 % (40.0-50.0); HGB 14.3 g/dL (13.5-17.5); Immature Grans % 0.2 %; Lymphocytes % 6.9 %; MCH 26.4 pg (27.0-33.0); MCHC 33.3 % (32.0-36.0); MCV 79 fL (80-95); MPV 9.5 fL (8.0-11.0); Monocytes % 7.4 %; Neutrophils % 85.3 %; Platelet Count 248 10^3/uL (130-400); RBC 5.41 10^6/uL (4.36-5.78); RDW-SD 42.8 fL; WBC 8.61 10^3/uL (4.4-10.8)
[2024-10-03 07:09] LABS: Anion Gap 8.6 mmol/L (3-11); BUN 26 mg/dL (7-18); CO2 26.4 mmol/L (21.0-32.0); CREATININE 1.2 mg/dL (0.70-1.30); Calcium 8.5 mg/dL (8.5-10.1); Chloride 103 mmol/L (98-107); Estimated GFR 83.95 (mL/min/1.73m2); Glucose 116 mg/dL (74-106); Potassium 3.9 mmol/L (3.5-5.1); Sodium 138 mmol/L (136-145)
[2024-10-03 08:12] VITALS: BP 112/75; PULSE 93; RESP 18; TEMP 37.7; O2SAT 100
[2024-10-03] MEDS: Prochlorperazine 10 MG/2 ML VIAL IVP (10:31)
--- NOTE | 2024-10-03 10:52 | NUR.NOTE ---
Nurse Xenia and I went into the pTs room because he is actively vomiting and is in pain. The pTs significant other was laying in the bed taking up approximately 90% of the bed. It was explained to the pT was Xenia why asking the SO to get out of the bed. When Xenia went to wake up the SO, she laid there until after Xenia had said her name 3 times. She then jumped up and sat in chair without hassle. A recliner was provided for the SO to sit in. Will continue to monitor
[2024-10-03 11:48] VITALS: BP 127/82; PULSE 74; RESP 16; TEMP 37.4; O2SAT 100
[2024-10-03] MEDS: Ondansetron 4 MG/2 ML VIAL IVP (14:51)
--- NOTE | 2024-10-03 15:34 | PDOC.CMIN ---
Date of service: 10/03/24 Time of Service: 15:35 Care Management Initial Assmt Initial Assessment Reason for Hospitalization: opiod use disorder/withdrawall Functional Status/Living Situation Patient Presentation: Shahram was admitted through the ED yesterday evening with c/o withdrawal from cocaine and fentanyl. He also had c/o severe lower back pain. He also had some severe n/v. He was admitted with the plan to initiate suboxone. CM has not been able to speak with Shahram today. He has been minimally rousable, and unable to answer any questions. His girlfriend is also minimally rousable in the room. Provider was able to wake them enough for them to state that they have not done any drugs. Town of Residence: [facility] Significant Other/Family: Local (Светлана Freire) Instrumental Activities of Daily Living (ADLs): Independent Advance Directives Advance Directives: Do you have an Advance Directive: N 03/31/13 14:[address] File [address] [facility]: N 11/26/12 07:28 Date Asked 10/02/24 10/02/24 17:46 AD Date Reviewed COLST On File at [facility] COLST Date Scanned Code Status Resuscitation Status Full Code Insurance Coverage/Financial Issues Insurance: Medicaid Care Team Visit Care Team Role Provider Type Yoselyn Rose Primary Care Provider NON-[facility] STAFF PHYSICIAN KEVEN Francisco Emergency Provider PHYSICIANS IT COORDINATOR Shailesh Rodriguez MD Admit Provider [facility] STAFF PHYSICIAN Attending Provider Discharge Potential Discharge Needs: PCP F/U Appt and Other (recovery supports) Anticipated Barriers to Discharge: Medical Status Patient/Family Education Needs: Review discharge instructions, discuss Ask Me Three Plan: Shahram's plan is unsure at this time. Best plan is that Shahram will f/u with his PCP and continue with his Suboxone program. CM will continue to follow and update the plan. Social Determinants of Health Screening Will the Patient Participate in the Screening?: Declined to provide Do you worry about having a steady place to live?: choose not to answer In the past 12 months, have you had to go without electric, gas, oil or water in your home?: choose not to answer Have you or anyone in your house had to go without enough food to eat?: choose not to answer Has lack of transportation kept you from medical appointments or from doing things needed for daily living?: choose not to answer Has anyone in your life made you feel unsafe or unsupported?: choose not to answer Do you speak a language other than [place] at home?: No Health Related Social Needs Health related social needs: material hardship(utilities) (Z59.12) PFSH All Active Problems Acute opioid withdrawal (Acute) Periorbital cellulitis of left eye (Acute) Abscess of face (Acute) Complicated migraine (Chronic 11/10/13) Spondyloarthropathy (Chronic 07/22/14) [facility] [place] rhematology 06/23, ankylosing spondylitis Social anxiety disorder (Chronic 01/31/18) Asthma (Chronic) Chronic back pain (Chronic) LOW GRADE BACK PAIN WITH KYPHOSIS. Learning difficulties (Chronic) Medical History Dysuria (10/11/12) Gross hematuria (10/09/12) Intestinal infection due to E. coli (04/07/13) Knee pain (11/21/12) Kidney calculi Kidney stones Social History Smoking/Tobacco Use Status: Current every day Tobacco Type: e-cigarettes Smoking risk assessment performed?: Yes Alcohol Intake: former Drug use: Daily Substance use type: marijuana, crack/cocaine and other Details: Cocaine/ Fentanyl last used over 20 hours ago Housing: apartment Do you feel safe at home: Yes Do you feel safe in your relationship?: Yes Readmission Within the Past 30 Days Yes or No: No
[2024-10-03 15:49] VITALS: BP 133/79; PULSE 76; RESP 16; TEMP 37.5; O2SAT 100
[2024-10-03] MEDS: Trimethobenzamide 200 MG/2 ML VIAL IM (16:33)
--- NOTE | 2024-10-03 23:33 | PGE_ITS ---
Date of Service Date of service: 10/03/24 Time of Service: 10:00 Assessment and Plan Assessment and plan (1) Acute opioid withdrawal: Status: Acute Assessment and plan: Will admit patient, initially observation, to initiate Suboxone therapy to treat his OUD. Total of 4 mg of suboxone given in 2 doses; intital COWS scoring at 7 then later at 4 escharous body wounds that could be consistent with inadvertent xylazine intake UDS positive for cocaine THC positive also-in the setting of intractable nausea vomiting Became more lethargic after girlfriend came to see him then both patient and GF were sleeping and needed tactile stimuli to wake up- both denied taking illicit substances Ongoing vomiting- diet changed to NPO except Rx and antiemetics given PRN (2) Chronic back pain: Status: Chronic Assessment and plan: Continue PRN pain meds Discussed with Dr. Rodgers Subjective Subjective Patient reports: still having pain, nausea and vomiting; denies tolerating liquids well, tolerating a regular diet, diarrhea, shortness of breath or fever Exam Narrative Exam Narrative: Constitutional In bed sleepy but arousable able to answer yes/no questions and reposition self before falling back asleep. After increased lethargic period was able to state that he did not take any other illegal substance in his room HENMT: Facial structures with normal appearance Eyes: Well aligned, intact ROM Neuro:alert and oriented to self, person, place. No neurological focal deficit Chest:Chest is symmetrical and normal appearance Resp: clear lung bilaterally Cardio: regular rhythm, S1, S2, no murmur, GI: Abdomen is not distended, soft and non tender, bowel sounds are present : Negative Costovertebral angle tenderness Back/spine/Pelvis: back tenderness, normal alignment Integumentary: Multiple healing scabs dispersed on skin Extremities: strength 5/5 to bilateral lower and upper ext, congruent mood and normal affect. Objective Last Vital Signs Temp 37.5 C 10/03/24 15:49 Pulse 76 10/03/24 15:49 Resp 16 10/03/24 15:49 BP 133/79 10/03/24 15:49 Pulse Ox 100 10/03/24 15:49 Laboratory Results - last 24 hr 10/03/24 06:30 WBC 8.61 RBC 5.41 Hgb 14.3 Hct 42.9 MCV 79 L MCH 26.4 L MCHC 33.3 RDW 15.0 H Plt Count 248 MPV 9.5 Immature Gran % 0.2 Neutrophils % 85.3 Lymphocytes % 6.9 Monocytes % 7.4 Eosinophils % 0.0 Basophils % 0.2 Nucleated RBC % 0.0 Absolute Neutrophils 7.34 H Absolute Lymphocytes 0.59 L Absolute Monocytes 0.64 Absolute Eosinophils 0.00 Absolute Basophils 0.02 Sodium 138 Potassium 3.9 Chloride 103 Carbon Dioxide 26.4 Anion Gap 8.6 BUN 26 H Creatinine 1.2 Est GFR (CKD-EPI 2020) 83.95 Glucose 116 H Calcium 8.5 Time Spent with Patient Time Spent with Patient: >50 minutes Time was spent: preparing to see the patient(eg.review tests), obtaining and/or reviewing separately otained hiistory, ordering medications,tests, procedures, referring, communicating with other health care coordination manager, indepentently interpreting results, counseling the patient and care coordination
--- NOTE | 2024-10-05 09:03 | W.PM.DS.N ---
Date of service: 10/05/24 Time of Service: 09:03 DS: Diagnosis Discharge Diagnosis (1) Acute opioid withdrawal: Status: Acute (2) Chronic back pain: Status: Chronic Discharge Plan Disposition Condition: Stable Discharge Details Reason For Visit: OUD, Back Pain Admit Date/Time: 10/02/24 20:40 Admit Provider: Shailesh Rodriguez Attending Provider: Shailesh Rodriguez Primary Care Provider: Yoselyn Rose [facility] Course Hospital Course: 29 year old make with h/o opiate abuse admitted with exacerbation of chronic back pain in setting of opiate withdrawal. Work up revealed no specific exacerbating factors other than lack of opiates. Patient's pain treated with non-opiate regimen and withdrawal managed with supportive care. Patient then ordered to begin Suboxone. On the evening of the second hospital day patient left AMA because (as reported) his girlfriend was not allowed to stay with him. Home Meds and New Rx's Prescriptions: No Action omeprazole 40 mg capsule,delayed release(DR/EC) 40 mg PO DAILY PRN (Reason: heartburn) Qty: 90 4RF ondansetron 4 mg tablet,disintegrating 4 mg PO Q8H PRN (Reason: nausea and vomiting during migraine headaches) Qty: 60 4RF baclofen 10 mg tablet 10 mg PO TID PRN (Reason: muscle spasm) Qty: 30 1RF Patient Comments: Havent used in a long time rizatriptan [Maxalt-POACHER WRINGER OPERATOR] 10 mg tablet,disintegrating 10 mg PO PRN Qty: 60 4RF Rx Instructions: take 1 po prn migraine. may repeat in 2 hours if no better. Discharge Data Discharge Date/Time-TO BE ENTERED AT DEPARTURE: 10/03/24 19:35 DS: Summary Time Spent with Patient providing and/or coordinating discharge services: Less than 30 minutes Status at Discharge Functional status at discharge: independent ambulation Overall status at discharge: other Mental Status: other (unknown) Speech and Movement: other (unknown) Mood: other (unknown) Affect: other (unknown) Quality:SDOH Health Related Social Needs: Health related social needs material hardship(utilities) (Z59.12) Exam Psych Mental Status: other (unknown) Speech and Movement: other (unknown) Mood: other (unknown) Affect: other (unknown) DS: Data Vitals/I&O Vitals and I&O: Vital Signs Temperature 37.5 C 10/03/24 15:49 Temperature Source Temporal Artery Scan 10/03/24 15:49 Pulse 76 10/03/24 15:49 Respiratory Rate 16 10/03/24 15:49 Respiratory Effort Normal 10/02/24 21:40 Respiratory Depth Normal 10/02/24 21:40 Respiratory Pattern Normal 10/02/24 21:40 Blood Pressure 133/79 10/03/24 15:49 Blood Pressure Position Sitting 10/02/24 16:37 Pulse Oximetry 100 10/03/24 15:49 Oxygen Delivery Method Room Air 10/03/24 15:49 Oxygen Flow Rate 0 10/03/24 15:49 Pain Level 9 10/03/24 14:52 Comment COWS 9 10/03/24 15:49 Data Completed and Pending Labs on day of discharge: Preliminary micro results at discharge 10/02/24 17:15 Blood Culture - Preliminary Blood NO GROWTH 48 HOURS 10/02/24 16:47 Blood Culture - Preliminary Blood NO GROWTH 48 HOURS PFSH All Active Problems Acute opioid withdrawal (Acute) Periorbital cellulitis of left eye (Acute) Abscess of face (Acute) Complicated migraine (Chronic 11/10/13) Spondyloarthropathy (Chronic 07/22/14) [facility] [place] 06/23, ankylosing spondylitis Social anxiety disorder (Chronic 01/31/18) Asthma (Chronic) Chronic back pain (Chronic) LOW GRADE BACK PAIN WITH KYPHOSIS. Learning difficulties (Chronic) Medical History Dysuria (10/11/12) Gross hematuria (10/09/12) Intestinal infection due to E. coli (04/07/13) Knee pain (11/21/12) Kidney calculi Kidney stones Social History Smoking/Tobacco Use Status: Current every day Tobacco Type: e-cigarettes Smoking risk assessment performed?: Yes Alcohol Intake: former Drug use: Daily Substance use type: marijuana, crack/cocaine and other Details: Cocaine/ Fentanyl last used over 20 hours ago Housing: apartment Do you feel safe at home: Yes Do you feel safe in your relationship?: Yes Time Spent with Patient Time Spent with Patient: <45 minutes Time was spent: other (writing discharge summary)
[2024-10-06 11:03] LABS: Lyme Ab w Rflx to Lyme Confirm Negative (Negative)
[2024-10-06 21:12] LABS: Anaplasma phagocytophilum Negative (Negative); B. miyamotoi PCR Negative (Negative); Babesia divergens/MO-1 Negative (Negative); Babesia duncani Negative (Negative); Babesia microti Negative (Negative); Ehrlichia chaffeensis Negative (Negative); Ehrlichia ewingii/canis Negative (Negative); Ehrlichia muris eauclairensis Negative (Negative)
== END 2024-10-03 19:35 | disposition home or self-care (01) ==
LOC: ER 19:14 → MS 21:38
PROVIDERS: Admitting Provider Emergency Medicine; Emergency Provider Physician Assistant; PCP Family Medicine; Visit Provider Emergency Medicine
DX: F11.93 Opioid use, unspecified with withdrawal (principal); G89.29 Other chronic pain; Z79.899 Other long term (current) drug therapy; E46 Unspecified protein-calorie malnutrition; M47.816 Spondylosis without myelopathy or radiculopathy, lumbar region; J45.909 Unspecified asthma, uncomplicated; K21.9 Gastro-esophageal reflux disease without esophagitis; F17.290 Nicotine dependence, other tobacco product, uncomplicated; F12.90 Cannabis use, unspecified, uncomplicated; R11.2 Nausea with vomiting, unspecified; F14.90 Cocaine use, unspecified, uncomplicated; R23.4 Changes in skin texture; Z68.1 Body mass index [BMI] 19.9 or less, adult; Z53.29 Procedure and treatment not carried out because of patient's decision for other reasons
CPT/HCPCS: 00123; 36415; 80048; 80076; 80307; 82550; 83690; 85652; 87040; 87637; 87798; 93005; 96374; 96375; 96376; 99285; 72126; 72129; 72132; 74176; 80320; 81003; 81015; 82140; 83605; 83735; 84484; 85025; 86140; 86618; 93010; 99223; 99233; G0378; J0131; J0780; J1200; J1885; J2060; J2405; J3250; J3490